=== PATIENT | male | born 1965 | race Caucasian/White ===

== ENCOUNTER 2016-07-12 04:54 | Emergency (ER) | payer MEDICARE, MEDICAID ==
[~2016-07-12] VITALS: Ht 180.3 cm; Wt 93.0 kg
[2016-07-12 04:54] VITALS: Ht 180.3 cm; Wt 93.0 kg
[~2016-07-12 04:54] MED LIST: CEPH-583 PO; PARO20TA43 PO
--- OUTSIDE RECORDS SUMMARY | 2016-07-12 05:05 | XMS REPORT | Continuity of Care Document ---
Author Author [facility] Organization [facility] Address Unknown Phone Unavailable Support Name Relationship Address Phone NAHUM CARDONA APRN Caregiver [address] [place] [address] Unavailable JAC ALLENK Sai BENITEZ Caregiver [address] [place] [place] [address] Unavailable ANDREAS GRAHAM Next Of Kin Unknown [phone] Insurance Providers Guarantor Renae Drummond [place] [address] Email DENIED 16 Payer [facility] State Plan Policy Number [id number] Subscriber's Name Renae Drummond Relationship 18 Self Effective Date 16 Expiration Date 16 Payer Medicare Policy Number [id number] Subscriber's Name Renae Drummond Relationship 18 Self Chief Complaint and Reason for Visit Chief Complaint Suicide Ideation/Attempt Reason for Visit [id number] Problems Active Problems Medical Problem Onset Date Status Sprain of right ankle Unknown Acute Past Problems Medical Problem Onset Date Suicidal thoughts Unknown UTI (urinary tract infection) Unknown Medications Current Home Medications Medication Dose Units Route Directions Days Qty Instructions Start Date Cephalexin (Keflex) 500 Mg Capsule 1 Cap Oral Three Times A Day 10 Days 30 Capsule 05/18/16 Paroxetine Hcl (Paxil) 20 Mg Tablet 20 Mg Oral Bedtime 06/02/15 Social History Social History Problem Response Recorded Date/Time Onset Date Status Chewing Tobacco Status No 05/18/2016 1:24pm Not Applicable Not Applicable Hx Substance Use No 05/18/2016 1:24pm Not Applicable Not Applicable Hx Alcohol Use Y RECENTLY DRINKING HEAVILY/LAST FEW DAYS 05/18/2016 1:24pm Not Applicable Not Applicable Query Response Start Date Stop Date Smoking Status Current every day smoker Hospital Discharge Instructions No hospital discharge instructions. Plan of Care Discharge Date 05/18/16 4:30pm Disposition 66 TO [facility] Condition at Discharge Improved Instructions/Education Provided Suicide Prevention for Adults (ED) Prescriptions See Medication Section Referrals NAHUM CARDONA APRN Address: [address] [place] [address] [phone] [email or web address] Order Date: 1 Day Care Plan and Goals Physician Care Plan Problem: Suicidal Thoughts, UTI Goal: Follow up with primary care provider Instructions: Take medications and follow care plan as discussed/written Functional Status No functional status results. Allergies, Adverse Reactions, Alerts Allergen Type Severity Reaction Status Last Updated adhesive tape Allergy Unknown RED RASH Active 05/18/16 Ketorolac Allergy Unknown Active 05/18/16 Quetiapine Allergy Unknown Active 05/18/16 Immunizations Query Response on File Recorded Date/Time Tdap Vaccine Hx UNKNOWN 06/02/15 3:24pm Vital Signs Acute Vital Signs Vital Response Date/Time Temperature (Fahrenheit) 97.0 deg F (96.8 - 99.1) 05/18/2016 4:30pm Temperature (Calculated Celsius) 36.76446 degrees C (36.0 - 37.3) 05/18/2016 4:30pm Pulse Rate (adult) 78 bpm (60 - 100) 05/18/2016 4:30pm Respiratory Rate 16 breaths/min (10 - 20) 05/18/2016 4:30pm O2 Sat by Pulse Oximetry 97 % (90 - 100) 05/18/2016 4:30pm Blood Pressure 142/90 mm Hg 05/18/2016 4:30pm Height (Feet) 5 feet 05/18/2016 12:40pm Height (Inches) 11.00 inches 05/18/2016 12:40pm Weight (Kilograms) 82.200 kg 05/18/2016 12:40pm Body Mass Index (BMI) 25.0 05/18/2016 12:40pm Results Laboratory Results Test Name Result Units Flags Reference Collection Date/Time Result Date/ Time Comments White Blood Count 6.9 T/MM3 4.5-11.0 05/18/2016 1:25pm 05/18/2016 1: 55pm Red Blood Count 4.10 M/MM3 L 4.50-5.90 05/18/2016 1:25pm 05/18/2016 1: 55pm Hemoglobin 12.4 GM/DL L 13.5-17.5 05/18/2016 1:25pm 05/18/2016 1:55pm Hematocrit 37.1 % L 41-53 05/18/2016 1:2505/18/2016 1:55pm Mean Corpuscular Volume 90.5 UM3 80-100 05/18/2016 1:05/18/2016 1: 55pm Mean Corpuscular Hemoglobin 30.2 UUG 26-34 05/18/2016 1:2016 1:55pm Mean Corpuscular Hemoglobin Concent 33.4 GM/DL 31-37 05/18/2016 1:05/18/2016 1:55pm RDW Standard Deviation 52.5 FL H 36.9-50.2 05/18/2016 1:05/18/2016 1:55pm Platelet Count 130 T/MM3 130-400 05/18/2016 1:05/18/2016 1:55pm Mean Platelet Volume 12.2 UM3 9.4-12.4 05/18/2016 1:05/18/2016 1: 55pm Neutrophils (%) (Auto) 65.2 % 33-66 05/18/2016 1:05/18/2016 1: 55pm Lymphocytes (%) (Auto) 23.7 % 23-45 05/18/2016 1:05/18/2016 1: 55pm Monocytes (%) (Auto) 9.1 % H 0-9.0 05/18/2016 1:05/18/2016 1:55pm Eosinophils (%) (Auto) 1.3 % 0-4 05/18/2016 1:05/18/2016 1:55pm Basophils (%) (Auto) 0.6 % 0-2 05/18/2016 1:05/18/2016 1:55pm Immature Granulocyte % (Auto) 0.1 % 0.0-0.5 05/18/2016 1:2016 1:55pm Absolute Neutrophils (auto) 4.5 T/MM3 1.8-7.7 05/18/2016 1:2016 1:55pm Absolute Lymphocytes (auto) 1.6 T/MM3 1-4.8 05/18/2016 1:2016 1:55pm Absolute Monocytes (auto) 0.6 T/MM3 0-0.8 05/18/2016 1:05/18/2016 1:55pm Absolute Eosinophils (auto) 0.1 T/MM3 0-0.5 05/18/2016 1:25pm 2016 1:55pm Absolute Basophils (auto) 0.0 T/MM3 0-0.2 05/18/2016 1:25pm 05/18/2016 1:55pm Absolute Immature Granulocyte (auto 0.01 T/MM3 0.00-0.03 05/18/2016 1: 25pm 05/18/2016 1:55pm Icterus Index < 2 0-7 05/18/2016 1:2505/18/2016 2:31pm Chemistry Specimen Hemolysis < 15 0-25 05/18/2016 1:2505/18/2016 2 :31pm 0-25: Specimen Exhibited No Hemolysis. Turbidity < 20 0-20 05/18/2016 1:05/18/2016 2:31pm Sodium Level 142 MEQ/L 134-144 05/18/2016 1:05/18/2016 2:31pm Potassium Level 4.1 MEQ/L 3.6-5 05/18/2016 1:05/18/2016 2:31pm Chloride Level 107 MEQ/L 98-107 05/18/2016 1:05/18/2016 2:31pm Carbon Dioxide Level 24 MEQ/L 22-30 05/18/2016 1:05/18/2016 2: 31pm Anion Gap 11 MEQ/L 5-15 05/18/2016 1:05/18/2016 2:31pm Blood Urea Nitrogen 11.0 MG/DL 9-20 05/18/2016 1:05/18/2016 2: 31pm Creatinine 0.6 MG/DL L 0.8-1.5 05/18/2016 1:05/18/2016 2:31pm BUN/Creatinine Ratio 18 RATIO 6-26 05/18/2016 1:05/18/2016 2:31pm Glomerular Filtration Rate Calc 143 05/18/2016 1:05/18/2016 2: 31pm Glucose Level 77 MG/DL 75-110 05/18/2016 1:05/18/2016 2:31pm Calculated Osmolality 271 MOSM/KG 261-280 05/18/2016 1:05/18/2016 2:31pm Calcium Level 8.8 MG/DL 8.4-10.2 05/18/2016 1:05/18/2016 2:31pm Total Bilirubin 1.40 MG/DL H 0.20-1.30 05/18/2016 1:05/18/2016 2: 31pm Alkaline Phosphatase 77 U/L 38-126 05/18/2016 1:05/18/2016 2:31pm Total Protein 7.0 G/DL 6.3-8.2 05/18/2016 1:05/18/2016 2:31pm Albumin 3.5 G/DL 3.5-5.0 05/18/2016 1:05/18/2016 2:31pm Globulin 3.5 G/DL 2.4-3.6 05/18/2016 1:05/18/2016 2:31pm Albumin/Globulin Ratio 1.0 RATIO L 1.1-2.2 05/18/2016 1:05/18/2016 2:31pm Aspartate Amino Transf (AST/SGOT) 157 U/L H 17-59 05/18/2016 1:10/2016 2:31pm Alanine Aminotransferase (ALT/SGPT) 81 U/L H 21-72 05/18/2016 1:10/2016 2:31pm Acetaminophen Level < 10 UG/ML L 10-30 05/18/2016 1:05/18/2016 2: 31pm TOXIC <4 HR POST INGESTION: >150 MG/L; TOXIC <12 HR POST INGESTION: >50 MG/L Salicylates Level < 1.0 MG/DL L 2-20 05/18/2016 1:05/18/2016 2: 31pm Alcohol, Quantitative 108 MG/DL <10 05/18/2016 1:05/18/2016 2: 31pm Thyroid Stimulating Hormone (TSH) 0.99 MIU/L 0.47-4.68 05/18/2016 1: 05/18/2016 3:39pm Urine Collection Type CLEANCATCH-MIDSTREAM 05/18/2016 1:30pm 2016 1:55pm Urine Color YELLOW YELLOW 05/18/2016 1:30pm 05/18/2016 1:55pm Urine Turbidity CLEAR CLEAR 05/18/2016 1:30pm 05/18/2016 1:55pm Urine Specific Bicknell >=1.030 H 1.015-1.025 05/18/2016 1:30pm 2016 1:55pm Urine pH 5.5 5.0-8.0 05/18/2016 1:30pm 05/18/2016 1:55pm Urine Leukocyte Esterase NEGATIVE NEGATIVE 05/18/2016 1:30pm 2016 1:55pm Urine Nitrite POSITIVE A NEGATIVE 05/18/2016 1:30pm 05/18/2016 1:55pm Urine Protein 1+ A NEGATIVE 05/18/2016 1:30pm 05/18/2016 1:55pm Urine Glucose (UA) NEGATIVE NEGATIVE 05/18/2016 1:30pm 05/18/2016 1: 55pm Urine Ketones TRACE A NEGATIVE 05/18/2016 1:30pm 05/18/2016 1:55pm Urine Urobilinogen 2.0 EU/DL NORMAL 05/18/2016 1:30pm 05/18/2016 1: 55pm Urine Bilirubin 2+ A NEGATIVE 05/18/2016 1:30pm 05/18/2016 1:55pm Urine Blood NEGATIVE NEGATIVE 05/18/2016 1:30pm 05/18/2016 1:55pm Urine WBC NONE SEEN /HPF 0-5 05/18/2016 1:30pm 05/18/2016 2:03pm Urine RBC NONE SEEN /HPF 0-3 05/18/2016 1:30pm 05/18/2016 2:03pm Urine Squamous Epithelial Cells 0-5 05/18/2016 1:30pm 05/18/2016 2: 03pm Urine Bacteria TRACE H NEGATIVE 05/18/2016 1:30pm 05/18/2016 2:03pm Urine Mucus PRESENT 05/18/2016 1:30pm 05/18/2016 2:03pm Urine Culture Indicated CULT REFLEXED &SETUP 05/18/2016 1:30pm 10/2016 2:03pm Microbiology Results Procedure Source Organism/Result Collection Date/Time Result Date/Time Result Status Urine Culture Urine, Clean Catch-Midstream CULTURE INITIATED - RESULTS PENDING 05/18/2016 2:03pm 05/18/2016 2:04pm Preliminary Name: RENAE DRUMMOND Unit #: [id number] : 1965 Sex: M Admit Date: Loc / Svc: ED Discharge Date: DIAGNOSTIC IMAGING REPORT Report #: [id number] [facility] JAMARI Deras Indication: ITS.REASON: Fall with right leg pain PROCEDURE: TIB-FIB RIGHT 2 VIEW: Encounter: Initial Comparison: None Findings: There is no acute fracture, dislocation or malalignment identified. Impression: No acute osseous abnormality. . Procedures No known history of procedures. Encounters Encounter Location Arrival/Admit Date Discharge/Depart Date Attending Provider Departed Emergency Room [facility] 05/18/16 12:36pm 05/18/16 4: 30pm MAURY ALLEN DO Recent Diagnosis
--- NOTE | 2016-07-12 05:14 | ERPDOC ---
Departure Disposition Decision Date: Jul 12, 2016 Disposition Decision Time: 08:49 (TAMMY EL DO) Disposition: 01 DISCHARGED HOME, SELF-CARE Impression Impression (BECK FERGUSON MD) Impression: Primary Impression: Back pain Back pain location: low back pain Chronicity: acute Back pain laterality: right Sciatica presence: with sciatica Sciatica laterality: sciatica of right side Qualified Codes: M54.41 - Lumbago with sciatica, right side Severity: Moderate (TAMMY EL DO) Condition: Improved Seen By: Physician only (TAMMY EL DO) Referrals: NAHUM CARDONA APRN (Family) 1 Day Patient Instructions: Acute Low Back Pain (ED), Low Back Strain (ED), Lower Back Exercises (ED), Sciatica (ED) Problems/Meds/Labs Reviewed?: Yes Medications reviewed and manag: Yes (TAMMY EL DO) Follow up care ordered?: Yes Mental Status: Alert, Oriented (TAMMY EL DO) Scripts Methylprednisolone (Medrol) 4 Mg Tab.ds.pk 4 MG PO DIRECTED for spasm, #15 0 Refills Prov: TAMMY EL DO 07/12/16 Cyclobenzaprine HCl (Cyclobenzaprine HCl) 10 Mg Tablet 1 TAB PO TID for SPASMS, #15 TAB 0 Refills Prov: TAMMY EL DO 07/12/16 Ibuprofen (Ibuprofen) 800 Mg Tablet 1 TAB PO Q8H Y for PAIN, #30 TAB 0 Refills Prov: TAMMY EL DO 07/12/16 HPI - Back Pain General Chief Complaint: Low Back Pain or Injury Stated Complaint: BACK,RIGHT LEG PAIN Time Seen by Provider: 05:04 Source: patient Exam Limitations: no limitations (BECK FERGUSON MD) Time Seen by Provider: 10:54 (TAMMY EL DO) HPI - Back Pain Initial Comments At 8:30 PM last night, the patient began having anterior right thigh pain with a severe cramping sensation to the right quadricep. Patient then began having severe right lumbar back pain, coming in waves and spasms. Patient states that the pain becomes so severe that he gets short of breath and is nauseated. Patient has never had pain this severe before, but does have chronic back pain. Patient is currently in [facility] for alcohol rehabilitation. 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 Patient was given 50 g of fentanyl and 10 mg ketamine in route for severe back pain. Occurred At: home Onset/Timing: Rapid Duration: 6-12 hrs Severity/Quality: severe Location: lumbar spine Associated Sypmtoms: muscle spasms, DENIES: fever, loss of bladder control, loss of bowel control, lower back pain, numbness in legs/feet, sensory/motor loss, tingling in legs/feet, weakness Hx of Similar Symptoms: Yes (BECK FERGUSON MD) Allergies: Coded Allergies: adhesive tape (Verified Allergy, Unknown, RED RASH, 07/12/16) ketorolac (Verified Allergy, Unknown, 07/12/16) quetiapine (Verified Allergy, Unknown, 07/12/16) Past History Past Medical History Musculoskeletal: back pain Psychological: alcohol abuse, drug abuse (BECK FERGUSON MD) Surgical History Denies Surgeries (BECK FERGUSON MD) Social History Smoking Status: Never smoker Does patient use chewing tobac: No Second Hand Exposure: No Substance Use Type: does not use Alcohol Intake: daily (BECK FERGUSON MD) Record Review Pertinent history updated: Yes (BECK FERGUSON MD) Review of Systems Constitutional Constitutional: DENIES: appetite decrease, appetite increase, chills, dizziness , fever, weakness (BECK FERGUSON MD) ENMT Ears: DENIES: pain Hearing: DENIES: hearing loss, tinnitus Balance: DENIES: vertigo Mouth/Throat: DENIES: change in swallowing, change in voice, hoarsness, painful swallowing, sore throat (BECK FERGUSON MD) Cardiovascular Cardiac: DENIES: chest pain, dyspnea on exertion Rhythm/Rate: DENIES: irregular beat, palpitations, tachycardia Vascular: DENIES: pedal edema (BECK FERGUSON MD) Pulmonary Respiratory: DENIES: cough, dyspnea, pleuritic chest pain (BECK FERGUSON MD) GI Upper Abdomen: DENIES: dysphagia, heartburn/indigestion, nausea, pain, vomiting Lower Abdomen: DENIES: blood in stool, constipation, diarrhea, pain (BECK FERGUSON MD) General: DENIES: burning, dysuria, frequency, pain, urgency (BECK FERGUSON MD) Musculoskeletal General: cramps, pain, spasm, tenderness, DENIES: atrophy of muscles, gout, joint pain, joint swelling, weakness (BECK FERGUSON MD) Integumentary Skin: DENIES: rash, sores (BECK FERGUSON MD) Neurological General: DENIES: headache, numbness, tingling, vertigo, weakness (BECK FERGUSON MD) Psychiatric Psychiatric: DENIES: anxiety, depression, nervousness (BECK FERGUSON MD) Physical Exam General General Nourishment: well nourished, well developed, appears stated age General Body Habitus: disheveled (BECK FERGUSON MD) Vitals and Pain First Documented Vital Signs Date Time Temp Pulse Resp B/P Pulse Ox O2 Delivery O2 Flow Rate FiO2 07/12/16 04:54 97.4 109 24 176/99 97 Room Air (TAMMY EL DO) Vitals and Pain Weight: Kilograms: Height (feet): 5 Height (inches): 11.00 Triage Pain Scale: (BECK FERGUSON MD) RN VS reviewed by Provider: Yes (BECK FERGUSON MD) Normal Exams: Head: Normocephalic w/o trauma Eyes: Pupils are PERRLA w/ EOMI, No scleral icterus, irritation, or foreign bodies noted ENMT: No facial trauma, nasal exudates, pharyngeal erythema, or exudates are noted Neck: Full range of motion, without adenopathy, JVD, bruits or thyromegaly Chest/Resp: Clear all caceres, with good airflow, and symmetry bilaterally CV: Regular rate and rhythm, without murmur or gallop, Pulses 2+ all extremities, capillary refill, <2 seconds all ext., no pedal edema noted Abdomen: Bowel sounds positive, soft, non-tender, non-distended, no hepatosplenomegaly, masses or bruits noted Lymphatic: No lymphadenopathy, or lymphedema noted Integumentary: No rashes, hives, or bruising noted, hair and nails, without abnormality Neurologic: Patient is alert, and oriented, cranial nerves, motor/sensory/ cerebellar, exams w/o gross deficits, to observation Psychiatric: Patient exhibits, appropriate attention, emotion and affect (BECK FERGUSON MD) Musculoskeletal (brief) Musculoskeletal Brief: FOUND: spasm, tenderness, NOT FOUND: deformity, loss of motion Comments She has significant right lumbar spasms with reproducible spasticity on palpation, patient also has significant tenderness and spasms to the right quadricep. (BECK FERGUSON MD) Progress Results/Orders Orders Procedure Category Date Status Time Iv Lock (Ed Only) EDM 07/12/16 Transmitted 05:04 Cbc W/Auto LAB 07/12/16 Complete Diff-Reflex Manual Cmp - Comprehensive LAB 07/12/16 Complete Metabolic Drug Screen LAB 07/12/16 Complete Urine-Test At [facility] 05:04 Ethanol LAB 07/12/16 Complete Ketorolac (Toradol) PHA 07/12/16 Complete 05:15 Metoclopramide PHA 07/12/16 Complete (Reglan Inj) 05:15 Orphenadrine (Norflex) PHA 07/12/16 Complete 05:15 Normal Saline (Normal PHA 07/12/16 Complete Saline Iv) 05:15 Fentanyl (Fentanyl) PHA 07/12/16 Complete 05:30 Ck - Cpk LAB 07/12/16 Complete Hydromorphone PHA 07/12/16 Complete (Dilaudid) 07:15 Ct Lumbar Spine W/O CT 07/12/16 Resulted Contrast (NIKKO,TAMMY DO) Lab Results Laboratory Tests Test 07/12/16 05:27 07/12/16 05:44 07/12/16 06:27 White Blood Count 9.3T/MM3 Red Blood Count 4.53M/MM3 Hemoglobin 13.9GM/DL Hematocrit 41.0% Mean Corpuscular Volume 90.5UM3 Mean Corpuscular Hemoglobin 30.7UUG Mean Corpuscular Hemoglobin Concent 33.9GM/DL RDW Standard Deviation 52.4FL Platelet Count 97T/MM3 Mean Platelet Volume 12.9UM3 Immature Granulocyte % (Auto) 0.2% Neutrophils (%) (Auto) 46.4% Lymphocytes (%) (Auto) 36.6% Monocytes (%) (Auto) 9.5% Eosinophils (%) (Auto) 6.4% Basophils (%) (Auto) 0.9% Absolute Immature Granulocyte (auto 0.02T/MM3 Absolute Neutrophils (auto) 4.3T/MM3 Absolute Lymphocytes (auto) 3.4T/MM3 Absolute Monocytes (auto) 0.9T/MM3 Absolute Eosinophils (auto) 0.6T/MM3 Absolute Basophils (auto) 0.1T/MM3 Turbidity < 20 Sodium Level 143MEQ/L Potassium Level 4.0MEQ/L Chloride Level 107MEQ/L Carbon Dioxide Level 22MEQ/L Anion Gap 14MEQ/L Blood Urea Nitrogen 15.0MG/DL Creatinine 0.8MG/DL Glomerular Filtration Rate Calc 103 BUN/Creatinine Ratio 19RATIO Glucose Level 99MG/DL Calculated Osmolality 276MOSM/KG Calcium Level 9.8MG/DL Total Bilirubin 1.30MG/DL Icterus Index < 2 Aspartate Amino Transf (AST/SGOT) 187U/L Alanine Aminotransferase (ALT/SGPT) 145U/L Alkaline Phosphatase 101U/L Total Creatine Kinase 120U/L Total Protein 8.1G/DL Albumin 3.9G/DL Globulin 4.2G/DL Albumin/Globulin Ratio 0.9RATIO Chemistry Specimen Hemolysis < 15 Alcohol, Quantitative <10MG/DL Urine Opiates Screen NegativeNG/ML Urine Oxycodone Screen NegativeNG/ML Urine Methadone Screen NegativeNG/ML Urine Propoxyphene Screen NegativeNG/ML Urine Barbiturates Screen NegativeNG/ML Urine Tricyclic Antidepressants NegativeNG/ML Urine Phencyclidine Screen NegativeNG/ML Urine Amphetamines Screen NegativeNG/ML Urine Methamphetamines Screen NegativeNG/ML Urine Benzodiazepines Screen NegativeNG/ML Urine Cocaine Screen NegativeNG/ML Urine Cannabinoids Screen NegativeNG/ML Lab Scanned Report REFERENCE [id number] (TAMMY EL DO) Medications Current ED Medications Ketorolac Tromethamine (Toradol) 30 mg O ONCE IV ; Start 07/12/16 at 05:15; Stop 07/12/16 at 05:16; Status DC Metoclopramide HCl (REGLAN Inj) 10 mg O ONCE IV Last administered on 07/12/16 05:45; Start 07/12/16 at 05:15; Stop 07/12/16 at 05:16; Status DC Orphenadrine Citrate 60 mg 60 mg O ONCE IV Last administered on 07/12/16 05:48 ; Start 07/12/16 at 05:15; Stop 07/12/16 at 05:16; Status DC Sodium Chloride (Normal Saline IV) 1,000 ml @ 0 mls/hr Q0M ONCE IV Last administered on 07/12/16 05:15; Start 07/12/16 at 05:15; Stop 07/12/16 at 05:16; Status DC Fentanyl (Fentanyl) 100 mcg O ONCE IV Last administered on 07/12/16 06:00; Start 07/12/16 at 05:30; Stop 07/12/16 at 05:31; Status DC Hydromorphone HCl (Dilaudid) 1 mg O ONCE IV Last administered on 07/12/16 07: 16; Start 07/12/16 at 07:15; Stop 07/12/16 at 07:16; Status DC (TAMMY EL DO) Progress Progress Pt goes in and out of severe spasms of pain and is near hysterical when the pains hit. Pt became very aggressive with nursing staff when examiner was not in the room. Pt warned sternly that we will attend to his needs as soon as possible and to remain as calm as he could without aggression toward nursing staff. Pt given Toradol, Norflex, Reglan, and 1LNS - cbc - cmp - uds - etoh - (BECK FERGUSON MD) Progress Patient is feeling better following medications, wanting to go home. Patient denies changes in Bladder or Bowel Movements. No Saddle anesthesia Patient is unsure if he is allergic to Ketorolac. States he can take Motrin without issue or allergy Patient ambulatory in the ER without difficulty (TAMMY EL DO) CT CT : Reason for Exam: Back Pain CT: Other (L-Spine, No COntrast) Interpretation: Abnormal, Reviewed Written Report (DDD and Facet Disease, greates R L4-L5) (TAMMY EL DO) BECK FERGUSON MD Jul 12, 2016 05:14 TAMMY EL DO Jul 12, 2016 08:51
[2016-07-12] MEDS ORDERED: METOCLOPRAMIDE 10mg/2ml INJECTION IV ONE (05:15)
[2016-07-12] MEDS ORDERED: KETOROLAC 30mg/ml INJECTION IV ONE (05:15)
[2016-07-12] MEDS ORDERED: ORPHENADRINE 60mg/2ml INJECTION IV ONE (05:15)
[2016-07-12] MEDS ORDERED: NORMAL SALINE 1,000 ML IV ONE (05:15)
--- NOTE | 2016-07-12 05:20 | NUR ---
PT BEHAVIOR PT CONTINUES TO WRITHE IN PAIN, IS RESTLESS, AND BECOMING INCREASINGLY AGITATED. PT DEMANDING SOMETHING TO DRINK AND PAIN MEDICATION - RN TOLD PT DR WOULD BE ASKED FOR ORDERS FOR BOTH. ASKED PT IF HE'D LIKE A WARM BLANKET FOR HIS CRAMPING LEG, HE AGRESSIVELY DEMANDED WATER AND PAIN MEDICATIONS. THIS RN STEPPED OUT OF ROOM, NOTIFIED DR OF PT REQUESTS, AND GOT WATER FOR PT. WHEN RETURNED TO PT ROOM WITH WATER, WATER GIVEN TO PT, AND HEAD OF BED SLIGHTLY RAISED TO PREVENT PT FROM CHOKING. WHEN HOB ELEVATED 'JUST A LITTLE BIT' PER PT REQUEST', PT YELLED OUT IN PAIN, AND BECAME VERBALLY AGGRESSIVE AND LUNGED TOWARDS THIS RN WITH UPPER BODY. DR NOTIFIED OF PT BEHAVIOR AND SITUATION. DR TO BEDSIDE.
[2016-07-12] MEDS ORDERED: FENTANYL 100mcg/2ml INJECTION IV ONE (05:30)
[2016-07-12 05:51] LABS: BASOPHILS # (AUTO) 0.1 T/MM3 (0-0.2); BASOPHILS % (AUTO) 0.9 % (0-2); EOSINOPHILS # (AUTO) 0.6 T/MM3 (0-0.5); EOSINOPHILS % (AUTO) 6.4 % (0-4); HGB - HEMOGLOBIN 13.9 GM/DL (13.5-17.5); IMMATURE GRANULOCYTE # (AUTO) 0.02 T/MM3 (0.00-0.03); IMMATURE GRANULOCYTE % (AUTO) 0.2 % (0.0-0.5); LYMPHOCYTES # (AUTO) 3.4 T/MM3 (1-4.8); LYMPHOCYTES % (AUTO) 36.6 % (23-45); MEAN CORPUSCULAR HGB 30.7 UUG (26-34); MEAN CORPUSCULAR HGB CONC(MCHC 33.9 GM/DL (31-37); MEAN CORPUSCULAR VOLUME 90.5 UM3 (80-100); MEAN PLATELET VOLUME 12.9 UM3 (9.4-12.4); MONOCYTES # (AUTO) 0.9 T/MM3 (0-0.8); MONOCYTES % (AUTO) 9.5 % (0-9.0); NEUTROPHILS #(AUTO)-ABSOLUTE 4.3 T/MM3 (1.8-7.7); NEUTROPHILS % (AUTO) 46.4 % (33-66); RED BLOOD COUNT 4.53 M/MM3 (4.50-5.90); WBC - WHITE BLOOD COUNT 9.3 T/MM3 (4.5-11.0)
[2016-07-12 06:01] LABS: ALBUMIN 3.9 G/DL (3.5-5.0); ALBUMIN/GLOBULIN RATIO 0.9 RATIO (1.1-2.2); ALKALINE PHOSPHATASE 101 U/L (38-126); ALT (SGPT) 145 U/L (21-72); ANION GAP 14 MEQ/L (5-15); AST (SGOT) 187 U/L (17-59); BUN/CREATININE RATIO 19 RATIO (6-26); CALCIUM 9.8 MG/DL (8.4-10.2); CHLORIDE 107 MEQ/L (98-107); CO2 - CARBON DIOXIDE 22 MEQ/L (22-30); CREATININE 0.8 MG/DL (0.8-1.5); ETHANOL <10 MG/DL (<10); GLOMERULAR FILTRATION RATE 103; GLUCOSE 99 MG/DL (75-110); SODIUM 143 MEQ/L (134-144); TOTAL PROTEIN 8.1 G/DL (6.3-8.2)
--- NOTE | 2016-07-12 06:08 | NUR ---
TORADOL PT IS ALLERGIC TO TORADOL, CAUSES HIVES. MED WASTED AND PROVIDER NOTIFIED.
[2016-07-12 06:16] LABS: AMPHETAMINE SCREEN,URINE NEGATIVE; BARBITURATE SCREEN,URINE NEGATIVE; BENZODIAZEPINES SCREEN,URINE NEGATIVE; CANNABINOID SCREEN,URINE NEGATIVE; COCAINE SCREEN,URINE NEGATIVE; METHADONE SCREEN, URINE NEGATIVE; METHAMPHETAMINE SCREEN, URINE NEGATIVE; OPIATE SCREEN,URINE NEGATIVE; PHENCYCLIDINE SCREEN,URINE NEGATIVE; TRICYCLIC ANTIDEPRESSANT,URINE NEGATIVE
[2016-07-12] MEDS ORDERED: LISI10TA7 PO (06:37)
[2016-07-12] MEDS ORDERED: HYDROMORPHONE 2mg/ml INJECTION IV ONE (07:15)
--- NOTE | 2016-07-12 07:54 | NUR ---
PROVIDER DR. EL IN ROOM WITH PT.
--- NOTE | 2016-07-12 08:41 | DI ---
Indication: ITS.REASON: Severe back pain, reports prior surgeries PROCEDURE: CT LUMBAR SPINE W/O CONTRAST: Encounter: Initial Comparison: None Technique: Axial noncontrast CT imaging of the lumbar spine was performed with coronal and sagittal two-dimensional reformats. Automated Exposure Control and Iterative Reconstruction dose reducing techniques were utilized. FINDINGS: The alignment of the lumbar spine is normal for the patient's age. No fractures or traumatic subluxation of the lumbar spine is evident. Moderate disk space narrowing at L5-S1 with mild bilateral bony foraminal stenosis. Right central and foraminal disk protrusion at L4-L5 causing at least mild central canal narrowing with effacement of the right lateral recess and moderate right neural foraminal stenosis. Mild left foraminal narrowing. Mild central disk bulge at L3-L4 with mild central canal narrowing. No significant neural foraminal stenosis. No significant disk herniation or central canal narrowing at L2-L3. No neural foraminal stenosis. The L1-L2 level appears normal. The paraspinal soft tissues and spinal canal are otherwise unremarkable in appearance. IMPRESSION: 1. No evidence for acute traumatic injury of the lumbar spine. 2. Degenerative disk and facet disease of the lower lumbar spine, greatest on the right at L4-L5. .
[2016-07-12] MEDS ORDERED: METH4TAB3 PO (08:54)
[2016-07-12] MEDS ORDERED: IBUP-1547 PO (08:54)
[2016-07-12] MEDS ORDERED: CYCL-375 PO (08:54)
[2016-07-12 09:05] VITALS: BP 148/66; PULSE 78; RESP 16; TEMP 98; O2SAT 100
== END 2016-07-12 09:05 | disposition home or self-care (01) ==
LOC: ED 04:54
DX: M54.41 Lumbago with sciatica, right side (principal); Z79.899 Other long term (current) drug therapy
CPT/HCPCS: 72131; 80053; 80306; 80307; 82550; 85025; 96361; 96374; 96375; 99284; J1170; J2360; J2765; J3010; J7030

== ENCOUNTER → 2016-07-19 | Outpatient (CLI) | payer MEDICARE, MEDICAID ==
[~2016-07-19] MED LIST changes: -CEPH-583 PO; +CYCL-375 PO; +IBUP-1547 PO; +LISI10TA7 PO; +METH4TAB3 PO
--- NOTE | 2016-07-19 13:50 | DI ---
Indication: ITS.REASON: M54.31 Sciatica, right side low-back and right leg pain PROCEDURE: MRI LUMBAR SPINE W/O CONTRAST: Encounter: Initial Comparison: CT lumbar spine dated July 12, 2016 Technique: Multiplanar multisequence MR imaging of the lumbar spine was performed without contrast. Findings: Alignment lumbar spine is stable from the recent comparison. No acute fracture or subluxation seen. Bone marrow signal intensity is normal. Conus medullaris terminates normally at L1. Possible hyperdense cyst in the lower pole left kidney. Segmental analysis: L1-L2: Normal L2-L3: Normal L3-L4: Central disk protrusion resulting in mild central canal narrowing and narrowing of the lateral recesses. No true neural foraminal stenosis however. Small high intensity zone present. L4-L5: Central disk bulge without significant central canal stenosis. Degenerative facet hypertrophy and a right lateral osteophyte contributing to severe right neural foraminal stenosis and impingement on the right L4 nerve root. Moderate left neural foraminal stenosis. L5-S1: Small central bulge without central canal stenosis. Mild degenerative facet disease contributing to mild bilateral neural foraminal narrowing. Impression: Right-sided nerve root impingement at L4-L5. .
== END ==
LOC: IMA 11:53
PROVIDERS: ATTEND Registered Nurse
DX: M54.31 Sciatica, right side (principal); G54.8 Other nerve root and plexus disorders

== ENCOUNTER 2017-02-12 08:09 | Inpatient (IN) ==
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
[2017-02-12] MEDS ORDERED: FentaNYL 100 MCG/2 ML INJECTION IVP ONE ×2 (08:29→11:07)
--- OUTSIDE RECORDS SUMMARY | 2017-02-12 09:46 | External Medical Summary | Continuity Of Care Document ---
:1965 Author Organization [facility] Address [address] [place] [address] Phone Care Team Providers Name Role Phone HUSSEIN PRICE MD Unavailable Unavailable RAEGAN BELL DO Consulting Provider Results Lab Results Visit/Account #[id number] (November 23, 2012 3:11am - November 23, 2012 7:14am) Test Result Reported Date/Time COMPLETE BLOOD COUNT WHITE BLOOD COUNT(4.0-11.0 10E3/UL) 12.6 10E3/UL November 23, 2012 3:31am RED BLOOD COUNT(4.40-5.90 10E6/UL) 4.51 10E6/UL November 23, 2012 3:31am HEMOGLOBIN(13.0-18.0 G/DL) 13.2 G/DL November 23, 2012 3:31am HEMATOCRIT(39.0-54.0 %) 40.5 % November 23, 2012 3:31am MEAN CORPUSCULAR VOLUME(80.0-100.0 FL) 89.8 FL November 23, 2012 3:31am MEAN CORPUSCULAR HEMOGLOBIN(27.0-34.0 PG) 29.3 PG November 23, 2012 3:31am MEAN CORPUSCULAR HGB CONC(33.0-37.0 G/DL) 32.6 G/DL November 23, 2012 3:31am RED CELL DISTRIBUTION WIDTH(11.0-15.0 %) 17.2 % November 23, 2012 3:31am 777-3: PLATELET COUNT(130-400 10E3/UL) 165 10E3/UL November 23, 2012 3:31am MEAN PLATELET VOLUME(7.4-11.0 FL) 11.6 FL November 23, 2012 3:31am NUCLEATED RBCS (AUTO)(0-0 %) 0 % November 23, 2012 3:31am COMPLETE METABOLIC PROFILE GLUCOSE(70-110 MG/DL) 114 MG/DL November 23, 2012 3:46am BLOOD UREA NITROGEN(6-20 MG/DL) 13 MG/DL November 23, 2012 3:46am CREATININE(0.50-1.20 MG/DL) 0.86 MG/DL November 23, 2012 3:46am EST GLOMERULAR FILTRATION RATE(Greater than or equal to 60) Greater than or equal to 60 November 23, 2012 3:46am Result Comments: If the patient is of -[place] descent/extraction multiply the eGFR value by 1.212 to obtain the actual eGFR. >=60 mg/dL Normal 30-59 mg/dL Moderate Kidney Disease 15-29 mg/dL Severe Kidney Disease <15 mg/dL Kidney Failure BUN CREATININE RATIO(10.0-20.0 RATIO) 15.1 RATIO November 23, 2012 3:46am SODIUM(135-145 MMOL/L) 136 MMOL/L November 23, 2012 3:46am POTASSIUM(3.6-5.0 MMOL/L) 4.0 MMOL/L November 23, 2012 3:46am CHLORIDE(101-111 MMOL/L) 112 MMOL/L November 23, 2012 3:46am CO2(21-31 MMOL/L) 18.0 MMOL/L November 23, 2012 3:46am ANION GAP(8-18) 10 November 23, 2012 3:46am OSMO CALCULATED(270.0-290.0) 272.9 November 23, 2012 3:46am CALCIUM(8.5-10.5 MG/DL) 8.4 MG/DL November 23, 2012 3:46am BILIRUBIN,TOTAL(0.1-1.2 MG/DL) 0.9 MG/DL November 23, 2012 3:46am ALKALINE PHOSPHATASE(42-121 U/L) 93 U/L November 23, 2012 3:46am ASPARTATE AMINO TRANSFERASE(10-42 U/L) 169 U/L November 23, 2012 3:46am ALANINE AMINOTRANSFERASE(10-60 U/L) 109 U/L November 23, 2012 3:46am TOTAL PROTEIN(6.4-8.2 G/DL) 8.5 G/DL November 23, 2012 3:46am ALBUMIN(3.5-5.5 G/DL) 4.1 G/DL November 23, 2012 3:46am GLOBULIN(2.4-3.6) 4.4 November 23, 2012 3:46am ALBUMIN/GLOBULIN RATIO(0.9-1.8 RATIO) 0.9 RATIO November 23, 2012 3:46am ALCOHOL ALCOHOL(0.0-5.0 MG/DL) 316.6 MG/DL November 23, 2012 3:46am 227.7 MG/DL November 23, 2012 6:52am DRUGS OF ABUSE, URINE OPIATE SCREEN,URINE(NEGATIVE) NEGATIVE November 23, 2012 3:41am BARBITURATES SCREEN, URINE(NEGATIVE) NEGATIVE November 23, 2012 3:41am AMPHETAMINE SCREEN,URINE(NEGATIVE) NEGATIVE November 23, 2012 3:41am BENZODIAZEPINES SCREEN,URINE(NEGATIVE) NEGATIVE November 23, 2012 3:41am COCAINE SCREEN, URINE(NEGATIVE) NEGATIVE November 23, 2012 3:41am CANNABINOID SCREEN,URINE(NEGATIVE) NEGATIVE November 23, 2012 3:41am Allergies and Adverse Reactions Allergies and Adverse Reactions Patient Unit Number: [id number] Agent Type Reaction Severity Status Date KETOROLAC TROMETHAMINE Drug Allergy itching/swelling/soreness Unknown Active October 07, 2010 QUETIAPINE FUMARATE Drug Allergy RASH Unknown Active October 07, 2010 ADHESIVE TAPE *RETIRED-02/24/12 Drug Adverse Reaction LEAVES TINA ON LOCATION Unknown Active October 07, 2010 Problem List Problem List Patient Unit Number: [id number] Chronic Problems: Code/Condition Comments Documented Start Date Documented Resolved Date Moderate recurrent major depression February 07, 2012 Alcohol dependence February 07, 2012 Vital Signs Vital Signs Visit/Account #[id number] (November 23, 2012 3:11am - November 23, 2012 7:14am) Label First Result Last Result 8310-5: Body Temperature 98.4 degF November 23, 2012 3:10am 8310-5: Fahrenheit Body Temperature 97.9 [degF] November 23, 2012 7:16am 8480-6: BP Systolic 137/ mmHg November 23, 2012 3:10am 86/ mm[Hg] November 23, 2012 7:16am 8867-4: Heart Rate 106 /min November 23, 2012 3:10am 88 /min November 23, 2012 7: 16am 9279-1: Respiratory Rate 22 /min November 23, 2012 3:10am 20 /min November 23, 2012 7:16am Unmapped Query Mnemonic (RESP.SAT) Saturation 98 % November 23, 2012 3:10am 98 % November 23, 2012 3:10am Ordered Medications Ordered Medications Visit/Account #[id number] (November 23, 2012 3:11am - November 23, 2012 7:14am) Medication Dose Route Sig/Schedule Precondition/Indication Comments/ Instructions NDC IV Medication 1000 ML IV: INTRAVEN .Q1H (Rate: 1000 MLS/HR Duration: 1 HR) Rx Order Comments: Carriers: Order placed as verified: Carriers: Dose Warnings differ from repair order clerk NORMAL SALINE ( SODIUM CHLORIDE): [id number] NORMAL SALINE(SODIUM CHLORIDE) 1000 ML INJECTION IV Medication 1000 ML IV: INTRAVEN .Q1H (Rate: 1000 MLS/HR Duration: 1 HR) Rx Order Comments: Carriers: Order placed as verified: Carriers: Dose Warnings differ from repair order clerk NORMAL SALINE ( SODIUM CHLORIDE): [id number] NORMAL SALINE(SODIUM CHLORIDE) 1000 ML INJECTION History Of Encounters Encounters Visit/Account #[id number] (November 23, 2012 3:11am - November 23, 2012 7:14am) No reports exist, or have been identified for inclusion with this encounter.
--- OUTSIDE RECORDS SUMMARY | 2017-02-12 09:48 | External Medical Summary ---
:1965 Author Organization [employer] Care Team Providers Name Role Phone Kelin Pinedo Provider Role Unavailable Allergies No Known Allergies Problems Problem Type Condition Code Onset Dates Condition Status Problem Generalized anxiety disorder 300.02 Active Problem Other anxiety states 300.09 Active Problem Dysthymic disorder 300.4 Active Problem Chronic viral hepatitis C B18.2 Active Problem Bereavement, uncomplicated V62.82 Active Problem Other and unspecified alcohol 303.90 Active dependence, unspecified drunkenness Medications No Known Medications Results No Known Results Summary Purpose [employer] Submission
--- OUTSIDE RECORDS SUMMARY | 2017-02-12 09:48 | External Medical Summary ---
:1965 Author Organization [employer] Care Team Providers Name Role Phone Kelin Pinedo Provider Role Unavailable Allergies No Known Allergies Problems Problem Type Condition Code Onset Dates Condition Status Problem Dysthymic disorder 300.4 Active Problem Generalized anxiety disorder 300.02 Active Problem Alcohol dependence, uncomplicated F10.20 Active Problem Other and unspecified alcohol 303.90 Active dependence, unspecified drunkenness Problem Chronic viral hepatitis C B18.2 Active Problem Other anxiety states 300.09 Active Problem Bereavement, uncomplicated V62.82 Active Medications No Known Medications Results No Known Results Summary Purpose [employer] Submission
--- OUTSIDE RECORDS SUMMARY | 2017-02-12 09:48 | External Medical Summary ---
:1965 Author Organization [employer] Care Team Providers Name Role Phone Shahida Kelin Provider Role Unavailable Allergies, Adverse Reactions, Alerts Substance Reaction Event Type Seroquel rash Drug Allergy Ketorolac Tromethamine swelling Drug Allergy adhesive tape rash Non Drug Allergy Problems Problem Type Condition Code Onset Dates Condition Status Assessment Alcohol dependence, uncomplicated F10.20 Active Problem Chronic viral hepatitis C B18.2 Active Assessment Generalized anxiety disorder F41.1 Active Assessment Chronic viral hepatitis C B18.2 Active Problem Alcohol dependence, uncomplicated F10.20 Active Problem Dysthymic disorder 300.4 Active Problem Generalized anxiety disorder F41.1 Active Problem Bereavement, uncomplicated V62.82 Active Problem Other and unspecified alcohol 303.90 Active dependence, unspecified drunkenness Problem Generalized anxiety disorder 300.02 Active Problem Other anxiety states 300.09 Active Medications Medication Code Code Instructions Start End Date Status Dosage System Date BusPIRone HCl NDC 85359-64 15 MG Orally 1 tablet 03-01 Twice a day Paxil NDC 38086-32 20 MG Orally 1 tablet at 11-13 Once a day bedtime HydrOXYzine HCl NDC 93196-49 25 MG Orally 1 tablet as 61-01 Three times a needed day Doxepin HCl NDC 21946-68 50 MG Orally 1 capsule 77-07 Once a day at bedtime Procedures Procedure Coding System Code Date OFFICE VISIT, EST-LOW COMPLEXITY (15 MIN.) CPT-4 44828 October 23, 2015 [facility] visit Established Patient CPT-4 G0467 October 23, 2015 Vital Signs Date/Time: October 23, 2015 Temperature 97.8 F Height 72 in Weight 184 lbs Blood Pressure Diastolic 78 mm Hg Blood Pressure Systolic 128 mm Hg Cardiac Monitoring Heart Rate 88 /min BMI 24.95 Index Respiratory Rate 18 /min Results No Known Results Summary Purpose [employer] Submission
--- OUTSIDE RECORDS SUMMARY | 2017-02-12 09:48 | External Medical Summary ---
:1965 Author Organization [employer] Care Team Providers Name Role Phone NeenaKaren Provider Role Unavailable Allergies No Known Allergies Problems Problem Type Condition ICD-9 Code Onset Dates Condition Status Problem Generalized anxiety disorder 300.02 Active Problem Other anxiety states 300.09 Active Problem Dysthymic disorder 300.4 Active Problem Bereavement, uncomplicated V62.82 Active Problem Other and unspecified alcohol 303.90 Active dependence, unspecified drunkenness Medications Medication Code System Code Instructions Start End Date Status Dosage Date BusPIRone HCl [facility] [address] 10 MG Orally 3 tablets 4-01 Twice a day Results No Known Results Summary Purpose [employer] Submission
--- OUTSIDE RECORDS SUMMARY | 2017-02-12 09:48 | External Medical Summary ---
:1965 Author Organization [employer] Care Team Providers Name Role Phone Kelin Pinedo Provider Role Unavailable Allergies No Known Allergies Problems Problem Type Condition Code Onset Dates Condition Status Problem Chronic viral hepatitis C B18.2 Active Problem Alcohol dependence, uncomplicated F10.20 Active Problem Dysthymic disorder 300.4 Active Problem Generalized anxiety disorder F41.1 Active Problem Bereavement, uncomplicated V62.82 Active Problem Other and unspecified alcohol 303.90 Active dependence, unspecified drunkenness Problem Generalized anxiety disorder 300.02 Active Problem Other anxiety states 300.09 Active Medications No Known Medications Results No Known Results Summary Purpose [email or web address] Submission
--- OUTSIDE RECORDS SUMMARY | 2017-02-12 09:48 | External Medical Summary ---
:1965 Author Organization [employer] Care Team Providers Name Role Phone Melissa Karen Provider Role Unavailable Allergies No Known Allergies Problems Problem Type Condition Code Onset Dates Condition Status Problem Generalized anxiety disorder 300.02 Active Problem Other anxiety states 300.09 Active Problem Dysthymic disorder 300.4 Active Problem Bereavement, uncomplicated V62.82 Active Problem Other and unspecified alcohol 303.90 Active dependence, unspecified drunkenness Medications Medication Code System Code Instructions Start End Date Status Dosage Date Doxepin HCl [facility] [address] 50 MG Orally 1 capsule 7-07 [place] [address] 40 MG Orally 1 tablet at 3-13 Once a day bedtime BusPIRone HCl [facility] [address] 10 MG Orally 3 tablets 4-01 Twice a day Results No Known Results Summary Purpose [employer] Submission
--- OUTSIDE RECORDS SUMMARY | 2017-02-12 09:48 | External Medical Summary ---
:1965 Author Organization [employer] Care Team Providers Name Role Phone Erinn Pinedofany Provider Role Unavailable Allergies, Adverse Reactions, Alerts Substance Reaction Event Type Seroquel rash Drug Allergy Ketorolac Tromethamine swelling Drug Allergy adhesive tape rash Non Drug Allergy Problems Problem Type Condition Code Onset Dates Condition Status Assessment Rash R21 Active Assessment Alcohol dependence, uncomplicated F10.20 Active Assessment Hepatitis C antibody test positive R76.8 Active Problem Dysthymic disorder 300.4 Active Problem Generalized anxiety disorder 300.02 Active Problem Alcohol dependence, uncomplicated F10.20 Active Problem Other and unspecified alcohol 303.90 Active dependence, unspecified drunkenness Problem Chronic viral hepatitis C B18.2 Active Problem Other anxiety states 300.09 Active Problem Bereavement, uncomplicated V62.82 Active Medications Medication Code Code Instructions Start End Date Status Dosage System Date HydrOXYzine HCl NDC 43701-35 25 MG Orally 2-4 1 tablet as 61-01 times every day needed prn BusPIRone HCl NDC 14398-82 10 MG Orally 3 tablets 54-01 Twice a day Paxil NDC 71304-51 20 MG Orally 1 tablet at 11-13 Once a day bedtime HydrOXYzine HCl NDC 93473-29 25 MG Orally October 06 1 tablet as 61-01 Three times a 2015 needed day Doxepin HCl NDC 41253-95 100 MG Orally 1 capsule 73-00 Once a day at bedtime Procedures Procedure Coding System Code Date OFFICE VISIT, EST-LOW COMPLEXITY (15 MIN.) CPT-4 98652 October 07, 2015 [facility] visit Established Patient CPT-4 G0467 October 07, 2015 Vital Signs Date/Time: October 07, 2015 Temperature 97.7 F Height 72 in Weight 180.8 lbs Blood Pressure Diastolic 94 mm Hg Blood Pressure Systolic 122 mm Hg Cardiac Monitoring Heart Rate 88 /min BMI 24.52 Index Respiratory Rate 18 /min Results No Known Results Summary Purpose [employer] Submission
[2017-02-12] MEDS ORDERED: THIAMINE 200mg/2ml INJECTION IVP ONE (09:53)
[2017-02-12] MEDS ORDERED: NS 1,000 ML IV ONE (09:54)
[2017-02-12] MEDS ORDERED: LIDOCAINE 1% (10mg/ml) 30ml SDV INJ INJ ONE (09:55)
[2017-02-12] MEDS ORDERED: INFLUENZA VAC. INJ. ADMIN CHARGE INJ ONE (11:48)
[2017-02-12] MEDS ORDERED: PNEUMOCOCCAL VAC ADMIN CHARGE INJ ONE (11:48)
[2017-02-12 11:59] VITALS: BMI 29.1
[2017-02-12] MEDS: HYDROCODONE/APAP 10 MG/325 MG TABLET PO PRN ×3 (12:27→20:33)
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
[2017-02-12] MEDS ORDERED: ONDANSETRON 4 MG/2 ML INJECTION IVP PRN ×2 (15:59→16:13)
[2017-02-12] MEDS ORDERED: MORPHINE SULFATE 2mg INJECTION IVP PRN (15:59)
[2017-02-12] MEDS ORDERED: INFLUENZA VAC QIV 2017-18 (Fluarix*)(>=3yo) 0.5ml IM ONE (16:00)
[2017-02-12] MEDS ORDERED: PNEUMOCOCCAL 13 VACCINE 0.5ml INJECTION IM ONE (16:00)
[2017-02-12] MEDS ORDERED: ALBUTEROL 2.5mg/3ml (0.083%) NEB AEROSOL PRN (16:06)
[2017-02-12] MEDS: FentaNYL 100 MCG/2 ML INJECTION IVP PRN ×2 (17:00→19:15)
[2017-02-12] MEDS: NICOTINE 14 MG PATCH TD SCH (17:10)
[2017-02-12] MEDS: GABAPENTIN 300 MG CAPSULE PO SCH (20:34)
[2017-02-12] MEDS: PAROXETINE 20 MG TABLET PO SCH (20:34)
[2017-02-12] MEDS: HYDROMORPHONE 2 MG/ML INJECTION IVP PRN (21:33)
[2017-02-12] MEDS ORDERED: HYDROMORPHONE 2 MG/ML INJECTION IVP ONE (22:30)
[2017-02-13] MEDS: HYDROMORPHONE 2 MG/ML INJECTION IVP PRN ×9 (01:48→22:07)
[2017-02-13] MEDS: HYDROCODONE/APAP 10 MG/325 MG TABLET PO PRN ×4 (03:32→20:02)
[2017-02-13] MEDS: MIRTAZAPINE 15 MG TABLET PO SCH ×2 (07:43→20:03)
[2017-02-13] MEDS: NICOTINE 14 MG PATCH TD SCH (08:06)
[2017-02-13] MEDS: NICOTINE PATCH REMOVAL TD SCH (08:06)
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
--- NOTE | 2017-02-13 09:29 | XRay Report ---
Indication: Post reduction PROCEDURE: XR ankle RT 2V: Encounter: Initial Comparison: Radiographs earlier on the same date Findings: Interval closed reduction of the ankle fracture dislocation with improved alignment of the fibular fracture. Talus has been reduced. No new findings. Impression: Improved appearance of the ankle fracture dislocation following closed reduction. .
--- NOTE | 2017-02-13 09:30 | XRay Report ---
Indication: post reduction PROCEDURE: XR ankle RT min 3V: Encounter: Initial Comparison: Radiographs earlier on the same date Findings: Minimal change in alignment of the ankle fracture dislocation following closed reduction and splinting. The talus remains posteriorly dislocated. Impression: Findings as above. .
--- NOTE | 2017-02-13 09:32 | XRay Report ---
Indication: Pain / Injury PROCEDURE: XR tib/fib RT 2V: Encounter: Initial Comparison: Ankle radiographs from the same date and tibia fibular radiographs from May 18, 2016 Findings: Spiral fracture of the proximal fibular diaphysis. The known distal fibular fracture is not included on this study. Impression: Spiral fracture of the proximal fibula confirming a syndesmotic disruption and Maisonneuve fracture pattern. .
--- NOTE | 2017-02-13 09:34 | XRay Report ---
Indication: Pain / Injury PROCEDURE: XR ankle RT min 3V: Encounter: Initial Comparison: Tibia-fibula radiographs Findings: There is an oblique mildly displaced and comminuted fracture of the distal fibula with posterior displacement of the distal fracture fragment and apex anterior angulation. Posterior dislocation of the talus relative to the tibia. Tiny avulsion fractures from the medial malleolus. Impression: Closed posttraumatic ankle fracture dislocation. Given the proximal fibular fracture present, this represents a Maisonneuve fracture pattern and confirms disruption of the tibiofibular syndesmosis. Orthopedic surgical consultation is recommended. .
[2017-02-13] MEDS ORDERED: HYDROMORPHONE 2 MG/ML INJECTION IVP ONE (09:42)
--- NOTE | 2017-02-13 09:54 | XRay Report ---
INDICATION: copd, wheezing PROCEDURE: CHEST 2-VIEWS UPRIGHT (PA & LAT) Encounter: Initial COMPARISON: None FINDINGS: No consolidative pneumonia. There is no pleural effusion or pneumothorax. The heart size, mediastinal contours and pulmonary vascularity are within normal limits. Prior repaired clavicular fracture. Old left rib fractures. Linear probable scarring in the right middle lobe. IMPRESSION: No acute cardiopulmonary disease. .
--- NOTE | 2017-02-13 10:01 | Orthopedic Progress Note ---
Date: Subjective/Severity of Illness: Mr. Dyson complains of right ankle pain only to me this morning. He says it feels like a burn. Orthopedic Objective Vital signs: Temperature 98.5 F 02/13/17 07:26 Pulse Rate 83 02/13/17 08:35 Respiratory Rate 18 02/13/17 09:47 Blood Pressure 129/95 H 02/13/17 07:26 Pulse Oximetry 92 02/13/17 07:26 Height and Weight: Height 6 ft Weight 99.2 kg Body Mass Index 29.1 - Constitutional General Appearance: Present: disheveled, moderate distress - Respiratory Exam Present: non-labored - Cardiovascular Exam Capillary Refill: < 2-3 Seconds - Extremities Exam Present: edema - Integumentary Exam Comments: With the splint removed he has multiple fracture blisters over the medial anterior and lateral ankle. There are no abrasions or lacerations. There is significant swelling about the ankle and the foot. Cap refill was toes is brisk and he has good active range of motion of his toes. - Neurological Exam Present: intact to light touch - Labs Result Diagrams: 02/13/17 04:03 02/13/17 04:03 Abnormal lab results 02/12/17 02/12/17 02/13/17 Range/Units 12:46 16:52 04:03 RBC 4.32 L (4.50-5.90) M/MM3 Hgb 12.1 L D (13.5-17.5) GM/DL Hct 37.2 L D (41-53) % Plt Count 119 L D (130-400) T/MM3 MPV 13.3 H (9.4-12.4) UM3 Lymph % (Auto) 20.1 L (23-45) % [place] % (Auto) 15.0 H (0-9.0) % [place] # (Auto) 1.6 H (0-0.8) T/MM3 INR 1.30 H (0.99-1.21) Creatinine (0.8-1.5) MG/DL Total Bilirubin (0.20-1.30) MG/DL AST (17-59) U/L Ammonia (9-33) UMOL/L Globulin (2.4-3.6) G/DL Albumin/Globulin Ratio (1.1-2.2) RATIO Ur Specific [place] <=1.005 L (1.015-1.025) 02/13/17 02/13/17 Range/Units 04:03 04:03 RBC (4.50-5.90) M/MM3 Hgb (13.5-17.5) GM/DL Hct (41-53) % Plt Count (130-400) T/MM3 MPV (9.4-12.4) UM3 Lymph % (Auto) (23-45) % [place] % (Auto) (0-9.0) % [place] # (Auto) (0-0.8) T/MM3 INR 1.37 H (0.99-1.21) Creatinine 0.7 L D (0.8-1.5) MG/DL Total Bilirubin 1.60 H (0.20-1.30) MG/DL AST 70 H (17-59) U/L Ammonia 45 H (9-33) UMOL/L Globulin 4.0 H (2.4-3.6) G/DL Albumin/Globulin Ratio 0.9 L (1.1-2.2) RATIO Ur Specific [place] (1.015-1.025) H & H 02/13/17 Range/Units 04:03 Hgb 12.1 L D (13.5-17.5) GM/DL Hct 37.2 L D (41-53) % Coagulation 02/12/17 02/13/17 Range/Units 16:52 04:03 INR 1.30 H 1.37 H (0.99-1.21) Orthopedic Assessment and Plan (1) Closed right ankle fracture Status: Acute Qualifiers: Encounter type: subsequent encounter Assessment and Plan: His swelling is too significant for surgical intervention at this time. Today I rewrapped his ankle using bulky Burgos cotton and a posterior and stirrup type splint. I recommended strict elevation and ice and nonweightbearing. His swelling will likely take up to a week before being able to proceed with surgical intervention. Hospital Course Summary Disclaimer: The visit summary below is not to be considered part of the above Progress Note. Hospital Course: 02/12/17 16:15 Impression: Right ankle fracture s/p reduction Chronic Liver disease with failure Possible hepatocellular carcinoma ETOH intoxication ETOH abuse. Depression/anxiety COPD with hx of bronchitis HTN Acute pain Plan: 02/12/[address] Garcia for ongoing orthopedic management. We need to get more information re: possible hepatic carcinoma before we proceed with OR. Will need to request records from DR. NICOLAS Alvarez with [facility] on Tuesday AM. Assess INR, Venous ammonia, ETOH level, UDS now. Monitor labs closely. Assess CXR, EKG given risk for tachycardia, need for pre-op assessment. Start tele. Rhonchi on clinical exam- neb tx, check CXR. Will resume home meds as appropriate. Order PRN low dose Serax for w/d sx. Will not schedule due to sedation- d/w RN. Orthopedic Procedures - Orthopedic Splinting/Casting Injury #1 Side: right Lower extremity injury location: ankle Lower extremity immobilizer: posterior splint, stirrup splint, Burgos dressing
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
--- NOTE | 2017-02-13 11:30 | XRay Report ---
Indication: R/O DISLOCATION PROCEDURE: XR ankle RT 2V: Encounter: Initial Comparison: February 12, 2017 Findings: Splinting material in place. There is lateral subluxation of the talus relative to the tibia with widening of the medial clear space. Medial and lateral malleolar fractures are again noted. There is now posterior subluxation and near dislocation of the talus relative to the tibia seen on the lateral view. Impression: Worsening severe subluxation of the talus. .
[2017-02-13] MEDS: PANTOPRAZOLE 40 MG TABLET PO SCH (17:06)
[2017-02-13] MEDS: PAROXETINE 20 MG TABLET PO SCH (20:02)
[2017-02-13] MEDS: GABAPENTIN 300 MG CAPSULE PO SCH (20:03)
[2017-02-13] MEDS: LACTULOSE 20 GM/30 ML ORAL LIQUID PO SCH ×2 (20:04→20:07)
[2017-02-13] MEDS: SALINE FLUSH 10ml SYRINGE IV PRN (22:05)
[2017-02-14] MEDS: HYDROCODONE/APAP 10 MG/325 MG TABLET PO PRN ×3 (00:13→21:49)
[2017-02-14] MEDS: HYDROMORPHONE 2 MG/ML INJECTION IVP PRN ×7 (00:14→23:07)
[2017-02-14] MEDS: SALINE FLUSH 10ml SYRINGE IV PRN ×4 (00:19→23:08)
[2017-02-14] MEDS: PANTOPRAZOLE 40 MG TABLET PO SCH ×2 (06:21→19:22)
--- NOTE | 2017-02-14 07:38 | XRay Report ---
EXAM: XR ankle RT 2V LOCATION OF DICTATION: [place] HISTORY: RELOCATION OF ANKLE COMPARISON: No prior studies available for comparison. TECHNIQUE: Two views of the right ankle. FINDINGS: Interval reduction of previously noted posterior lateral ankle dislocation. There is interval reduction of posterior ankle joint dislocation with continued mild lateral subluxation at the tibiotalar articulation though improved. There is moderate surrounding soft tissue swelling again noted. There are no significant change in appearance of bimalleolar fracture deformities. IMPRESSION: 1. Interval reduction of posterior ankle joint dislocation with continued mild lateral subluxation at the tibial talar articulation though improved. Stable medial and lateral malleolus fractures. Continued soft tissue swelling about the ankle joint. .
[2017-02-14] MEDS: DiphenhydrAMINE 25 MG CAPSULE PO PRN (08:20)
[2017-02-14] MEDS: NICOTINE 14 MG PATCH TD SCH (08:58)
[2017-02-14] MEDS: LACTULOSE 20 GM/30 ML ORAL LIQUID PO SCH ×2 (08:58→21:56)
--- NOTE | 2017-02-14 09:49 | XRay Report ---
EXAM: XR ankle RT min 3V LOCATION OF DICTATION: [place] HISTORY: POSSIBLE DISLOCATION COMPARISON: No prior studies available for comparison. FINDINGS: Slight interval increase in lateral subluxation/dislocation at the tibiotalar articulation measuring a distance of approximately 1.6 cm. There are stable fracture deformities involving the medial and lateral malleoli. Continued moderate soft swelling about the ankle joint. Casting material overlies the right lower extremity obscuring fine bony detail. Impression: 1. Slight interval increase in lateral subluxation/dislocation of the tibiotalar articulation. 2. Stable fracture deformities involving the medial and lateral malleoli. .
--- NOTE | 2017-02-14 10:44 | Orthopedic Progress Note ---
Date: Subjective/Severity of Illness: Mr Dyson is reporting increased pain in the ankle today. He is itching from the pain meds but refuses Benadryl at this time. No other reported complaints. Orthopedic Objective PO Vital signs: Temperature 99.1 F 02/14/17 08:00 Pulse Rate 79 02/14/17 08:00 Respiratory Rate 19 02/14/17 08:00 Blood Pressure 138/80 02/14/17 08:00 Pulse Oximetry 92 02/14/17 08:00 Height and Weight: Height 6 ft Weight 218 lb 11.177 oz Body Mass Index 29.1 - Constitutional General Appearance: Present: disheveled, moderate distress - Respiratory Exam Present: non-labored - Cardiovascular Exam Capillary Refill: < 2-3 Seconds - Integumentary Exam Present: pink, warm, other (Blisters noted on the dorsum of the foot. Other blisters not visualized at this time.) - Neurological Exam Present: intact to light touch - Psychiatric Exam Present: alert - Labs Result Diagrams: 02/14/17 04:04 02/14/17 04:04 Abnormal lab results 02/14/17 02/14/17 02/14/17 Range/Units 04:04 04:04 07:56 WBC 11.1 H (4.5-11.0) T/MM3 RBC 4.29 L (4.50-5.90) M/MM3 Hgb 12.0 L (13.5-17.5) GM/DL Hct 37.9 L (41-53) % RDW Std Deviation 51.0 H (36.9-50.2) FL Plt Count 123 L (130-400) T/MM3 MPV 14.0 H (9.4-12.4) UM3 Monocytes % (Manual) 13.0 H (0-9.0) % Monocytes # (Manual) 1.4 H (0-0.8) T/MM3 INR 1.50 H (0.99-1.21) Sodium 133 L D (134-144) MEQ/L Calculated Osmolality 256 L (261-280) MOSM/KG Total Bilirubin 2.30 H (0.20-1.30) MG/DL Unconjugated Bilirubin 1.50 H (0.00-1.1) MG/DL AST 72 H (17-59) U/L Ammonia 48 H (9-33) UMOL/L Globulin 4.1 H (2.4-3.6) G/DL Albumin/Globulin Ratio 1.0 L (1.1-2.2) RATIO H & H 02/13/17 02/14/17 Range/Units 04:03 04:04 Hgb 12.1 L D 12.0 L (13.5-17.5) GM/DL Hct 37.2 L D 37.9 L (41-53) % Coagulation 02/12/17 02/13/17 02/14/17 Range/Units 16:52 04:03 07:56 INR 1.30 H 1.37 H 1.50 H (0.99-1.21) Orthopedic Assessment and Plan (1) Closed right ankle fracture Status: Acute Qualifiers: Encounter type: subsequent encounter Assessment and Plan: Mr Dyson was having more discomfort in the ankle this AM. X-rays were taken to evaluate for ankle position. The ankle has shifted and is not in good position. There is risk for increased pressure on the skin if it is kept in this position. He ate breakfast so we will have to reduce this later this afternoon. Plan closed reduction and application of a splint. Continue Ice / Elevation. It may take up to a week or more for the swelling and blisters to improve enough for surgery. Hospital Course Summary Disclaimer: The visit summary below is not to be considered part of the above Progress Note. Hospital Course: 02/12/17 16:15 Impression: Right ankle fracture s/p reduction Chronic Liver disease with failure Possible hepatocellular carcinoma ETOH intoxication ETOH abuse. Depression/anxiety COPD with hx of bronchitis HTN Acute pain Plan: 02/12/[address] Garcia for ongoing orthopedic management. We need to get more information re: possible hepatic carcinoma before we proceed with OR. Will need to request records from DR. NICOLAS Alvarez with [facility] on Tuesday AM. Assess INR, Venous ammonia, ETOH level, UDS now. Monitor labs closely. Assess CXR, EKG given risk for tachycardia, need for pre-op assessment. Start tele. Rhonchi on clinical exam- neb tx, check CXR. Will resume home meds as appropriate. Order PRN low dose Serax for w/d sx. Will not schedule due to sedation- d/w RN.
[2017-02-14] MEDS: NICOTINE PATCH REMOVAL TD SCH (11:43)
--- NOTE | 2017-02-14 12:54 | Procedure Note ---
DATE OF PROCEDURE 02/12/2017 LOCATION Emergency Room SURGEON Cristofer Garcia MD BRIEF HISTORY Mr. Dyson is a 51-year-old gentleman who suffered a closed right ankle fracture-dislocation. The patient was unable to be sedated due to intoxication status. A reduction attempt was performed by the ER physician but was unsuccessful. DESCRIPTION OF PROCEDURE After obtaining oral consent from Mr. Dyson, I prepped the anterior ankle with alcohol. A 22-gauge needle was then used to inject 5 cc of 1% lidocaine into the ankle joint. The needle was removed and the site was cleaned with alcohol again. This was allowed to set for about 5 minutes. A reduction maneuver was then performed to the ankle by flexing the hip to 90 degrees as well as the knee to 90 degrees. The ER physician held the patient's pelvis stable while I performed a reduction maneuver to the right ankle, pulling, longitudinal traction, and then bringing the hindfoot back into an anterior location underneath the tibia. There was an obvious clunk and taoism of normal ankle alignment. The ankle was then held in place as a well-padded posterior slab and then stirrup-type splint were applied and well molded. He was able to move his toes and feel his toes with good pulses after the reduction. He tolerated this well and there were no complications. LUIS DANIEL
--- NOTE | 2017-02-14 13:25 | Progress Note ---
- Date 02/14/17 Subjective: The patient was seen earlier today in his room. He complains of pain in his right ankle area. He admits to occasional shortness of breath and cough. He has occasional chest pain, but only when he coughs. He does not take inhalers or use oxygen at home. He denies any recent nausea or vomiting. He denies any abdominal pain. He denies any pain elsewhere. He is urinating better today. He states he is worried because he has pets at home and does not trust anyone to be in his home to take care of them. He also states that he has a meeting scheduled with his chief digital officer later this week and does not think he will be able to make it. He does not have anyone who could care for him at home. 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 Objective Vital signs: Temperature 97.7 F 02/14/17 11:40 Pulse Rate 83 02/14/17 11:40 Respiratory Rate 16 02/14/17 11:40 Blood Pressure 126/84 02/14/17 11:40 Pulse Oximetry 91 02/14/17 11:40 - Constitutional Comments: GEN-alert, mild distress from pain, mild anxiety. Oriented to [facility], February HEENT-sclera anicteric, oropharynx is moist NECK-supple CV-regular rate and rhythm CHEST-mild wheezes bilaterally ABD-soft, nontender with positive bowel sounds. Mild distention -no Hendrix catheter EXT-right leg is in a splint, left leg is without edema NEURO-no focal deficits, no tremulousness of the outstretched arms SKIN-warm and dry and without rashes Results - Labs CBC & Chem 7: 02/14/17 04:04 02/14/17 04:04 Labs: Bilirubin is 2.3 up from 1.6 and 0.7. AST is 72. Ammonia is 48 up from 20 and 45 respectively. INR today is 1.5 up from 1.37. Assessment and Plan (1) Closed right ankle fracture Current visit: Yes Status: Acute (2) Cirrhosis Current visit: Yes Status: Acute (3) Alcoholism Current visit: Yes Status: Acute Assessment and Plan: 01/14/2017 Impression: 1. Right ankle fracture s/p reduction -Fibula fx proximal and distal -Dr. Garcia consulted, distal fracture is not in good position. He will be taken to the OR later today for closed reduction and application of the splint. -The patient may require placement in long-term, swing bed or IRU for help prior to undergoing surgery 2. Cirrohsis with liver mass -Follows with Dr. NICOLAS Barton in [place] -Ammonia elevated, lactulose ordered -Bilirubin up to 2.3 from 1.6 and 0.7. AST is 72 -Patient reportedly with enlarged spleen, portal hypertension and esophageal varices 3. ETOHism -Continue withdrawal protocol -Monitor for DTs 4. COPD -Persistent smoker -Nicotine patch provided -Resp therapy-DuoNeb -CXR okay 5. Acute pain -Still Requiring IV Dilaudid for relief. 6. DVT/GI prophylaxis SCDs and PPI Discussed with Dr. Garcia. The patient will likely need placement prior to surgery in 1 week's time. He is concerned that the patient's fracture will not stay in alignment if he is discharged. Hospital Course Summary Disclaimer: The visit summary below is not to be considered part of the above Progress Note. Hospital Course: 02/12/17 16:15 Impression: Right ankle fracture s/p reduction Chronic Liver disease with failure Possible hepatocellular carcinoma ETOH intoxication ETOH abuse. Depression/anxiety COPD with hx of bronchitis HTN Acute pain Plan: 02/12/[address] Garcia for ongoing orthopedic management. We need to get more information re: possible hepatic carcinoma before we proceed with OR. Will need to request records from DR. NICOLAS Alvarez with [facility] on Tuesday AM. Assess INR, Venous ammonia, ETOH level, UDS now. Monitor labs closely. Assess CXR, EKG given risk for tachycardia, need for pre-op assessment. Start tele. Rhonchi on clinical exam- neb tx, check CXR. Will resume home meds as appropriate. Order PRN low dose Serax for w/d sx. Will not schedule due to sedation- d/w RN. 02/13/2017 Impression: 1. Right ankle fracture s/p reduction -Fibula fx proximal and distal -Dr. Garcia consulted, does not think it will be ready for surgical repair for a week. 2. Cirrohsis with liver mass -Follows with Dr. NICOLAS Barton in [place] -Ammonia elevated at 45 today, will order lactulose (pt will likely refuse) 3. ETOHism -Initiate withdrawal protocol 4. COPD -Persistent smoker -Nicotine patch provided -Resp therapy -CXR okay 5. Acute pain -Requiring IV meds for relief. 6. DVT/GI prophylaxis SCDs and PPI He could probably go home once his pain is managed by po meds.
[2017-02-14] MEDS: ALBUTEROL/IPRATROPIUM 2.5mg-0.5mg/3ml NEB AEROSOL SCH ×2 (15:31→20:10)
[2017-02-14] MEDS: NS 1,000 ML IV SCH ×2 (16:31→19:11)
[2017-02-14] MEDS ORDERED: HYDROMORPHONE 2 MG/ML INJECTION IVP ONE (17:29)
[2017-02-14] MEDS ORDERED: FentaNYL 100 MCG/2 ML INJECTION ONE (18:06)
--- NOTE | 2017-02-14 18:36 | Anesthesia Postoperative Note ---
- Date and Time Date: 02/14/17 Time: 18:36 - Status Patient Participated in Evaluation: Patient Participated in Person Vital Signs: Temperature 98.5 F 02/14/17 18:23 Pulse Rate 84 02/14/17 18:23 Respiratory Rate 14 02/14/17 18:23 Blood Pressure 104/58 02/14/17 18:23 Pulse Oximetry 96 02/14/17 18:23 Respiratory Function: Airway Patent Cardiovascular Function: Regular Pulse EKG: Sinus Rhythm Mental Status: Alert and Oriented Pain Intensity: 2 Hydration: IV Infusing Complications During Recover: None Apparent - Follow-Up Instructions Instructions: Per Surgeon
[2017-02-14] MEDS: PAROXETINE 20 MG TABLET PO SCH (21:55)
[2017-02-14] MEDS: GABAPENTIN 300 MG CAPSULE PO SCH (21:56)
[2017-02-14] MEDS: MIRTAZAPINE 15 MG TABLET PO SCH (22:26)
[2017-02-15] MEDS: HYDROMORPHONE 2 MG/ML INJECTION IVP PRN ×4 (01:50→22:13)
[2017-02-15] MEDS: HYDROCODONE/APAP 10 MG/325 MG TABLET PO PRN ×3 (02:02→10:22)
[2017-02-15] MEDS: PANTOPRAZOLE 40 MG TABLET PO SCH (06:23)
[2017-02-15] MEDS: ALBUTEROL/IPRATROPIUM 2.5mg-0.5mg/3ml NEB AEROSOL SCH ×3 (06:40→15:19)
--- NOTE | 2017-02-15 07:50 | Orthopedic Progress Note ---
Date: Subjective/Severity of Illness: Mr. Dyson has been noncompliant according to nursing staff with weight restrictions and has been getting out of bed on his own. Just as I was about to enter his room, his bed alarm went off. Nursing promptly responded. When we walked in he was up on his own, weight bearing through the right ankle. It was explained he should not get up on his own and keep weight off the ankle. Nursing also reports he took his splint off last night and that his blisters have unroofed. Visual inspection of his splint shows that it was most likely removed. He is complaining of pain, but denies numbness. Orthopedic Objective PO Vital signs: Temperature 99.1 F 02/15/17 04:00 Pulse Rate 78 02/15/17 04:00 Respiratory Rate 16 02/15/17 06:40 Blood Pressure 111/74 02/15/17 04:00 Pulse Oximetry 94 02/15/17 06:40 - Constitutional General Appearance: Present: disheveled, moderate distress - Respiratory Exam Present: non-labored - Cardiovascular Exam Capillary Refill: < 2-3 Seconds - Extremities Exam Comments: right ankle examined with his splint on. Splint appears to have been tampered with as MIKI wrap is poorly applied. No overt drainage through the dressings. While in the room patient is noncompliant with weight restrictions. He is able to wiggle the toes. - Integumentary Exam Present: pink, warm, other (Blisters noted on the dorsum of the foot. Other blisters not visualized at this time.) - Neurological Exam Present: intact to light touch - Psychiatric Exam Present: alert - Labs Result Diagrams: 02/14/17 04:04 02/14/17 04:04 Orthopedic Assessment and Plan (1) Closed right ankle fracture Status: Acute Qualifiers: Encounter type: subsequent encounter Assessment and Plan: New X-rays will be ordered to evaluate position. I'll make him NPO until films are available for review. Hospital Course Summary Disclaimer: The visit summary below is not to be considered part of the above Progress Note. Hospital Course: 02/12/17 16:15 Impression: Right ankle fracture s/p reduction Chronic Liver disease with failure Possible hepatocellular carcinoma ETOH intoxication ETOH abuse. Depression/anxiety COPD with hx of bronchitis HTN Acute pain Plan: 02/12/[address] Garcia for ongoing orthopedic management. We need to get more information re: possible hepatic carcinoma before we proceed with OR. Will need to request records from DR. NICOLAS Alvarez with [facility] on Tuesday AM. Assess INR, Venous ammonia, ETOH level, UDS now. Monitor labs closely. Assess CXR, EKG given risk for tachycardia, need for pre-op assessment. Start tele. Rhonchi on clinical exam- neb tx, check CXR. Will resume home meds as appropriate. Order PRN low dose Serax for w/d sx. Will not schedule due to sedation- d/w RN. 02/13/2017 Impression: 1. Right ankle fracture s/p reduction -Fibula fx proximal and distal -Dr. Garcia consulted, does not think it will be ready for surgical repair for a week. 2. Cirrohsis with liver mass -Follows with Dr. NICOLAS Barton in [place] -Ammonia elevated at 45 today, will order lactulose (pt will likely refuse) 3. ETOHism -Initiate withdrawal protocol 4. COPD -Persistent smoker -Nicotine patch provided -Resp therapy -CXR okay 5. Acute pain -Requiring IV meds for relief. 6. DVT/GI prophylaxis SCDs and PPI He could probably go home once his pain is managed by po meds.
--- NOTE | 2017-02-15 08:10 | XRay Report ---
Indication: patient took off splint PROCEDURE: XR ankle RT min 3V: Encounter: Initial Comparison: February 14, 2017 Findings: Stable alignment with lateral subluxation of the talus relative to the tibia and slight external rotation. The fibular fracture alignment is grossly unchanged. No new findings. Impression: Stable alignment. .
--- NOTE | 2017-02-15 08:51 | Operative Note ---
DATE OF PROCEDURE 02/14/2017 PREOPERATIVE DIAGNOSIS Right ankle bimalleolar fracture. POSTOPERATIVE DIAGNOSIS Right ankle bimalleolar fracture. PROCEDURE Manipulation of right ankle under anesthesia with application of splint. SURGEON Cristofer Garcia MD GENERAL DENTIST/OWNER Milan Sánchez PA-C COMPLICATIONS None ANESTHESIA TIVA DESCRIPTION OF PROCEDURE Mr. Dyson and his right ankle were identified and marked in the preoperative holding area. He was brought back to the operating suite and placed supine on the operating table. He was placed under general anesthesia. Time-out was performed. His previous splint was removed. He had multiple fracture blisters along both the medial, lateral and anterior ankle as well as onto the dorsum of the lateral side of the foot. Compartments were soft and compressible in the calf. I was able to hold the ankle while reduced without too much difficulty. Fluoroscopic images were taken to ensure good alignment of the ankle joint which was significantly improved from the x-rays taken this morning. I then placed him in a well-padded, well-molded posterior slab and stirrup type splint. It was held at reduced as the splint dried. Multiple fluoroscopic images again were taken to ensure we had not lost reduction which we had not. He was then allowed to awaken from general anesthesia and taken to the recovery room under the care of Anesthesia. He tolerated the procedure well. There were no complications. LUIS DANIEL
--- NOTE | 2017-02-15 09:58 | Remote Fluorsocopy Report ---
Indication: CLOSED REDUCTION PROCEDURE: RF ankle RT 2 view: Encounter: Initial Comparison: Tibia and fibula and ankle radiographs dated February 12, 2017 Findings: Three fluoroscopic spot images from closed reduction and splinting are provided showing improved alignment of the ankle joint. Impression: Fluoroscopy as above. Fluoroscopy time is 45.8 seconds. Fluoroscopy dose is 260.9 mRad. .
[2017-02-15] MEDS: LACTULOSE 20 GM/30 ML ORAL LIQUID PO SCH ×2 (10:23→22:29)
[2017-02-15] MEDS: NICOTINE 14 MG PATCH TD SCH (10:24)
[2017-02-15] MEDS: NICOTINE PATCH REMOVAL TD SCH (10:24)
[2017-02-15] MEDS: SALINE FLUSH 10ml SYRINGE IV PRN (15:14)
--- NOTE | 2017-02-15 15:29 | Progress Note ---
- Date 02/15/17 Subjective: I did talk with Dr. Garcia this morning, and he stated that after the closed reduction last evening, the patient got up AGAINST MEDICAL ADVICE and put weight on his foot causing dislocation of the fracture again. The patient also had taken off his splint and the blisters did unroof. The patient was seen this afternoon. He complains of pain in his ankle. He states the IV pain medication works better but he thinks it causes burning pain in his foot. He is willing to try a different oral narcotic. He denies pain elsewhere. He denies any chest pain or abdominal pain. He states he is breathing well. He states he's eating well. He states he's sleeping during the day because he doesn't have anything else to do. He states he was sober for several months and then started drinking again a couple of days prior to admission. He states his abdomen has been distended for about 5 months but he thinks it's a little better now than it had been recently. The patient is on [facility] for history of alcoholism. He has only received 1 dose of IV Ativan 1 mg yesterday. He has not required any other Ativan and has not required any oral Serax. The patient is taking lactulose for his elevated ammonia. Objective Vital signs: Temperature 97.5 F 02/15/17 13:24 Pulse Rate 69 02/15/17 13:24 Respiratory Rate 16 02/15/17 13:24 Blood Pressure 116/78 02/15/17 13:24 Pulse Oximetry 94 02/15/17 13:24 Height/Weight/BMI: Weight 100.8 kg Comments: I&O is fairly equal at 5.2 L in and 5.7 out during this hospital course GEN-alert, oriented, no acute distress. The patient does not appear confused. He does seem upset with the situation of his ankle fracture and not being able to return home. HEENT-sclera anicteric, oropharynx is moist NECK-supple CV-regular rate and rhythm CHEST-clear to auscultation bilaterally ABD-soft, nontender, he does appear to have an umbilical hernia, moderate distention, normal bowel sounds -no Hendrix EXT-right foot is in a splint, left leg reveals no edema NEURO-no tremulousness, no confusion SKIN-warm and dry Results - Labs CBC & Chem 7: 02/15/17 09:08 02/15/17 09:09 Labs: White count is 7.2 down from 15.5 on admission Hemoglobin has trended down over the hospital course and is now 10.8. It was 14.5 on admission Platelets are trending down and her 94 today. They were 191 on admission Liver panel today is improved with normal bilirubin of 1.2, AST down to 62. Assessment and Plan (1) Closed right ankle fracture Current visit: Yes Status: Acute (2) Cirrhosis Current visit: Yes Status: Acute (3) Alcoholism Current visit: Yes Status: Acute Assessment and Plan: 01/15/2017 Impression: 1. Right ankle fracture s/p reduction -Fibula fx proximal and distal - The patient had closed reduction yesterday but then was noncompliant and put weight on his foot. He has edema in his foot and blisters associated with the fracture. Per Dr. Garcia, it will take 1-2 weeks for the swelling and blisters to improve and make it safe for surgery. Dr. Garcia does recommend bed rest until the time of surgery is that the patient's noncompliance. Discussed at length with case management and they are working on plans to take care of the patient until he can undergo surgery. 2. Cirrohsis with liver mass -Follows with Dr. NICOLAS Barton in [place] -Ammonia elevated, lactulose ordered and the patient is compliant now taking this -Bilirubin has normalized -Patient reportedly with enlarged spleen, portal hypertension and esophageal varices -Metoprolol 25 mg by mouth twice a day started this hospitalization 3. ETOHism -Continue withdrawal protocol-so far, patient is doing well. He has only required 1 dose of Ativan yesterday and has not required any Serax -Monitor for DTs 4. COPD -Persistent smoker -Nicotine patch provided -Resp therapy-DuoNeb -CXR okay 5. Acute pain -We'll try oral oxycodone and discontinue [place]. Use Dilaudid only for breakthrough pain 6. DVT/GI prophylaxis SCDs and PPI 7. Anemia - recheck hemoglobin. Monitor stools for signs of bleeding. Check Hemoccults Discussed with Dr. Garcia and case management. The patient will likely need placement prior to surgery in 1-2 week's time. He is concerned that the patient' s fracture will not stay in alignment if he is discharged. Hospital Course Summary Disclaimer: The visit summary below is not to be considered part of the above Progress Note. Hospital Course: 02/12/17 16:15 Impression: Right ankle fracture s/p reduction Chronic Liver disease with failure Possible hepatocellular carcinoma ETOH intoxication ETOH abuse. Depression/anxiety COPD with hx of bronchitis HTN Acute pain Plan: 02/12/[address] Garcia for ongoing orthopedic management. We need to get more information re: possible hepatic carcinoma before we proceed with OR. Will need to request records from DR. NICOLAS Alvarez with [facility] on Tuesday AM. Assess INR, Venous ammonia, ETOH level, UDS now. Monitor labs closely. Assess CXR, EKG given risk for tachycardia, need for pre-op assessment. Start tele. Rhonchi on clinical exam- neb tx, check CXR. Will resume home meds as appropriate. Order PRN low dose Serax for w/d sx. Will not schedule due to sedation- d/w RN. 02/13/2017 Impression: 1. Right ankle fracture s/p reduction -Fibula fx proximal and distal -Dr. Garcia consulted, does not think it will be ready for surgical repair for a week. 2. Cirrohsis with liver mass -Follows with Dr. NICOLAS Barton in [place] -Ammonia elevated at 45 today, will order lactulose (pt will likely refuse) 3. ETOHism -Initiate withdrawal protocol 4. COPD -Persistent smoker -Nicotine patch provided -Resp therapy -CXR okay 5. Acute pain -Requiring IV meds for relief. 6. DVT/GI prophylaxis SCDs and PPI He could probably go home once his pain is managed by po meds. 01/14/2017 Impression: 1. Right ankle fracture s/p reduction -Fibula fx proximal and distal -Dr. Garcia consulted, distal fracture is not in good position. He will be taken to the OR later today for closed reduction and application of the splint. -The patient may require placement in senior care, swing bed or IRU for help prior to undergoing surgery 2. Cirrohsis with liver mass -Follows with Dr. NICOLAS Barton in [place] -Ammonia elevated, lactulose ordered -Bilirubin up to 2.3 from 1.6 and 0.7. AST is 72 -Patient reportedly with enlarged spleen, portal hypertension and esophageal varices 3. ETOHism -Continue withdrawal protocol -Monitor for DTs 4. COPD -Persistent smoker -Nicotine patch provided -Resp therapy-DuoNeb -CXR okay 5. Acute pain -Still Requiring IV Dilaudid for relief. 6. DVT/GI prophylaxis SCDs and PPI Discussed with Dr. Garcia. The patient will likely need placement prior to surgery in 1 week's time. He is concerned that the patient's fracture will not stay in alignment if he is discharged.
[2017-02-15] MEDS: Oxycodone *IR* 5 MG TABLET PO PRN ×3 (15:41→23:46)
--- NOTE | 2017-02-15 16:43 | Orthopedic Progress Note ---
Date: Subjective/Severity of Illness: I woke up Mr. Dyson this morning around 10:30 AM. Per reports of nursing and my surgical supply assistant he had been standing in his room bearing weight on the right ankle. Also per report he was loosening and/or removing his splint. He denies putting weight on his right ankle and states he was standing but was putting the weight on his left leg. He also denies me that he had removed the splint and said that the Edu wrap loosened on their own. When I entered the room he was asleep on his side with his right leg down off of the pillows that were placed there to elevate the ankle. Orthopedic Objective Vital signs: Temperature 97.5 F 02/15/17 13:24 Pulse Rate 69 02/15/17 13:24 Respiratory Rate 16 02/15/17 13:24 Blood Pressure 116/78 02/15/17 13:24 Pulse Oximetry 94 02/15/17 13:24 Height and Weight: Weight 100.8 kg - Constitutional General Appearance: Present: disheveled, no acute distress - Respiratory Exam Present: non-labored - Cardiovascular Exam Capillary Refill: < 2-3 Seconds - Extremities Exam Present: edema - Integumentary Exam Present: pink, warm, other (Blisters noted on the dorsum of the foot. Other blisters not visualized at this time.) Comments: His splint does appear to have been loosened or possibly rewrapped. The exposed foot shows he had fracture blisters that are been unroofed. Overall I do believe the swelling in his foot has improved since yesterday and by looking through some of the anterior splinting material I do not see any obvious deformity to the ankle or signs of pressure against the skin. His calf is swollen but compressible. - Neurological Exam Present: intact to light touch - Labs Result Diagrams: 02/15/17 09:08 02/15/17 09:09 Abnormal lab results 02/15/17 02/15/17 Range/Units 09:08 09:09 RBC 3.78 L (4.50-5.90) M/MM3 Hgb 10.8 L (13.5-17.5) GM/DL Hct 33.4 L D (41-53) % Plt Count 94 L (130-400) T/MM3 MPV 12.5 H (9.4-12.4) UM3 Lymph % (Auto) 20.5 L (23-45) % [place] % (Auto) 16.2 H (0-9.0) % [place]man # (Auto) 1.2 H (0-0.8) T/MM3 AST 62 H (17-59) U/L Albumin 3.4 L (3.5-5.0) G/DL Globulin 3.9 H (2.4-3.6) G/DL Albumin/Globulin Ratio 0.9 L (1.1-2.2) RATIO H & H 02/15/17 Range/Units 09:08 Hgb 10.8 L (13.5-17.5) GM/DL Hct 33.4 L D (41-53) % - Diagnostic results Ankle/Foot x-ray: image reviewed Orthopedic Assessment and Plan (1) Closed right ankle fracture Status: Acute Qualifiers: Encounter type: subsequent encounter Assessment and Plan: I had a long discussion with Mr. Dyson. I do not believe he understands completely the situation involving his ankle and the risk he is in for a bad outcome although I have explained it to him several times. I again discussed the reason why elevation and nonweight bearing are very important and that if he does not have surgery he will not have a good functioning ankle and that we can not safely proceed with surgery until the swelling has resolved. I asked him to please comply with strict elevation, ice, and non-weight bearing. I also strongly recommended that he stay in the hospital. I think he is at too high at risk for noncompliance if he is not here in the hospital or in a well supervised assisted setting. Hospital Course Summary Disclaimer: The visit summary below is not to be considered part of the above Progress Note. Hospital Course: 02/12/17 16:15 Impression: Right ankle fracture s/p reduction Chronic Liver disease with failure Possible hepatocellular carcinoma ETOH intoxication ETOH abuse. Depression/anxiety COPD with hx of bronchitis HTN Acute pain Plan: 02/12/[address] Garcia for ongoing orthopedic management. We need to get more information re: possible hepatic carcinoma before we proceed with OR. Will need to request records from DR. NICOLAS Alvarez with [facility] on Tuesday AM. Assess INR, Venous ammonia, ETOH level, UDS now. Monitor labs closely. Assess CXR, EKG given risk for tachycardia, need for pre-op assessment. Start tele. Rhonchi on clinical exam- neb tx, check CXR. Will resume home meds as appropriate. Order PRN low dose Serax for w/d sx. Will not schedule due to sedation- d/w RN. 02/13/2017 Impression: 1. Right ankle fracture s/p reduction -Fibula fx proximal and distal -Dr. Garcia consulted, does not think it will be ready for surgical repair for a week. 2. Cirrohsis with liver mass -Follows with Dr. NICOLAS Barton in [place] -Ammonia elevated at 45 today, will order lactulose (pt will likely refuse) 3. ETOHism -Initiate withdrawal protocol 4. COPD -Persistent smoker -Nicotine patch provided -Resp therapy -CXR okay 5. Acute pain -Requiring IV meds for relief. 6. DVT/GI prophylaxis SCDs and PPI He could probably go home once his pain is managed by po meds. 01/14/2017 Impression: 1. Right ankle fracture s/p reduction -Fibula fx proximal and distal -Dr. Garcia consulted, distal fracture is not in good position. He will be taken to the OR later today for closed reduction and application of the splint. -The patient may require placement in snf, swing bed or IRU for help prior to undergoing surgery 2. Cirrohsis with liver mass -Follows with Dr. NICOLAS Barton in [place] -Ammonia elevated, lactulose ordered -Bilirubin up to 2.3 from 1.6 and 0.7. AST is 72 -Patient reportedly with enlarged spleen, portal hypertension and esophageal varices 3. ETOHism -Continue withdrawal protocol -Monitor for DTs 4. COPD -Persistent smoker -Nicotine patch provided -Resp therapy-DuoNeb -CXR okay 5. Acute pain -Still Requiring IV Dilaudid for relief. 6. DVT/GI prophylaxis SCDs and PPI Discussed with Dr. Garcia. The patient will likely need placement prior to surgery in 1 week's time. He is concerned that the patient's fracture will not stay in alignment if he is discharged.
[2017-02-15] MEDS ORDERED: DiphenhydrAMINE 50 MG/ML INJECTION IVP PRN (22:07)
[2017-02-15] MEDS: MIRTAZAPINE 15 MG TABLET PO SCH (22:29)
[2017-02-15] MEDS: PAROXETINE 20 MG TABLET PO SCH (22:29)
[2017-02-15] MEDS: GABAPENTIN 300 MG CAPSULE PO SCH (22:30)
[2017-02-16] MEDS: HYDROMORPHONE 2 MG/ML INJECTION IVP PRN ×3 (01:58→06:29)
[2017-02-16] MEDS: Oxycodone *IR* 5 MG TABLET PO PRN ×3 (04:23→12:41)
[2017-02-16] MEDS: ALBUTEROL/IPRATROPIUM 2.5mg-0.5mg/3ml NEB AEROSOL SCH ×5 (04:55→20:59)
[2017-02-16] MEDS: PANTOPRAZOLE 40 MG TABLET PO SCH (06:30)
[2017-02-16] MEDS: LACTULOSE 20 GM/30 ML ORAL LIQUID PO SCH ×2 (08:26→21:25)
[2017-02-16] MEDS: NICOTINE 14 MG PATCH TD SCH (08:26)
[2017-02-16] MEDS: NICOTINE PATCH REMOVAL TD SCH (08:27)
[2017-02-16] MEDS: OXAZEPAM 15 MG CAPSULE PO PRN ×2 (08:27→17:17)
--- NOTE | 2017-02-16 10:36 | XRay Report ---
Indication: fracture PROCEDURE: XR ankle RT 2V: Encounter: Initial Comparison: February 15, 2017 Findings: Stable alignment of the right ankle with lateral subluxation of the talus relative to the tibia. Distal fibular and medial malleolar fractures are unchanged in appearance. Overlying splinting material obscuring fine bony detail. Impression: Stable alignment of the right ankle. .
--- NOTE | 2017-02-16 16:46 | Progress Note ---
- Date 02/16/17 Subjective: The patient was seen this afternoon in his room. He complains of burning pain on the skin on his foot, likely secondary to fracture blisters. He also complains of ankle pain. His IV just came out. His nurse states that they've replaced did already a couple of times today. The patient is willing to try oral pain medication in place of the IV medication. His last IV Dilaudid was around 6:30 this morning. He denies any tremulousness or hallucinations. Vital signs and stable. He is now over 96 hours out from his last drink. He should not develop DTs at this time. He received 1 dose of Serax this morning and 1 mg of IV Ativan 2 days ago. Otherwise he has not received any benzodiazepines. He states he is breathing well. He denies any pain other than in his right foot and leg. He is eating and drinking well. He denies any abdominal pain. He is urinating without difficulties. Objective Vital signs: Temperature 97.6 F 02/16/17 15:12 Pulse Rate 81 02/16/17 15:12 Respiratory Rate 16 02/16/17 15:12 Blood Pressure 116/67 02/16/17 15:12 Pulse Oximetry 95 02/16/17 15:12 Height/Weight/BMI: Weight 100.5 kg Comments: Afebrile, pulse 81, blood pressure 116/67, O2 sat 95% on room air GEN-alert, oriented to [facility], February,, states he is here because of a foot injury HEENT-sclera anicteric, oropharynx is moist NECK-supple CV-regular rate and rhythm CHEST-clear to auscultation bilaterally ABD-soft, distended, nontender, positive bowel sounds -no Hendrix EXT-no edema in the left leg, right leg is in a splint, he does have some erythema in the right inner thigh, possibly extension of his bruising NEURO-he is oriented 3. No tremulousness. SKIN-warm and dry, he does have erythema of the right leg medially, just above his splint, this could be an extension of his bruising Results - Labs CBC & Chem 7: 02/16/17 04:26 02/16/17 04:26 Assessment and Plan (1) Closed right ankle fracture Current visit: Yes Status: Acute (2) Cirrhosis Current visit: Yes Status: Acute (3) Alcoholism Current visit: Yes Status: Acute Assessment and Plan: 01/16/2017 Impression/plan 1. Right ankle fracture s/p reduction -Fibula fx proximal and distal - The patient had closed reduction 02/14/2017 but then was noncompliant afterwards and put weight on his foot and took off his splint. He has edema in his foot and blisters associated with the fracture. Per Dr. Garcia, it will take 1 -2 weeks for the swelling and blisters to improve and make it safe for surgery. Dr. Garcia does recommend bed rest until the time of surgery. Discussed at length with case management and they are working on plans to take care of the patient until he can undergo surgery. -Fracture blisters of the right ankle-treatment per Dr. Garcia 2. Cirrohsis with liver mass -Follows with Dr. NICOLAS Barton in [place] -Ammonia elevated, lactulose ordered and the patient is intermittently compliant taking this -Bilirubin has normalized -Patient reportedly with enlarged spleen, portal hypertension and esophageal varices -Metoprolol 25 mg by mouth twice a day started this hospitalization 3. ETOHism -Continue withdrawal protocol-so far, patient is doing well. As of 02/16/2017, he is 96 hours past the time of his last drink. Likelihood of developing DTs at this time is very minimal. He had one dose of IV Ativan 2 days ago and one tablet of Serax this morning. Otherwise he has not required any benzodiazepines -Continue Monitor for DTs-can likely discontinue monitoring 02/17/2017 4. COPD -Persistent smoker -Nicotine patch provided -Resp therapy-DuoNeb -CXR okay 5. Acute pain -We'll try increase oxycodone. Try to avoid IVF narcotics. Patient currently does not have an IV as they keep falling out. 6. DVT/GI prophylaxis SCDs and PPI-no anticoagulation because of his coagulopathy with liver disease and esophageal varices 7. Anemia - Hemoglobin is stable. Hemoccult negative. He has had a brown stool. Doubt GI blood loss. Continue to monitor. During my visit with the patient this morning, he stated he wanted to look at his wound on his foot. I told him that was up to Dr. Garcia and did relay the patient's concerns to Dr. Garcia's physician assistants. Regarding the erythema of the right leg medially just above the splint, I did discuss this with Dr. Garcia's physician assistants and I have asked the nurse to outline it with skin marker. Hospital Course Summary Disclaimer: The visit summary below is not to be considered part of the above Progress Note. Hospital Course: 02/12/17 16:15 Impression: Right ankle fracture s/p reduction Chronic Liver disease with failure Possible hepatocellular carcinoma ETOH intoxication ETOH abuse. Depression/anxiety COPD with hx of bronchitis HTN Acute pain Plan: 02/12/[address] Garcia for ongoing orthopedic management. We need to get more information re: possible hepatic carcinoma before we proceed with OR. Will need to request records from DR. NICOLAS Alvarez with [facility] on Tuesday AM. Assess INR, Venous ammonia, ETOH level, UDS now. Monitor labs closely. Assess CXR, EKG given risk for tachycardia, need for pre-op assessment. Start tele. Rhonchi on clinical exam- neb tx, check CXR. Will resume home meds as appropriate. Order PRN low dose Serax for w/d sx. Will not schedule due to sedation- d/w RN. 02/13/2017 Impression: 1. Right ankle fracture s/p reduction -Fibula fx proximal and distal -Dr. Garcia consulted, does not think it will be ready for surgical repair for a week. 2. Cirrohsis with liver mass -Follows with Dr. NICOLAS Barton in [place] -Ammonia elevated at 45 today, will order lactulose (pt will likely refuse) 3. ETOHism -Initiate withdrawal protocol 4. COPD -Persistent smoker -Nicotine patch provided -Resp therapy -CXR okay 5. Acute pain -Requiring IV meds for relief. 6. DVT/GI prophylaxis SCDs and PPI He could probably go home once his pain is managed by po meds. 01/14/2017 Impression: 1. Right ankle fracture s/p reduction -Fibula fx proximal and distal -Dr. Garcia consulted, distal fracture is not in good position. He will be taken to the OR later today for closed reduction and application of the splint. -The patient may require placement in halfway, swing bed or IRU for help prior to undergoing surgery 2. Cirrohsis with liver mass -Follows with Dr. NICOLAS Barton in [place] -Ammonia elevated, lactulose ordered -Bilirubin up to 2.3 from 1.6 and 0.7. AST is 72 -Patient reportedly with enlarged spleen, portal hypertension and esophageal varices 3. ETOHism -Continue withdrawal protocol -Monitor for DTs 4. COPD -Persistent smoker -Nicotine patch provided -Resp therapy-DuoNeb -CXR okay 5. Acute pain -Still Requiring IV Dilaudid for relief. 6. DVT/GI prophylaxis SCDs and PPI Discussed with Dr. Garcia. The patient will likely need placement prior to surgery in 1 week's time. He is concerned that the patient's fracture will not stay in alignment if he is discharged. 01/15/2017 Impression: 1. Right ankle fracture s/p reduction -Fibula fx proximal and distal - The patient had closed reduction yesterday but then was noncompliant and put weight on his foot. He has edema in his foot and blisters associated with the fracture. Per Dr. Garcia, it will take 1-2 weeks for the swelling and blisters to improve and make it safe for surgery. Dr. Garcia does recommend bed rest until the time of surgery is that the patient's noncompliance. Discussed at length with case management and they are working on plans to take care of the patient until he can undergo surgery. 2. Cirrohsis with liver mass -Follows with Dr. NICOLAS Barton in [place] -Ammonia elevated, lactulose ordered and the patient is compliant now taking this -Bilirubin has normalized -Patient reportedly with enlarged spleen, portal hypertension and esophageal varices -Metoprolol 25 mg by mouth twice a day started this hospitalization 3. ETOHism -Continue withdrawal protocol-so far, patient is doing well. He has only required 1 dose of Ativan yesterday and has not required any Serax -Monitor for DTs 4. COPD -Persistent smoker -Nicotine patch provided -Resp therapy-DuoNeb -CXR okay 5. Acute pain -We'll try oral oxycodone and discontinue [place]. Use Dilaudid only for breakthrough pain 6. DVT/GI prophylaxis SCDs and PPI 7. Anemia - recheck hemoglobin. Monitor stools for signs of bleeding. Check Hemoccults Discussed with Dr. Garcia and case management. The patient will likely need placement prior to surgery in 1-2 week's time. He is concerned that the patient' s fracture will not stay in alignment if he is discharged.
[2017-02-16] MEDS: Oxycodone *IR* 15 MG TABLET PO PRN ×2 (17:17→21:25)
[2017-02-16] MEDS: GABAPENTIN 300 MG CAPSULE PO SCH (21:25)
[2017-02-16] MEDS: MIRTAZAPINE 15 MG TABLET PO SCH (21:25)
[2017-02-16] MEDS: PAROXETINE 20 MG TABLET PO SCH (21:26)
[2017-02-16] MEDS ORDERED: FALL RISK - PHARMACY CONSULT XX ONE (23:07)
[2017-02-17] MEDS: Oxycodone *IR* 15 MG TABLET PO PRN ×4 (04:22→22:36)
[2017-02-17] MEDS: OXAZEPAM 15 MG CAPSULE PO PRN (05:57)
[2017-02-17] MEDS: PANTOPRAZOLE 40 MG TABLET PO SCH (05:57)
[2017-02-17] MEDS: ALBUTEROL/IPRATROPIUM 2.5mg-0.5mg/3ml NEB AEROSOL SCH ×4 (06:48→22:03)
--- NOTE | 2017-02-17 08:02 | Orthopedic Progress Note ---
Date: Subjective/Severity of Illness: Mr. Lombardo states he has some burning type pain in the generalized ankle area today. He denies taking the splint off. No interval reports of him weight bearing on the right ankle or removing the splint. Orthopedic Objective PO Vital signs: Temperature 99 F 02/17/17 07:31 Pulse Rate 81 02/17/17 07:31 Respiratory Rate 18 02/17/17 07:31 Blood Pressure 112/76 02/17/17 07:31 Pulse Oximetry 94 02/17/17 07:31 Height and Weight: Weight 221 lb 9.033 oz - Constitutional General Appearance: Present: disheveled, no acute distress - Respiratory Exam Present: non-labored - Cardiovascular Exam Capillary Refill: < 2-3 Seconds - Extremities Exam Comments: exaimned in his splint. There is drainage through his MIKI wrap over the dorsal surface of his foot. Splint appears in good condition. I did lift the MIKI over the dorsal surface of the foot and visualized fracture blisters. - Integumentary Exam Present: pink, warm, other (Blisters noted on the dorsum of the foot. Other blisters not visualized at this time.) - Neurological Exam Present: intact to light touch - Psychiatric Exam Present: alert - Labs Result Diagrams: 02/17/17 04:19 02/17/17 04:19 Abnormal lab results 02/17/17 02/17/17 Range/Units 04:19 04:19 RBC 3.83 L (4.50-5.90) M/MM3 Hgb 11.1 L (13.5-17.5) GM/DL Hct 34.3 L (41-53) % RDW Std Deviation 52.4 H (36.9-50.2) FL Plt Count 105 L (130-400) T/MM3 MPV 12.9 H (9.4-12.4) UM3 [place]oard % (Auto) 15.8 H (0-9.0) % [place]oard # (Auto) 1.1 H (0-0.8) T/MM3 AST 63 H (17-59) U/L Ammonia 65 H (9-33) UMOL/L Albumin 3.3 L (3.5-5.0) G/DL Globulin 3.8 H (2.4-3.6) G/DL Albumin/Globulin Ratio 0.9 L (1.1-2.2) RATIO H & H 02/15/17 02/16/17 02/17/17 Range/Units 09:08 04:26 04:19 Hgb 10.8 L 11.0 L 11.1 L (13.5-17.5) GM/DL Hct 33.4 L D 34.6 L 34.3 L (41-53) % Coagulation 02/16/17 Range/Units 04:26 INR 1.46 H (0.99-1.21) Orthopedic Assessment and Plan (1) Closed right ankle fracture Status: Acute Qualifiers: Encounter type: subsequent encounter Assessment and Plan: Continue with present plan of waiting for swelling to decrease before addressing the ankle surgically. Hospital Course Summary Disclaimer: The visit summary below is not to be considered part of the above Progress Note. Hospital Course: 02/12/17 16:15 Impression: Right ankle fracture s/p reduction Chronic Liver disease with failure Possible hepatocellular carcinoma ETOH intoxication ETOH abuse. Depression/anxiety COPD with hx of bronchitis HTN Acute pain Plan: 02/12/[address] Garcia for ongoing orthopedic management. We need to get more information re: possible hepatic carcinoma before we proceed with OR. Will need to request records from DR. NICOLAS Alvarez with [facility] on Tuesday AM. Assess INR, Venous ammonia, ETOH level, UDS now. Monitor labs closely. Assess CXR, EKG given risk for tachycardia, need for pre-op assessment. Start tele. Rhonchi on clinical exam- neb tx, check CXR. Will resume home meds as appropriate. Order PRN low dose Serax for w/d sx. Will not schedule due to sedation- d/w RN. 02/13/2017 Impression: 1. Right ankle fracture s/p reduction -Fibula fx proximal and distal -Dr. Garcia consulted, does not think it will be ready for surgical repair for a week. 2. Cirrohsis with liver mass -Follows with Dr. NICOLAS Barton in [place] -Ammonia elevated at 45 today, will order lactulose (pt will likely refuse) 3. ETOHism -Initiate withdrawal protocol 4. COPD -Persistent smoker -Nicotine patch provided -Resp therapy -CXR okay 5. Acute pain -Requiring IV meds for relief. 6. DVT/GI prophylaxis SCDs and PPI He could probably go home once his pain is managed by po meds. 01/14/2017 Impression: 1. Right ankle fracture s/p reduction -Fibula fx proximal and distal -Dr. Garcia consulted, distal fracture is not in good position. He will be taken to the OR later today for closed reduction and application of the splint. -The patient may require placement in nursing home, swing bed or IRU for help prior to undergoing surgery 2. Cirrohsis with liver mass -Follows with Dr. NICOLAS Barton in [place] -Ammonia elevated, lactulose ordered -Bilirubin up to 2.3 from 1.6 and 0.7. AST is 72 -Patient reportedly with enlarged spleen, portal hypertension and esophageal varices 3. ETOHism -Continue withdrawal protocol -Monitor for DTs 4. COPD -Persistent smoker -Nicotine patch provided -Resp therapy-DuoNeb -CXR okay 5. Acute pain -Still Requiring IV Dilaudid for relief. 6. DVT/GI prophylaxis SCDs and PPI Discussed with Dr. Garcia. The patient will likely need placement prior to surgery in 1 week's time. He is concerned that the patient's fracture will not stay in alignment if he is discharged. 01/15/2017 Impression: 1. Right ankle fracture s/p reduction -Fibula fx proximal and distal - The patient had closed reduction yesterday but then was noncompliant and put weight on his foot. He has edema in his foot and blisters associated with the fracture. Per Dr. Garcia, it will take 1-2 weeks for the swelling and blisters to improve and make it safe for surgery. Dr. Garcia does recommend bed rest until the time of surgery is that the patient's noncompliance. Discussed at length with case management and they are working on plans to take care of the patient until he can undergo surgery. 2. Cirrohsis with liver mass -Follows with Dr. NICOLAS Barton in [place] -Ammonia elevated, lactulose ordered and the patient is compliant now taking this -Bilirubin has normalized -Patient reportedly with enlarged spleen, portal hypertension and esophageal varices -Metoprolol 25 mg by mouth twice a day started this hospitalization 3. ETOHism -Continue withdrawal protocol-so far, patient is doing well. He has only required 1 dose of Ativan yesterday and has not required any Serax -Monitor for DTs 4. COPD -Persistent smoker -Nicotine patch provided -Resp therapy-DuoNeb -CXR okay 5. Acute pain -We'll try oral oxycodone and discontinue [place]. Use Dilaudid only for breakthrough pain 6. DVT/GI prophylaxis SCDs and PPI 7. Anemia - recheck hemoglobin. Monitor stools for signs of bleeding. Check Hemoccults Discussed with Dr. Garcia and case management. The patient will likely need placement prior to surgery in 1-2 week's time. He is concerned that the patient' s fracture will not stay in alignment if he is discharged.
[2017-02-17] MEDS: LACTULOSE 20 GM/30 ML ORAL LIQUID PO SCH ×4 (10:08→20:17)
[2017-02-17] MEDS: NICOTINE 14 MG PATCH TD SCH (10:09)
[2017-02-17] MEDS: NICOTINE PATCH REMOVAL TD SCH (10:09)
--- NOTE | 2017-02-17 14:11 | Progress Note ---
- Date 02/17/17 Subjective: The patient was seen in his room this afternoon. He was sleeping when I arrived but awakened fairly easily. He did appear to drowse off during my visit. He complains of pain in his right foot and leg. He denies any pain elsewhere. He denies any shortness of breath or abdominal discomfort. He states he's eating and drinking well. He has not had any bowel movements today. No bowel movements were recorded yesterday. He did receive Serax twice yesterday and once today. He states he is not having any visual hallucination but his may be hearing things. When asked to elaborate, he stated that when he is sleeping and the TV is on he thinks he is hearing things on the TV that aren't really there, but once he wakes up he is not hearing anything that seems unusual. Per nurse's notes, the patient did get up and put weight on his right foot yesterday despite multiple times being told he is nonweightbearing on his right foot and not to get out of bed.. Objective Vital signs: Temperature 99 F 02/17/17 07:31 Pulse Rate 81 02/17/17 07:31 Respiratory Rate 12 02/17/17 11:09 Blood Pressure 112/76 02/17/17 07:31 Pulse Oximetry 94 02/17/17 07:31 Height/Weight/BMI: Weight 100.6 kg Comments: GEN-drowsy, oriented, no acute distress HEENT-were anicteric poor dentition NECK-supple CV-regular rate and rhythm CHEST-clear to auscultation bilaterally ABD-soft, nontender, mild to moderate distention, normal bowel sounds -no Hendrix EXT-no edema, right leg is wrapped and in a splint NEURO-no tremulousness, no focal deficits SKIN-warm and dry Results - Labs CBC & Chem 7: 02/17/17 04:19 02/17/17 04:19 Labs: Liver enzymes are normal other than AST of 63 and ammonia level of 65. Assessment and Plan (1) Closed right ankle fracture Current visit: Yes Status: Acute (2) Cirrhosis Current visit: Yes Status: Acute (3) Alcoholism Current visit: Yes Status: Acute Assessment and Plan: 01/17/2017 Impression 1. Right ankle fracture s/p reduction -Fibula fx proximal and distal - The patient had closed reduction 02/14/2017 but then was noncompliant afterwards and put weight on his foot and took off his splint. -Fracture blisters and edema of the right ankle-treatment per Dr. Garcia 2. Cirrohsis with liver mass -Follows with Dr. NICOLAS Barton in [place] -Ammonia elevated-increase lactulose to 4 times a day -Bilirubin has normalized -Splenomegaly, portal hypertension and esophageal varices -Metoprolol 25 mg by mouth twice a day started this hospitalization 3. ETOHism -The patient's last drink was 5 days ago. We will discontinue monitoring for alcohol withdrawal. The patient did get a couple of doses of Serax yesterday and this morning. I'm not seeing any signs of withdrawal. Vital signs stable. No tremulousness. I think his intermittent confusion is due to his hepatic encephalopathy and pain medication. 4. COPD -Persistent smoker -Nicotine patch provided -Resp therapy-DuoNeb -CXR okay 5. Acute pain -Continue oxycodone 6. DVT/GI prophylaxis SCDs and PPI-no anticoagulation because of his coagulopathy with liver disease and esophageal varices 7. Anemia - Hemoglobin is stable. Hemoccult negative. He has had a brown stool. Doubt GI blood loss. Continue to monitor. 8. Hepatic encephalopathy -Increase lactulose Plan Continue to educate the patient on the importance of nonweightbearing on the right foot. Continue oxycodone for pain control. Discontinue monitoring for alcohol withdrawal since he is 5 days from his last drink. Increase lactulose for hepatic encephalopathy. Goal is 2-3 loose stools a day. The patient has been accepted to [facility]. Possible transfer tomorrow if confusion is improved. Discussed with the patient's nurse and case management. Hospital Course Summary Disclaimer: The visit summary below is not to be considered part of the above Progress Note. Hospital Course: 02/12/17 16:15 Impression: Right ankle fracture s/p reduction Chronic Liver disease with failure Possible hepatocellular carcinoma ETOH intoxication ETOH abuse. Depression/anxiety COPD with hx of bronchitis HTN Acute pain Plan: 02/12/[address] Garcia for ongoing orthopedic management. We need to get more information re: possible hepatic carcinoma before we proceed with OR. Will need to request records from DR. NICOLAS Alvarez with [facility] on Tuesday AM. Assess INR, Venous ammonia, ETOH level, UDS now. Monitor labs closely. Assess CXR, EKG given risk for tachycardia, need for pre-op assessment. Start tele. Rhonchi on clinical exam- neb tx, check CXR. Will resume home meds as appropriate. Order PRN low dose Serax for w/d sx. Will not schedule due to sedation- d/w RN. 02/13/2017 Impression: 1. Right ankle fracture s/p reduction -Fibula fx proximal and distal -Dr. Garcia consulted, does not think it will be ready for surgical repair for a week. 2. Cirrohsis with liver mass -Follows with Dr. NICOLAS Barton in [place] -Ammonia elevated at 45 today, will order lactulose (pt will likely refuse) 3. ETOHism -Initiate withdrawal protocol 4. COPD -Persistent smoker -Nicotine patch provided -Resp therapy -CXR okay 5. Acute pain -Requiring IV meds for relief. 6. DVT/GI prophylaxis SCDs and PPI He could probably go home once his pain is managed by po meds. 01/14/2017 Impression: 1. Right ankle fracture s/p reduction -Fibula fx proximal and distal -Dr. Garcia consulted, distal fracture is not in good position. He will be taken to the OR later today for closed reduction and application of the splint. -The patient may require placement in fpc, swing bed or IRU for help prior to undergoing surgery 2. Cirrohsis with liver mass -Follows with Dr. NICOLAS Barton in [place] -Ammonia elevated, lactulose ordered -Bilirubin up to 2.3 from 1.6 and 0.7. AST is 72 -Patient reportedly with enlarged spleen, portal hypertension and esophageal varices 3. ETOHism -Continue withdrawal protocol -Monitor for DTs 4. COPD -Persistent smoker -Nicotine patch provided -Resp therapy-DuoNeb -CXR okay 5. Acute pain -Still Requiring IV Dilaudid for relief. 6. DVT/GI prophylaxis SCDs and PPI Discussed with Dr. Garcia. The patient will likely need placement prior to surgery in 1 week's time. He is concerned that the patient's fracture will not stay in alignment if he is discharged. 01/15/2017 Impression: 1. Right ankle fracture s/p reduction -Fibula fx proximal and distal - The patient had closed reduction yesterday but then was noncompliant and put weight on his foot. He has edema in his foot and blisters associated with the fracture. Per Dr. Garcia, it will take 1-2 weeks for the swelling and blisters to improve and make it safe for surgery. Dr. Garcia does recommend bed rest until the time of surgery is that the patient's noncompliance. Discussed at length with case management and they are working on plans to take care of the patient until he can undergo surgery. 2. Cirrohsis with liver mass -Follows with Dr. NICOLAS Barton in [place] -Ammonia elevated, lactulose ordered and the patient is compliant now taking this -Bilirubin has normalized -Patient reportedly with enlarged spleen, portal hypertension and esophageal varices -Metoprolol 25 mg by mouth twice a day started this hospitalization 3. ETOHism -Continue withdrawal protocol-so far, patient is doing well. He has only required 1 dose of Ativan yesterday and has not required any Serax -Monitor for DTs 4. COPD -Persistent smoker -Nicotine patch provided -Resp therapy-DuoNeb -CXR okay 5. Acute pain -We'll try oral oxycodone and discontinue [place]. Use Dilaudid only for breakthrough pain 6. DVT/GI prophylaxis SCDs and PPI 7. Anemia - recheck hemoglobin. Monitor stools for signs of bleeding. Check Hemoccults Discussed with Dr. Garcia and case management. The patient will likely need placement prior to surgery in 1-2 week's time. He is concerned that the patient' s fracture will not stay in alignment if he is discharged. 01/16/2017 Impression/plan 1. Right ankle fracture s/p reduction -Fibula fx proximal and distal - The patient had closed reduction 02/14/2017 but then was noncompliant afterwards and put weight on his foot and took off his splint. He has edema in his foot and blisters associated with the fracture. Per Dr. Garcia, it will take 1 -2 weeks for the swelling and blisters to improve and make it safe for surgery. Dr. Garcia does recommend bed rest until the time of surgery. Discussed at length with case management and they are working on plans to take care of the patient until he can undergo surgery. -Fracture blisters of the right ankle-treatment per Dr. Garcia 2. Cirrohsis with liver mass -Follows with Dr. NICOLAS Barton in [place] -Ammonia elevated, lactulose ordered and the patient is intermittently compliant taking this -Bilirubin has normalized -Patient reportedly with enlarged spleen, portal hypertension and esophageal varices -Metoprolol 25 mg by mouth twice a day started this hospitalization 3. ETOHism -Continue withdrawal protocol-so far, patient is doing well. As of 02/16/2017, he is 96 hours past the time of his last drink. Likelihood of developing DTs at this time is very minimal. He had one dose of IV Ativan 2 days ago and one tablet of Serax this morning. Otherwise he has not required any benzodiazepines -Continue Monitor for DTs-can likely discontinue monitoring 02/17/2017 4. COPD -Persistent smoker -Nicotine patch provided -Resp therapy-DuoNeb -CXR okay 5. Acute pain -We'll try increase oxycodone. Try to avoid IVF narcotics. Patient currently does not have an IV as they keep falling out. 6. DVT/GI prophylaxis SCDs and PPI-no anticoagulation because of his coagulopathy with liver disease and esophageal varices 7. Anemia - Hemoglobin is stable. Hemoccult negative. He has had a brown stool. Doubt GI blood loss. Continue to monitor. During my visit with the patient this morning, he stated he wanted to look at his wound on his foot. I told him that was up to Dr. Garcia and did relay the patient's concerns to Dr. Garcia's physician assistants. Regarding the erythema of the right leg medially just above the splint, I did discuss this with Dr. Garcia's physician assistants and I have asked the nurse to outline it with skin marker.
[2017-02-17] MEDS: MIRTAZAPINE 15 MG TABLET PO SCH (20:16)
[2017-02-17] MEDS: PAROXETINE 20 MG TABLET PO SCH (20:16)
[2017-02-17] MEDS: DiphenhydrAMINE 25 MG CAPSULE PO PRN (20:17)
[2017-02-17] MEDS: GABAPENTIN 300 MG CAPSULE PO SCH (20:17)
[2017-02-18] MEDS: Oxycodone *IR* 15 MG TABLET PO PRN ×5 (02:32→21:37)
[2017-02-18] MEDS: PANTOPRAZOLE 40 MG TABLET PO SCH (06:43)
--- NOTE | 2017-02-18 08:46 | XRay Report ---
Indication: CHECK BONE PLACEMENT PROCEDURE: XR ankle RT min 3V: Encounter: Initial Comparison: February 16, 2017 Findings: Alignment of the ankle is unchanged. Continued widening of the medial clear space. Fibular fracture is stable in appearance. Overlying splinting material. Impression: Unchanged alignment of the ankle. .
[2017-02-18] MEDS: NICOTINE 14 MG PATCH TD SCH (09:30)
[2017-02-18] MEDS: LACTULOSE 20 GM/30 ML ORAL LIQUID PO SCH ×4 (09:31→20:03)
[2017-02-18] MEDS: NICOTINE PATCH REMOVAL TD SCH (09:31)
[2017-02-18] MEDS: ALBUTEROL/IPRATROPIUM 2.5mg-0.5mg/3ml NEB AEROSOL SCH ×5 (10:34→20:55)
[2017-02-18] MEDS: LR 1,000 ML IV SCH (13:01)
[2017-02-18] MEDS ORDERED: HYDROMORPHONE 2 MG/ML INJECTION ONE (13:46)
[2017-02-18] MEDS ORDERED: MIDAZOLAM 2mg/2ml INJECTION ONE (13:46)
[2017-02-18] MEDS ORDERED: PROPOFOL 500 MG/50 ML VIAL IV ONE (13:47)
--- NOTE | 2017-02-18 14:38 | Progress Note ---
<Massiel Pleitez D - Last Filed: 02/18/17 14:34> - Date 02/18/17 Subjective: Young was sleeping but easily awakened. He commented "Let's rock and roll", and asked if he can eat. He complains of ankle pain, but denies any other pain. He doesn't like the lactulose and states that it caused him to have heartburn twice last night (which has resolved) and is making him have "a lot of gas". He denied any abdominal pain. No SOA or cough. Objective Vital signs: Temperature 98.7 F 02/18/17 12:38 Pulse Rate 72 02/18/17 12:38 Respiratory Rate 16 02/18/17 12:38 Blood Pressure 109/56 02/18/17 12:38 Pulse Oximetry 94 02/18/17 12:38 Height/Weight/BMI: Weight 100.6 kg - Constitutional Present: no acute distress, thin - Routine HEENT Exam ENT: Present: mucous membranes dry. Absent: dentition normal (decay) - Routine Respiratory Exam Present: diminished air movement. Absent: CTA bilaterally - Routine Cardiovascular Exam Present: RRR, S1, S2 - Routine Abdominal Exam Present: normoactive bowel sounds, non tender, distended - Routine Extremities Exam Present: no edema - Routine Musculoskeletal Exam Musculoskeletal: Present: limited range of motion (splint to RLE; dried drainage noted on MIKI, but MIKI was loose so the location of the drainage was uncertain) - Routine Skin Exam Present: dry, warm - Routine Neurological Exam Present: alert, oriented X3, CN II-XII intact, normal speech. Absent: tremors - Routine Psychiatric Exam Present: normal affect, cooperative Results - Labs CBC & Chem 7: 02/17/17 04:19 02/17/17 04:19 Assessment and Plan (1) Closed right ankle fracture Current visit: Yes Status: Acute (2) Cirrhosis Current visit: Yes Status: Acute (3) Alcoholism Current visit: Yes Status: Acute Assessment and Plan: 01/17/2017 Impression 1. Right ankle fracture s/p reduction -Fibula fx proximal and distal - The patient had closed reduction 02/14/2017 but then was noncompliant afterwards and put weight on his foot and took off his splint. -Fracture blisters and edema of the right ankle-treatment per Dr. Garcia -Oxycodone for pain 2. Cirrohsis with liver mass and hepatic encephalopathy -Follows with Dr. NICOLAS Barton in [place] -Ammonia elevated-increase lactulose to 4 times a day -Bilirubin has normalized -Splenomegaly, portal hypertension and esophageal varices -Metoprolol 25 mg by mouth twice a day started this hospitalization 3. ETOHism -Monitoring for alcohol withdrawal discontinued after 5 days. The patient did get a couple of doses of Serax, but no signs of withdrawal. Intermittent confusion most likely due to his hepatic encephalopathy and pain medication. 4. COPD -Persistent smoker -Nicotine patch provided -Resp therapy-DuoNeb -CXR okay 5. DVT/GI prophylaxis SCD (left leg) and PPI - no anticoagulation because of his coagulopathy with liver disease and esophageal varices 6. Anemia - Hemoglobin is stable. Hemoccult negative. Plan Ammonia level decreased to 36 - continue Lactulose. Pt educated on purpose of lactulose. Sx today per Dr. Garcia. Reported heartburn last night x2 - check EKG and trop (since we are nearly 16 hours out, 1 trop should be sufficient to r/o) Possible dc to [facility] for bedrest tomorrow if medically stable. Repeat CBC, BMP, ammonia level in am. Discussed with Dr. Esparza and RN. GI Prophylaxis: Protonix Resuscitation Status: Full Code Hospital Course Summary Disclaimer: The visit summary below is not to be considered part of the above Progress Note. Hospital Course: 02/12/17 16:15 Impression: Right ankle fracture s/p reduction Chronic Liver disease with failure Possible hepatocellular carcinoma ETOH intoxication ETOH abuse. Depression/anxiety COPD with hx of bronchitis HTN Acute pain Plan: 02/12/[address] Garcia for ongoing orthopedic management. We need to get more information re: possible hepatic carcinoma before we proceed with OR. Will need to request records from DR. NICOLAS Alvarez with [facility] on Tuesday AM. Assess INR, Venous ammonia, ETOH level, UDS now. Monitor labs closely. Assess CXR, EKG given risk for tachycardia, need for pre-op assessment. Start tele. Rhonchi on clinical exam- neb tx, check CXR. Will resume home meds as appropriate. Order PRN low dose Serax for w/d sx. Will not schedule due to sedation- d/w RN. 02/13/2017 Impression: 1. Right ankle fracture s/p reduction -Fibula fx proximal and distal -Dr. Garcia consulted, does not think it will be ready for surgical repair for a week. 2. Cirrohsis with liver mass -Follows with Dr. NICOLAS Barton in [place] -Ammonia elevated at 45 today, will order lactulose (pt will likely refuse) 3. ETOHism -Initiate withdrawal protocol 4. COPD -Persistent smoker -Nicotine patch provided -Resp therapy -CXR okay 5. Acute pain -Requiring IV meds for relief. 6. DVT/GI prophylaxis SCDs and PPI He could probably go home once his pain is managed by po meds. 01/14/2017 Impression: 1. Right ankle fracture s/p reduction -Fibula fx proximal and distal -Dr. Garcia consulted, distal fracture is not in good position. He will be taken to the OR later today for closed reduction and application of the splint. -The patient may require placement in chcf, swing bed or IRU for help prior to undergoing surgery 2. Cirrohsis with liver mass -Follows with Dr. NICOLAS Barton in [place] -Ammonia elevated, lactulose ordered -Bilirubin up to 2.3 from 1.6 and 0.7. AST is 72 -Patient reportedly with enlarged spleen, portal hypertension and esophageal varices 3. ETOHism -Continue withdrawal protocol -Monitor for DTs 4. COPD -Persistent smoker -Nicotine patch provided -Resp therapy-DuoNeb -CXR okay 5. Acute pain -Still Requiring IV Dilaudid for relief. 6. DVT/GI prophylaxis SCDs and PPI Discussed with Dr. Garcia. The patient will likely need placement prior to surgery in 1 week's time. He is concerned that the patient's fracture will not stay in alignment if he is discharged. 01/15/2017 Impression: 1. Right ankle fracture s/p reduction -Fibula fx proximal and distal - The patient had closed reduction yesterday but then was noncompliant and put weight on his foot. He has edema in his foot and blisters associated with the fracture. Per Dr. Garcia, it will take 1-2 weeks for the swelling and blisters to improve and make it safe for surgery. Dr. Garcia does recommend bed rest until the time of surgery is that the patient's noncompliance. Discussed at length with case management and they are working on plans to take care of the patient until he can undergo surgery. 2. Cirrohsis with liver mass -Follows with Dr. NICOLAS Barton in [place] -Ammonia elevated, lactulose ordered and the patient is compliant now taking this -Bilirubin has normalized -Patient reportedly with enlarged spleen, portal hypertension and esophageal varices -Metoprolol 25 mg by mouth twice a day started this hospitalization 3. ETOHism -Continue withdrawal protocol-so far, patient is doing well. He has only required 1 dose of Ativan yesterday and has not required any Serax -Monitor for DTs 4. COPD -Persistent smoker -Nicotine patch provided -Resp therapy-DuoNeb -CXR okay 5. Acute pain -We'll try oral oxycodone and discontinue [place]. Use Dilaudid only for breakthrough pain 6. DVT/GI prophylaxis SCDs and PPI 7. Anemia - recheck hemoglobin. Monitor stools for signs of bleeding. Check Hemoccults Discussed with Dr. Garcia and case management. The patient will likely need placement prior to surgery in 1-2 week's time. He is concerned that the patient' s fracture will not stay in alignment if he is discharged. 01/16/2017 Impression/plan 1. Right ankle fracture s/p reduction -Fibula fx proximal and distal - The patient had closed reduction 02/14/2017 but then was noncompliant afterwards and put weight on his foot and took off his splint. He has edema in his foot and blisters associated with the fracture. Per Dr. Garcia, it will take 1 -2 weeks for the swelling and blisters to improve and make it safe for surgery. Dr. Garcia does recommend bed rest until the time of surgery. Discussed at length with case management and they are working on plans to take care of the patient until he can undergo surgery. -Fracture blisters of the right ankle-treatment per Dr. Garcia 2. Cirrohsis with liver mass -Follows with Dr. NICOLAS Barton in [place] -Ammonia elevated, lactulose ordered and the patient is intermittently compliant taking this -Bilirubin has normalized -Patient reportedly with enlarged spleen, portal hypertension and esophageal varices -Metoprolol 25 mg by mouth twice a day started this hospitalization 3. ETOHism -Continue withdrawal protocol-so far, patient is doing well. As of 02/16/2017, he is 96 hours past the time of his last drink. Likelihood of developing DTs at this time is very minimal. He had one dose of IV Ativan 2 days ago and one tablet of Serax this morning. Otherwise he has not required any benzodiazepines -Continue Monitor for DTs-can likely discontinue monitoring 02/17/2017 4. COPD -Persistent smoker -Nicotine patch provided -Resp therapy-DuoNeb -CXR okay 5. Acute pain -We'll try increase oxycodone. Try to avoid IVF narcotics. Patient currently does not have an IV as they keep falling out. 6. DVT/GI prophylaxis SCDs and PPI-no anticoagulation because of his coagulopathy with liver disease and esophageal varices 7. Anemia - Hemoglobin is stable. Hemoccult negative. He has had a brown stool. Doubt GI blood loss. Continue to monitor. During my visit with the patient this morning, he stated he wanted to look at his wound on his foot. I told him that was up to Dr. Garcia and did relay the patient's concerns to Dr. Garcia's physician assistants. Regarding the erythema of the right leg medially just above the splint, I did discuss this with Dr. Garcia's physician assistants and I have asked the nurse to outline it with skin marker. 02/18/17 Ammonia level decreased to 36 - continue Lactulose. Pt educated on purpose of lactulose. Sx today per Dr. Garcia. Reported heartburn last night x2 - check EKG and trop (since we are nearly 16 hours out, 1 trop should be sufficient to r/o) Possible dc to [facility] [place] for bedrest tomorrow if medically stable. <Thelma Esparza L - Last Filed: 02/18/17 16:33> - Date 02/18/17 Objective Vital signs: Temperature 97.5 F 02/18/17 15:24 Pulse Rate 78 02/18/17 16:06 Respiratory Rate 14 02/18/17 16:06 Blood Pressure 116/76 02/18/17 16:06 Pulse Oximetry 92 02/18/17 16:06 Height/Weight/BMI: Weight 100.6 kg Results - Labs CBC & Chem 7: 02/17/17 04:19 02/17/17 04:19 Assessment and Plan (1) Closed right ankle fracture Current visit: Yes Status: Acute (2) Cirrhosis Current visit: Yes Status: Acute (3) Alcoholism Current visit: Yes Status: Acute Assessment and Plan: 01/18/2017-I reviewed this chart, the patient history, and the [employer]IST's/PA's documented findings as above. We discussed and formulated the assessment and plan as above with the additions below.-Dr. Esparza The patient was seen this afternoon in his room after closed reduction of his ankle fracture in the OR. He has a sitter present. He has some pain in his foot and leg. He had reported earlier some abdominal pain going up into the chest and symptoms are very vague. He denies any pain in his chest or abdomen now. He denies shortness of breath. He is hungry after being nothing by mouth all day for surgery. He had 3 bowel movements yesterday and none today. He still seems confused and is somewhat restless. He is oriented to place, time , self, situation and knows who the president is. Lab is reviewed as above. Ammonia has improved to 36. Impression and plan Regarding ankle fracture, the patient went to the OR today for closed reduction and wound care. He now has on a split cast to protect his foot and leg since he was taking off his previous splint and dressing despite numerous reminders to leave his dressing and splint alone. I'm concerned that with his hepatic encephalopathy, he will not remember to follow instructions and will try to get up and put weight on his foot if he does not have a sitter present. Psychiatric consultation is pending. Continue lactulose for hepatic encephalopathy. No DVT prophylaxis other than SCD to the left leg because of his coagulopathy, liver disease and esophageal varices. Regarding vague chest discomfort, EKG was obtained and shows sinus rhythm. Troponin is normal this afternoon. He is asymptomatic at this time. Will start telemetry. COPD is stable. Continue breathing treatments and incentive spirometry. Discussed this afternoon with Dr. Garcia. He stated he looked at the patient's wound and placed a split cast. He recommends strict bed rest other than up to bedside commode with assist. He cannot put weight on his foot. He is very concerned that the patient will not do well if he is dismissed to the skilled nursing. I concur that with the patient's erratic behavior, he needs a sitter to help protect his foot. Plan is to return to the OR on Tuesday and remove his cast and dressing and see if swelling and blisters have improved enough to proceed with surgery. Hospital Course Summary Disclaimer: The visit summary below is not to be considered part of the above Progress Note.
--- NOTE | 2017-02-18 15:34 | Remote Fluorsocopy Report ---
Indication: CLOSED REDUCTION RT ANKLE PROCEDURE: RF ankle RT 2 view: Encounter: Initial Comparison: Ankle radiographs from yesterday Findings: Six fluoroscopic spot images are submitted for interpretation. Images show closed reduction of the ankle with improved alignment following by splinting. Impression: Fluoroscopy as above. Fluoroscopy time is 18 seconds. Fluoroscopy dose is 109.3 mRad. .
[2017-02-18] MEDS: MIRTAZAPINE 15 MG TABLET PO SCH (20:01)
[2017-02-18] MEDS: GABAPENTIN 300 MG CAPSULE PO SCH (20:01)
[2017-02-18] MEDS: PAROXETINE 20 MG TABLET PO SCH (20:03)
[2017-02-19] MEDS: Oxycodone *IR* 15 MG TABLET PO PRN ×6 (01:40→21:56)
[2017-02-19] MEDS: PANTOPRAZOLE 40 MG TABLET PO SCH (05:52)
[2017-02-19] MEDS: NICOTINE 14 MG PATCH TD SCH ×2 (07:17→08:47)
[2017-02-19] MEDS: NICOTINE PATCH REMOVAL TD SCH ×2 (07:17→08:47)
[2017-02-19] MEDS: LACTULOSE 20 GM/30 ML ORAL LIQUID PO SCH ×5 (07:17→21:57)
[2017-02-19] MEDS: ALBUTEROL/IPRATROPIUM 2.5mg-0.5mg/3ml NEB AEROSOL SCH ×4 (09:38→20:38)
--- NOTE | 2017-02-19 09:54 | Progress Note ---
<Massiel Pleitez - Last Filed: 02/19/17 11:27> - Date 02/19/17 Subjective: Young was sleeping and startled awake. He began using profanities and told me never to wake him up out of sleep like that again. He quickly apologized for his choice of words. He was audibly wheezing but did not report feeling SOA and states that occasionally occurs - it spontaneously resolved before I left. Ankle pain is severe at times - up to . Nursing staff (providing 1:1 care ) report that he needs frequent reminders to elevate his leg. Denies abdominal pain or nausea and his appetite has been very good. He doesn't care for the Lactulose but agrees to take it when staff explains the purpose. He had 3-4 BM on 02/17/17; 1 known BM on 02/18/17. Objective Vital signs: Temperature 97.3 F 02/19/17 07:01 Pulse Rate 82 02/19/17 07:34 Respiratory Rate 20 02/19/17 09:30 Blood Pressure 121/71 02/19/17 07:01 Pulse Oximetry 97 02/19/17 09:30 Height/Weight/BMI: Weight 103.4 kg - Constitutional Present: no acute distress - Routine HEENT Exam Eye: Present: PERRL. Absent: scleral injection ENT: Present: oropharynx clear. Absent: dentition normal (widespread decay) - Routine Respiratory Exam Present: wheezes (upper airway - resolved quickly) - Routine Cardiovascular Exam Present: RRR, S1, S2 - Routine Abdominal Exam Present: normoactive bowel sounds, non tender, distended - Routine Extremities Exam Present: edema (seen to right toes) - Routine Musculoskeletal Exam Musculoskeletal: Present: other (cast to RLE) - Routine Skin Exam Present: intact, dry, warm, ecchymosis (several areas of ecchymosis to right thigh and to exposed portion of toes) - Routine Neurological Exam Present: alert, oriented X3 - Routine Psychiatric Exam Present: cooperative Results - Labs CBC & Chem 7: 02/19/17 05:16 02/19/17 05:16 Assessment and Plan (1) Closed right ankle fracture Current visit: Yes Status: Acute (2) Cirrhosis Current visit: Yes Status: Acute (3) Alcoholism Current visit: Yes Status: Acute Assessment and Plan: IMPRESSION 1. Right ankle fracture s/p reduction -Fibula fx proximal and distal -closed reduction 02/14/2017 but then was noncompliant afterwards and put weight on his foot and took off his splint. -Fracture blisters and edema of the right ankle-treatment per Dr. Garcia -Oxycodone for pain 2. Cirrohsis with liver mass and hepatic encephalopathy -Follows with Dr. NICOLAS Barton in [place] -Ammonia elevated-increase lactulose to 4 times a day -Bilirubin has normalized -Splenomegaly, portal hypertension and esophageal varices -Metoprolol 25 mg by mouth twice a day started this hospitalization -Thrombocytopenia, suspect chronic 3. ETOHism -Monitoring for alcohol withdrawal discontinued after 5 days. The patient did get a couple of doses of Serax, but no signs of withdrawal. Intermittent confusion most likely due to his hepatic encephalopathy and pain medication. 4. COPD -Persistent smoker -Nicotine patch provided -Resp therapy-DuoNeb + Pulmicort -CXR okay 5. DVT/GI prophylaxis -SCD (left leg) and PPI - no anticoagulation because of his coagulopathy with liver disease and esophageal varices 6. Anemia - Hemoglobin is stable. Hemoccult negative. PLAN Continue 1:1 care to protect right ankle after repeated reduction. Dr. Garcia recommends strict bed rest other than up to bedside commode with assist. NWB right LE. Plans to return to OR on 02/22, proceed with sx if swelling/blisters improved. Ammonia increased to 48 and he did not have a BM yesterday. Goal is to have 2-3 loose stools/day. Increase lactulose to 30 gm QID. Mild normocytic anemia - stable. Thrombocytopenia (plt 111), ranges 90s-120s. Repeat CMP, ammonia level in am. COPD - continue DuoNebs; add Pulmicort d/t intermittent wheezing. D/W RN and Dr. Chu. Hospital Course Summary Disclaimer: The visit summary below is not to be considered part of the above Progress Note. Hospital Course: 02/12/17 16:15 Impression: Right ankle fracture s/p reduction Chronic Liver disease with failure Possible hepatocellular carcinoma ETOH intoxication ETOH abuse. Depression/anxiety COPD with hx of bronchitis HTN Acute pain Plan: 02/12/[address] Garcia for ongoing orthopedic management. We need to get more information re: possible hepatic carcinoma before we proceed with OR. Will need to request records from DR. NICOLAS Alvarez with [facility] on Tuesday AM. Assess INR, Venous ammonia, ETOH level, UDS now. Monitor labs closely. Assess CXR, EKG given risk for tachycardia, need for pre-op assessment. Start tele. Rhonchi on clinical exam- neb tx, check CXR. Will resume home meds as appropriate. Order PRN low dose Serax for w/d sx. Will not schedule due to sedation- d/w RN. 02/13/2017 Impression: 1. Right ankle fracture s/p reduction -Fibula fx proximal and distal -Dr. Garcia consulted, does not think it will be ready for surgical repair for a week. 2. Cirrohsis with liver mass -Follows with Dr. NICOLAS Barton in [place] -Ammonia elevated at 45 today, will order lactulose (pt will likely refuse) 3. ETOHism -Initiate withdrawal protocol 4. COPD -Persistent smoker -Nicotine patch provided -Resp therapy -CXR okay 5. Acute pain -Requiring IV meds for relief. 6. DVT/GI prophylaxis SCDs and PPI He could probably go home once his pain is managed by po meds. 01/14/2017 Impression: 1. Right ankle fracture s/p reduction -Fibula fx proximal and distal -Dr. Garcia consulted, distal fracture is not in good position. He will be taken to the OR later today for closed reduction and application of the splint. -The patient may require placement in usp, swing bed or IRU for help prior to undergoing surgery 2. Cirrohsis with liver mass -Follows with Dr. NICOLAS Barton in [place] -Ammonia elevated, lactulose ordered -Bilirubin up to 2.3 from 1.6 and 0.7. AST is 72 -Patient reportedly with enlarged spleen, portal hypertension and esophageal varices 3. ETOHism -Continue withdrawal protocol -Monitor for DTs 4. COPD -Persistent smoker -Nicotine patch provided -Resp therapy-DuoNeb -CXR okay 5. Acute pain -Still Requiring IV Dilaudid for relief. 6. DVT/GI prophylaxis SCDs and PPI Discussed with Dr. Garcia. The patient will likely need placement prior to surgery in 1 week's time. He is concerned that the patient's fracture will not stay in alignment if he is discharged. 01/15/2017 Impression: 1. Right ankle fracture s/p reduction -Fibula fx proximal and distal - The patient had closed reduction yesterday but then was noncompliant and put weight on his foot. He has edema in his foot and blisters associated with the fracture. Per Dr. Garcia, it will take 1-2 weeks for the swelling and blisters to improve and make it safe for surgery. Dr. Garcia does recommend bed rest until the time of surgery is that the patient's noncompliance. Discussed at length with case management and they are working on plans to take care of the patient until he can undergo surgery. 2. Cirrohsis with liver mass -Follows with Dr. NICOLAS Barton in [place] -Ammonia elevated, lactulose ordered and the patient is compliant now taking this -Bilirubin has normalized -Patient reportedly with enlarged spleen, portal hypertension and esophageal varices -Metoprolol 25 mg by mouth twice a day started this hospitalization 3. ETOHism -Continue withdrawal protocol-so far, patient is doing well. He has only required 1 dose of Ativan yesterday and has not required any Serax -Monitor for DTs 4. COPD -Persistent smoker -Nicotine patch provided -Resp therapy-DuoNeb -CXR okay 5. Acute pain -We'll try oral oxycodone and discontinue [place]. Use Dilaudid only for breakthrough pain 6. DVT/GI prophylaxis SCDs and PPI 7. Anemia - recheck hemoglobin. Monitor stools for signs of bleeding. Check Hemoccults Discussed with Dr. Garcia and case management. The patient will likely need placement prior to surgery in 1-2 week's time. He is concerned that the patient' s fracture will not stay in alignment if he is discharged. 01/16/2017 Impression/plan 1. Right ankle fracture s/p reduction -Fibula fx proximal and distal - The patient had closed reduction 02/14/2017 but then was noncompliant afterwards and put weight on his foot and took off his splint. He has edema in his foot and blisters associated with the fracture. Per Dr. Garcia, it will take 1 -2 weeks for the swelling and blisters to improve and make it safe for surgery. Dr. Garcia does recommend bed rest until the time of surgery. Discussed at length with case management and they are working on plans to take care of the patient until he can undergo surgery. -Fracture blisters of the right ankle-treatment per Dr. Garcia 2. Cirrohsis with liver mass -Follows with Dr. NICOLAS Barton in [place] -Ammonia elevated, lactulose ordered and the patient is intermittently compliant taking this -Bilirubin has normalized -Patient reportedly with enlarged spleen, portal hypertension and esophageal varices -Metoprolol 25 mg by mouth twice a day started this hospitalization 3. ETOHism -Continue withdrawal protocol-so far, patient is doing well. As of 02/16/2017, he is 96 hours past the time of his last drink. Likelihood of developing DTs at this time is very minimal. He had one dose of IV Ativan 2 days ago and one tablet of Serax this morning. Otherwise he has not required any benzodiazepines -Continue Monitor for DTs-can likely discontinue monitoring 02/17/2017 4. COPD -Persistent smoker -Nicotine patch provided -Resp therapy-DuoNeb -CXR okay 5. Acute pain -We'll try increase oxycodone. Try to avoid IVF narcotics. Patient currently does not have an IV as they keep falling out. 6. DVT/GI prophylaxis SCDs and PPI-no anticoagulation because of his coagulopathy with liver disease and esophageal varices 7. Anemia - Hemoglobin is stable. Hemoccult negative. He has had a brown stool. Doubt GI blood loss. Continue to monitor. During my visit with the patient this morning, he stated he wanted to look at his wound on his foot. I told him that was up to Dr. Garcia and did relay the patient's concerns to Dr. Garcia's physician assistants. Regarding the erythema of the right leg medially just above the splint, I did discuss this with Dr. Garcia's physician assistants and I have asked the nurse to outline it with skin marker. 02/18/17 Ammonia level decreased to 36 - continue Lactulose. Pt educated on purpose of lactulose. Ankle reduced per Dr. Garcia. Reported heartburn last night x2 - check EKG and trop (since we are nearly 16 hours out, 1 trop should be sufficient to r/o) Unsafe to dc. 02/19/17 Continue 1:1 care to protect right ankle after repeated reduction. Dr. Garcia recommends strict bed rest other than up to bedside commode with assist. NWB right LE. Plans to return to OR on 02/22, proceed with sx if swelling/blisters improved. Ammonia increased to 48 and he did not have a BM yesterday. Goal is to have 2-3 loose stools/day. Increase lactulose to 30 gm QID. Mild normocytic anemia - stable. Thrombocytopenia (plt 111), ranges 90s-120s. COPD - continue DuoNebs; add Pulmicort d/t intermittent wheezing. <Dannie Chu D - Last Filed: 02/19/17 17:43> - Date 02/19/17 Objective Vital signs: Temperature 98.5 F 02/19/17 15:09 Pulse Rate 85 02/19/17 16:00 Respiratory Rate 16 02/19/17 15:20 Blood Pressure 115/67 02/19/17 15:09 Pulse Oximetry 95 02/19/17 15:20 Height/Weight/BMI: Weight 103.4 kg Results - Labs CBC & Chem 7: 02/19/17 05:16 02/19/17 05:16 Assessment and Plan (1) Closed right ankle fracture Current visit: Yes Status: Acute (2) Cirrhosis Current visit: Yes Status: Acute (3) Alcoholism Current visit: Yes Status: Acute Assessment and Plan: IMPRESSION 1. Right ankle fracture s/p reduction -Fibula fx proximal and distal -closed reduction 02/14/2017 but then was noncompliant afterwards and put weight on his foot and took off his splint. -Fracture blisters and edema of the right ankle-treatment per Dr. Garcia -Oxycodone for pain 2. Cirrohsis with liver mass and hepatic encephalopathy -Follows with Dr. NICOLAS Barton in [place] -Ammonia elevated-increase lactulose to 4 times a day -Bilirubin has normalized -Splenomegaly, portal hypertension and esophageal varices -Metoprolol 25 mg by mouth twice a day started this hospitalization -Thrombocytopenia, suspect chronic 3. ETOHism -Monitoring for alcohol withdrawal discontinued after 5 days. The patient did get a couple of doses of Serax, but no signs of withdrawal. Intermittent confusion most likely due to his hepatic encephalopathy and pain medication. 4. COPD -Persistent smoker -Nicotine patch provided -Resp therapy-DuoNeb + Pulmicort -CXR okay 5. DVT/GI prophylaxis -SCD (left leg) and PPI - no anticoagulation because of his coagulopathy with liver disease and esophageal varices 6. Anemia - Hemoglobin is stable. Hemoccult negative. Have independently interviewed and examined pt. Chart reviewed. Case discuss with my [employer]. Care plan developed with my supervision; agree with above. Doing about the same-continues to have severe pain from leg and ankle. Pain meds help some. Tries not to think of his pain. Denies nausea or pain pain. Feels appetite okay. Stools slow despite lactulose. Breathing well. Lungs: decreased, no distress CV: regular AB: soft, NT BS decreased MSE: awake alert. Plan: Lactulose increased to 30g QID to help lower ammonia (not having much stool with prior dose). Suspect pain medications playing a role in his constipation. Continue nonweightbearing on Right leg. Continue supportive care. Hope for surgical intervention in near future if leg swelling permits. DVT Prophylaxis: SCD's Resuscitation Status: Full Code Hospital Course Summary Disclaimer: The visit summary below is not to be considered part of the above Progress Note.
--- NOTE | 2017-02-19 12:10 | Orthopedic Progress Note ---
Date: Subjective/Severity of Illness: Mr Dyson reports the splint feels very secure and solid. Denies pressure areas. Pain is 8-9 but manageable. Orthopedic Objective PO Vital signs: Temperature 99.1 F 02/19/17 10:53 Pulse Rate 88 02/19/17 10:53 Respiratory Rate 16 02/19/17 10:53 Blood Pressure 125/71 02/19/17 10:53 Pulse Oximetry 90 02/19/17 10:53 Height and Weight: Weight 227 lb 15.327 oz - Constitutional General Appearance: Present: disheveled, no acute distress - Respiratory Exam Present: non-labored - Integumentary Exam Present: pink, warm - Neurological Exam Present: intact to light touch - Psychiatric Exam Present: alert - Additional findings Additional findings: Splint in good condition. Appears comfortable for him. - Labs Result Diagrams: 02/19/17 05:16 02/19/17 05:16 Abnormal lab results 02/19/17 02/19/17 Range/Units 05:16 05:16 RBC 3.76 L (4.50-5.90) M/MM3 Hgb 10.8 L (13.5-17.5) GM/DL Hct 33.7 L (41-53) % RDW Std Deviation 51.8 H (36.9-50.2) FL Plt Count 111 L (130-400) T/MM3 Monocytes % (Manual) 10.0 H (0-9.0) % Ammonia 48 H (9-33) UMOL/L H & H 02/15/17 02/16/17 02/17/17 Range/Units 09:08 04:26 04:19 Hgb 10.8 L 11.0 L 11.1 L (13.5-17.5) GM/DL Hct 33.4 L D 34.6 L 34.3 L (41-53) % 02/19/17 Range/Units 05:16 Hgb 10.8 L (13.5-17.5) GM/DL Hct 33.7 L (41-53) % Coagulation 02/16/17 Range/Units 04:26 INR 1.46 H (0.99-1.21) Orthopedic Assessment and Plan (1) Closed right ankle fracture Status: Acute Qualifiers: Encounter type: subsequent encounter Assessment and Plan: Continue with present plan of waiting for swelling to decrease before addressing the ankle surgically. Plan to keep him in the hospital thru the weekend and re-evaluate Tuesday. Hospital Course Summary Disclaimer: The visit summary below is not to be considered part of the above Progress Note. Hospital Course: 02/12/17 16:15 Impression: Right ankle fracture s/p reduction Chronic Liver disease with failure Possible hepatocellular carcinoma ETOH intoxication ETOH abuse. Depression/anxiety COPD with hx of bronchitis HTN Acute pain Plan: 02/12/[address] Garcia for ongoing orthopedic management. We need to get more information re: possible hepatic carcinoma before we proceed with OR. Will need to request records from DR. NICOLAS Alvarez with [facility] on Tuesday AM. Assess INR, Venous ammonia, ETOH level, UDS now. Monitor labs closely. Assess CXR, EKG given risk for tachycardia, need for pre-op assessment. Start tele. Rhonchi on clinical exam- neb tx, check CXR. Will resume home meds as appropriate. Order PRN low dose Serax for w/d sx. Will not schedule due to sedation- d/w RN. 02/13/2017 Impression: 1. Right ankle fracture s/p reduction -Fibula fx proximal and distal -Dr. Garcia consulted, does not think it will be ready for surgical repair for a week. 2. Cirrohsis with liver mass -Follows with Dr. NICOLAS Barton in [place] -Ammonia elevated at 45 today, will order lactulose (pt will likely refuse) 3. ETOHism -Initiate withdrawal protocol 4. COPD -Persistent smoker -Nicotine patch provided -Resp therapy -CXR okay 5. Acute pain -Requiring IV meds for relief. 6. DVT/GI prophylaxis SCDs and PPI He could probably go home once his pain is managed by po meds. 01/14/2017 Impression: 1. Right ankle fracture s/p reduction -Fibula fx proximal and distal -Dr. Garcia consulted, distal fracture is not in good position. He will be taken to the OR later today for closed reduction and application of the splint. -The patient may require placement in retirement, swing bed or IRU for help prior to undergoing surgery 2. Cirrohsis with liver mass -Follows with Dr. NICOLAS Barton in [place] -Ammonia elevated, lactulose ordered -Bilirubin up to 2.3 from 1.6 and 0.7. AST is 72 -Patient reportedly with enlarged spleen, portal hypertension and esophageal varices 3. ETOHism -Continue withdrawal protocol -Monitor for DTs 4. COPD -Persistent smoker -Nicotine patch provided -Resp therapy-DuoNeb -CXR okay 5. Acute pain -Still Requiring IV Dilaudid for relief. 6. DVT/GI prophylaxis SCDs and PPI Discussed with Dr. Garcia. The patient will likely need placement prior to surgery in 1 week's time. He is concerned that the patient's fracture will not stay in alignment if he is discharged. 01/15/2017 Impression: 1. Right ankle fracture s/p reduction -Fibula fx proximal and distal - The patient had closed reduction yesterday but then was noncompliant and put weight on his foot. He has edema in his foot and blisters associated with the fracture. Per Dr. Garcia, it will take 1-2 weeks for the swelling and blisters to improve and make it safe for surgery. Dr. Garcia does recommend bed rest until the time of surgery is that the patient's noncompliance. Discussed at length with case management and they are working on plans to take care of the patient until he can undergo surgery. 2. Cirrohsis with liver mass -Follows with Dr. NICOLAS Barton in [place] -Ammonia elevated, lactulose ordered and the patient is compliant now taking this -Bilirubin has normalized -Patient reportedly with enlarged spleen, portal hypertension and esophageal varices -Metoprolol 25 mg by mouth twice a day started this hospitalization 3. ETOHism -Continue withdrawal protocol-so far, patient is doing well. He has only required 1 dose of Ativan yesterday and has not required any Serax -Monitor for DTs 4. COPD -Persistent smoker -Nicotine patch provided -Resp therapy-DuoNeb -CXR okay 5. Acute pain -We'll try oral oxycodone and discontinue [place]. Use Dilaudid only for breakthrough pain 6. DVT/GI prophylaxis SCDs and PPI 7. Anemia - recheck hemoglobin. Monitor stools for signs of bleeding. Check Hemoccults Discussed with Dr. Garcia and case management. The patient will likely need placement prior to surgery in 1-2 week's time. He is concerned that the patient' s fracture will not stay in alignment if he is discharged. 01/16/2017 Impression/plan 1. Right ankle fracture s/p reduction -Fibula fx proximal and distal - The patient had closed reduction 02/14/2017 but then was noncompliant afterwards and put weight on his foot and took off his splint. He has edema in his foot and blisters associated with the fracture. Per Dr. Garcia, it will take 1 -2 weeks for the swelling and blisters to improve and make it safe for surgery. Dr. Garcia does recommend bed rest until the time of surgery. Discussed at length with case management and they are working on plans to take care of the patient until he can undergo surgery. -Fracture blisters of the right ankle-treatment per Dr. Garcia 2. Cirrohsis with liver mass -Follows with Dr. NICOLAS Barton in [place] -Ammonia elevated, lactulose ordered and the patient is intermittently compliant taking this -Bilirubin has normalized -Patient reportedly with enlarged spleen, portal hypertension and esophageal varices -Metoprolol 25 mg by mouth twice a day started this hospitalization 3. ETOHism -Continue withdrawal protocol-so far, patient is doing well. As of 02/16/2017, he is 96 hours past the time of his last drink. Likelihood of developing DTs at this time is very minimal. He had one dose of IV Ativan 2 days ago and one tablet of Serax this morning. Otherwise he has not required any benzodiazepines -Continue Monitor for DTs-can likely discontinue monitoring 02/17/2017 4. COPD -Persistent smoker -Nicotine patch provided -Resp therapy-DuoNeb -CXR okay 5. Acute pain -We'll try increase oxycodone. Try to avoid IVF narcotics. Patient currently does not have an IV as they keep falling out. 6. DVT/GI prophylaxis SCDs and PPI-no anticoagulation because of his coagulopathy with liver disease and esophageal varices 7. Anemia - Hemoglobin is stable. Hemoccult negative. He has had a brown stool. Doubt GI blood loss. Continue to monitor. During my visit with the patient this morning, he stated he wanted to look at his wound on his foot. I told him that was up to Dr. Garcia and did relay the patient's concerns to Dr. Garcia's physician assistants. Regarding the erythema of the right leg medially just above the splint, I did discuss this with Dr. Garcia's physician assistants and I have asked the nurse to outline it with skin marker. 02/18/17 Ammonia level decreased to 36 - continue Lactulose. Pt educated on purpose of lactulose. Ankle reduced per Dr. Garcia. Reported heartburn last night x2 - check EKG and trop (since we are nearly 16 hours out, 1 trop should be sufficient to r/o) Unsafe to dc. 02/19/17 Continue 1:1 care to protect right ankle after repeated reduction. Dr. Garcia recommends strict bed rest other than up to bedside commode with assist. NWB right LE. Plans to return to OR on 02/22, proceed with sx if swelling/blisters improved. Ammonia increased to 48 and he did not have a BM yesterday. Goal is to have 2-3 loose stools/day. Increase lactulose to 30 gm QID. Mild normocytic anemia - stable. Thrombocytopenia (plt 111), ranges 90s-120s. COPD - continue DuoNebs; add Pulmicort d/t intermittent wheezing.
--- NOTE | 2017-02-19 12:41 | Operative Note ---
DATE OF SURGERY 02/18/2017 PREOPERATIVE DIAGNOSIS Right ankle fracture/dislocation. POSTOPERATIVE DIAGNOSIS Right ankle fracture/dislocation. PROCEDURE Exam under anesthesia of right ankle with dressing changes and closed reduction and splinting of right ankle fracture. SURGEON Ann-Marie Garcia MD MANAGER PAYROLL Milan Sánchez PA-C COMPLICATIONS None. ANESTHESIA TIVA BRIEF HISTORY Mr. Dyson is a 51-year-old male who suffered a right ankle fracture/ dislocation last Tuesday. Unfortunately, he has been noncompliant with elevation and weightbearing status and thus continues to have subluxation of his ankle. He also has multiple fracture blisters. Due to his noncompliance I did recommend exam under anesthesia as well as dressing changes and re-splinting of the right ankle fracture in the operating room under anesthesia. He agreed with this plan. DESCRIPTION OF PROCEDURE Mr. Dyson and his right foot were identified and marked in his hospital room bed. He was brought back to the operating suite and placed supine on the operating table. He was placed under general anesthesia. Time-out was performed. His previous splint was removed. He had multiple fracture blisters. Approximately half of them had been de-roofed. His swelling has improved since my last exam under anesthesia. His compartments are soft and compressible. He did have diffuse ecchymosis throughout the distal leg and foot. I thoroughly washed his skin using the soft side of a scrub brush with chlorhexidine. I then placed Xeroform over all of the fracture blisters. Fluoroscopic imaging was brought in to ensure that we could get a closed reduction to reduce the mortise which was easily done with gentle manipulation. We then wrapped the ankle in bulky cotton dressing followed by a posterior slab and stirrup type splint. The ankle was held reduced while the splint cured. It was then overwrapped with Edu wraps. Again, we ensured we held good reduction with fluoroscopic imaging. I then overwrapped this with two layers of fiberglass. Once the fiberglass had dried I split it down the middle anteriorly and then wrapped the splint with an Edu wrap. Final fluoroscopic images ensured that we still had maintained good reduction. He was then allowed to awaken from general anesthesia and taken to the recovery room under the care of Anesthesia. He tolerated the procedure well. There were no complications. LUIS DANIEL
--- NOTE | 2017-02-19 13:39 | Neuropsychiatric Consult ---
[facility] HPI Date: 02/19/17 Start Time: 12:00 Stop Time: 12:30 History of Present Illness: HPI: 51 Y/O CM admitted after fall and leg fracture which intoxicated. Staff reports pt has been dealing with some WD symptoms and needing Serax at times. On face to face the pt is pleasant and cooperative. He reports some mild depression and anxiety but denies S/I. Denies WD at this time. STRESSORS: Pt is on probation PSYCH ROS: Pt reports feeling depressed with low energy, decreased interest and motivation. He denies S/I and is forward thinking and hopeful for the future. He reports dealing with anxiety but states it is chronic. Denies liliana or psychosis. PAST PSYCH: Pt states he is seen at and takes Buspar, Remeron and Paxil. He denies ever being in a psych hospital. SUBSTANCE ABUSE: Pt reports a long hx of alcohol dependence and states he has been clean for two years although later admitted he has been drinking recently. [facility] Patient Stated Medical History Sleep Apnea No Clinic Medical History Ankle fracture (Acute Medical) Closed right ankle fracture (Acute Medical) Cirrhosis (Acute Medical) Alcoholism (Acute Medical) Surgical History: Orthopedic surgery. Shoulder. Back. Jaw. Liver. Kidney - Social History Smoking status: Current every day smoker Mental Status Exam Vitals: Last Vital Signs Temp 99.1 F 02/19/17 10:53 Pulse 88 02/19/17 10:53 Resp 16 02/19/17 10:53 BP 125/71 02/19/17 10:53 Pulse Ox 90 02/19/17 10:53 Height: 1.83 m Weight: 103.4 kg - Mental Status Exam Muscle Strength/Tone: Normal Dressing: Casual Grooming: Good Attitude: Cooperative Motor Activity: Normal Eye Contact: Good Speech: Normal Volume: Normal Rhythm: Appropriate Rhythm Orientation: Oriented X4 Mood: Depressed Affect: Relaxed Rate of Thoughts: Appropriate Rate Thought Organization: Organized Associations: Intact Abstract Reasoning: Intact, able to abstract Computation: Intact Thought Content: Normal Perception/Psychotic: Perception Normal Language: Naming Intact Fund of Knowledge: Appropriate Memory: Grossly Intact Suicidal Ideation: None Homicidal Ideation: None Insight: Limited Judgement: Limited Impulse Control: Fair - Laboratory Result Diagrams: 02/19/17 05:16 02/19/17 05:16 Laboratory Results - last 24 hr 02/18/17 02/19/17 02/19/17 15:48 05:16 05:16 WBC 6.6 RBC 3.76 L Hgb 10.8 L Hct 33.7 L MCV 89.6 MCH 28.7 MCHC 32.0 RDW Std Deviation 51.8 H Plt Count 111 L MPV 12.2 Immature Gran % (Auto) Not performed Neut % (Auto) Not performed Lymph % (Auto) Not performed [place] % (Auto) Not performed Eos % (Auto) Not performed Baso % (Auto) Not performed Neut # (Auto) Not performed Lymph # (Auto) Not performed [place] # (Auto) Not performed Eos # (Auto) Not performed Baso # (Auto) Not performed Abs Immat Gran (auto) Not performed Neutrophils % (Manual) 63.0 Band Neutrophils % 1.0 Lymphocytes % (Manual) 25.0 Monocytes % (Manual) 10.0 H Eosinophils % (Manual) 1.0 Neutrophils # (Manual) 4.2 Band Neutrophils # 0.1 Lymphocytes # (Manual) 1.7 Monocytes # (Manual) 0.7 Eosinophils # (Manual) 0.1 Poikilocytosis 1+ Anisocytosis 1+ Ovalocytes 1+ RBC Morph Comment Abnormal Turbidity < 20 Sodium 137 Potassium 4.2 Chloride 101 Carbon Dioxide 26 Anion Gap 10 BUN 10.0 Creatinine 0.9 GFR Calculation 89 BUN/Creatinine Ratio 11 Glucose 102 Calculated Osmolality 263 Calcium 8.6 Icterus Index < 2 Ammonia 48 H Troponin I < 0.012 Specimen Hemolysis < 15 23 Assessment and Plan (1) Major depressive disorder with current active episode Qualifiers: Major depression recurrence: recurrent Major depression episode severity: moderate Qualified Code(s): F33.1 - Major depressive disorder, recurrent, moderate Current visit: Yes Status: Acute Continue current psych meds. Recommend follow up with OP provider at at [facility] (2) Alcohol use disorder Current visit: Yes Status: Acute Pt currently appears motivated to stop and is aware of OP resources
[2017-02-19] MEDS: LR 1,000 ML IV SCH (14:22)
[2017-02-19] MEDS: BUDESONIDE INH.SOLN 0.5mg/2ml NEB AEROSOL SCH ×2 (15:27→20:38)
[2017-02-19] MEDS: GABAPENTIN 300 MG CAPSULE PO SCH (21:56)
[2017-02-19] MEDS: PAROXETINE 20 MG TABLET PO SCH (21:57)
[2017-02-19] MEDS: MIRTAZAPINE 15 MG TABLET PO SCH (22:15)
[2017-02-20] MEDS: Oxycodone *IR* 15 MG TABLET PO PRN ×5 (03:52→22:15)
[2017-02-20] MEDS: PANTOPRAZOLE 40 MG TABLET PO SCH (07:16)
[2017-02-20] MEDS: ALBUTEROL/IPRATROPIUM 2.5mg-0.5mg/3ml NEB AEROSOL SCH ×3 (07:36→21:00)
[2017-02-20] MEDS: BUDESONIDE INH.SOLN 0.5mg/2ml NEB AEROSOL SCH ×2 (07:36→21:00)
[2017-02-20] MEDS: LACTULOSE 20 GM/30 ML ORAL LIQUID PO SCH ×4 (08:17→21:52)
[2017-02-20] MEDS: NICOTINE 14 MG PATCH TD SCH (08:18)
[2017-02-20] MEDS: NICOTINE PATCH REMOVAL TD SCH (08:22)
--- NOTE | 2017-02-20 11:54 | Progress Note ---
<Lima Schaefer D - Last Filed: 02/20/17 11:50> - Date 02/20/17 Subjective: Tim is seen today in follow up. He is awake, alert, restless. Smells ketotic on exam. Reports that his main c/o is pain. He has been utilizing frequent doses of IV Dilaudid and PRN oxycodone IR. He was taken to the OR two days ago due to complications from poor adherence to treatment plan. Patient is a fairly poor historian. Reports eating well. Wants to be sure he is woken up for exam. Chart is reviewed for collateral information. Nursing notes reflect intermittent confusion, frequent threats to leave AMA. Pt. does not like the lactulose. Neuropsych notes reviewed as well. Objective Vital signs: Temperature 99.0 F 02/20/17 07:00 Pulse Rate 82 02/20/17 07:00 Respiratory Rate 14 02/20/17 07:20 Blood Pressure 148/71 H 02/20/17 07:00 Pulse Oximetry 94 02/20/17 07:20 Height/Weight/BMI: Weight 103.4 kg Comments: Tele DC's at pt request. - Constitutional Present: no acute distress, obese, disheveled, agitated (Poorly cooperative. Skin is sallow. Pt. smells ketotic. ) - Routine HEENT Exam Eye: Present: EOMI ENT: Present: mucous membranes dry. Absent: dentition normal - Routine Respiratory Exam Present: decreased breath sounds, CTA bilaterally. Absent: rhonchi, wheezes, crackles - Routine Cardiovascular Exam Present: RRR, S1, S2 - Routine Abdominal Exam Present: soft, non tender, distended. Absent: guarding, firm - Routine Extremities Exam Present: edema, normal capillary refill. Absent: non tender - Routine Musculoskeletal Exam Musculoskeletal: Present: limited range of motion, other (Right LE cast in place. Toes swollen, warm, bruised. Good cap refill. Left leg is WNL. ). Absent : no tenderness - Routine Skin Exam Present: intact, dry, warm - Routine Neurological Exam Present: alert, moving all extremities - Routine Psychiatric Exam Present: anxious. Absent: normal affect, good insight, good judgment Comments: Restless Results - Labs CBC & Chem 7: 02/19/17 05:16 02/20/17 04:17 Assessment and Plan (1) Closed right ankle fracture Current visit: Yes Status: Acute (2) Cirrhosis Current visit: Yes Status: Acute (3) Alcoholism Current visit: Yes Status: Acute Assessment and Plan: IMPRESSION 1. Right ankle fracture s/p reduction -Fibula fx proximal and distal -closed reduction 02/14/2017 but then was noncompliant afterwards and put weight on his foot and took off his splint. -Fracture blisters and edema of the right ankle-treatment per Dr. Garcia. To OR for reduction and exam 02/18/17 -Oxycodone for pain. Start weaning Dilaudid. Will increase Gabapentin to TID for pain control. Try to start weaning narcotics - high risk of overuse. 2. Cirrohsis with liver mass and hepatic encephalopathy/ + Hep C. -Follows with Dr. NICOLAS Barton in [place] -Ammonia elevated-increase lactulose to 4 times a day -Bilirubin has normalized -Splenomegaly, portal hypertension and esophageal varices -Metoprolol 25 mg by mouth twice a day started this hospitalization -Thrombocytopenia, suspect chronic -Will start Lasix and Aldactone as weight is up significantly. Repeat labs in AM. 3. ETOHism -Monitoring for alcohol withdrawal discontinued after 5 days. The patient did get a couple of doses of Serax, but no signs of withdrawal. Intermittent confusion most likely due to his hepatic encephalopathy and pain medication. 4. COPD -Persistent smoker -Nicotine patch provided -Resp therapy-DuoNeb + Pulmicort -Repeat CXR due to fever. 5. DVT/GI prophylaxis -SCD (left leg) and PPI - no anticoagulation because of his coagulopathy with liver disease and esophageal varices 6. Anemia - Hemoglobin is stable. Hemoccult negative. 7. Fever Will assess UA and CXR today. Add Ceftriaxone empirically as he is higher risk for complications. May need to add Clinda if fever persists given skin/soft tissue concerns of fracture site. Remains ill. Very high risk for complications post DC given poor compliance. Continue to monitor. DVT Prophylaxis: SCD's GI Prophylaxis: Protonix Resuscitation Status: Full Code Hospital Course Summary Disclaimer: The visit summary below is not to be considered part of the above Progress Note. Hospital Course: 02/12/17 16:15 Impression: Right ankle fracture s/p reduction Chronic Liver disease with failure Possible hepatocellular carcinoma ETOH intoxication ETOH abuse. Depression/anxiety COPD with hx of bronchitis HTN Acute pain Plan: 02/12/[address] Garcia for ongoing orthopedic management. We need to get more information re: possible hepatic carcinoma before we proceed with OR. Will need to request records from DR. NICOLAS Alvarez with [facility] on Tuesday AM. Assess INR, Venous ammonia, ETOH level, UDS now. Monitor labs closely. Assess CXR, EKG given risk for tachycardia, need for pre-op assessment. Start tele. Rhonchi on clinical exam- neb tx, check CXR. Will resume home meds as appropriate. Order PRN low dose Serax for w/d sx. Will not schedule due to sedation- d/w RN. 02/13/2017 Impression: 1. Right ankle fracture s/p reduction -Fibula fx proximal and distal -Dr. Garcia consulted, does not think it will be ready for surgical repair for a week. 2. Cirrohsis with liver mass -Follows with Dr. NICOLAS Barton in [place] -Ammonia elevated at 45 today, will order lactulose (pt will likely refuse) 3. ETOHism -Initiate withdrawal protocol 4. COPD -Persistent smoker -Nicotine patch provided -Resp therapy -CXR okay 5. Acute pain -Requiring IV meds for relief. 6. DVT/GI prophylaxis SCDs and PPI He could probably go home once his pain is managed by po meds. 02/14/2017 Impression: 1. Right ankle fracture s/p reduction -Fibula fx proximal and distal -Dr. Garcia consulted, distal fracture is not in good position. He will be taken to the OR later today for closed reduction and application of the splint. -The patient may require placement in assisted, swing bed or IRU for help prior to undergoing surgery 2. Cirrohsis with liver mass -Follows with Dr. NICOLAS Barton in [place] -Ammonia elevated, lactulose ordered -Bilirubin up to 2.3 from 1.6 and 0.7. AST is 72 -Patient reportedly with enlarged spleen, portal hypertension and esophageal varices 3. ETOHism -Continue withdrawal protocol -Monitor for DTs 4. COPD -Persistent smoker -Nicotine patch provided -Resp therapy-DuoNeb -CXR okay 5. Acute pain -Still Requiring IV Dilaudid for relief. 6. DVT/GI prophylaxis SCDs and PPI Discussed with Dr. Garcia. The patient will likely need placement prior to surgery in 1 week's time. He is concerned that the patient's fracture will not stay in alignment if he is discharged. 02/15/2017 Impression: 1. Right ankle fracture s/p reduction -Fibula fx proximal and distal - The patient had closed reduction yesterday but then was noncompliant and put weight on his foot. He has edema in his foot and blisters associated with the fracture. Per Dr. Garcia, it will take 1-2 weeks for the swelling and blisters to improve and make it safe for surgery. Dr. Garcia does recommend bed rest until the time of surgery is that the patient's noncompliance. Discussed at length with case management and they are working on plans to take care of the patient until he can undergo surgery. 2. Cirrohsis with liver mass -Follows with Dr. NICOLAS Barton in [place] -Ammonia elevated, lactulose ordered and the patient is compliant now taking this -Bilirubin has normalized -Patient reportedly with enlarged spleen, portal hypertension and esophageal varices -Metoprolol 25 mg by mouth twice a day started this hospitalization 3. ETOHism -Continue withdrawal protocol-so far, patient is doing well. He has only required 1 dose of Ativan yesterday and has not required any Serax -Monitor for DTs 4. COPD -Persistent smoker -Nicotine patch provided -Resp therapy-DuoNeb -CXR okay 5. Acute pain -We'll try oral oxycodone and discontinue [place]. Use Dilaudid only for breakthrough pain 6. DVT/GI prophylaxis SCDs and PPI 7. Anemia - recheck hemoglobin. Monitor stools for signs of bleeding. Check Hemoccults Discussed with Dr. Garcia and case management. The patient will likely need placement prior to surgery in 1-2 week's time. He is concerned that the patient' s fracture will not stay in alignment if he is discharged. 02/16/2017 Impression/plan 1. Right ankle fracture s/p reduction -Fibula fx proximal and distal - The patient had closed reduction 02/14/2017 but then was noncompliant afterwards and put weight on his foot and took off his splint. He has edema in his foot and blisters associated with the fracture. Per Dr. Garcia, it will take 1 -2 weeks for the swelling and blisters to improve and make it safe for surgery. Dr. Garcia does recommend bed rest until the time of surgery. Discussed at length with case management and they are working on plans to take care of the patient until he can undergo surgery. -Fracture blisters of the right ankle-treatment per Dr. aGrcia 2. Cirrohsis with liver mass -Follows with Dr. NICOLAS Barton in [place] -Ammonia elevated, lactulose ordered and the patient is intermittently compliant taking this -Bilirubin has normalized -Patient reportedly with enlarged spleen, portal hypertension and esophageal varices -Metoprolol 25 mg by mouth twice a day started this hospitalization 3. ETOHism -Continue withdrawal protocol-so far, patient is doing well. As of 02/16/2017, he is 96 hours past the time of his last drink. Likelihood of developing DTs at this time is very minimal. He had one dose of IV Ativan 2 days ago and one tablet of Serax this morning. Otherwise he has not required any benzodiazepines -Continue Monitor for DTs-can likely discontinue monitoring 02/17/2017 4. COPD -Persistent smoker -Nicotine patch provided -Resp therapy-DuoNeb -CXR okay 5. Acute pain -We'll try increase oxycodone. Try to avoid IVF narcotics. Patient currently does not have an IV as they keep falling out. 6. DVT/GI prophylaxis SCDs and PPI-no anticoagulation because of his coagulopathy with liver disease and esophageal varices 7. Anemia - Hemoglobin is stable. Hemoccult negative. He has had a brown stool. Doubt GI blood loss. Continue to monitor. During my visit with the patient this morning, he stated he wanted to look at his wound on his foot. I told him that was up to Dr. Garcia and did relay the patient's concerns to Dr. Garcia's physician assistants. Regarding the erythema of the right leg medially just above the splint, I did discuss this with Dr. Garcia's physician assistants and I have asked the nurse to outline it with skin marker. 02/18/17 Ammonia level decreased to 36 - continue Lactulose. Pt educated on purpose of lactulose. Ankle reduced per Dr. Garcia. Reported heartburn last night x2 - check EKG and trop (since we are nearly 16 hours out, 1 trop should be sufficient to r/o) Unsafe to dc. 02/19/17 Continue 1:1 care to protect right ankle after repeated reduction. Dr. Garcia recommends strict bed rest other than up to bedside commode with assist. NWB right LE. Plans to return to OR on 02/22, proceed with sx if swelling/blisters improved. Ammonia increased to 48 and he did not have a BM yesterday. Goal is to have 2-3 loose stools/day. Increase lactulose to 30 gm QID. Mild normocytic anemia - stable. Thrombocytopenia (plt 111), ranges 90s-120s. COPD - continue DuoNebs; add Pulmicort d/t intermittent wheezing. 02/20/17 12:03 Decrease Dilaudid frequency. Increase Gabapentin to TID. Fever- high risk for complications. Add Ceftriaxone. Check CXR/UA today. Add Lasix, Aldactone as weight is trending up significantly. Continue to monitor closely. Repeat Ammonia level in AM. Tele DC'd as pt. did not want to wear. Recurrently threatens to leave AMA. Continue supportive care in monitored environment as long as we can. High readmission risk. <Dannie Chu D - Last Filed: 02/20/17 19:34> - Date 02/20/17 Objective Vital signs: Temperature 100.5 F H 02/20/17 15:00 Pulse Rate 90 02/20/17 15:00 Respiratory Rate 18 02/20/17 15:00 Blood Pressure 132/81 02/20/17 15:00 Pulse Oximetry 93 02/20/17 15:00 Height/Weight/BMI: Weight 102.7 kg Results - Labs CBC & Chem 7: 02/19/17 05:16 02/20/17 04:17 Assessment and Plan (1) Closed right ankle fracture Current visit: Yes Status: Acute (2) Cirrhosis Current visit: Yes Status: Acute (3) Alcoholism Current visit: Yes Status: Acute Assessment and Plan: IMPRESSION 1. Right ankle fracture s/p reduction -Fibula fx proximal and distal -Closed reduction 02/14/2017 but then was noncompliant afterwards and put weight on his foot and took off his splint. -Fracture blisters and edema of the right ankle-treatment per Dr. Garcia. To OR for reduction and exam 02/18/17 -Oxycodone for pain. Start weaning Dilaudid. -Will increase Gabapentin to TID for pain control. Try to start weaning narcotics- high risk of overuse. 2. Cirrohsis with liver mass and hepatic encephalopathy/ + Hep C. -Follows with Dr. NICOLAS Barton in [place] -Ammonia elevated-increase lactulose to 4 times a day -Bilirubin has normalized -Splenomegaly, portal hypertension and esophageal varices -Metoprolol 25 mg by mouth twice a day started this hospitalization -Thrombocytopenia, suspect chronic -Will start Lasix and Aldactone as weight is up significantly. Repeat labs in AM. 3. ETOHism -Monitoring for alcohol withdrawal discontinued after 5 days. The patient did get a couple of doses of Serax, but no signs of withdrawal. Intermittent confusion most likely due to his hepatic encephalopathy and pain medication. 4. COPD -Persistent smoker -Nicotine patch provided -Resp therapy-DuoNeb + Pulmicort -Repeat CXR due to fever. 5. DVT/GI prophylaxis -SCD (left leg) and PPI - no anticoagulation because of his coagulopathy with liver disease and esophageal varices 6. Anemia - Hemoglobin is stable. Hemoccult negative. 7. Fever -Will assess UA and CXR today. -Add Ceftriaxone empirically as he is higher risk for complications. -May need to add Clinda if fever persists given skin/soft tissue concerns of fracture site. Have independently interviewed and examined pt. Chart reviewed. Case discussed with my [facility]. Care plan developed with my supervision; agree with above. Ready to go home, wanting to go home. Wanting to get back to his animals at home. Stools moving with Lactulose. No ab pain or nausea. Breathing stable. Lungs: decreased no distress. CV: regular AB: soft nt/nd ascites Ext: decreasing edema to right leg - cast looser. Plan: Lasix and spironolactone to help decrease overall volume. Neurontin increased to help pain. Continue close supervision. Hope for orthopedic intervention in near future if leg swelling decreases. - Time spent with patient Time with patient PN: 25 minutes Hospital Course Summary Disclaimer: The visit summary below is not to be considered part of the above Progress Note.
[2017-02-20] MEDS ORDERED: CEFTRIAXONE 1 G in NS 100 ML IV SCH (12:00)
[2017-02-20] MEDS ORDERED: HYDROMORPHONE 2 MG/ML INJECTION IVP PRN (12:06)
[2017-02-20] MEDS: CEFPODOXIME 200mg TABLET PO SCH ×2 (12:36→17:04)
[2017-02-20] MEDS: FUROSEMIDE 40 MG TABLET PO SCH ×2 (12:37→17:05)
[2017-02-20] MEDS: SPIRONOLACTONE 25 MG TABLET PO SCH (12:37)
[2017-02-20] MEDS: GABAPENTIN 300 MG CAPSULE PO SCH ×2 (14:11→21:52)
[2017-02-20] MEDS ORDERED: ALBUTEROL 2.5mg/3ml (0.083%) NEB AEROSOL PRN (14:53)
[2017-02-20] MEDS: PAROXETINE 20 MG TABLET PO SCH (21:53)
[2017-02-20] MEDS: MIRTAZAPINE 15 MG TABLET PO SCH (21:53)
[2017-02-21] MEDS: Oxycodone *IR* 15 MG TABLET PO PRN ×5 (02:36→20:12)
[2017-02-21] MEDS: PANTOPRAZOLE 40 MG TABLET PO SCH (06:36)
--- NOTE | 2017-02-21 07:39 | XRay Report ---
Indication: Fever PROCEDURE: XR chest 1V: Encounter: Initial Comparison: February 13, 2017 Findings: The lungs are stable in appearance without new focal airspace consolidation. There is no pleural effusion or pneumothorax. The heart size, pulmonary vascularity and mediastinal contours are unchanged. IMPRESSION: Stable appearance of the chest without acute cardiopulmonary disease. .
[2017-02-21] MEDS: GABAPENTIN 300 MG CAPSULE PO SCH ×3 (09:02→21:45)
[2017-02-21] MEDS: CEFPODOXIME 200mg TABLET PO SCH ×2 (09:02→17:32)
[2017-02-21] MEDS: FUROSEMIDE 40 MG TABLET PO SCH ×2 (09:02→17:32)
[2017-02-21] MEDS: LACTULOSE 20 GM/30 ML ORAL LIQUID PO SCH ×5 (09:02→21:46)
[2017-02-21] MEDS: SPIRONOLACTONE 25 MG TABLET PO SCH (09:04)
[2017-02-21] MEDS: NICOTINE 14 MG PATCH TD SCH (09:04)
[2017-02-21] MEDS: NICOTINE PATCH REMOVAL TD SCH (09:07)
[2017-02-21] MEDS: BUDESONIDE INH.SOLN 0.5mg/2ml NEB AEROSOL SCH ×2 (09:15→21:01)
[2017-02-21] MEDS: ALBUTEROL/IPRATROPIUM 2.5mg-0.5mg/3ml NEB AEROSOL SCH ×2 (09:15→21:00)
--- NOTE | 2017-02-21 11:17 | Progress Note ---
<Edelmira Manning - Last Filed: 02/21/17 11:13> - Date 02/21/17 Subjective: Young is seen today in follow up for his pancytopenia and recent right ankle fracture with repair. He is seen while sleeping in bed. He arouses briefly but immediately falls back to sleep. Nursing notes were review and case was discussed with nursing, othro and case management. Young continues to express a strong desire for discharge, repeatedly threatening to leave AMA. His appetite is stable and his bowels are moving. Fever has resolved. Labs reveal new leukopenia at 3.4, persistent stable anemia at 10.7 and thrombocytopenia at 83. Ammonia trending down and improved to 26, within normal limits. Objective Vital signs: Temperature 97.3 F 02/21/17 07:00 Pulse Rate 81 02/21/17 07:00 Respiratory Rate 18 02/21/17 09:16 Blood Pressure 137/83 02/21/17 07:00 Pulse Oximetry 98 02/21/17 09:16 Height/Weight/BMI: Weight 226 lb 6.636 oz Comments: patient sleeping on exam and arouses briefly but quickly falls back to sleep. - Constitutional Present: no acute distress, cooperative - Routine HEENT Exam Head: Present: normocephalic, atraumatic ENT: Present: mucous membranes dry Comments: unable to assess due to patient sleeping. - Routine Respiratory Exam Present: rhonchi. Absent: wheezes Comments: no respiratory distress; snoring on exam. - Routine Cardiovascular Exam Present: RRR, S1, S2 - Routine Abdominal Exam Present: soft, normoactive bowel sounds - Routine Extremities Exam Present: full ROM, pulses intact Comments: actively moves all extremities on exam; large cast noted to right lower extremity, intact. - Routine Back/Spine/Pelvis Exam Back/Spine: Present: full ROM - Routine Skin Exam Present: intact, dry, warm Comments: afebrile - Routine Neurological Exam sleeping on exam - limited assessment. - Routine Psychiatric Exam Present: cooperative Results - Labs CBC & Chem 7: 02/21/17 04:17 02/21/17 04:17 Assessment and Plan (1) Closed right ankle fracture Current visit: Yes Status: Acute (2) Cirrhosis Current visit: Yes Status: Acute (3) Alcoholism Current visit: Yes Status: Acute Assessment and Plan: IMPRESSION 1. Right ankle fracture s/p reduction -Fibula fx proximal and distal -Closed reduction 02/14/2017 but then was noncompliant afterwards and put weight on his foot and took off his splint. -Fracture blisters and edema of the right ankle-treatment per Dr. Garcia. To OR for reduction and exam 02/18/17 -Oxycodone for pain. Start weaning Dilaudid. -Will increase Gabapentin to TID for pain control. Try to start weaning narcotics- high risk of overuse. 2. Cirrohsis with liver mass and hepatic encephalopathy/ + Hep C. -Follows with Dr. NICOLAS Barton in [place] -Ammonia elevated-increase lactulose to 4 times a day -Bilirubin has normalized -Splenomegaly, portal hypertension and esophageal varices -Metoprolol 25 mg by mouth twice a day started this hospitalization -Thrombocytopenia, suspect chronic -Will start Lasix and Aldactone as weight is up significantly. Repeat labs in AM. 3. ETOHism -Monitoring for alcohol withdrawal discontinued after 5 days. The patient did get a couple of doses of Serax, but no signs of withdrawal. Intermittent confusion most likely due to his hepatic encephalopathy and pain medication. 4. COPD -Persistent smoker -Nicotine patch provided -Resp therapy-DuoNeb + Pulmicort -Repeat CXR due to fever. 5. DVT/GI prophylaxis -SCD (left leg) and PPI - no anticoagulation because of his coagulopathy with liver disease and esophageal varices 6. Anemia - Hemoglobin is stable. Hemoccult negative. 7. Fever -Will assess UA and CXR today. -Add Ceftriaxone empirically as he is higher risk for complications. -May need to add Clinda if fever persists given skin/soft tissue concerns of fracture site. Plan - 02/21/17 (Mirakian). Patient continues to express a strong desire for discharge. Continue to provide safe and supportive environment. Continue to monitor and supervise closely for patient safety. Continue to wean IV medication (Dilaudid) and narcotics. He is at high risk for opioid over use. Continue Gabapentin TID. Ammonia level trending down - 26 today (WNL). Continue to monitor closely. Will recheck in AM. Continue Lasix and spironolactone for fluid volume. Recommend follow up with Dr. Barton following discharge. Monitor daily weight closely. Blood pressure well controlled. Continue metoprolol BID and monitor closely. Repeat CXR today (02/21/17) revealed stable chest without cardiopulmonary changes. Continue to monitor pulmonary function and continue breathing treatments. Fever resolved. Continue to encourage incentive spirometry. DVT Prophylaxis: SCD's GI Prophylaxis: Protonix Resuscitation Status: Full Code - Time spent with patient Time with patient PN: 25 minutes Hospital Course Summary Disclaimer: The visit summary below is not to be considered part of the above Progress Note. Hospital Course: 02/12/17 16:15 Impression: Right ankle fracture s/p reduction Chronic Liver disease with failure Possible hepatocellular carcinoma ETOH intoxication ETOH abuse. Depression/anxiety COPD with hx of bronchitis HTN Acute pain Plan: 02/12/[address] Garcia for ongoing orthopedic management. We need to get more information re: possible hepatic carcinoma before we proceed with OR. Will need to request records from DR. NICOLAS Alvarez with [facility] on Tuesday AM. Assess INR, Venous ammonia, ETOH level, UDS now. Monitor labs closely. Assess CXR, EKG given risk for tachycardia, need for pre-op assessment. Start tele. Rhonchi on clinical exam- neb tx, check CXR. Will resume home meds as appropriate. Order PRN low dose Serax for w/d sx. Will not schedule due to sedation- d/w RN. 02/13/2017 Impression: 1. Right ankle fracture s/p reduction -Fibula fx proximal and distal -Dr. Garcia consulted, does not think it will be ready for surgical repair for a week. 2. Cirrohsis with liver mass -Follows with Dr. NICOLAS Barton in [place] -Ammonia elevated at 45 today, will order lactulose (pt will likely refuse) 3. ETOHism -Initiate withdrawal protocol 4. COPD -Persistent smoker -Nicotine patch provided -Resp therapy -CXR okay 5. Acute pain -Requiring IV meds for relief. 6. DVT/GI prophylaxis SCDs and PPI He could probably go home once his pain is managed by po meds. 02/14/2017 Impression: 1. Right ankle fracture s/p reduction -Fibula fx proximal and distal -Dr. Garcia consulted, distal fracture is not in good position. He will be taken to the OR later today for closed reduction and application of the splint. -The patient may require placement in penitentiary, swing bed or IRU for help prior to undergoing surgery 2. Cirrohsis with liver mass -Follows with Dr. NICOLAS Barton in [place] -Ammonia elevated, lactulose ordered -Bilirubin up to 2.3 from 1.6 and 0.7. AST is 72 -Patient reportedly with enlarged spleen, portal hypertension and esophageal varices 3. ETOHism -Continue withdrawal protocol -Monitor for DTs 4. COPD -Persistent smoker -Nicotine patch provided -Resp therapy-DuoNeb -CXR okay 5. Acute pain -Still Requiring IV Dilaudid for relief. 6. DVT/GI prophylaxis SCDs and PPI Discussed with Dr. Garcia. The patient will likely need placement prior to surgery in 1 week's time. He is concerned that the patient's fracture will not stay in alignment if he is discharged. 02/15/2017 Impression: 1. Right ankle fracture s/p reduction -Fibula fx proximal and distal - The patient had closed reduction yesterday but then was noncompliant and put weight on his foot. He has edema in his foot and blisters associated with the fracture. Per Dr. Garcia, it will take 1-2 weeks for the swelling and blisters to improve and make it safe for surgery. Dr. Garcia does recommend bed rest until the time of surgery is that the patient's noncompliance. Discussed at length with case management and they are working on plans to take care of the patient until he can undergo surgery. 2. Cirrohsis with liver mass -Follows with Dr. NICOLAS Barton in [place] -Ammonia elevated, lactulose ordered and the patient is compliant now taking this -Bilirubin has normalized -Patient reportedly with enlarged spleen, portal hypertension and esophageal varices -Metoprolol 25 mg by mouth twice a day started this hospitalization 3. ETOHism -Continue withdrawal protocol-so far, patient is doing well. He has only required 1 dose of Ativan yesterday and has not required any Serax -Monitor for DTs 4. COPD -Persistent smoker -Nicotine patch provided -Resp therapy-DuoNeb -CXR okay 5. Acute pain -We'll try oral oxycodone and discontinue Sigel. Use Dilaudid only for breakthrough pain 6. DVT/GI prophylaxis SCDs and PPI 7. Anemia - recheck hemoglobin. Monitor stools for signs of bleeding. Check Hemoccults Discussed with Dr. Garcia and case management. The patient will likely need placement prior to surgery in 1-2 week's time. He is concerned that the patient' s fracture will not stay in alignment if he is discharged. 02/16/2017 Impression/plan 1. Right ankle fracture s/p reduction -Fibula fx proximal and distal - The patient had closed reduction 02/14/2017 but then was noncompliant afterwards and put weight on his foot and took off his splint. He has edema in his foot and blisters associated with the fracture. Per Dr. Garcia, it will take 1 -2 weeks for the swelling and blisters to improve and make it safe for surgery. Dr. Garcia does recommend bed rest until the time of surgery. Discussed at length with case management and they are working on plans to take care of the patient until he can undergo surgery. -Fracture blisters of the right ankle-treatment per Dr. Garcia 2. Cirrohsis with liver mass -Follows with Dr. NICOLAS Barton in [place] -Ammonia elevated, lactulose ordered and the patient is intermittently compliant taking this -Bilirubin has normalized -Patient reportedly with enlarged spleen, portal hypertension and esophageal varices -Metoprolol 25 mg by mouth twice a day started this hospitalization 3. ETOHism -Continue withdrawal protocol-so far, patient is doing well. As of 02/16/2017, he is 96 hours past the time of his last drink. Likelihood of developing DTs at this time is very minimal. He had one dose of IV Ativan 2 days ago and one tablet of Serax this morning. Otherwise he has not required any benzodiazepines -Continue Monitor for DTs-can likely discontinue monitoring 02/17/2017 4. COPD -Persistent smoker -Nicotine patch provided -Resp therapy-DuoNeb -CXR okay 5. Acute pain -We'll try increase oxycodone. Try to avoid IVF narcotics. Patient currently does not have an IV as they keep falling out. 6. DVT/GI prophylaxis SCDs and PPI-no anticoagulation because of his coagulopathy with liver disease and esophageal varices 7. Anemia - Hemoglobin is stable. Hemoccult negative. He has had a brown stool. Doubt GI blood loss. Continue to monitor. During my visit with the patient this morning, he stated he wanted to look at his wound on his foot. I told him that was up to Dr. Garcia and did relay the patient's concerns to Dr. Garcia's physician assistants. Regarding the erythema of the right leg medially just above the splint, I did discuss this with Dr. Garcia's physician assistants and I have asked the nurse to outline it with skin marker. 02/18/17 Ammonia level decreased to 36 - continue Lactulose. Pt educated on purpose of lactulose. Ankle reduced per Dr. Garcia. Reported heartburn last night x2 - check EKG and trop (since we are nearly 16 hours out, 1 trop should be sufficient to r/o) Unsafe to dc. 02/19/17 Continue 1:1 care to protect right ankle after repeated reduction. Dr. Garcia recommends strict bed rest other than up to bedside commode with assist. NWB right LE. Plans to return to OR on 02/22, proceed with sx if swelling/blisters improved. Ammonia increased to 48 and he did not have a BM yesterday. Goal is to have 2-3 loose stools/day. Increase lactulose to 30 gm QID. Mild normocytic anemia - stable. Thrombocytopenia (plt 111), ranges 90s-120s. COPD - continue DuoNebs; add Pulmicort d/t intermittent wheezing. 02/20/17 12:03 Decrease Dilaudid frequency. Increase Gabapentin to TID. Fever- high risk for complications. Add Ceftriaxone. Check CXR/UA today. Add Lasix, Aldactone as weight is trending up significantly. Continue to monitor closely. Repeat Ammonia level in AM. Tele DC'd as pt. did not want to wear. Recurrently threatens to leave AMA. Continue supportive care in monitored environment as long as we can. High readmission risk. Plan - 02/21/17 (Mirakian). Patient continues to express a strong desire for discharge. Continue to provide safe and supportive environment. Continue to monitor and supervise closely for patient safety. Continue to wean IV medication (Dilaudid) and narcotics. He is at high risk for opioid over use. Continue Gabapentin TID. Ammonia level trending down - 26 today (WNL). Continue to monitor closely. Will recheck in AM. Continue Lasix and spironolactone for fluid volume. Recommend follow up with Dr. Barton following discharge. Monitor daily weight closely. Blood pressure well controlled. Continue metoprolol BID and monitor closely. Repeat CXR today (02/21/17) revealed stable chest without cardiopulmonary changes. Continue to monitor pulmonary function and continue breathing treatments. Fever resolved. Continue to encourage incentive spirometry. <Dannie Chu D - Last Filed: 02/21/17 20:31> - Date 02/21/17 Objective Vital signs: Temperature 96.6 F L 02/21/17 16:21 Pulse Rate 75 02/21/17 16:21 Respiratory Rate 16 02/21/17 16:21 Blood Pressure 132/68 02/21/17 16:21 Pulse Oximetry 95 02/21/17 16:21 Height/Weight/BMI: Weight 99.4 kg Results - Labs CBC & Chem 7: 02/21/17 04:17 02/21/17 04:17 Assessment and Plan (1) Closed right ankle fracture Current visit: Yes Status: Acute (2) Cirrhosis Current visit: Yes Status: Acute (3) Alcoholism Current visit: Yes Status: Acute Assessment and Plan: IMPRESSION 1. Right ankle fracture s/p reduction -Fibula fx proximal and distal -Closed reduction 02/14/2017 but then was noncompliant afterwards and put weight on his foot and took off his splint. -Fracture blisters and edema of the right ankle-treatment per Dr. Garcia. To OR for reduction and exam 02/18/17 -Oxycodone for pain. Start weaning Dilaudid. -Will increase Gabapentin to TID for pain control. Try to start weaning narcotics- high risk of overuse. 2. Cirrohsis with liver mass and hepatic encephalopathy/ + Hep C. -Follows with Dr. NICOLAS Barton in [place] -Ammonia elevated-increase lactulose to 4 times a day -Bilirubin has normalized -Splenomegaly, portal hypertension and esophageal varices -Metoprolol 25 mg by mouth twice a day started this hospitalization -Thrombocytopenia, suspect chronic -Will start Lasix and Aldactone as weight is up significantly. Repeat labs in AM. 3. ETOHism -Monitoring for alcohol withdrawal discontinued after 5 days. The patient did get a couple of doses of Serax, but no signs of withdrawal. Intermittent confusion most likely due to his hepatic encephalopathy and pain medication. 4. COPD -Persistent smoker -Nicotine patch provided -Resp therapy-DuoNeb + Pulmicort -Repeat CXR due to fever. 5. DVT/GI prophylaxis -SCD (left leg) and PPI - no anticoagulation because of his coagulopathy with liver disease and esophageal varices 6. Anemia - Hemoglobin is stable. Hemoccult negative. 7. Fever -Will assess UA and CXR today. -Add Ceftriaxone empirically as he is higher risk for complications. -May need to add Clinda if fever persists given skin/soft tissue concerns of fracture site. Have independently interviewed & examined pt. Chart reviewed. Case discussed with [facility] & my PA. Care plan developed with my supervision; agree with above. Wanting to go home. Not able to be redirected. Not understanding why he needs to keep weight off his leg. Nursing notes that he in putting weight on leg with transfers. Not interesting in going to a 'facility' - thinks he will loose all his benefits and everything he has worked for. Lungs: decreased CV: regular AB: soft nt/nd MSE: very irritable Plan: Ortho not able to take to surgery tomorrow due to increased swelling. Possible surgery on (02/24) at the earliest. Encourage patient not to bear weight on his leg. Discussed that continued weight bearing will increase swelling and slow healing process - emphasized the possibility of his loosing his leg if appropriate medical/surgical care not given. While I know he want to be at home, out concern in loss of limb if activity restrictions not followed. [facility] has made arrangement for skilled care - patient not understanding that insurance would cover (he feels it would be like 'prison' where he would have to sign away all his benefit and never ever be able to return home). Patient does not appear to be comprehending the fact that he would not lose his benefit. Very insistent that he be allow to return home. At this point in time, I do not feel home would be in his best interests. Did discussed this at length with [facility] this evening after my visit. Time spent with patient care and with discussion with CM 25 minutes. Hospital Course Summary Disclaimer: The visit summary below is not to be considered part of the above Progress Note.
[2017-02-21] MEDS: LORazepam 0.5 MG TABLET PO PRN ×2 (11:52→20:40)
--- NOTE | 2017-02-21 19:20 | Orthopedic Progress Note ---
Date: Subjective/Severity of Illness: Mr Dyson was seen late this afternoon. We took the cast/splint part way down and looked at his skin. He is not ready for surgery but we will recheck him Tuesday and hopefully do this . Nursing reports that pt has been putting weight on the leg every time he gets up. Orthopedic Objective PO Vital signs: Temperature 96.6 F L 02/21/17 16:21 Pulse Rate 75 02/21/17 16:21 Respiratory Rate 16 02/21/17 16:21 Blood Pressure 132/68 02/21/17 16:21 Pulse Oximetry 95 02/21/17 16:21 Height and Weight: Weight 219 lb 2.232 oz - Constitutional General Appearance: Present: disheveled, no acute distress - Respiratory Exam Present: non-labored - Integumentary Exam Present: pink, warm, other (Still has too much swelling for surgery.) - Neurological Exam Present: intact to light touch - Psychiatric Exam Present: alert - Labs Result Diagrams: 02/21/17 04:17 02/21/17 04:17 Abnormal lab results 02/21/17 02/21/17 Range/Units 04:17 04:17 WBC 3.4 L D (4.5-11.0) T/MM3 RBC 3.82 L (4.50-5.90) M/MM3 Hgb 10.7 L (13.5-17.5) GM/DL Hct 33.7 L (41-53) % RDW Std Deviation 50.3 H (36.9-50.2) FL Plt Count 83 L (130-400) T/MM3 [place] % (Auto) 24.4 H (0-9.0) % Neut # (Auto) 1.4 L (1.8-7.7) T/MM3 Chloride 96 L (98-107) MEQ/L BUN 8.0 L (9-20) MG/DL Glucose 111 H (75-110) MG/DL Calculated Osmolality 259 L (261-280) MOSM/KG AST 81 H (17-59) U/L Albumin 3.4 L (3.5-5.0) G/DL Globulin 4.4 H (2.4-3.6) G/DL Albumin/Globulin Ratio 0.8 L (1.1-2.2) RATIO H & H 11/07/17 11/08/17 11/09/17 Range/Units 09:08 04:26 04:19 Hgb 10.8 L 11.0 L 11.1 L (13.5-17.5) GM/DL Hct 33.4 L D 34.6 L 34.3 L (41-53) % 02/19/17 02/21/17 Range/Units 05:16 04:17 Hgb 10.8 L 10.7 L (13.5-17.5) GM/DL Hct 33.7 L 33.7 L (41-53) % Coagulation 02/16/17 Range/Units 04:26 INR 1.46 H (0.99-1.21) Orthopedic Assessment and Plan (1) Closed right ankle fracture Status: Acute Qualifiers: Encounter type: subsequent encounter Assessment and Plan: Continue with present plan of waiting for swelling to decrease before addressing the ankle surgically. He still has too much swelling to fix this. Plan to keep him in the hospital and re-evaluate Tuesday. He has been walking on the cast despite multiple attempts to keep him protected. Repeat xrays this evening. Will reevaluate for surgery on . Hospital Course Summary Disclaimer: The visit summary below is not to be considered part of the above Progress Note. Hospital Course: 02/12/17 16:15 Impression: Right ankle fracture s/p reduction Chronic Liver disease with failure Possible hepatocellular carcinoma ETOH intoxication ETOH abuse. Depression/anxiety COPD with hx of bronchitis HTN Acute pain Plan: 02/12/[address] Garcia for ongoing orthopedic management. We need to get more information re: possible hepatic carcinoma before we proceed with OR. Will need to request records from DR. NICOLAS Alvarez with [facility] on Tuesday AM. Assess INR, Venous ammonia, ETOH level, UDS now. Monitor labs closely. Assess CXR, EKG given risk for tachycardia, need for pre-op assessment. Start tele. Rhonchi on clinical exam- neb tx, check CXR. Will resume home meds as appropriate. Order PRN low dose Serax for w/d sx. Will not schedule due to sedation- d/w RN. 02/13/2017 Impression: 1. Right ankle fracture s/p reduction -Fibula fx proximal and distal -Dr. Garcia consulted, does not think it will be ready for surgical repair for a week. 2. Cirrohsis with liver mass -Follows with Dr. NICOLAS Barton in [place] -Ammonia elevated at 45 today, will order lactulose (pt will likely refuse) 3. ETOHism -Initiate withdrawal protocol 4. COPD -Persistent smoker -Nicotine patch provided -Resp therapy -CXR okay 5. Acute pain -Requiring IV meds for relief. 6. DVT/GI prophylaxis SCDs and PPI He could probably go home once his pain is managed by po meds. 02/14/2017 Impression: 1. Right ankle fracture s/p reduction -Fibula fx proximal and distal -Dr. Garcia consulted, distal fracture is not in good position. He will be taken to the OR later today for closed reduction and application of the splint. -The patient may require placement in fci, swing bed or IRU for help prior to undergoing surgery 2. Cirrohsis with liver mass -Follows with Dr. NICOLAS Barton in [place] -Ammonia elevated, lactulose ordered -Bilirubin up to 2.3 from 1.6 and 0.7. AST is 72 -Patient reportedly with enlarged spleen, portal hypertension and esophageal varices 3. ETOHism -Continue withdrawal protocol -Monitor for DTs 4. COPD -Persistent smoker -Nicotine patch provided -Resp therapy-DuoNeb -CXR okay 5. Acute pain -Still Requiring IV Dilaudid for relief. 6. DVT/GI prophylaxis SCDs and PPI Discussed with Dr. Garcia. The patient will likely need placement prior to surgery in 1 week's time. He is concerned that the patient's fracture will not stay in alignment if he is discharged. 02/15/2017 Impression: 1. Right ankle fracture s/p reduction -Fibula fx proximal and distal - The patient had closed reduction yesterday but then was noncompliant and put weight on his foot. He has edema in his foot and blisters associated with the fracture. Per Dr. Garcia, it will take 1-2 weeks for the swelling and blisters to improve and make it safe for surgery. Dr. Garcia does recommend bed rest until the time of surgery is that the patient's noncompliance. Discussed at length with case management and they are working on plans to take care of the patient until he can undergo surgery. 2. Cirrohsis with liver mass -Follows with Dr. NICOLAS Barton in [place] -Ammonia elevated, lactulose ordered and the patient is compliant now taking this -Bilirubin has normalized -Patient reportedly with enlarged spleen, portal hypertension and esophageal varices -Metoprolol 25 mg by mouth twice a day started this hospitalization 3. ETOHism -Continue withdrawal protocol-so far, patient is doing well. He has only required 1 dose of Ativan yesterday and has not required any Serax -Monitor for DTs 4. COPD -Persistent smoker -Nicotine patch provided -Resp therapy-DuoNeb -CXR okay 5. Acute pain -We'll try oral oxycodone and discontinue [place]. Use Dilaudid only for breakthrough pain 6. DVT/GI prophylaxis SCDs and PPI 7. Anemia - recheck hemoglobin. Monitor stools for signs of bleeding. Check Hemoccults Discussed with Dr. Garcia and case management. The patient will likely need placement prior to surgery in 1-2 week's time. He is concerned that the patient' s fracture will not stay in alignment if he is discharged. 02/16/2017 Impression/plan 1. Right ankle fracture s/p reduction -Fibula fx proximal and distal - The patient had closed reduction 02/14/2017 but then was noncompliant afterwards and put weight on his foot and took off his splint. He has edema in his foot and blisters associated with the fracture. Per Dr. Garcia, it will take 1 -2 weeks for the swelling and blisters to improve and make it safe for surgery. Dr. Garcia does recommend bed rest until the time of surgery. Discussed at length with case management and they are working on plans to take care of the patient until he can undergo surgery. -Fracture blisters of the right ankle-treatment per Dr. Garcia 2. Cirrohsis with liver mass -Follows with Dr. NICOLAS Barton in [place] -Ammonia elevated, lactulose ordered and the patient is intermittently compliant taking this -Bilirubin has normalized -Patient reportedly with enlarged spleen, portal hypertension and esophageal varices -Metoprolol 25 mg by mouth twice a day started this hospitalization 3. ETOHism -Continue withdrawal protocol-so far, patient is doing well. As of 02/16/2017, he is 96 hours past the time of his last drink. Likelihood of developing DTs at this time is very minimal. He had one dose of IV Ativan 2 days ago and one tablet of Serax this morning. Otherwise he has not required any benzodiazepines -Continue Monitor for DTs-can likely discontinue monitoring 02/17/2017 4. COPD -Persistent smoker -Nicotine patch provided -Resp therapy-DuoNeb -CXR okay 5. Acute pain -We'll try increase oxycodone. Try to avoid IVF narcotics. Patient currently does not have an IV as they keep falling out. 6. DVT/GI prophylaxis SCDs and PPI-no anticoagulation because of his coagulopathy with liver disease and esophageal varices 7. Anemia - Hemoglobin is stable. Hemoccult negative. He has had a brown stool. Doubt GI blood loss. Continue to monitor. During my visit with the patient this morning, he stated he wanted to look at his wound on his foot. I told him that was up to Dr. Garcia and did relay the patient's concerns to Dr. Garcia's physician assistants. Regarding the erythema of the right leg medially just above the splint, I did discuss this with Dr. Garcia's physician assistants and I have asked the nurse to outline it with skin marker. 02/18/17 Ammonia level decreased to 36 - continue Lactulose. Pt educated on purpose of lactulose. Ankle reduced per Dr. Garcia. Reported heartburn last night x2 - check EKG and trop (since we are nearly 16 hours out, 1 trop should be sufficient to r/o) Unsafe to dc. 02/19/17 Continue 1:1 care to protect right ankle after repeated reduction. Dr. Garcia recommends strict bed rest other than up to bedside commode with assist. NWB right LE. Plans to return to OR on 02/22, proceed with sx if swelling/blisters improved. Ammonia increased to 48 and he did not have a BM yesterday. Goal is to have 2-3 loose stools/day. Increase lactulose to 30 gm QID. Mild normocytic anemia - stable. Thrombocytopenia (plt 111), ranges 90s-120s. COPD - continue DuoNebs; add Pulmicort d/t intermittent wheezing. 02/20/17 12:03 Decrease Dilaudid frequency. Increase Gabapentin to TID. Fever- high risk for complications. Add Ceftriaxone. Check CXR/UA today. Add Lasix, Aldactone as weight is trending up significantly. Continue to monitor closely. Repeat Ammonia level in AM. Tele DC'd as pt. did not want to wear. Recurrently threatens to leave AMA. Continue supportive care in monitored environment as long as we can. High readmission risk. Plan - 02/21/17 (Nigel). Patient continues to express a strong desire for discharge. Continue to provide safe and supportive environment. Continue to monitor and supervise closely for patient safety. Continue to wean IV medication (Dilaudid) and narcotics. He is at high risk for opioid over use. Continue Gabapentin TID. Ammonia level trending down - 26 today (WNL). Continue to monitor closely. Will recheck in AM. Continue Lasix and spironolactone for fluid volume. Recommend follow up with Dr. Barton following discharge. Monitor daily weight closely. Blood pressure well controlled. Continue metoprolol BID and monitor closely. Repeat CXR today (02/21/17) revealed stable chest without cardiopulmonary changes. Continue to monitor pulmonary function and continue breathing treatments. Fever resolved. Continue to encourage incentive spirometry.
[2017-02-21] MEDS: PAROXETINE 20 MG TABLET PO SCH (21:45)
[2017-02-21] MEDS: MIRTAZAPINE 15 MG TABLET PO SCH (21:46)
[2017-02-22] MEDS: Oxycodone *IR* 15 MG TABLET PO PRN ×4 (00:40→21:05)
[2017-02-22] MEDS: LORazepam 0.5 MG TABLET PO PRN (01:30)
[2017-02-22] MEDS: HALOPERIDOL 1 MG TABLET PO PRN (02:59)
[2017-02-22] MEDS: PANTOPRAZOLE 40 MG TABLET PO SCH (06:02)
[2017-02-22] MEDS: CEFPODOXIME 200mg TABLET PO SCH ×2 (09:04→19:19)
[2017-02-22] MEDS: LACTULOSE 20 GM/30 ML ORAL LIQUID PO SCH ×4 (09:05→21:10)
[2017-02-22] MEDS: NICOTINE 14 MG PATCH TD SCH (09:06)
[2017-02-22] MEDS: FUROSEMIDE 40 MG TABLET PO SCH ×2 (09:06→18:17)
[2017-02-22] MEDS: GABAPENTIN 300 MG CAPSULE PO SCH ×3 (09:06→21:05)
[2017-02-22] MEDS: SPIRONOLACTONE 25 MG TABLET PO SCH (09:06)
--- NOTE | 2017-02-22 09:06 | XRay Report ---
Indication: FOLLOW-UP PROCEDURE: XR ankle RT min 3V: Encounter: Initial Comparison: February 17, 2013 Findings: Alignment of the ankle is stable with mild lateral subluxation of the talus relative to tibia. Splinting material obscures fine bony detail. Distal fibular fracture alignment is unchanged. Impression: Unchanged appearance of the ankle. .
[2017-02-22] MEDS: NICOTINE PATCH REMOVAL TD SCH (09:07)
--- NOTE | 2017-02-22 10:12 | Progress Note ---
<NigelEdelmira Linda - Last Filed: 02/22/17 10:06> - Date 02/22/17 Subjective: Young is seen today in follow up for his recent ankle fracture and multiple closed reductions. Nursing reports that he continues to weight bear on his foot/ ankle despite numerous discussions and reminders not to. He is seen immediately following his breakfast this morning and is alert and orientated x 3. He states that his appetite is good and admits to a small bowel movement last night. He was seen and evaluated by Dr. Garcia yesterday and the cast was removed for a full assessment of the skin and ankle. Unfortunately his swelling remains to great to do surgery today. Hopefully his swelling will improve over the new few days opening the possibility for surgery on . The importance of maintaining nonweight bearing was reiterated numerous times on exam and her verbalized understanding. Nursing reports that Kingsley has appeared more confused and agitated since last night with possible visual hallucinations as he is seen talking to the computer and picking at things on the sheets. Review of the labs today revealed persistent pancytopenia with WBC 4.1, hemoglobin stable at 11.1 and platelets 89. BMP was unremarkable. LFT and ammonia level pending at time of exam. Objective Vital signs: Temperature 96.7 F L 02/22/17 07:58 Pulse Rate 80 02/22/17 07:58 Respiratory Rate 16 02/22/17 07:58 Blood Pressure 112/78 02/22/17 07:58 Pulse Oximetry 92 02/22/17 07:58 Height/Weight/BMI: Weight 220 lb 0.341 oz Comments: Patient appears restless in bed and is noted to actively try and scratch at skin under cast; he falls asleep on exam when not speaking but is easily arouses ; speech is garbled at times. - Constitutional Present: no acute distress, well nourished, well developed Comments: restless. - Routine HEENT Exam Head: Present: normocephalic, atraumatic Eye: Present: PERRL. Absent: conjunctival icterus ENT: Present: mucous membranes moist - Routine Respiratory Exam Present: CTA bilaterally. Absent: rhonchi, stridor, wheezes, crackles - Routine Cardiovascular Exam Present: RRR, S1, S2 - Routine Abdominal Exam Present: soft, normoactive bowel sounds, non tender, distended - Routine Extremities Exam Present: no edema, normal capillary refill. Absent: cyanosis Comments: cast noted to right lower extremity which has been cut for skin evaluation on and abraham bandage placed to hold in place; abraham bandage appears to be disrupted along foot and ankle, concerning for patient's attempt at removal. - Routine Back/Spine/Pelvis Exam Back/Spine: Present: full ROM. Absent: vertebral tenderness - Routine Musculoskeletal Exam Musculoskeletal: Present: normal strength, moving extremities well - Routine Skin Exam Present: dry, warm. Absent: jaundice Comments: afebrile; ecchymosis noted to right leg is healing; right ankle not visualized on exam. - Routine Neurological Exam Present: alert, oriented X3, moving all extremities, hearing grossly intact. Absent: facial asymmetry speech jumbled at times. - Routine Lymphatic Exam Lymphatic: Absent: lymphedema - Routine Psychiatric Exam Present: visual hallucinations, tactile hallucinations. Absent: good insight, good judgment Comments: restless, easily agitated. Results - Labs CBC & Chem 7: 02/22/17 03:57 02/22/17 03:57 Assessment and Plan (1) Closed right ankle fracture Current visit: Yes Status: Acute (2) Cirrhosis Current visit: Yes Status: Acute (3) Alcoholism Current visit: Yes Status: Acute Assessment and Plan: IMPRESSION 1. Right ankle fracture s/p reduction -Fibula fx proximal and distal -Closed reduction 02/14/2017 but then was noncompliant afterwards and put weight on his foot and took off his splint. -Fracture blisters and edema of the right ankle-treatment per Dr. Garcia. To OR for reduction and exam 02/18/17 -Oxycodone for pain. 2. Cirrohsis with liver mass and hepatic encephalopathy/ + Hep C. -Follows with Dr. NICOLAS Barton in [place] -Bilirubin has normalized -Splenomegaly, portal hypertension and esophageal varices -Metoprolol 25 mg by mouth twice a day started this hospitalization -Thrombocytopenia, suspect chronic 3. ETOHism -Monitoring for alcohol withdrawal discontinued after 5 days. The patient did get a couple of doses of Serax, but no signs of withdrawal. -Intermittent confusion most likely due to his hepatic encephalopathy and pain medication. 4. COPD -Persistent smoker; Nicotine patch provided. -Resp therapy-DuoNeb + Pulmicort 5. DVT/GI prophylaxis -SCD (left leg) and PPI - no anticoagulation because of his coagulopathy with liver disease and esophageal varices 6. Anemia - Hemoglobin is stable. Hemoccult negative. Plan - 02/22/17: Patient continues to be noncompliant with treatment recommendations including maintaining non-weight bearing status. Nursing expressed concern for visual and tactile hallucinations including picking at the bed and sheets as well as talking to the computer and often unable to be redirected. Increased restless and agitation. LFT and ammonia levels pending. BMP unremarkable. Pancytopenia stable. Will continue to monitor. Haldol as needed for behaviors. Ortho not able to take to surgery today due to increased swelling. Possible surgery on (02/24) at the earliest. Continue to encourage the patient not to bear weight on his leg. Discussed extensively with the patient that continued weight bearing will increase swelling and slow healing process, thus delaying his discharge and again, emphasized the possibility of his loosing his leg if appropriate medical/surgical care not given. Continue to encourage elevation of the leg. Continue Vantin for antimicrobial coverage given blisters to ankle. Did discussed this at length with CM after my visit. Time spent with patient care and with discussion with CM 35 minutes. DVT Prophylaxis: SCD's Resuscitation Status: Full Code - Time spent with patient Time with patient PN: 35 minutes Hospital Course Summary Disclaimer: The visit summary below is not to be considered part of the above Progress Note. Hospital Course: 02/12/17 16:15 Impression: Right ankle fracture s/p reduction Chronic Liver disease with failure Possible hepatocellular carcinoma ETOH intoxication ETOH abuse. Depression/anxiety COPD with hx of bronchitis HTN Acute pain Plan: 02/12/[address] Garcia for ongoing orthopedic management. We need to get more information re: possible hepatic carcinoma before we proceed with OR. Will need to request records from DR. NICOLAS Alvarez with [facility] on Tuesday AM. Assess INR, Venous ammonia, ETOH level, UDS now. Monitor labs closely. Assess CXR, EKG given risk for tachycardia, need for pre-op assessment. Start tele. Rhonchi on clinical exam- neb tx, check CXR. Will resume home meds as appropriate. Order PRN low dose Serax for w/d sx. Will not schedule due to sedation- d/w RN. 02/13/2017 Impression: 1. Right ankle fracture s/p reduction -Fibula fx proximal and distal -Dr. Garcia consulted, does not think it will be ready for surgical repair for a week. 2. Cirrohsis with liver mass -Follows with Dr. NICOLAS Barton in [place] -Ammonia elevated at 45 today, will order lactulose (pt will likely refuse) 3. ETOHism -Initiate withdrawal protocol 4. COPD -Persistent smoker -Nicotine patch provided -Resp therapy -CXR okay 5. Acute pain -Requiring IV meds for relief. 6. DVT/GI prophylaxis SCDs and PPI He could probably go home once his pain is managed by po meds. 02/14/2017 Impression: 1. Right ankle fracture s/p reduction -Fibula fx proximal and distal -Dr. Garcia consulted, distal fracture is not in good position. He will be taken to the OR later today for closed reduction and application of the splint. -The patient may require placement in care home, swing bed or IRU for help prior to undergoing surgery 2. Cirrohsis with liver mass -Follows with Dr. NICOLAS Barton in [place] -Ammonia elevated, lactulose ordered -Bilirubin up to 2.3 from 1.6 and 0.7. AST is 72 -Patient reportedly with enlarged spleen, portal hypertension and esophageal varices 3. ETOHism -Continue withdrawal protocol -Monitor for DTs 4. COPD -Persistent smoker -Nicotine patch provided -Resp therapy-DuoNeb -CXR okay 5. Acute pain -Still Requiring IV Dilaudid for relief. 6. DVT/GI prophylaxis SCDs and PPI Discussed with Dr. Garcia. The patient will likely need placement prior to surgery in 1 week's time. He is concerned that the patient's fracture will not stay in alignment if he is discharged. 02/15/2017 Impression: 1. Right ankle fracture s/p reduction -Fibula fx proximal and distal - The patient had closed reduction yesterday but then was noncompliant and put weight on his foot. He has edema in his foot and blisters associated with the fracture. Per Dr. Garcia, it will take 1-2 weeks for the swelling and blisters to improve and make it safe for surgery. Dr. Garcia does recommend bed rest until the time of surgery is that the patient's noncompliance. Discussed at length with case management and they are working on plans to take care of the patient until he can undergo surgery. 2. Cirrohsis with liver mass -Follows with Dr. NICOLAS Barton in [place] -Ammonia elevated, lactulose ordered and the patient is compliant now taking this -Bilirubin has normalized -Patient reportedly with enlarged spleen, portal hypertension and esophageal varices -Metoprolol 25 mg by mouth twice a day started this hospitalization 3. ETOHism -Continue withdrawal protocol-so far, patient is doing well. He has only required 1 dose of Ativan yesterday and has not required any Serax -Monitor for DTs 4. COPD -Persistent smoker -Nicotine patch provided -Resp therapy-DuoNeb -CXR okay 5. Acute pain -We'll try oral oxycodone and discontinue [place]. Use Dilaudid only for breakthrough pain 6. DVT/GI prophylaxis SCDs and PPI 7. Anemia - recheck hemoglobin. Monitor stools for signs of bleeding. Check Hemoccults Discussed with Dr. Garcia and case management. The patient will likely need placement prior to surgery in 1-2 week's time. He is concerned that the patient' s fracture will not stay in alignment if he is discharged. 02/16/2017 Impression/plan 1. Right ankle fracture s/p reduction -Fibula fx proximal and distal - The patient had closed reduction 02/14/2017 but then was noncompliant afterwards and put weight on his foot and took off his splint. He has edema in his foot and blisters associated with the fracture. Per Dr. Garcia, it will take 1 -2 weeks for the swelling and blisters to improve and make it safe for surgery. Dr. Garcia does recommend bed rest until the time of surgery. Discussed at length with case management and they are working on plans to take care of the patient until he can undergo surgery. -Fracture blisters of the right ankle-treatment per Dr. Garcia 2. Cirrohsis with liver mass -Follows with Dr. NICOLAS Barton in [place] -Ammonia elevated, lactulose ordered and the patient is intermittently compliant taking this -Bilirubin has normalized -Patient reportedly with enlarged spleen, portal hypertension and esophageal varices -Metoprolol 25 mg by mouth twice a day started this hospitalization 3. ETOHism -Continue withdrawal protocol-so far, patient is doing well. As of 02/16/2017, he is 96 hours past the time of his last drink. Likelihood of developing DTs at this time is very minimal. He had one dose of IV Ativan 2 days ago and one tablet of Serax this morning. Otherwise he has not required any benzodiazepines -Continue Monitor for DTs-can likely discontinue monitoring 02/17/2017 4. COPD -Persistent smoker -Nicotine patch provided -Resp therapy-DuoNeb -CXR okay 5. Acute pain -We'll try increase oxycodone. Try to avoid IVF narcotics. Patient currently does not have an IV as they keep falling out. 6. DVT/GI prophylaxis SCDs and PPI-no anticoagulation because of his coagulopathy with liver disease and esophageal varices 7. Anemia - Hemoglobin is stable. Hemoccult negative. He has had a brown stool. Doubt GI blood loss. Continue to monitor. During my visit with the patient this morning, he stated he wanted to look at his wound on his foot. I told him that was up to Dr. Garcia and did relay the patient's concerns to Dr. Garcia's physician assistants. Regarding the erythema of the right leg medially just above the splint, I did discuss this with Dr. Garcia's physician assistants and I have asked the nurse to outline it with skin marker. 02/18/17 Ammonia level decreased to 36 - continue Lactulose. Pt educated on purpose of lactulose. Ankle reduced per Dr. Garcia. Reported heartburn last night x2 - check EKG and trop (since we are nearly 16 hours out, 1 trop should be sufficient to r/o) Unsafe to dc. 02/19/17 Continue 1:1 care to protect right ankle after repeated reduction. Dr. Garcia recommends strict bed rest other than up to bedside commode with assist. NWB right LE. Plans to return to OR on 02/22, proceed with sx if swelling/blisters improved. Ammonia increased to 48 and he did not have a BM yesterday. Goal is to have 2-3 loose stools/day. Increase lactulose to 30 gm QID. Mild normocytic anemia - stable. Thrombocytopenia (plt 111), ranges 90s-120s. COPD - continue DuoNebs; add Pulmicort d/t intermittent wheezing. 02/20/17 12:03 Decrease Dilaudid frequency. Increase Gabapentin to TID. Fever- high risk for complications. Add Ceftriaxone. Check CXR/UA today. Add Lasix, Aldactone as weight is trending up significantly. Continue to monitor closely. Repeat Ammonia level in AM. Tele DC'd as pt. did not want to wear. Recurrently threatens to leave AMA. Continue supportive care in monitored environment as long as we can. High readmission risk. Plan - 02/21/17 (Nigel). Patient continues to express a strong desire for discharge. Continue to provide safe and supportive environment. Continue to monitor and supervise closely for patient safety. Continue to wean IV medication (Dilaudid) and narcotics. He is at high risk for opioid over use. Continue Gabapentin TID. Ammonia level trending down - 26 today (WNL). Continue to monitor closely. Will recheck in AM. Continue Lasix and spironolactone for fluid volume. Recommend follow up with Dr. Barton following discharge. Monitor daily weight closely. Blood pressure well controlled. Continue metoprolol BID and monitor closely. Repeat CXR today (02/21/17) revealed stable chest without cardiopulmonary changes. Continue to monitor pulmonary function and continue breathing treatments. Fever resolved. Continue to encourage incentive spirometry. Plan - 02/22/17: Patient continues to be noncompliant with treatment recommendations including maintaining non-weight bearing status. Nursing expressed concern for visual and tactile hallucinations including picking at the bed and sheets as well as talking to the computer and often unable to be redirected. Increased restless and agitation. LFT and ammonia levels pending. BMP unremarkable. Pancytopenia stable. Will continue to monitor. Haldol as needed for behaviors. Ortho not able to take to surgery today due to increased swelling. Possible surgery on (02/24) at the earliest. Continue to encourage the patient not to bear weight on his leg. Discussed extensively with the patient that continued weight bearing will increase swelling and slow healing process, thus delaying his discharge and again, emphasized the possibility of his loosing his leg if appropriate medical/surgical care not given. Continue to encourage elevation of the leg. Continue Vantin for antimicrobial coverage given blisters to ankle. Did discussed this at length with CM after my visit. Time spent with patient care and with discussion with CM 35 minutes. 02/22/17 10:27 <Dannie Chu D - Last Filed: 02/22/17 19:45> - Date 02/22/17 Objective Vital signs: Temperature 97.2 F 02/22/17 16:00 Pulse Rate 74 02/22/17 16:00 Respiratory Rate 14 02/22/17 19:35 Blood Pressure 131/77 02/22/17 16:00 Pulse Oximetry 96 02/22/17 19:35 Height/Weight/BMI: Weight 99.8 kg Results - Labs CBC & Chem 7: 02/22/17 03:57 02/22/17 03:57 Assessment and Plan (1) Closed right ankle fracture Current visit: Yes Status: Acute (2) Cirrhosis Current visit: Yes Status: Acute (3) Alcoholism Current visit: Yes Status: Acute Assessment and Plan: IMPRESSION 1. Right ankle fracture s/p reduction -Fibula fx proximal and distal -Closed reduction 02/14/2017 but then was noncompliant afterwards and put weight on his foot and took off his splint. -Fracture blisters and edema of the right ankle-treatment per Dr. Garcia. To OR for reduction and exam 02/18/17 -Oxycodone for pain. 2. Cirrohsis with liver mass and hepatic encephalopathy/ + Hep C. -Follows with Dr. NICOLAS Barton in [place] -Bilirubin has normalized -Splenomegaly, portal hypertension and esophageal varices -Metoprolol 25 mg by mouth twice a day started this hospitalization -Thrombocytopenia, suspect chronic 3. ETOHism -Monitoring for alcohol withdrawal discontinued after 5 days. The patient did get a couple of doses of Serax, but no signs of withdrawal. -Intermittent confusion most likely due to his hepatic encephalopathy and pain medication. 4. COPD -Persistent smoker; Nicotine patch provided. -Resp therapy-DuoNeb + Pulmicort 5. DVT/GI prophylaxis -SCD (left leg) and PPI - no anticoagulation because of his coagulopathy with liver disease and esophageal varices 6. Anemia - Hemoglobin is stable. Hemoccult negative. Have independently examined pt. Chart reviewed. Case discussed with nursing, CM , and my [employer]. Care plan developed with my supervision; agree with above. Sleeping this evening. Very restless day. Agitated and belligerent. Not adherent with non weight bearing. Lungs: decreased CV: regular Plan: Haldol and ativan as needed for severe agitation. Nursing and staff have been working to redirect patient and help him understand the importance of treatment plan outlined. Very difficult to get through to patient. Hospital Course Summary Disclaimer: The visit summary below is not to be considered part of the above Progress Note. Addendum entered and electronically signed by DAVID Chatman 02/22/17 13: 01: 1230: Nursing called to report the patient had increased agitation and restlessness and was demanding to see a provider now. He was seen in his room with nursing present and was very agitated and demanding to see the head of "pediatrics" and the "bone doctor". He expressed belief that if he could be allowed to go home, he could "heal at a slow enough rate but quick enough to be progressive" and would be able to manage his "vices". When asked what his vices were, he commented on not being able to smoke while in the hospital. A nicotine patch was offered and he refused, stating they don't help. A higher dose nicotine patch was offered and he refused stating he has tried them for over 35 years and they don't help. His behaviors progressed and he displayed some paranoia and delusional thinking. He repeated commented that "I know what they are saying". When asked for clarification, he refused to comment. Dr. Garcia was contacted and came to see the patient with DAVID Yates. They re-evaluated the leg, removing the cast, and identified continued swelling. It was strongly emphasized that the patient needed to keep his leg elevated and maintain strict non-weight bearing status. He verbalized understanding and consented to remaining in the hospital. Dr. Garcia will reevaluate his leg tomorrow and determine is surgical correction can proceed on 02/24. Due to his history of alcohol abuse, folate and thiamine were initated daily. He was given Haldol PRN for agitation and restlessness.
[2017-02-22] MEDS: BUDESONIDE INH.SOLN 0.5mg/2ml NEB AEROSOL SCH ×2 (10:36→19:35)
[2017-02-22] MEDS: ALBUTEROL/IPRATROPIUM 2.5mg-0.5mg/3ml NEB AEROSOL SCH ×2 (10:37→19:34)
[2017-02-22] MEDS: HALOPERIDOL 5 MG/ML INJECTION IM PRN (12:59)
[2017-02-22] MEDS: FOLIC ACID 1 MG TABLET PO SCH (14:48)
[2017-02-22] MEDS: MIRTAZAPINE 15 MG TABLET PO SCH (21:05)
[2017-02-22] MEDS: PAROXETINE 20 MG TABLET PO SCH (21:07)
[2017-02-23] MEDS: Oxycodone *IR* 15 MG TABLET PO PRN ×5 (03:57→21:47)
[2017-02-23] MEDS: PANTOPRAZOLE 40 MG TABLET PO SCH (05:39)
[2017-02-23] MEDS: SPIRONOLACTONE 25 MG TABLET PO SCH (08:18)
[2017-02-23] MEDS: CEFPODOXIME 200mg TABLET PO SCH (08:19)
[2017-02-23] MEDS: GABAPENTIN 300 MG CAPSULE PO SCH ×3 (08:19→20:04)
[2017-02-23] MEDS: FOLIC ACID 1 MG TABLET PO SCH (08:19)
[2017-02-23] MEDS: FUROSEMIDE 40 MG TABLET PO SCH ×2 (08:19→20:04)
[2017-02-23] MEDS: LACTULOSE 20 GM/30 ML ORAL LIQUID PO SCH ×4 (08:20→20:04)
[2017-02-23] MEDS: NICOTINE 14 MG PATCH TD SCH (08:21)
[2017-02-23] MEDS: NICOTINE PATCH REMOVAL TD SCH (08:21)
[2017-02-23] MEDS: ALBUTEROL/IPRATROPIUM 2.5mg-0.5mg/3ml NEB AEROSOL SCH ×2 (08:43→19:36)
[2017-02-23] MEDS: BUDESONIDE INH.SOLN 0.5mg/2ml NEB AEROSOL SCH ×2 (08:44→19:36)
--- NOTE | 2017-02-23 11:39 | Progress Note ---
<Rosa M Casiano V - Last Filed: 02/23/17 11:23> - Date 02/23/17 Subjective: Young is seen this morning in follow up while resting in bed. He is irritable and short with his answers during examination. He denies having shortness of breath or GI complaints. Appetite is good and bowels last moved yesterday. Nursing staff reports that he frequently asks for pain medications prior to scheduled time however that he falls asleep during interactions. Objective Vital signs: Temperature 97.6 F 02/23/17 07:56 Pulse Rate 71 02/23/17 07:56 Respiratory Rate 20 02/23/17 08:35 Blood Pressure 119/80 02/23/17 07:56 Pulse Oximetry 97 02/23/17 08:35 Height/Weight/BMI: Weight 98.6 kg - Constitutional Present: no acute distress, well nourished, well developed - Routine HEENT Exam Eye: Present: EOMI ENT: Present: mucous membranes moist, dentition normal - Routine Respiratory Exam Present: CTA bilaterally. Absent: wheezes - Routine Cardiovascular Exam Present: RRR, S1, S2. Absent: murmur - Routine Abdominal Exam Present: soft, normoactive bowel sounds, non distended. Absent: tenderness - Routine Extremities Exam Present: full ROM - Routine Skin Exam Present: intact, dry, warm - Routine Neurological Exam Present: alert, oriented X3, CN II-XII intact - Routine Lymphatic Exam Lymphatic: Absent: adenopathy - Routine Psychiatric Exam Present: agitated Results - Labs CBC & Chem 7: 02/23/17 04:12 02/23/17 04:12 Assessment and Plan (1) Closed right ankle fracture Current visit: Yes Status: Acute (2) Cirrhosis Current visit: Yes Status: Acute (3) Alcoholism Current visit: Yes Status: Acute Assessment and Plan: IMPRESSION 1. Right ankle fracture s/p reduction -Fibula fx proximal and distal -Closed reduction 02/14/2017 but then was noncompliant afterwards and put weight on his foot and took off his splint. -Fracture blisters and edema of the right ankle-treatment per Dr. Garcia. To OR for reduction and exam 02/18/17 -Oxycodone for pain. 2. Cirrohsis with liver mass and hepatic encephalopathy/ + Hep C. -Follows with Dr. NICOLAS Barton in [place] -Bilirubin has normalized -Splenomegaly, portal hypertension and esophageal varices -Metoprolol 25 mg by mouth twice a day started this hospitalization -Thrombocytopenia, suspect chronic 3. ETOHism -Monitoring for alcohol withdrawal discontinued after 5 days. The patient did get a couple of doses of Serax, but no signs of withdrawal. -Intermittent confusion most likely due to his hepatic encephalopathy and pain medication. 4. COPD -Persistent smoker; Nicotine patch provided. -Resp therapy-DuoNeb + Pulmicort 5. DVT/GI prophylaxis -SCD (left leg) and PPI - no anticoagulation because of his coagulopathy with liver disease and esophageal varices 6. Anemia - Hemoglobin is stable. Hemoccult negative. Plan Continue with orthopedic care as per Dr Garcia, Planning for possible surgery tomorrow. Continue to encourage elevation and Non weight bearing Overall labs remain stable. Ammonia has been intermittently mildly elevated. Hgb stable. INR remains elevated at 1.4 likely from chronic ETOH use. Will discontinue Vantin antibiotics as he has had no further fevers or Leukocytosis Monitor BP- Continues on Lopressor Haldol and Ativan as needed for severe agitation. Hospital Course Summary Disclaimer: The visit summary below is not to be considered part of the above Progress Note. Hospital Course: 02/12/17 16:15 Impression: Right ankle fracture s/p reduction Chronic Liver disease with failure Possible hepatocellular carcinoma ETOH intoxication ETOH abuse. Depression/anxiety COPD with hx of bronchitis HTN Acute pain Plan: 02/12/[address] Garcia for ongoing orthopedic management. We need to get more information re: possible hepatic carcinoma before we proceed with OR. Will need to request records from DR. NICOLAS Alvarez with [facility] on Tuesday AM. Assess INR, Venous ammonia, ETOH level, UDS now. Monitor labs closely. Assess CXR, EKG given risk for tachycardia, need for pre-op assessment. Start tele. Rhonchi on clinical exam- neb tx, check CXR. Will resume home meds as appropriate. Order PRN low dose Serax for w/d sx. Will not schedule due to sedation- d/w RN. 02/13/2017 Impression: 1. Right ankle fracture s/p reduction -Fibula fx proximal and distal -Dr. Garcia consulted, does not think it will be ready for surgical repair for a week. 2. Cirrohsis with liver mass -Follows with Dr. NICOLAS Barton in [place] -Ammonia elevated at 45 today, will order lactulose (pt will likely refuse) 3. ETOHism -Initiate withdrawal protocol 4. COPD -Persistent smoker -Nicotine patch provided -Resp therapy -CXR okay 5. Acute pain -Requiring IV meds for relief. 6. DVT/GI prophylaxis SCDs and PPI He could probably go home once his pain is managed by po meds. 02/14/2017 Impression: 1. Right ankle fracture s/p reduction -Fibula fx proximal and distal -Dr. Garcia consulted, distal fracture is not in good position. He will be taken to the OR later today for closed reduction and application of the splint. -The patient may require placement in half-way, swing bed or IRU for help prior to undergoing surgery 2. Cirrohsis with liver mass -Follows with Dr. NICOLAS Barton in [place] -Ammonia elevated, lactulose ordered -Bilirubin up to 2.3 from 1.6 and 0.7. AST is 72 -Patient reportedly with enlarged spleen, portal hypertension and esophageal varices 3. ETOHism -Continue withdrawal protocol -Monitor for DTs 4. COPD -Persistent smoker -Nicotine patch provided -Resp therapy-DuoNeb -CXR okay 5. Acute pain -Still Requiring IV Dilaudid for relief. 6. DVT/GI prophylaxis SCDs and PPI Discussed with Dr. Garcia. The patient will likely need placement prior to surgery in 1 week's time. He is concerned that the patient's fracture will not stay in alignment if he is discharged. 02/15/2017 Impression: 1. Right ankle fracture s/p reduction -Fibula fx proximal and distal - The patient had closed reduction yesterday but then was noncompliant and put weight on his foot. He has edema in his foot and blisters associated with the fracture. Per Dr. Garcia, it will take 1-2 weeks for the swelling and blisters to improve and make it safe for surgery. Dr. Garcia does recommend bed rest until the time of surgery is that the patient's noncompliance. Discussed at length with case management and they are working on plans to take care of the patient until he can undergo surgery. 2. Cirrohsis with liver mass -Follows with Dr. NICOLAS Barton in [place] -Ammonia elevated, lactulose ordered and the patient is compliant now taking this -Bilirubin has normalized -Patient reportedly with enlarged spleen, portal hypertension and esophageal varices -Metoprolol 25 mg by mouth twice a day started this hospitalization 3. ETOHism -Continue withdrawal protocol-so far, patient is doing well. He has only required 1 dose of Ativan yesterday and has not required any Serax -Monitor for DTs 4. COPD -Persistent smoker -Nicotine patch provided -Resp therapy-DuoNeb -CXR okay 5. Acute pain -We'll try oral oxycodone and discontinue [place]. Use Dilaudid only for breakthrough pain 6. DVT/GI prophylaxis SCDs and PPI 7. Anemia - recheck hemoglobin. Monitor stools for signs of bleeding. Check Hemoccults Discussed with Dr. Garcia and case management. The patient will likely need placement prior to surgery in 1-2 week's time. He is concerned that the patient' s fracture will not stay in alignment if he is discharged. 02/16/2017 Impression/plan 1. Right ankle fracture s/p reduction -Fibula fx proximal and distal - The patient had closed reduction 02/14/2017 but then was noncompliant afterwards and put weight on his foot and took off his splint. He has edema in his foot and blisters associated with the fracture. Per Dr. Garcia, it will take 1 -2 weeks for the swelling and blisters to improve and make it safe for surgery. Dr. Garcia does recommend bed rest until the time of surgery. Discussed at length with case management and they are working on plans to take care of the patient until he can undergo surgery. -Fracture blisters of the right ankle-treatment per Dr. Garcia 2. Cirrohsis with liver mass -Follows with Dr. NICOLAS Barton in [place] -Ammonia elevated, lactulose ordered and the patient is intermittently compliant taking this -Bilirubin has normalized -Patient reportedly with enlarged spleen, portal hypertension and esophageal varices -Metoprolol 25 mg by mouth twice a day started this hospitalization 3. ETOHism -Continue withdrawal protocol-so far, patient is doing well. As of 02/16/2017, he is 96 hours past the time of his last drink. Likelihood of developing DTs at this time is very minimal. He had one dose of IV Ativan 2 days ago and one tablet of Serax this morning. Otherwise he has not required any benzodiazepines -Continue Monitor for DTs-can likely discontinue monitoring 02/17/2017 4. COPD -Persistent smoker -Nicotine patch provided -Resp therapy-DuoNeb -CXR okay 5. Acute pain -We'll try increase oxycodone. Try to avoid IVF narcotics. Patient currently does not have an IV as they keep falling out. 6. DVT/GI prophylaxis SCDs and PPI-no anticoagulation because of his coagulopathy with liver disease and esophageal varices 7. Anemia - Hemoglobin is stable. Hemoccult negative. He has had a brown stool. Doubt GI blood loss. Continue to monitor. During my visit with the patient this morning, he stated he wanted to look at his wound on his foot. I told him that was up to Dr. Garcia and did relay the patient's concerns to Dr. Garcia's physician assistants. Regarding the erythema of the right leg medially just above the splint, I did discuss this with Dr. Garcia's physician assistants and I have asked the nurse to outline it with skin marker. 02/18/17 Ammonia level decreased to 36 - continue Lactulose. Pt educated on purpose of lactulose. Ankle reduced per Dr. Garcia. Reported heartburn last night x2 - check EKG and trop (since we are nearly 16 hours out, 1 trop should be sufficient to r/o) Unsafe to dc. 02/19/17 Continue 1:1 care to protect right ankle after repeated reduction. Dr. Garcia recommends strict bed rest other than up to bedside commode with assist. NWB right LE. Plans to return to OR on 02/22, proceed with sx if swelling/blisters improved. Ammonia increased to 48 and he did not have a BM yesterday. Goal is to have 2-3 loose stools/day. Increase lactulose to 30 gm QID. Mild normocytic anemia - stable. Thrombocytopenia (plt 111), ranges 90s-120s. COPD - continue DuoNebs; add Pulmicort d/t intermittent wheezing. 02/20/17 12:03 Decrease Dilaudid frequency. Increase Gabapentin to TID. Fever- high risk for complications. Add Ceftriaxone. Check CXR/UA today. Add Lasix, Aldactone as weight is trending up significantly. Continue to monitor closely. Repeat Ammonia level in AM. Tele DC'd as pt. did not want to wear. Recurrently threatens to leave AMA. Continue supportive care in monitored environment as long as we can. High readmission risk. Plan - 02/21/17 ([place]). Patient continues to express a strong desire for discharge. Continue to provide safe and supportive environment. Continue to monitor and supervise closely for patient safety. Continue to wean IV medication (Dilaudid) and narcotics. He is at high risk for opioid over use. Continue Gabapentin TID. Ammonia level trending down - 26 today (WNL). Continue to monitor closely. Will recheck in AM. Continue Lasix and spironolactone for fluid volume. Recommend follow up with Dr. Barton following discharge. Monitor daily weight closely. Blood pressure well controlled. Continue metoprolol BID and monitor closely. Repeat CXR today (02/21/17) revealed stable chest without cardiopulmonary changes. Continue to monitor pulmonary function and continue breathing treatments. Fever resolved. Continue to encourage incentive spirometry. Plan - 02/22/17: Patient continues to be noncompliant with treatment recommendations including maintaining non-weight bearing status. Nursing expressed concern for visual and tactile hallucinations including picking at the bed and sheets as well as talking to the computer and often unable to be redirected. Increased restless and agitation. LFT and ammonia levels pending. BMP unremarkable. Pancytopenia stable. Will continue to monitor. Haldol as needed for behaviors. Ortho not able to take to surgery today due to increased swelling. Possible surgery on (02/24) at the earliest. Continue to encourage the patient not to bear weight on his leg. Discussed extensively with the patient that continued weight bearing will increase swelling and slow healing process, thus delaying his discharge and again, emphasized the possibility of his loosing his leg if appropriate medical/surgical care not given. Continue to encourage elevation of the leg. Continue Vantin for antimicrobial coverage given blisters to ankle. Did discussed this at length with CM after my visit. Time spent with patient care and with discussion with CM 35 minutes. 02/23/17- Discontinue Vantin antibiotic as he has had no further fever or leukocytosis. Hopeful for surgery tomorrow 02/[address] Garcia. Continues to be agitated and confused intermittently. <Mechelle Ramirez - Last Filed: 02/23/17 15:06> - Date 02/23/17 Objective Vital signs: Height/Weight/BMI: Results - Labs CBC & Chem 7: 02/23/17 04:12 02/23/17 04:12 Assessment and Plan (1) Closed right ankle fracture Current visit: Yes Status: Acute (2) Cirrhosis Current visit: Yes Status: Acute (3) Alcoholism Current visit: Yes Status: Acute Assessment and Plan: I have independently evaluated and examined this patient. I reviewed the chart, the patient's history, and the [employer]/PA's documented findings as above. We discussed and formulated the assessment and plan as above with additions as below: Mr. Dyson reports he is having 3-4 stools daily; nursing reports he only took 2 sips of lactulose this morning and then threw it in the trash. Patient denies diarrhea and indicates his appetite is good. He complained of ankle pain but was falling asleep between my questions. Patient is drowsy and breath sounds are diminished, sclera slightly icteric; abdomen is distended consistent with ascites. Left ankle is without edema; right foot is splinted/Edu wrapped although toes are exposed and have retained sensation and he is able to wiggle them. Use of lactulose reinforced with patient. Daily testing of ammonia not needed. Labs otherwise stable. Potentially to the OR tomorrow. GI Prophylaxis: Protonix Resuscitation Status: Full Code Hospital Course Summary Disclaimer: The visit summary below is not to be considered part of the above Progress Note.
[2017-02-23] MEDS: MIRTAZAPINE 15 MG TABLET PO SCH (20:04)
[2017-02-23] MEDS: PAROXETINE 20 MG TABLET PO SCH (20:04)
[2017-02-24] MEDS: HALOPERIDOL 1 MG TABLET PO PRN (00:06)
[2017-02-24] MEDS: Oxycodone *IR* 15 MG TABLET PO PRN ×4 (01:41→21:07)
[2017-02-24] MEDS: LORazepam 0.5 MG TABLET PO PRN ×2 (03:07→21:07)
[2017-02-24] MEDS: PANTOPRAZOLE 40 MG TABLET PO SCH (05:36)
[2017-02-24] MEDS: HALOPERIDOL 5 MG/ML INJECTION IM PRN (05:36)
[2017-02-24] MEDS: NICOTINE PATCH REMOVAL TD SCH (08:00)
[2017-02-24] MEDS: NICOTINE 14 MG PATCH TD SCH (08:00)
[2017-02-24] MEDS: SPIRONOLACTONE 25 MG TABLET PO SCH (08:26)
[2017-02-24] MEDS: FOLIC ACID 1 MG TABLET PO SCH (08:26)
[2017-02-24] MEDS: LACTULOSE 20 GM/30 ML ORAL LIQUID PO SCH ×4 (08:26→22:22)
[2017-02-24] MEDS: FUROSEMIDE 40 MG TABLET PO SCH ×3 (08:27→16:18)
[2017-02-24] MEDS: GABAPENTIN 300 MG CAPSULE PO SCH ×3 (08:27→21:07)
[2017-02-24] MEDS ORDERED: NOZIN NASAL SWAB NAS ONE (11:23)
[2017-02-24] MEDS ORDERED: LR 1,000 ML IV SCH (11:30)
--- NOTE | 2017-02-24 11:48 | Progress Note ---
- Date 02/24/17 Subjective: Mr. Dyson was resting quietly when seen. He was confused and nursing reported that he's been "in and out" this morning. The patient denied dyspnea or nausea but really did not respond to other questions. He complained of being cold and indicated that he was "looking for the fire". Patient did not take a full dose of lactulose yesterday but took partial doses 3; full dose taken this morning. Nursing report patient was ambulating in his room overnight and looking for his cat. Objective Vital signs: Temperature 98.3 F 02/24/17 11:29 Pulse Rate 62 02/24/17 11:33 Respiratory Rate 18 02/24/17 11:29 Blood Pressure 125/73 02/24/17 11:29 Pulse Oximetry 95 02/24/17 11:29 EXAM General-drowsy, confused-oriented to [place] HEENT-conjugate gaze, muddy sclera but not icteric Lungs-respirations nonlabored, good airflow, breath sounds clear Cardiac-regular rhythm, S1-S2 Abd-abdomen soft, moderately distended with characteristics of ascites, bowel sounds present Ext-right lower extremity in splint/Edu wrap; no left lower extremity edema Neuro-flap present, MAEW Psych-confused as described above - Height/Weight/BMI: Weight 98 kg Results - Labs CBC & Chem 7: 02/23/17 04:12 02/24/17 03:51 Assessment and Plan (1) Closed right ankle fracture Current visit: Yes Status: Acute (2) Cirrhosis Problem details: With hepatic encephalopathy Current visit: Yes Status: Chronic (3) Alcoholism Current visit: Yes Status: Chronic Assessment and Plan: IMPRESSION 1. Right ankle fracture s/p reduction -Fibula fx proximal and distal -Closed reduction 02/14/2017 but then was noncompliant afterwards and put weight on his foot and took off his splint. -Fracture blisters and edema of the right ankle-treatment per Dr. Garcia. To OR for reduction and exam 02/18/17 -OxyIR for pain. 2. Cirrohsis with liver mass and hepatic encephalopathy/ + Hep C. -Follows with Dr. NICOLAS Barton in [place] -Bilirubin has normalized -Splenomegaly, portal hypertension and esophageal varices -Metoprolol 25 mg by mouth twice a day started this hospitalization -Thrombocytopenia, suspect chronic 3. ETOHism -Monitoring for alcohol withdrawal discontinued after 5 days. The patient did get a couple of doses of Serax, but no signs of withdrawal. -Intermittent confusion most likely due to his hepatic encephalopathy and pain medication. 4. COPD -Persistent smoker; Nicotine patch provided. -Resp therapy-DuoNeb + Pulmicort 5. DVT/GI prophylaxis -SCD (left leg) and PPI - no anticoagulation because of his coagulopathy with liver disease and esophageal varices 6. Pancytopenia/Anemia-normocytic - Hemoglobin is stable. Hemoccult negative. 7. Mild protein calorie malnutrition PLAN Scheduled to go to the operating room later today for reevaluation of right ankle fracture/possible surgical stabilization. Variable confusion due to underlying hepatic encephalopathy and pain medication use. Inconsistent use of lactulose yesterday likely contributed to worsening overnight and this morning. Respiratory status stable, hemoglobin stable. Blood pressure/heart rate tolerating addition of metoprolol. Continue vitamin supplements, dietary consult. DVT Prophylaxis: SCD's Resuscitation Status: Full Code Hospital Course Summary Disclaimer: The visit summary below is not to be considered part of the above Progress Note. Hospital Course: 02/12/17 16:15 Impression: Right ankle fracture s/p reduction Chronic Liver disease with failure Possible hepatocellular carcinoma ETOH intoxication ETOH abuse. Depression/anxiety COPD with hx of bronchitis HTN Acute pain Plan: 02/12/[address] Garcia for ongoing orthopedic management. We need to get more information re: possible hepatic carcinoma before we proceed with OR. Will need to request records from DR. NICOLAS Alvarez with [facility] on Tuesday AM. Assess INR, Venous ammonia, ETOH level, UDS now. Monitor labs closely. Assess CXR, EKG given risk for tachycardia, need for pre-op assessment. Start tele. Rhonchi on clinical exam- neb tx, check CXR. Will resume home meds as appropriate. Order PRN low dose Serax for w/d sx. Will not schedule due to sedation- d/w RN. 02/13/2017 Impression: 1. Right ankle fracture s/p reduction -Fibula fx proximal and distal -Dr. Garcia consulted, does not think it will be ready for surgical repair for a week. 2. Cirrohsis with liver mass -Follows with Dr. NICOLAS Barton in [place] -Ammonia elevated at 45 today, will order lactulose (pt will likely refuse) 3. ETOHism -Initiate withdrawal protocol 4. COPD -Persistent smoker -Nicotine patch provided -Resp therapy -CXR okay 5. Acute pain -Requiring IV meds for relief. 6. DVT/GI prophylaxis SCDs and PPI He could probably go home once his pain is managed by po meds. 02/14/2017 Impression: 1. Right ankle fracture s/p reduction -Fibula fx proximal and distal -Dr. Garcia consulted, distal fracture is not in good position. He will be taken to the OR later today for closed reduction and application of the splint. -The patient may require placement in penitentiary, swing bed or IRU for help prior to undergoing surgery 2. Cirrohsis with liver mass -Follows with Dr. NICOLAS Barton in [place] -Ammonia elevated, lactulose ordered -Bilirubin up to 2.3 from 1.6 and 0.7. AST is 72 -Patient reportedly with enlarged spleen, portal hypertension and esophageal varices 3. ETOHism -Continue withdrawal protocol -Monitor for DTs 4. COPD -Persistent smoker -Nicotine patch provided -Resp therapy-DuoNeb -CXR okay 5. Acute pain -Still Requiring IV Dilaudid for relief. 6. DVT/GI prophylaxis SCDs and PPI Discussed with Dr. Garcia. The patient will likely need placement prior to surgery in 1 week's time. He is concerned that the patient's fracture will not stay in alignment if he is discharged. 02/15/2017 Impression: 1. Right ankle fracture s/p reduction -Fibula fx proximal and distal - The patient had closed reduction yesterday but then was noncompliant and put weight on his foot. He has edema in his foot and blisters associated with the fracture. Per Dr. Garcia, it will take 1-2 weeks for the swelling and blisters to improve and make it safe for surgery. Dr. Garcia does recommend bed rest until the time of surgery is that the patient's noncompliance. Discussed at length with case management and they are working on plans to take care of the patient until he can undergo surgery. 2. Cirrohsis with liver mass -Follows with Dr. NICOLAS Barton in [place] -Ammonia elevated, lactulose ordered and the patient is compliant now taking this -Bilirubin has normalized -Patient reportedly with enlarged spleen, portal hypertension and esophageal varices -Metoprolol 25 mg by mouth twice a day started this hospitalization 3. ETOHism -Continue withdrawal protocol-so far, patient is doing well. He has only required 1 dose of Ativan yesterday and has not required any Serax -Monitor for DTs 4. COPD -Persistent smoker -Nicotine patch provided -Resp therapy-DuoNeb -CXR okay 5. Acute pain -We'll try oral oxycodone and discontinue Porter. Use Dilaudid only for breakthrough pain 6. DVT/GI prophylaxis SCDs and PPI 7. Anemia - recheck hemoglobin. Monitor stools for signs of bleeding. Check Hemoccults Discussed with Dr. Garcia and case management. The patient will likely need placement prior to surgery in 1-2 week's time. He is concerned that the patient' s fracture will not stay in alignment if he is discharged. 02/16/2017 Impression/plan 1. Right ankle fracture s/p reduction -Fibula fx proximal and distal - The patient had closed reduction 02/14/2017 but then was noncompliant afterwards and put weight on his foot and took off his splint. He has edema in his foot and blisters associated with the fracture. Per Dr. Garcia, it will take 1 -2 weeks for the swelling and blisters to improve and make it safe for surgery. Dr. Garcia does recommend bed rest until the time of surgery. Discussed at length with case management and they are working on plans to take care of the patient until he can undergo surgery. -Fracture blisters of the right ankle-treatment per Dr. Garcia 2. Cirrohsis with liver mass -Follows with Dr. NICOLAS Barton in [place] -Ammonia elevated, lactulose ordered and the patient is intermittently compliant taking this -Bilirubin has normalized -Patient reportedly with enlarged spleen, portal hypertension and esophageal varices -Metoprolol 25 mg by mouth twice a day started this hospitalization 3. ETOHism -Continue withdrawal protocol-so far, patient is doing well. As of 02/16/2017, he is 96 hours past the time of his last drink. Likelihood of developing DTs at this time is very minimal. He had one dose of IV Ativan 2 days ago and one tablet of Serax this morning. Otherwise he has not required any benzodiazepines -Continue Monitor for DTs-can likely discontinue monitoring 02/17/2017 4. COPD -Persistent smoker -Nicotine patch provided -Resp therapy-DuoNeb -CXR okay 5. Acute pain -We'll try increase oxycodone. Try to avoid IVF narcotics. Patient currently does not have an IV as they keep falling out. 6. DVT/GI prophylaxis SCDs and PPI-no anticoagulation because of his coagulopathy with liver disease and esophageal varices 7. Anemia - Hemoglobin is stable. Hemoccult negative. He has had a brown stool. Doubt GI blood loss. Continue to monitor. During my visit with the patient this morning, he stated he wanted to look at his wound on his foot. I told him that was up to Dr. Garcia and did relay the patient's concerns to Dr. Garcia's physician assistants. Regarding the erythema of the right leg medially just above the splint, I did discuss this with Dr. Garcia's physician assistants and I have asked the nurse to outline it with skin marker. 02/18/17 Ammonia level decreased to 36 - continue Lactulose. Pt educated on purpose of lactulose. Ankle reduced per Dr. Garcia. Reported heartburn last night x2 - check EKG and trop (since we are nearly 16 hours out, 1 trop should be sufficient to r/o) Unsafe to dc. 02/19/17 Continue 1:1 care to protect right ankle after repeated reduction. Dr. Garcia recommends strict bed rest other than up to bedside commode with assist. NWB right LE. Plans to return to OR on 02/22, proceed with sx if swelling/blisters improved. Ammonia increased to 48 and he did not have a BM yesterday. Goal is to have 2-3 loose stools/day. Increase lactulose to 30 gm QID. Mild normocytic anemia - stable. Thrombocytopenia (plt 111), ranges 90s-120s. COPD - continue DuoNebs; add Pulmicort d/t intermittent wheezing. 02/20/17 12:03 Decrease Dilaudid frequency. Increase Gabapentin to TID. Fever- high risk for complications. Add Ceftriaxone. Check CXR/UA today. Add Lasix, Aldactone as weight is trending up significantly. Continue to monitor closely. Repeat Ammonia level in AM. Tele DC'd as pt. did not want to wear. Recurrently threatens to leave AMA. Continue supportive care in monitored environment as long as we can. High readmission risk. Plan - 02/21/17 ([place]). Patient continues to express a strong desire for discharge. Continue to provide safe and supportive environment. Continue to monitor and supervise closely for patient safety. Continue to wean IV medication (Dilaudid) and narcotics. He is at high risk for opioid over use. Continue Gabapentin TID. Ammonia level trending down - 26 today (WNL). Continue to monitor closely. Will recheck in AM. Continue Lasix and spironolactone for fluid volume. Recommend follow up with Dr. Barton following discharge. Monitor daily weight closely. Blood pressure well controlled. Continue metoprolol BID and monitor closely. Repeat CXR today (02/21/17) revealed stable chest without cardiopulmonary changes. Continue to monitor pulmonary function and continue breathing treatments. Fever resolved. Continue to encourage incentive spirometry. Plan - 02/22/17: Patient continues to be noncompliant with treatment recommendations including maintaining non-weight bearing status. Nursing expressed concern for visual and tactile hallucinations including picking at the bed and sheets as well as talking to the computer and often unable to be redirected. Increased restless and agitation. LFT and ammonia levels pending. BMP unremarkable. Pancytopenia stable. Will continue to monitor. Haldol as needed for behaviors. Ortho not able to take to surgery today due to increased swelling. Possible surgery on (02/24) at the earliest. Continue to encourage the patient not to bear weight on his leg. Discussed extensively with the patient that continued weight bearing will increase swelling and slow healing process, thus delaying his discharge and again, emphasized the possibility of his loosing his leg if appropriate medical/surgical care not given. Continue to encourage elevation of the leg. Continue Vantin for antimicrobial coverage given blisters to ankle. Did discussed this at length with CM after my visit. Time spent with patient care and with discussion with CM 35 minutes. 02/23/17- Discontinue Vantin antibiotic as he has had no further fever or leukocytosis. Hopeful for surgery tomorrow 02/[address] Garcia. Continues to be agitated and confused intermittently. 02/24/17 12:04 Scheduled to go to the operating room later today for reevaluation of right ankle fracture/possible surgical stabilization. Variable confusion due to underlying hepatic encephalopathy and pain medication use. Inconsistent use of lactulose yesterday likely contributed to worsening overnight and this morning. Respiratory status stable, hemoglobin stable. Blood pressure/heart rate tolerating addition of metoprolol. Continue vitamin supplements, dietary consult.
--- NOTE | 2017-02-24 12:04 | Anesthesia Preoperative Report ---
Anesthesia Preoperative Record - Date and Time Date: 02/24/17 Preoperative Diagnosis: fx dislocation r ankle Proposed Procedure: ORIF right Ankle NPO Since Date: 02/24/17 NPO Since Time: 00:00 Allergies/Adverse Reactions: Allergies Allergy/AdvReac Type Severity Reaction Status Date / Time adhesive tape Allergy Unknown RED RASH Verified 02/12/17 09:19 ketorolac Allergy Unknown Verified 02/12/17 09:19 quetiapine Allergy Unknown Verified 02/12/17 09:19 - Vital Signs Vital Signs: Temperature 98.3 F 02/24/17 11:29 Pulse Rate 62 02/24/17 11:33 Respiratory Rate 18 02/24/17 11:29 Blood Pressure 125/73 02/24/17 11:29 Pulse Oximetry 95 02/24/17 11:29 Height and Weight: Weight 98 kg - Medications Inpatient Medications: Current Medications Albuterol Sulfate (Proventil Neb (0.083%)) 2.5 mg AEROSOL PRN PRN Albuterol/Ipratropium (Duoneb) 3 ml AEROSOL RTBID [facility] Last Admin: 02/23/17 19:36 Dose: 3 ml Budesonide (Pulmicort Inhalation) 0.5 mg AEROSOL RTBID [place] Last Admin: 02/23/17 19:36 Dose: 0.5 mg Cefazolin Sodium (Kefzol) 2 g IVP PREOP ONE Stop: 02/24/17 11:28 Diphenhydramine HCl (Benadryl) 25 mg PO Q6H PRN PRN Reason: Itching Last Admin: 02/17/17 20:17 Dose: 25 mg Folic Acid (Folate) 1 mg PO DAILY [facility] Last Admin: 02/24/17 08:26 Dose: 1 mg Furosemide (Lasix) 40 mg PO BID [facility] Last Admin: 02/24/17 08:27 Dose: 40 mg Gabapentin (Neurontin) 300 mg PO TID [facility] Last Admin: 02/24/17 08:27 Dose: 300 mg Haloperidol (Haldol) 1 mg PO Q6H PRN PRN Reason: Agitation Last Admin: 02/24/17 00:06 Dose: 1 mg Haloperidol Lactate (Haldol) 5 mg IM Q6H PRN PRN Reason: Severe agitation Last Admin: 02/24/17 05:36 Dose: 5 mg Lactated Ringer's (Lactated Ringers) 1,000 mls @ 75 mls/hr IV .[id number] [facility] Last Admin: 02/24/17 11:34 Dose: 75 mls/hr Isopropyl Alcohol (Nozin Nasal Swab) 1 each FERMIN PREOP ONE Stop: 02/24/17 11:24 Last Admin: 02/24/17 11:25 Dose: 3 each Lactulose (Lactulose) 30 gm PO QID [facility] Last Admin: 02/24/17 12:00 Dose: Not Given Lorazepam (Ativan) 0.5 mg PO Q4H PRN PRN Reason: Anxiety Last Admin: 02/24/17 03:07 Dose: 0.5 mg Magnesium Hydroxide (Mom) 30 ml PO DAILY PRN PRN Reason: Constipation Last Admin: 02/22/17 10:00 Dose: 30 ml Metoprolol Tartrate (Lopressor) 25 mg PO BIDWM [facility] Last Admin: 02/24/17 08:25 Dose: 25 mg Mirtazapine (Remeron) 7.5 mg PO HS [facility] Last Admin: 02/23/17 20:04 Dose: 7.5 mg Nicotine (Nicoderm) 14 mg TD DAILY [facility] Last Admin: 02/24/17 08:00 Dose: Not Given Nicotine (Nicotine Patch Removal) 1 removal TD DAILY [facility] Last Admin: 02/24/17 08:00 Dose: Not Given Ondansetron HCl (Zofran) 4 mg IVP Q6H PRN PRN Reason: Nausea &/or vomiting Oxycodone HCl (Roxicodone *Ir*) 15 mg PO Q4H PRN PRN Reason: Pain Last Admin: 02/24/17 05:53 Dose: 15 mg Pantoprazole Sodium (Protonix Tab) 40 mg PO ACB [facility] Last Admin: 02/24/17 05:36 Dose: 40 mg Paroxetine HCl (Paxil) 30 mg PO HS [facility] Last Admin: 02/23/17 20:04 Dose: 30 mg Sodium Chloride (Iv Flush) 10 - 60 ml IV PRN PRN PRN Reason: Flushing Last Admin: 02/15/17 15:14 Dose: 10 ml Spironolactone (Aldactone) 25 mg PO DAILY [facility] Last Admin: 02/24/17 08:26 Dose: 25 mg Thiamine HCl (Vitamin B-1) 100 mg PO DAILY [facility] Last Admin: 02/24/17 08:25 Dose: 100 mg Home Medications: Home Medications Medication Instructions Recorded Confirmed Type PARoxetine HCl [Paxil] 30 mg PO HS #0 06/02/15 02/12/17 History Buspirone [Buspar] 15 mg PO TID 02/12/17 02/12/17 History Gabapentin [Gabapentin] 300 mg PO HS 02/12/17 02/12/17 History Mirtazapine [Mirtazapine] 7.5 mg PO HS 02/12/17 02/12/17 History Is Patient on Beta Rolf?: No - Medical History Respiratory: Reports: Bronchitis, Chronic Obstructive Pulmonary Disease (COPD) DENIES: Sleep Apnea Cardiovascular: Reports: Hypertension Gastrointestional: Reports: Hepatitis (HEP C), Cirrhosis DENIES: Nausea or Vomiting Present Neuro/Musculoskeletal: Reports: Back Problems, Depression, Headaches, Other ( BACK SURGERY 1993) - Surgical History HEENT Surgeries: Reports: Other (JAW SURGERY) Musculoskeletal Surgery/Tx: Reports: Other (CLAVICLE, JAW, BACK SURGERY) Anesthesia Reactions: None Hx Family Anesthesia Reaction: No History of Motion Sickness: No - Social History Smoking Status: Current every day smoker Packs per day: 1 Hx Chewing Tobacco Use: No Second Hand Exposure: No Substance Use Type: does not use Alcohol Intake: current Alcohol Intake Frequency: a few times a week 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 Patient consents. Nursing pain assessment noted. Attestation Statement: Prior to the delivery of any anesthetic medication, I examined the patient, developed the plan, obtained the patient's consent and discussed the risk and benefits of the procedure with the patient/guardian. - Additional Information Comments: Patient continues to fall asleep during interview. Seen by Anesthesia: Yes
[2017-02-24] MEDS: CEFAZOLIN 1 G INJECTION IVP ONE ×3 (12:23→14:42)
[2017-02-24] MEDS ORDERED: BUPIVACAINE 0.25% (2.5mg/ml) PF 30ml INJECTION ONE (12:25)
[2017-02-24] MEDS ORDERED: LIDOCAINE 1% (10mg/ml) 30ml SDV INJ ONE (12:25)
[2017-02-24] MEDS ORDERED: MIDAZOLAM 2mg/2ml INJECTION ONE (12:27)
[2017-02-24] MEDS ORDERED: BUPIV 0.25% 30ml/LIDO 1% 30ml MIXTURE ID ONE (13:24)
[2017-02-24] MEDS: BUDESONIDE INH.SOLN 0.5mg/2ml NEB AEROSOL SCH ×2 (13:54→19:53)
[2017-02-24] MEDS: ALBUTEROL/IPRATROPIUM 2.5mg-0.5mg/3ml NEB AEROSOL SCH ×2 (13:54→19:53)
[2017-02-24] MEDS ORDERED: CEFAZOLIN 1 G INJECTION ONE (14:28)
--- NOTE | 2017-02-24 15:17 | Remote Fluorsocopy Report ---
Indication: FX PROCEDURE: RF ankle RT 3 view: Encounter: Initial Comparison: Ankle radiographs dated February 21, 2017 Findings: Three fluoroscopic spot images are submitted for interpretation. Images show open reduction and internal fixation of the distal tibial and fibular fractures with placement of a short threaded screw across the medial malleolus, lateral side plate and multiple screws across the fibula and two syndesmotic screws. Improved alignment of the fracture fragments. Impression: Fluoroscopy as above. Fluoroscopy time is 96.2 seconds. Fluoroscopy dose is 466 mRad. .
--- NOTE | 2017-02-24 15:24 | Anesthesia Postoperative Note ---
- Date and Time Date: 02/24/17 Time: 15:23 - Status Patient Participated in Evaluation: Patient Participated in Person Vital Signs: Temperature 97.1 F 02/24/17 15:00 Pulse Rate 102 H 02/24/17 15:00 Respiratory Rate 18 02/24/17 15:00 Blood Pressure 131/66 02/24/17 15:00 Pulse Oximetry 93 02/24/17 15:00 Respiratory Function: Airway Patent Cardiovascular Function: Regular Pulse EKG: Sinus Rhythm Mental Status: Alert and Oriented (back to baseline, slightly confused) Pain Intensity: 3 Hydration: IV Infusing Complications During Recover: None Apparent - Follow-Up Instructions Instructions: Per Surgeon
[2017-02-24] MEDS: MIRTAZAPINE 15 MG TABLET PO SCH (21:06)
[2017-02-24] MEDS: PAROXETINE 20 MG TABLET PO SCH (21:07)
--- NOTE | 2017-02-24 21:17 | Operative Note ---
DATE OF SURGERY 02/24/2017 PREOPERATIVE DIAGNOSIS Right trimalleolar equivalent ankle fracture/dislocation. POSTOPERATIVE DIAGNOSIS Right trimalleolar equivalent ankle fracture/dislocation. PROCEDURE Open reduction internal fixation of right trimalleolar equivalent ankle fracture /dislocation with repair of deltoid rupture. SURGEON Ann-Marie Garcia MD FLY WINDER Milan Sánchez PA-C COMPLICATIONS None. ANESTHESIA General. DESCRIPTION OF PROCEDURE Mr. Dyson and his right ankle were identified and marked in the preoperative holding area. He was brought back to the operating suite and placed supine on the operating table. A bump was placed under his right hip. He was placed under general anesthesia. The right lower extremity was prepped and draped in my normal sterile fashion. He had multiple fracture blisters which had all healed. No signs of infection and his swelling was resolved. Fluoroscopic images showed he remained subluxed laterally but there was no dislocation currently. The leg was exsanguinated and the tourniquet inflated to 250 mmHg. A lateral approach to the fibula was performed. He had quite a bit of thickened tissue laterally from edema. The fracture site was easily identified. It was a long oblique fracture. The distal fragment was rather short and it was rather difficult to get back out to length. I had to do some releases of the soft tissue around the distal fragment. Of course, the fracture site itself was thoroughly debrided. I was concerned that there was an entrapped deltoid medially so I did make a 3-cm incision over the medial malleolus. There was complete rupture of the deltoid ligament with a small fragment of bone attached. This was interposed within the joint and I brought it out. With this it did help regain our length and reduction of the lateral side. It was held well reduced with a [id number] reduction clamp and a lag screw was placed from anterior to posterior which achieved a good bite and held it in reduction nicely. I selected a locking distal fibula plate. The first screw was placed proximal to the fracture site and was nonlocking. I then placed four screws distally - these were locking and I placed two more proximal screws locking followed by one more proximal locking screw. With this he still opened up medially with external rotation stress so I placed two syndesmotic screws through the plate. The first one was placed approximately 1 cm proximal to the joint line. The second was placed in the next most distal hole. Both achieved a good bite and they did significantly help the medial opening although he still had some play medially with ankle eversion. I then moved back to the medial joint. I placed a 5.0 anchor in the medial malleolus. I used FiberWire to repair the deltoid ligament x 2 sutures. These were 5.0 sutures. After these were tied the ankle was checked for stability with eversion as well as external rotation and it was very stable throughout range of motion. It was elected not to fix the posterior piece which was not felt to be significant and his ankle was stable at this time. All wounds were thoroughly irrigated before being closed in layers with 2-0 Vicryl in the subcutaneous tissue and nylon in the skin. Sterile dressings were placed followed by a bulky [place] splint including posterior slab and stirrup type splint. Because the patient has a history of removing his splint and walking on it I then placed a thin layer of fiberglass over the splint and split it anteriorly followed by an Edu wrap. He was then allowed to awaken from general anesthesia. Drapes were removed, the tourniquet was let down and he was taken to the recovery room under the care of Anesthesia. He tolerated the procedure well. There were no complications. LUIS DANIEL
[2017-02-24] MEDS ORDERED: CEFAZOLIN 2 G in NS 100 ML IV SCH (23:00)
[2017-02-25] MEDS: Oxycodone *IR* 15 MG TABLET PO PRN ×3 (01:40→20:51)
[2017-02-25] MEDS: HALOPERIDOL 1 MG TABLET PO PRN ×2 (04:39→20:51)
[2017-02-25] MEDS: PANTOPRAZOLE 40 MG TABLET PO SCH (05:44)
[2017-02-25] MEDS: LORazepam 0.5 MG TABLET PO PRN ×2 (07:54→20:52)
[2017-02-25] MEDS: GABAPENTIN 300 MG CAPSULE PO SCH ×3 (08:04→20:51)
[2017-02-25] MEDS: FOLIC ACID 1 MG TABLET PO SCH (08:04)
[2017-02-25] MEDS: SPIRONOLACTONE 25 MG TABLET PO SCH (08:04)
[2017-02-25] MEDS: FUROSEMIDE 40 MG TABLET PO SCH ×2 (08:05→14:17)
[2017-02-25] MEDS: LACTULOSE 20 GM/30 ML ORAL LIQUID PO SCH ×3 (08:23→16:37)
[2017-02-25] MEDS: NICOTINE PATCH REMOVAL TD SCH (08:23)
[2017-02-25] MEDS: NICOTINE 14 MG PATCH TD SCH (08:23)
[2017-02-25] MEDS: BUDESONIDE INH.SOLN 0.5mg/2ml NEB AEROSOL SCH ×2 (08:50→21:50)
[2017-02-25] MEDS: ALBUTEROL/IPRATROPIUM 2.5mg-0.5mg/3ml NEB AEROSOL SCH ×2 (08:50→21:50)
--- NOTE | 2017-02-25 09:42 | Progress Note ---
<Massiel Pleitez D - Last Filed: 02/25/17 10:41> - Date 02/25/17 Subjective: Young was completing a nebulized breathing treatment, but needed frequent reminders to breathe deep. His responses were delayed, and initially he was very quiet. However, with more time he began to speak more. He stated that he's frustrated and sick of being here. When I asked him where he was, he replied he was in a denominational in the [place], [place]. For the year, he said it was the ""; he also reported that the next holiday coming up is Ruthie. He needs frequent reminders to keep his leg up - when I came in it was dangling off the side of the bed. His RN reported that he thinks he's in skilled nursing; he's also been refusing meds. Objective Vital signs: Temperature 98.8 F 02/25/17 07:50 Pulse Rate 91 02/25/17 08:00 Respiratory Rate 15 02/25/17 08:48 Blood Pressure 147/73 H 02/25/17 07:50 Pulse Oximetry 95 02/25/17 08:48 Height/Weight/BMI: Weight 98 kg - Constitutional Present: well nourished, well developed - Routine HEENT Exam Eye: Present: conjunctival icterus (mild) ENT: Present: mucous membranes moist. Absent: dentition normal - Routine Respiratory Exam Present: CTA bilaterally - Routine Cardiovascular Exam Present: RRR, S1, S2 - Routine Abdominal Exam Present: normoactive bowel sounds, non tender, distended - Routine Extremities Exam Present: no edema (left leg) - Routine Musculoskeletal Exam Musculoskeletal: Present: other (cast RLE) - Routine Skin Exam Present: dry, warm, ecchymosis (right leg/thigh) - Routine Neurological Exam Present: alert. Absent: oriented X3 (x1 only), normal speech (delayed ) - Routine Psychiatric Exam Absent: normal affect, normal thought process Results - Labs CBC & Chem 7: 02/25/17 05:29 02/25/17 05:29 Assessment and Plan (1) Closed right ankle fracture Current visit: Yes Status: Acute (2) Cirrhosis Problem details: With hepatic encephalopathy Current visit: Yes Status: Chronic (3) Alcoholism Current visit: Yes Status: Chronic Assessment and Plan: IMPRESSION 1. Right ankle fracture s/p reduction -Fibula fx proximal and distal -Closed reduction 02/14/2017 but then was noncompliant afterwards and put weight on his foot and took off his splint. -Fracture blisters and edema of the right ankle-treatment per Dr. Garcia. To OR for reduction and exam 02/18/17 -ORIF right trimalleolar equivalent ankle fracture/dislocation with repair of deltoid rupture 02/24/17 -OxyIR for pain. 2. Cirrhosis with liver mass and hepatic encephalopathy/ + Hep C. -Follows with Dr. NICOLAS Barton in [place] -Bilirubin has normalized -Splenomegaly, portal hypertension and esophageal varices -Metoprolol 25 mg by mouth twice a day started this hospitalization -Thrombocytopenia, suspect chronic 3. ETOHism -Monitoring for alcohol withdrawal discontinued after 5 days. The patient did get a couple of doses of Serax, but no signs of withdrawal. -Intermittent confusion most likely due to his hepatic encephalopathy and pain medication. 4. COPD -Persistent smoker; Nicotine patch provided. -Resp therapy-DuoNeb + Pulmicort 5. DVT/GI prophylaxis -SCD (left leg) and PPI - no anticoagulation because of his coagulopathy with liver disease and esophageal varices 6. Pancytopenia/Anemia-normocytic - Hemoglobin is stable. Hemoccult negative. 7. Mild protein calorie malnutrition PLAN POD #1, ORIF rt ankle and repair of deltoid ligament rupture. NWB. Confusion again today; continues to refuse meds - ammonia rechecked, normal at 33. Haldol PRN (last oral tab was this am; last IM was last night). Labs stable postop. Vit B12 and folate pending. IRU screen today - awaiting to hear if he was accepted. Hospital Course Summary Disclaimer: The visit summary below is not to be considered part of the above Progress Note. Hospital Course: 02/12/17 16:15 Impression: Right ankle fracture s/p reduction Chronic Liver disease with failure Possible hepatocellular carcinoma ETOH intoxication ETOH abuse. Depression/anxiety COPD with hx of bronchitis HTN Acute pain Plan: 02/12/[address] Garcia for ongoing orthopedic management. We need to get more information re: possible hepatic carcinoma before we proceed with OR. Will need to request records from DR. NICOLAS Alvarez with [facility] on Tuesday AM. Assess INR, Venous ammonia, ETOH level, UDS now. Monitor labs closely. Assess CXR, EKG given risk for tachycardia, need for pre-op assessment. Start tele. Rhonchi on clinical exam- neb tx, check CXR. Will resume home meds as appropriate. Order PRN low dose Serax for w/d sx. Will not schedule due to sedation- d/w RN. 02/13/2017 Impression: 1. Right ankle fracture s/p reduction -Fibula fx proximal and distal -Dr. Garcia consulted, does not think it will be ready for surgical repair for a week. 2. Cirrohsis with liver mass -Follows with Dr. NICOLAS Barton in [place] -Ammonia elevated at 45 today, will order lactulose (pt will likely refuse) 3. ETOHism -Initiate withdrawal protocol 4. COPD -Persistent smoker -Nicotine patch provided -Resp therapy -CXR okay 5. Acute pain -Requiring IV meds for relief. 6. DVT/GI prophylaxis SCDs and PPI He could probably go home once his pain is managed by po meds. 02/14/2017 Impression: 1. Right ankle fracture s/p reduction -Fibula fx proximal and distal -Dr. Garcia consulted, distal fracture is not in good position. He will be taken to the OR later today for closed reduction and application of the splint. -The patient may require placement in fci, swing bed or IRU for help prior to undergoing surgery 2. Cirrohsis with liver mass -Follows with Dr. NICOLAS Barton in [place] -Ammonia elevated, lactulose ordered -Bilirubin up to 2.3 from 1.6 and 0.7. AST is 72 -Patient reportedly with enlarged spleen, portal hypertension and esophageal varices 3. ETOHism -Continue withdrawal protocol -Monitor for DTs 4. COPD -Persistent smoker -Nicotine patch provided -Resp therapy-DuoNeb -CXR okay 5. Acute pain -Still Requiring IV Dilaudid for relief. 6. DVT/GI prophylaxis SCDs and PPI Discussed with Dr. Garcia. The patient will likely need placement prior to surgery in 1 week's time. He is concerned that the patient's fracture will not stay in alignment if he is discharged. 02/15/2017 Impression: 1. Right ankle fracture s/p reduction -Fibula fx proximal and distal - The patient had closed reduction yesterday but then was noncompliant and put weight on his foot. He has edema in his foot and blisters associated with the fracture. Per Dr. Garcia, it will take 1-2 weeks for the swelling and blisters to improve and make it safe for surgery. Dr. Garcia does recommend bed rest until the time of surgery is that the patient's noncompliance. Discussed at length with case management and they are working on plans to take care of the patient until he can undergo surgery. 2. Cirrohsis with liver mass -Follows with Dr. NICOLAS Barton in [place] -Ammonia elevated, lactulose ordered and the patient is compliant now taking this -Bilirubin has normalized -Patient reportedly with enlarged spleen, portal hypertension and esophageal varices -Metoprolol 25 mg by mouth twice a day started this hospitalization 3. ETOHism -Continue withdrawal protocol-so far, patient is doing well. He has only required 1 dose of Ativan yesterday and has not required any Serax -Monitor for DTs 4. COPD -Persistent smoker -Nicotine patch provided -Resp therapy-DuoNeb -CXR okay 5. Acute pain -We'll try oral oxycodone and discontinue [place]. Use Dilaudid only for breakthrough pain 6. DVT/GI prophylaxis SCDs and PPI 7. Anemia - recheck hemoglobin. Monitor stools for signs of bleeding. Check Hemoccults Discussed with Dr. Garcia and case management. The patient will likely need placement prior to surgery in 1-2 week's time. He is concerned that the patient' s fracture will not stay in alignment if he is discharged. 02/16/2017 Impression/plan 1. Right ankle fracture s/p reduction -Fibula fx proximal and distal - The patient had closed reduction 02/14/2017 but then was noncompliant afterwards and put weight on his foot and took off his splint. He has edema in his foot and blisters associated with the fracture. Per Dr. Garcia, it will take 1 -2 weeks for the swelling and blisters to improve and make it safe for surgery. Dr. Garcia does recommend bed rest until the time of surgery. Discussed at length with case management and they are working on plans to take care of the patient until he can undergo surgery. -Fracture blisters of the right ankle-treatment per Dr. Garcia 2. Cirrohsis with liver mass -Follows with Dr. NICOLAS Barton in [place] -Ammonia elevated, lactulose ordered and the patient is intermittently compliant taking this -Bilirubin has normalized -Patient reportedly with enlarged spleen, portal hypertension and esophageal varices -Metoprolol 25 mg by mouth twice a day started this hospitalization 3. ETOHism -Continue withdrawal protocol-so far, patient is doing well. As of 02/16/2017, he is 96 hours past the time of his last drink. Likelihood of developing DTs at this time is very minimal. He had one dose of IV Ativan 2 days ago and one tablet of Serax this morning. Otherwise he has not required any benzodiazepines -Continue Monitor for DTs-can likely discontinue monitoring 02/17/2017 4. COPD -Persistent smoker -Nicotine patch provided -Resp therapy-DuoNeb -CXR okay 5. Acute pain -We'll try increase oxycodone. Try to avoid IVF narcotics. Patient currently does not have an IV as they keep falling out. 6. DVT/GI prophylaxis SCDs and PPI-no anticoagulation because of his coagulopathy with liver disease and esophageal varices 7. Anemia - Hemoglobin is stable. Hemoccult negative. He has had a brown stool. Doubt GI blood loss. Continue to monitor. During my visit with the patient this morning, he stated he wanted to look at his wound on his foot. I told him that was up to Dr. Garcia and did relay the patient's concerns to Dr. Garcia's physician assistants. Regarding the erythema of the right leg medially just above the splint, I did discuss this with Dr. Garcia's physician assistants and I have asked the nurse to outline it with skin marker. 02/18/17 Ammonia level decreased to 36 - continue Lactulose. Pt educated on purpose of lactulose. Ankle reduced per Dr. Garcia. Reported heartburn last night x2 - check EKG and trop (since we are nearly 16 hours out, 1 trop should be sufficient to r/o) Unsafe to dc. 02/19/17 Continue 1:1 care to protect right ankle after repeated reduction. Dr. Garcia recommends strict bed rest other than up to bedside commode with assist. NWB right LE. Plans to return to OR on 02/22, proceed with sx if swelling/blisters improved. Ammonia increased to 48 and he did not have a BM yesterday. Goal is to have 2-3 loose stools/day. Increase lactulose to 30 gm QID. Mild normocytic anemia - stable. Thrombocytopenia (plt 111), ranges 90s-120s. COPD - continue DuoNebs; add Pulmicort d/t intermittent wheezing. 02/20/17 12:03 Decrease Dilaudid frequency. Increase Gabapentin to TID. Fever- high risk for complications. Add Ceftriaxone. Check CXR/UA today. Add Lasix, Aldactone as weight is trending up significantly. Continue to monitor closely. Repeat Ammonia level in AM. Tele DC'd as pt. did not want to wear. Recurrently threatens to leave AMA. Continue supportive care in monitored environment as long as we can. High readmission risk. Plan - 02/21/17 ([place]). Patient continues to express a strong desire for discharge. Continue to provide safe and supportive environment. Continue to monitor and supervise closely for patient safety. Continue to wean IV medication (Dilaudid) and narcotics. He is at high risk for opioid over use. Continue Gabapentin TID. Ammonia level trending down - 26 today (WNL). Continue to monitor closely. Will recheck in AM. Continue Lasix and spironolactone for fluid volume. Recommend follow up with Dr. Barton following discharge. Monitor daily weight closely. Blood pressure well controlled. Continue metoprolol BID and monitor closely. Repeat CXR today (02/21/17) revealed stable chest without cardiopulmonary changes. Continue to monitor pulmonary function and continue breathing treatments. Fever resolved. Continue to encourage incentive spirometry. Plan - 02/22/17: Patient continues to be noncompliant with treatment recommendations including maintaining non-weight bearing status. Nursing expressed concern for visual and tactile hallucinations including picking at the bed and sheets as well as talking to the computer and often unable to be redirected. Increased restless and agitation. LFT and ammonia levels pending. BMP unremarkable. Pancytopenia stable. Will continue to monitor. Haldol as needed for behaviors. Ortho not able to take to surgery today due to increased swelling. Possible surgery on (02/24) at the earliest. Continue to encourage the patient not to bear weight on his leg. Discussed extensively with the patient that continued weight bearing will increase swelling and slow healing process, thus delaying his discharge and again, emphasized the possibility of his loosing his leg if appropriate medical/surgical care not given. Continue to encourage elevation of the leg. Continue Vantin for antimicrobial coverage given blisters to ankle. Did discussed this at length with CM after my visit. Time spent with patient care and with discussion with CM 35 minutes. 02/23/17- Discontinue Vantin antibiotic as he has had no further fever or leukocytosis. Hopeful for surgery tomorrow 02/[address] Garcia. Continues to be agitated and confused intermittently. 02/24/17 Scheduled to go to the operating room later today for reevaluation of right ankle fracture/possible surgical stabilization. Variable confusion due to underlying hepatic encephalopathy and pain medication use. Inconsistent use of lactulose yesterday likely contributed to worsening overnight and this morning. Respiratory status stable, hemoglobin stable. Blood pressure/heart rate tolerating addition of metoprolol. Continue vitamin supplements, dietary consult. 02/25/17 POD #1, ORIF rt ankle and repair of deltoid ligament rupture. NWB. Confusion again today; continues to refuse meds - ammonia rechecked, normal at 33. Labs stable postop. Vit B12 and folate pending. IRU screen today - awaiting to hear if he was accepted. <Mechelle Ramirez - Last Filed: 02/25/17 16:28> - Date 02/25/17 Objective Vital signs: Results - Labs CBC & Chem 7: 02/25/17 05:29 02/25/17 05:29 Assessment and Plan (1) Closed right ankle fracture Current visit: Yes Status: Acute (2) Cirrhosis Problem details: With hepatic encephalopathy Current visit: Yes Status: Chronic (3) Alcoholism Current visit: Yes Status: Chronic Assessment and Plan: I have independently evaluated and examined this patient. I reviewed the chart, the patient's history, and the WALL WORKER/PA's documented findings as above. We discussed and formulated the assessment and plan as above with additions as below: Ongoing confusion. Patient reports that his foot hurts but denies nausea. Patient reports he's ready to go home and that no one is teaching him to walk on his broken ankle-seen by PT this morning, nonweightbearing RLE. Nursing reports that he is consistently refusing lactulose today. Drowsy, irritable Abdomen soft, distended; unable to assess for flap today as patient resists wrist extension Multiple abrasions on the left day and extensive bruising right proximal day/ calf and right thigh. Patient has refused the last 3 doses of lactulose; moderate encephalopathy present. Requiring Haldol intermittently. Will resume scheduled Serax at 15 mg every 8 hours, May require NG placement for lactulose administration when encephalopathy worsens. Laboratory data stable. DVT Prophylaxis: SCD's (when tolerated LLE) Resuscitation Status: Full Code Hospital Course Summary Disclaimer: The visit summary below is not to be considered part of the above Progress Note.
--- NOTE | 2017-02-25 13:23 | Orthopedic Progress Note ---
Date: Subjective/Severity of Illness: Mr. Rivera he continues to be very confused. He also remains noncompliant with elevation was right ankle. It is also reported to me today that he continues to put weight on the right ankle when ambulating to the bathroom although perhaps he is doing a better job than previous. He is status post ORIF of the right ankle with repair of his deltoid ligament as well. Surgery did require syndesmotic fixation. He remains confused and thinks he's still at a anabaptism. He also does not remember that he had surgery yesterday. Orthopedic Objective Vital signs: Temperature 98.2 F 02/25/17 13:15 Pulse Rate 70 02/25/17 13:15 Respiratory Rate 16 02/25/17 13:15 Blood Pressure 125/71 02/25/17 13:15 Pulse Oximetry 93 02/25/17 13:15 Height and Weight: Weight 98 kg - Constitutional General Appearance: Present: disheveled, no acute distress - Respiratory Exam Present: non-labored - Cardiovascular Exam Capillary Refill: < 2-3 Seconds - Integumentary Exam Present: pink, warm, other (Still has too much swelling for surgery.) - Lymphatic Lymphatic: Absent: adenopathy - Neurological Exam Present: intact to light touch - Wound Management Right Lower Leg Comments: Bulky Burgos splint to right ankle overwrapped with fiberglass. It does appear that the Edu wrap is been removed partially. His exposed toes are warm with good cap refill. - Labs Result Diagrams: 02/25/17 05:29 02/25/17 05:29 Abnormal lab results 02/25/17 02/25/17 Range/Units 05:29 05:29 RBC 3.99 L (4.50-5.90) M/MM3 Hgb 11.1 L (13.5-17.5) GM/DL Hct 34.9 L (41-53) % RDW Std Deviation 50.8 H (36.9-50.2) FL Plt Count 124 L D (130-400) T/MM3 Lymph % (Auto) 20.3 L (23-45) % Greer % (Auto) 16.8 H (0-9.0) % Greer # (Auto) 1.2 H (0-0.8) T/MM3 INR 1.62 H (0.99-1.21) H & H 02/15/17 02/16/17 02/17/17 Range/Units 09:08 04:26 04:19 Hgb 10.8 L 11.0 L 11.1 L (13.5-17.5) GM/DL Hct 33.4 L D 34.6 L 34.3 L (41-53) % 02/19/17 02/21/17 02/22/17 Range/Units 05:16 04:17 03:57 Hgb 10.8 L 10.7 L 11.1 L (13.5-17.5) GM/DL Hct 33.7 L 33.7 L 34.5 L (41-53) % 02/23/17 02/25/17 Range/Units 04:12 05:29 Hgb 11.1 L 11.1 L (13.5-17.5) GM/DL Hct 34.8 L 34.9 L (41-53) % Coagulation 02/16/17 02/25/17 Range/Units 04:26 05:29 INR 1.46 H 1.62 H (0.99-1.21) Orthopedic Assessment and Plan (1) Closed right ankle fracture Status: Acute Qualifiers: Encounter type: subsequent encounter Assessment and Plan: I attempted to discuss with Mr. Dyson the severity of his ankle fracture especially since he had syndesmotic disruption as well as a completely torn deltoid ligament which needed repair. I stressed to him that weightbearing too early could disrupt the fixation. He did have disruption of his fixation or opening of his incisions he would be at risk of amputation. It is difficult to ascertain how much of this he comprehended due to his confusion. With his current confusion I do not feel he is safe to be on his own as he does not yet comply with weightbearing restrictions or elevation. Hospital Course Summary Disclaimer: The visit summary below is not to be considered part of the above Progress Note. Hospital Course: 02/12/17 16:15 Impression: Right ankle fracture s/p reduction Chronic Liver disease with failure Possible hepatocellular carcinoma ETOH intoxication ETOH abuse. Depression/anxiety COPD with hx of bronchitis HTN Acute pain Plan: 02/12/[address] Garcia for ongoing orthopedic management. We need to get more information re: possible hepatic carcinoma before we proceed with OR. Will need to request records from DR. NICOLAS Alvarez with [facility] on Tuesday AM. Assess INR, Venous ammonia, ETOH level, UDS now. Monitor labs closely. Assess CXR, EKG given risk for tachycardia, need for pre-op assessment. Start tele. Rhonchi on clinical exam- neb tx, check CXR. Will resume home meds as appropriate. Order PRN low dose Serax for w/d sx. Will not schedule due to sedation- d/w RN. 02/13/2017 Impression: 1. Right ankle fracture s/p reduction -Fibula fx proximal and distal -Dr. Garcia consulted, does not think it will be ready for surgical repair for a week. 2. Cirrohsis with liver mass -Follows with Dr. NICOLAS Barton in [place] -Ammonia elevated at 45 today, will order lactulose (pt will likely refuse) 3. ETOHism -Initiate withdrawal protocol 4. COPD -Persistent smoker -Nicotine patch provided -Resp therapy -CXR okay 5. Acute pain -Requiring IV meds for relief. 6. DVT/GI prophylaxis SCDs and PPI He could probably go home once his pain is managed by po meds. 02/14/2017 Impression: 1. Right ankle fracture s/p reduction -Fibula fx proximal and distal -Dr. Garcia consulted, distal fracture is not in good position. He will be taken to the OR later today for closed reduction and application of the splint. -The patient may require placement in half-way, swing bed or IRU for help prior to undergoing surgery 2. Cirrohsis with liver mass -Follows with Dr. NICOLAS Barton in [place] -Ammonia elevated, lactulose ordered -Bilirubin up to 2.3 from 1.6 and 0.7. AST is 72 -Patient reportedly with enlarged spleen, portal hypertension and esophageal varices 3. ETOHism -Continue withdrawal protocol -Monitor for DTs 4. COPD -Persistent smoker -Nicotine patch provided -Resp therapy-DuoNeb -CXR okay 5. Acute pain -Still Requiring IV Dilaudid for relief. 6. DVT/GI prophylaxis SCDs and PPI Discussed with Dr. Garcia. The patient will likely need placement prior to surgery in 1 week's time. He is concerned that the patient's fracture will not stay in alignment if he is discharged. 02/15/2017 Impression: 1. Right ankle fracture s/p reduction -Fibula fx proximal and distal - The patient had closed reduction yesterday but then was noncompliant and put weight on his foot. He has edema in his foot and blisters associated with the fracture. Per Dr. Garcia, it will take 1-2 weeks for the swelling and blisters to improve and make it safe for surgery. Dr. Garcia does recommend bed rest until the time of surgery is that the patient's noncompliance. Discussed at length with case management and they are working on plans to take care of the patient until he can undergo surgery. 2. Cirrohsis with liver mass -Follows with Dr. NICOLAS Barton in [place] -Ammonia elevated, lactulose ordered and the patient is compliant now taking this -Bilirubin has normalized -Patient reportedly with enlarged spleen, portal hypertension and esophageal varices -Metoprolol 25 mg by mouth twice a day started this hospitalization 3. ETOHism -Continue withdrawal protocol-so far, patient is doing well. He has only required 1 dose of Ativan yesterday and has not required any Serax -Monitor for DTs 4. COPD -Persistent smoker -Nicotine patch provided -Resp therapy-DuoNeb -CXR okay 5. Acute pain -We'll try oral oxycodone and discontinue [place]. Use Dilaudid only for breakthrough pain 6. DVT/GI prophylaxis SCDs and PPI 7. Anemia - recheck hemoglobin. Monitor stools for signs of bleeding. Check Hemoccults Discussed with Dr. Garcia and case management. The patient will likely need placement prior to surgery in 1-2 week's time. He is concerned that the patient' s fracture will not stay in alignment if he is discharged. 02/16/2017 Impression/plan 1. Right ankle fracture s/p reduction -Fibula fx proximal and distal - The patient had closed reduction 02/14/2017 but then was noncompliant afterwards and put weight on his foot and took off his splint. He has edema in his foot and blisters associated with the fracture. Per Dr. Garcia, it will take 1 -2 weeks for the swelling and blisters to improve and make it safe for surgery. Dr. Garcia does recommend bed rest until the time of surgery. Discussed at length with case management and they are working on plans to take care of the patient until he can undergo surgery. -Fracture blisters of the right ankle-treatment per Dr. Garcia 2. Cirrohsis with liver mass -Follows with Dr. NICOLAS Barton in [place] -Ammonia elevated, lactulose ordered and the patient is intermittently compliant taking this -Bilirubin has normalized -Patient reportedly with enlarged spleen, portal hypertension and esophageal varices -Metoprolol 25 mg by mouth twice a day started this hospitalization 3. ETOHism -Continue withdrawal protocol-so far, patient is doing well. As of 02/16/2017, he is 96 hours past the time of his last drink. Likelihood of developing DTs at this time is very minimal. He had one dose of IV Ativan 2 days ago and one tablet of Serax this morning. Otherwise he has not required any benzodiazepines -Continue Monitor for DTs-can likely discontinue monitoring 02/17/2017 4. COPD -Persistent smoker -Nicotine patch provided -Resp therapy-DuoNeb -CXR okay 5. Acute pain -We'll try increase oxycodone. Try to avoid IVF narcotics. Patient currently does not have an IV as they keep falling out. 6. DVT/GI prophylaxis SCDs and PPI-no anticoagulation because of his coagulopathy with liver disease and esophageal varices 7. Anemia - Hemoglobin is stable. Hemoccult negative. He has had a brown stool. Doubt GI blood loss. Continue to monitor. During my visit with the patient this morning, he stated he wanted to look at his wound on his foot. I told him that was up to Dr. Garcia and did relay the patient's concerns to Dr. Garcia's physician assistants. Regarding the erythema of the right leg medially just above the splint, I did discuss this with Dr. Garcia's physician assistants and I have asked the nurse to outline it with skin marker. 02/18/17 Ammonia level decreased to 36 - continue Lactulose. Pt educated on purpose of lactulose. Ankle reduced per Dr. Garcia. Reported heartburn last night x2 - check EKG and trop (since we are nearly 16 hours out, 1 trop should be sufficient to r/o) Unsafe to dc. 02/19/17 Continue 1:1 care to protect right ankle after repeated reduction. Dr. Garcia recommends strict bed rest other than up to bedside commode with assist. NWB right LE. Plans to return to OR on 02/22, proceed with sx if swelling/blisters improved. Ammonia increased to 48 and he did not have a BM yesterday. Goal is to have 2-3 loose stools/day. Increase lactulose to 30 gm QID. Mild normocytic anemia - stable. Thrombocytopenia (plt 111), ranges 90s-120s. COPD - continue DuoNebs; add Pulmicort d/t intermittent wheezing. 02/20/17 12:03 Decrease Dilaudid frequency. Increase Gabapentin to TID. Fever- high risk for complications. Add Ceftriaxone. Check CXR/UA today. Add Lasix, Aldactone as weight is trending up significantly. Continue to monitor closely. Repeat Ammonia level in AM. Tele DC'd as pt. did not want to wear. Recurrently threatens to leave AMA. Continue supportive care in monitored environment as long as we can. High readmission risk. Plan - 02/21/17 (Nigel). Patient continues to express a strong desire for discharge. Continue to provide safe and supportive environment. Continue to monitor and supervise closely for patient safety. Continue to wean IV medication (Dilaudid) and narcotics. He is at high risk for opioid over use. Continue Gabapentin TID. Ammonia level trending down - 26 today (WNL). Continue to monitor closely. Will recheck in AM. Continue Lasix and spironolactone for fluid volume. Recommend follow up with Dr. Barton following discharge. Monitor daily weight closely. Blood pressure well controlled. Continue metoprolol BID and monitor closely. Repeat CXR today (02/21/17) revealed stable chest without cardiopulmonary changes. Continue to monitor pulmonary function and continue breathing treatments. Fever resolved. Continue to encourage incentive spirometry. Plan - 02/22/17: Patient continues to be noncompliant with treatment recommendations including maintaining non-weight bearing status. Nursing expressed concern for visual and tactile hallucinations including picking at the bed and sheets as well as talking to the computer and often unable to be redirected. Increased restless and agitation. LFT and ammonia levels pending. BMP unremarkable. Pancytopenia stable. Will continue to monitor. Haldol as needed for behaviors. Ortho not able to take to surgery today due to increased swelling. Possible surgery on (02/24) at the earliest. Continue to encourage the patient not to bear weight on his leg. Discussed extensively with the patient that continued weight bearing will increase swelling and slow healing process, thus delaying his discharge and again, emphasized the possibility of his loosing his leg if appropriate medical/surgical care not given. Continue to encourage elevation of the leg. Continue Vantin for antimicrobial coverage given blisters to ankle. Did discussed this at length with CM after my visit. Time spent with patient care and with discussion with CM 35 minutes. 02/23/17- Discontinue Vantin antibiotic as he has had no further fever or leukocytosis. Hopeful for surgery tomorrow 02/[address] Garcia. Continues to be agitated and confused intermittently. 02/24/17 Scheduled to go to the operating room later today for reevaluation of right ankle fracture/possible surgical stabilization. Variable confusion due to underlying hepatic encephalopathy and pain medication use. Inconsistent use of lactulose yesterday likely contributed to worsening overnight and this morning. Respiratory status stable, hemoglobin stable. Blood pressure/heart rate tolerating addition of metoprolol. Continue vitamin supplements, dietary consult. 02/25/17 POD #1, ORIF rt ankle and repair of deltoid ligament rupture. NWB. Confusion again today; continues to refuse meds - ammonia rechecked, normal at 33. Labs stable postop. Vit B12 and folate pending. IRU screen today - awaiting to hear if he was accepted.
[2017-02-25] MEDS: OXAZEPAM 15 MG CAPSULE PO PRN (17:11)
[2017-02-25] MEDS: MIRTAZAPINE 15 MG TABLET PO SCH (20:52)
[2017-02-25] MEDS: PAROXETINE 20 MG TABLET PO SCH (20:52)
[2017-02-25] MEDS ORDERED: HALOPERIDOL 1 MG TABLET PO ONE (21:30)
[2017-02-26] MEDS: LACTULOSE 20 GM/30 ML ORAL LIQUID PO SCH ×5 (04:38→21:14)
[2017-02-26] MEDS: LORazepam 0.5 MG TABLET PO PRN (05:11)
[2017-02-26] MEDS: Oxycodone *IR* 15 MG TABLET PO PRN ×3 (05:12→18:46)
[2017-02-26] MEDS: PANTOPRAZOLE 40 MG TABLET PO SCH (06:46)
[2017-02-26] MEDS: ALBUTEROL/IPRATROPIUM 2.5mg-0.5mg/3ml NEB AEROSOL SCH ×2 (09:46→20:27)
[2017-02-26] MEDS: BUDESONIDE INH.SOLN 0.5mg/2ml NEB AEROSOL SCH ×2 (09:46→20:27)
[2017-02-26] MEDS: SPIRONOLACTONE 25 MG TABLET PO SCH ×2 (10:25→12:02)
[2017-02-26] MEDS: FUROSEMIDE 40 MG TABLET PO SCH ×3 (10:25→16:48)
[2017-02-26] MEDS: GABAPENTIN 300 MG CAPSULE PO SCH ×4 (10:25→21:15)
[2017-02-26] MEDS: FOLIC ACID 1 MG TABLET PO SCH (10:25)
[2017-02-26] MEDS: NICOTINE 14 MG PATCH TD SCH (12:02)
[2017-02-26] MEDS: NICOTINE PATCH REMOVAL TD SCH (12:02)
[2017-02-26] MEDS: OXAZEPAM 15 MG CAPSULE PO PRN (13:03)
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
[2017-02-26] MEDS: OXAZEPAM 15 MG CAPSULE PO SCH (17:17)
[2017-02-26] MEDS ORDERED: LORazepam 0.5 MG TABLET PO SCH (21:00)
[2017-02-26] MEDS: MIRTAZAPINE 15 MG TABLET PO SCH (21:15)
[2017-02-26] MEDS: PAROXETINE 20 MG TABLET PO SCH (21:15)
[2017-02-27] MEDS: Oxycodone *IR* 15 MG TABLET PO PRN ×3 (00:58→09:38)
[2017-02-27] MEDS: OXAZEPAM 15 MG CAPSULE PO SCH ×2 (00:58→08:53)
[2017-02-27] MEDS: LORazepam 0.5 MG TABLET PO PRN (02:57)
[2017-02-27] MEDS: HALOPERIDOL 1 MG TABLET PO PRN (02:57)
[2017-02-27] MEDS: PANTOPRAZOLE 40 MG TABLET PO SCH (05:58)
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
[2017-02-27] MEDS: LACTULOSE 20 GM/30 ML ORAL LIQUID PO SCH (08:48)
[2017-02-27] MEDS: NICOTINE 14 MG PATCH TD SCH (08:50)
[2017-02-27] MEDS: GABAPENTIN 300 MG CAPSULE PO SCH (08:51)
[2017-02-27] MEDS: FUROSEMIDE 40 MG TABLET PO SCH (08:52)
[2017-02-27] MEDS: SPIRONOLACTONE 25 MG TABLET PO SCH (08:52)
[2017-02-27] MEDS: FOLIC ACID 1 MG TABLET PO SCH (08:52)
[2017-02-27] MEDS: ALBUTEROL/IPRATROPIUM 2.5mg-0.5mg/3ml NEB AEROSOL SCH (09:17)
[2017-02-27] MEDS: BUDESONIDE INH.SOLN 0.5mg/2ml NEB AEROSOL SCH (09:17)
[2017-02-27 09:19] VITALS: RESP 18
[2017-02-27] MEDS: NICOTINE PATCH REMOVAL TD SCH (09:34)
[2017-02-27 11:21] VITALS: BP 154/87; PULSE 87; TEMP 96; O2SAT 94
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
== END 2017-02-27 12:54 | disposition left against medical advice (07) | DRG 493 ==
LOC: ED 08:09 → SRG 08:09 → SUATTDRO 11:47 → SRG 11:48 → SUATTDRO 02-14 11:32 → SRG 02-15 18:04
PROVIDERS: ADMIT Internal Medicine Cardiovascular Disease; ATTEND Internal Medicine

== ENCOUNTER 2017-03-07 12:29 | Inpatient (IN) ==
--- OUTSIDE RECORDS SUMMARY | 2017-03-07 12:44 | External Medical Summary ---
[...] Status Dosage System Date HydrOXYzine HCl NDC 83468-90 25 MG Orally 2-4 1 tablet as 61-01 times every day needed prn BusPIRone HCl NDC 28116-07 10 MG Orally 3 tablets 54-01 Twice a day Paxil NDC 77082-86 20 MG Orally 1 tablet at 11-13 Once a day bedtime HydrOXYzine HCl NDC 88531-91 25 MG Orally October 06 1 tablet as 61-01 Three times a 2015 needed day Doxepin HCl NDC 36433-27 100 MG Orally 1 capsule 73-00 Once a day at bedtime Procedures Procedure Coding System Code Date OFFICE VISIT, EST-LOW COMPLEXITY (15 MIN.) CPT-4 74010 October 07, 2015 [facility] visit Established Patient CPT-4 G0467 October 07, 2015 Vital Signs Date/Time: October 07, 2015 Temperature 97.7 F Height 72 in Weight 180.8 lbs Blood Pressure Diastolic 94 mm Hg Blood Pressure Systolic 122 mm Hg Cardiac Monitoring Heart Rate 88 /min BMI 24.52 Index Respiratory Rate 18 /min Results No Known Results Summary Purpose [employer] Submission
--- OUTSIDE RECORDS SUMMARY | 2017-03-07 12:44 | External Medical Summary ---
[...] Medications Results No Known Results Summary Purpose [employer] Submission
--- OUTSIDE RECORDS SUMMARY | 2017-03-07 12:44 | External Medical Summary ---
[...] End Date Status Dosage Date Doxepin HCl [facility] 48252-487 50 MG Orally 1 capsule 7-07 [place] [address] 40 MG Orally 1 tablet at 3-13 Once a day bedtime BusPIRone HCl [facility] 47452-376 10 MG Orally 3 tablets 4-01 Twice a day Results No Known Results Summary Purpose [employer]Works Submission
--- OUTSIDE RECORDS SUMMARY | 2017-03-07 12:44 | External Medical Summary ---
[...] Status Dosage System Date BusPIRone HCl NDC 11286-11 15 MG Orally 1 tablet 03-01 Twice a day Paxil NDC 56372-06 20 MG Orally 1 tablet at 11-13 Once a day bedtime HydrOXYzine HCl NDC 37111-79 25 MG Orally 1 tablet as 61-01 Three times a needed day Doxepin HCl NDC 33630-48 50 MG Orally 1 capsule 77-07 Once a day at bedtime Procedures Procedure Coding System Code Date OFFICE VISIT, EST-LOW COMPLEXITY (15 MIN.) CPT-4 84821 October 23, 2015 [facility] visit Established Patient CPT-4 G0467 October [...]
--- OUTSIDE RECORDS SUMMARY | 2017-03-07 12:44 | External Medical Summary | Continuity Of Care Document ---
:1965 Author Organization [facility] Address [address] [place] [address] Phone Care Team Providers Name Role Phone HUSSEIN PRICE MD Unavailable Unavailable RAEGAN BELL DO Consulting Provider Results Lab Results Visit/Account #[id number] (November 23, 2012 3:11am - November 23, [...] Result Comments: If the patient is of -Serbian descent/extraction multiply the eGFR value by 1.212 [...] Allergies and Adverse Reactions Patient Unit Number: [id number] Agent Type Reaction Severity Status Date KETOROLAC TROMETHAMINE Drug Allergy itching/swelling/soreness Unknown Active October 07, 2010 QUETIAPINE FUMARATE Drug Allergy RASH Unknown Active October 07, 2010 ADHESIVE TAPE *RETIRED-02/24/12 Drug Adverse Reaction LEAVES TINA ON LOCATION Unknown Active October 07, 2010 Problem List Problem List Patient Unit Number: [id number] Chronic Problems: Code/Condition Comments Documented Start Date Documented Resolved Date Moderate recurrent major depression February 07, 2012 Alcohol dependence February 07, 2012 Vital Signs Vital Signs Visit/Account #[id number] (November 23, 2012 3:11am - November 23, [...] 2012 3:10am Ordered Medications Ordered Medications Visit/Account #[id number] (November 23, 2012 3:11am - November 23, 2012 7:14am) Medication Dose Route Sig/Schedule Precondition/Indication Comments/ Instructions NDC IV Medication 1000 ML IV: INTRAVEN .Q1H (Rate: 1000 MLS/HR Duration: 1 HR) Rx Order Comments: Carriers: Order placed as verified: Carriers: Dose Warnings differ from order picker/assembler NORMAL SALINE ( SODIUM CHLORIDE): [id number] NORMAL SALINE(SODIUM CHLORIDE) 1000 ML INJECTION IV Medication 1000 ML IV: INTRAVEN .Q1H (Rate: 1000 MLS/HR Duration: 1 HR) Rx Order Comments: Carriers: Order placed as verified: Carriers: Dose Warnings differ from order picker/assembler NORMAL SALINE ( SODIUM CHLORIDE): [id number] NORMAL SALINE(SODIUM CHLORIDE) 1000 ML INJECTION History Of Encounters Encounters Visit/Account #[id number] (November 23, 2012 3:11am - November 23, 2012 7:14am) No reports exist, or have been identified for inclusion with this encounter.
--- OUTSIDE RECORDS SUMMARY | 2017-03-07 12:44 | External Medical Summary ---
[...] End Date Status Dosage Date BusPIRone HCl [facility] 80405-765 10 MG Orally 3 tablets 4-01 Twice a day Results No Known Results Summary Purpose [employer] Submission
[2017-03-07] MEDS ORDERED: VANCOMYCIN - PHARMACY CONSULT MC ONE (12:45)
[2017-03-07 12:46] VITALS: BMI 28.6
[2017-03-07] MEDS: NS 1,000 ML IV SCH (12:58)
[2017-03-07] MEDS: Oxycodone *IR* 5 MG TABLET PO PRN ×4 (13:01→23:39)
--- NOTE | 2017-03-07 13:39 | Consult Note ---
<aMssiel Pleitez Nicole - Last Filed: 03/07/17 14:25> Consult Information - Data of Consult Consult date: 03/07/17 Requesting Physician: Cristofer Garcia MD Family Provider: [facility] - Consult Narrative Reason for consult: Alcoholism, cirrhosis, HTN History of present illness: Mr. Dyson (goes by "Tisha") is a 51 y/o male with a recent hx of right ankle fx/dislocation. He was hospitalized from 02/12/17 - 02/27/17 and during that time he was noncompliant with weight bearing instructions, though he also had periods of intermittent confusion r/t narcotic side effects and/or hepatic encephalopathy. He required 1:1 observation while hospitalized d/t not following postop instructions. He left AMA on 02/27/17 and went home, and had been bearing weight on his right ankle. He was seen in the ED on 03/02/17 for increased pain, and presented to Dr. Garcia's clinic on 03/07/17 ambulatory on his right leg, splint in place. Dr. Garcia discovered that he had a superficial surgical wound infection. He apparently also was sticking a ruler down his splint at home. Dr. Garcia extensively reviewed the risks of this infection, including the chance that he would require an amputation. Hospitalization was recommended and the patient reluctantly agreed. The hospitalist service was consulted for medical management. Tisha was seen in his room, sleeping with the lights off. He did not participate much in conversation and answered most questions in 1-2 word responses. ROS was negative except for right ankle pain and occasionally feeling weak and dizzy. He stated that his last alcoholic drink was last Tuesday (03/01/17) at which time he had 1 mixed drink. We discussed the course of his infection, including the possibility of amputation, and he shook his head and said "No". Dr. Garcia ordered antibiotics and labs upon admission. [facility] Right ankle fracture s/p reduction & ORIF Chronic Liver disease (cirrhosis, Hep C) with failure, history of hepatic encephalopathy Possible hepatocellular carcinoma COPD with hx of bronchitis HTN Alcoholism Depression/anxiety Surgical History: 02/14/17: Manipulation of right ankle under anesthesia with application of splint. 02/18/17: Exam under anesthesia of right ankle with dressing changes and closed reduction and splinting of right ankle fracture. : Open reduction internal fixation of right trimalleolar equivalent ankle fracture/dislocation with repair of deltoid rupture. Orthopedic surgeries: Clavicle, Back (1993), Jaw. Liver biopsy? Family History: Both parents are . Cancer and diabetes are common in his family. - Social History Smoking status: Current every day smoker Packs per day: 1 Substance use type: does not use Alcohol intake: current Alcohol intake frequency: other (03/01/17 had 1 mixed drink) Review of Systems All systems PM: 10-point ROS was reviewed, no additional remarkable complaints except - Constitutional Constitutional: Present: other (occ weakness; tired). Absent: chills, fever(s) , headache(s), weight loss - EENMT Eyes: Absent: blurry vision, change in vision Nose: Absent: obstruction Mouth/Throat: Absent: sore throat - Cardiovascular Cardiovascular: Absent: chest pain, syncope - Respiratory Respiratory: Absent: cough, dyspnea - Gastrointestinal Gastrointestinal: Absent: abdominal pain, change in bowel habits, constipation, diarrhea, nausea, vomiting - Genitourinary Genitourinary: Absent: dysuria - Musculoskeletal Musculoskeletal: Present: as per HPI - Integumentary/Breasts Integumentary: Present: wounds (surgical wound to right ankle with reported superficial infection) - Neurological Neurological: Present: confusion (hx hepatic encephalopathy), dizziness (occ), weakness. Absent: focal weakness, headache(s) - Psychiatric Psychiatric: Present: anxiety, depression - Endocrine Endocrine: Absent: palpitations - Hematologic/Lymphatic Hematologic/Lymphatic: Absent: easy bruising - Allergic/Immunologic Allergic/Immunologic: Absent: seasonal rhinorrhea Medications Home Medications Medication Instructions Recorded Confirmed Type PARoxetine HCl [Paxil] 30 mg PO HS #0 06/02/15 03/02/17 History Buspirone [Buspar] 15 mg PO TID 02/12/17 03/02/17 History Gabapentin 300 mg PO HS 02/12/17 03/02/17 History Mirtazapine 7.5 mg PO HS 02/12/17 03/02/17 History Allergies Allergy/AdvReac Type Severity Reaction Status Date / Time adhesive tape Allergy Unknown RED RASH Verified 03/02/17 20:47 ketorolac Allergy Unknown Verified 03/02/17 20:47 quetiapine Allergy Unknown Verified 03/02/17 20:47 Exam Vital Signs: Temperature 97.4 F 03/07/17 12:31 Pulse Rate 91 03/07/17 12:31 Respiratory Rate 18 03/07/17 12:31 Blood Pressure 135/82 03/07/17 12:31 Pulse Oximetry 95 03/07/17 12:31 Height/Weight/BMI: Height 1.8 m Weight 93.2 kg Body Mass Index 28.6 - Constitutional Present: no acute distress, well nourished, well developed - Routine HEENT Exam Head: Present: normocephalic Eye: Present: PERRL. Absent: scleral injection ENT: Present: mucous membranes moist. Absent: dentition normal (poor dentition) - Routine Neck Exam Present: supple - Routine Respiratory Exam Present: CTA bilaterally - Routine Cardiovascular Exam Present: RRR, S1, S2 - Routine Abdominal Exam Present: soft, normoactive bowel sounds, non tender, distended - Routine Extremities Exam Absent: full ROM (cast to RLE; unable to assess surgical incision) - Routine Back/Spine/Pelvis Exam Back/Spine: Present: full ROM - Routine Skin Exam Present: intact, dry, warm - Routine Neurological Exam Present: alert (tired), oriented X3, CN II-XII intact (grossly), normal speech - Routine Psychiatric Exam Present: cooperative. Absent: normal affect (upset) Results - Labs CBC & Chem 7: 03/07/17 12:58 03/07/17 12:58 Assessment and Plan (1) Closed right ankle fracture Current visit: No Status: Acute Assessment and Plan: IMPRESSION Superficial surgical wound infection to right ankle Right ankle fracture/dislocation s/p reduction & ORIF - last procedure on Chronic Liver disease (cirrhosis, Hep C) with failure, history of hepatic encephalopathy Possible hepatocellular carcinoma COPD with hx of bronchitis HTN Alcoholism Anemia & thrombocytopenia Depression/anxiety PLAN 1. Superficial wound infection: Right ankle fracture s/p reduction & ORIF; last procedure on 02/24/17 -Vancomycin per attending -WBC normal; CRP elevated at 24.6; ESR pending; check procalcitonin, lactate, and blood cultures -No SIRS criteria; no evidence of sepsis on admission -Splint removed by ortho and a cast was applied on 03/07/17 -plan to take it off on Tuesday to re-eval the wound; if worse at that time will expand antibiotics and consider consulting ID -NWB. 2. Cirrhosis with liver mass; hx hepatic encephalopathy -Follows with Dr. NICOLAS Barton in [place] -Check INR and ammonia level -Didn't care for lactulose during previous hospitalization -Patient reportedly with enlarged spleen, portal hypertension and esophageal varices -Metoprolol 25 mg PO BID started during last hospitalization - pt never received Rx b/c he left AMA 3. Alcoholism -check EtOH level -Reportedly last drink was on 03/01/17, CIWA ordered. -start daily multivitamins, folic acid and thiamine. -Will have Ativan available PRN. 4. COPD -Nicotine patch provided -Resp therapy-DuoNeb PRN 5. DVT/GI prophylaxis -No anticoagulation because of his coagulopathy with liver disease and esophageal varices -PPI: Protonix daily 6. Anemia & thrombocytopenia -Both are stable. Hemoccult negative during previous hospitalization GI Prophylaxis: Protonix Resuscitation Status: Full Code Hospital Course Summary Disclaimer: The visit summary below is not to be considered part of the above Progress Note. Hospital Course: 03/07/17 IMPRESSION Superficial surgical wound infection to right ankle Right ankle fracture/dislocation s/p reduction & ORIF - last procedure on Chronic Liver disease (cirrhosis, Hep C) with failure, history of hepatic encephalopathy Possible hepatocellular carcinoma COPD with hx of bronchitis HTN Alcoholism Anemia & thrombocytopenia Depression/anxiety PLAN 1. Superficial wound infection: Right ankle fracture s/p reduction & ORIF; last procedure on 02/24/17 -Vancomycin per attending -WBC normal; CRP elevated at 24.6; ESR pending; check procalcitonin, lactate, and blood cultures -No SIRS criteria; no evidence of sepsis on admission -Splint removed by ortho and a cast was applied on 03/07/17 -plan to take it off on Tuesday to re-eval the wound; if worse at that time will expand antibiotics and consider consulting ID -NWB. 2. Cirrhosis with liver mass; hx hepatic encephalopathy -Follows with Dr. NICOLAS Barton in [place] -Check INR and ammonia level -Didn't care for lactulose during previous hospitalization -Patient reportedly with enlarged spleen, portal hypertension and esophageal varices -Metoprolol 25 mg PO BID started during last hospitalization - pt never received Rx b/c he left AMA 3. Alcoholism -check EtOH level -Reportedly last drink was on 03/01/17, CIWA ordered. -start daily multivitamins, folic acid and thiamine. -Will have Ativan available PRN. 4. COPD -Nicotine patch provided -Resp therapy-DuoNeb PRN 5. DVT/GI prophylaxis -No anticoagulation because of his coagulopathy with liver disease and esophageal varices -PPI: Protonix daily 6. Anemia & thrombocytopenia -Both are stable. Hemoccult negative during previous hospitalization <[email or web address] ac - Last Filed: 03/07/17 15:36> Consult Information - Data of Consult Requesting Physician: Cristofer Garcia MD [facility] Patient Stated Medical History Hypertension Yes Bronchitis Yes Chronic Obstructive Pulmonary Yes Disease (COPD) Sleep Apnea No Cirrhosis Yes Hepatitis Yes: HEP C Other Musculoskeletal Yes: BACK SURGERY 1993 MRSA Yes Depression Yes Clinic Medical History Closed right ankle fracture (Acute Medical) Cirrhosis (Chronic Medical) With hepatic encephalopathy Alcoholism (Chronic Medical) Major depressive disorder with current active episode (Acute Medical) Alcohol use disorder (Acute Medical) Ankle fracture (Inactive Medical) Status post ORIF of fracture of ankle (Inactive Medical) Exam Vital Signs: Temperature 97.4 F 03/07/17 12:31 Pulse Rate 91 03/07/17 12:31 Respiratory Rate 18 03/07/17 12:31 Blood Pressure 135/82 03/07/17 12:31 Pulse Oximetry 95 03/07/17 12:31 Height/Weight/BMI: Height 1.8 m Weight 93.2 kg Body Mass Index 28.6 Results - Labs CBC & Chem 7: 03/07/17 12:58 03/07/17 12:58 Microbiology Results: Microbiology 03/07/17 14:44 Peripheral/Iv Start Blood Culture - Preliminary Culture Initiated - Results Pending 03/07/17 14:37 Peripheral/Iv Start Blood Culture - Preliminary Culture Initiated - Results Pending Assessment and Plan (1) Closed right ankle fracture Current visit: No Status: Acute Assessment and Plan: 03/07/2017-I I have seen and examined the patient, and have reviewed this chart , the patient history, and the WIRELESS CONSTRUCTION MANAGER's/PA's documented findings as above. We discussed and formulated the assessment and plan as above with the additions below.-Dr. Esparza The patient was seen this afternoon in his room. He was sleeping but awakened easily. He is a good historian and does not appear to be confused or agitated at this time. He denies having any confusion at home. He stated that he was taking his Paxil, gabapentin and Remeron at home. He states that 3 or 4 days ago he started on oxycodone for pain prescribed in the emergency room. He states he was supposed to take 10 mg every 6 hours as needed but it was not helping so he was taking 20 mg every 6 hours and stated that even that dose was not helping very much. He denied any fevers or chills. He states he has some occasional sweats. He states he's eating and drinking well. He denies any shortness of breath. He denies any nausea or vomiting. He denies any black stools. He denies any abdominal pain. He has not seen his siebel architect but states his office has called him to make an appointment. He told my nurse practitioner that he drank one mixed drink a week ago, but to me he denied drinking any alcohol at home. He denied any seizures. He denied any hallucinations. On exam he is alert and oriented and in no acute distress. Chest is clear to auscultation. Cardiovascular reveals a regular rate and rhythm. Abdomen is soft , mildly distended, nontender with positive bowel sounds. Right leg below the knee has a cast. Left leg is without edema. Skin is warm and dry and without rashes. Lab is reviewed as above. In addition ammonia is 34 which is borderline elevated. Plasma lactate is normal at 0.9. Pro-calcitonin is still pending. INR is pending. Alcohol level is less than 10. Orthopedics is managing antibiotics. Planning for vancomycin IV then rechecking wound later this week. Await sedimentation rate and pro-calcitonin. Monitor closely for alcohol withdrawal. Resume the patient's home medications. Monitor closely for confusion. Monitor vitals closely. Consider restarting metoprolol for portal hypertension, esophageal varices. Hospital Course Summary Disclaimer: The visit summary below is not to be considered part of the above Progress Note.
[2017-03-07] MEDS ORDERED: NICOTINE 21 MG PATCH TD PRN (14:12)
[2017-03-07] MEDS ORDERED: ALBUTEROL/IPRATROPIUM 2.5mg-0.5mg/3ml NEB IPPB PRN (14:12)
[2017-03-07] MEDS ORDERED: OXAZEPAM 15 MG CAPSULE PO PRN (14:16)
[2017-03-07] MEDS ORDERED: NICOTINE PATCH REMOVAL TD PRN (14:28)
[2017-03-07] MEDS ORDERED: THIAMINE 200mg/2ml INJECTION IVP SCH (15:15)
--- NOTE | 2017-03-07 17:41 | Orthopedic History & Physical ---
Orthopedic HPI - HPI Comments Mr. Dyson is a 51 y/o male who suffered a right ankle fx/dislocation that required surgical fixation on 02/24/17. His surgery was delayed over a week due to multiple fracture blisters around the ankle. He was hospitalized from - 02/27/17 before leaving [place] on the . He had periods of intermittent confusion due to narcotic side effects and/or hepatic encephalopathy. He required 1:1 observation while hospitalized and was not compliant in following postop instructions. He was seen in the ED on 03/02/17 for increased pain but xrays appeared stable. He presented to Dr. Garcia's clinic today and was bearing full weight on his right leg. Xrays show a slight shift in position of his fracture from the ones taken in ER over the weekend. One of the syndesmotic screws is backing out slightly. His splint was removed and it was found that he has a superficial surgical wound infection laterally. The splint was broken down on the bottom as well as dirty from walking on it. Mr Dyson reported that he was also sticking a ruler down his splint at home to scratch. Dr. Garcia again reviewed the risk of complications with Mr Dyson, including the risk of an amputation. Hospitalization was recommended to resolve the infection and hopefully prevent further surgery or amputation. We will consult PT for ambulation education and keep him strict non-wt bearing. The hospitalist service is also consulted for management of his many medical problems. [facility] Patient Stated Medical History Hypertension Yes Bronchitis Yes Chronic Obstructive Pulmonary Yes Disease (COPD) Sleep Apnea No Cirrhosis Yes Hepatitis Yes: HEP C Other Musculoskeletal Yes: BACK SURGERY 1993 MRSA Yes Depression Yes Clinic Medical History Closed right ankle fracture (Acute Medical) Cirrhosis (Chronic Medical) With hepatic encephalopathy Alcoholism (Chronic Medical) Major depressive disorder with current active episode (Acute Medical) Alcohol use disorder (Acute Medical) Ankle fracture (Inactive Medical) Status post ORIF of fracture of ankle (Inactive Medical) Surgical History: 02/14/17: Manipulation of right ankle under anesthesia with application of splint. 02/18/17: Exam under anesthesia of right ankle with dressing changes and closed reduction and splinting of right ankle fracture. : Open reduction internal fixation of right trimalleolar equivalent ankle fracture/dislocation with repair of deltoid rupture. Orthopedic surgeries: Clavicle, Back (1993), Jaw. Liver biopsy? - Social History Smoking status: Current every day smoker Review of Systems - Constitutional Constitutional: Absent: chills, fever(s), night sweats - Cardiovascular Cardiovascular: Absent: chest pain, palpitations - Respiratory Respiratory: Absent: cough, dyspnea - Gastrointestinal Gastrointestinal: Absent: abdominal pain, change in bowel habits - Genitourinary Genitourinary General: Absent: chills, fever(s) - Musculoskeletal Musculoskeletal: Present: as per HPI - Integumentary/Breasts Integumentary: Present: as per HPI - Neurological Neurological: Absent: tingling, paralysis/paresis - Psychiatric Psychiatric: Present: as per HPI Medications Home Medications Medication Instructions Recorded Confirmed Type PARoxetine HCl [Paxil] 30 mg PO HS #0 06/02/15 03/07/17 History Buspirone [Buspar] 15 mg PO TID 02/12/17 03/07/17 History Gabapentin 300 mg PO HS 02/12/17 03/07/17 History Mirtazapine 7.5 mg PO HS 02/12/17 03/07/17 History Allergies Allergy/AdvReac Type Severity Reaction Status Date / Time adhesive tape Allergy Unknown RED RASH Verified 03/02/17 20:47 ketorolac Allergy Unknown Verified 03/02/17 20:47 quetiapine Allergy Unknown Verified 03/02/17 20:47 Orthopedic Exam Vital signs: Temperature 97.5 F 03/07/17 16:10 Pulse Rate 96 03/07/17 16:10 Respiratory Rate 16 03/07/17 16:10 Blood Pressure 109/65 03/07/17 16:10 Pulse Oximetry 92 03/07/17 16:10 - Constitutional General Appearance: Present: alert, disheveled, no acute distress - Respiratory Exam Present: non-labored - Extremities Exam Present: pulses intact, normal capillary refill, tenderness (around the ankle.) - Integumentary Exam Present: erythema (Laterally involving the surgical incision.), other (Surgical incision intact with sutures in place. ) - Neurological Exam Present: intact to light touch - Psychiatric Exam Present: alert - Labs Result Diagrams: 03/07/17 12:58 03/07/17 12:58 Abnormal lab results 03/07/17 03/07/17 03/07/17 Range/Units 12:58 12:58 14:37 RBC 4.23 L (4.50-5.90) M/MM3 Hgb 12.0 L (13.5-17.5) GM/DL Hct 36.5 L (41-53) % RDW Std Deviation 51.4 H (36.9-50.2) FL Neut % (Auto) 71.5 H (33-66) % Lymph % (Auto) 17.0 L (23-45) % [place] % (Auto) 9.1 H (0-9.0) % INR (0.99-1.21) Chloride 108 H (98-107) MEQ/L Creatinine 0.6 L (0.8-1.5) MG/DL AST 75 H (17-59) U/L Alkaline Phosphatase 160 H (38-126) U/L Ammonia 34 H (9-33) UMOL/L C-Reactive Protein 24.6 H (0-9) MG/L Total Protein 8.3 H (6.3-8.2) G/DL Globulin 4.6 H (2.4-3.6) G/DL Albumin/Globulin Ratio 0.8 L (1.1-2.2) RATIO 03/07/17 Range/Units 14:37 RBC (4.50-5.90) M/MM3 Hgb (13.5-17.5) GM/DL Hct (41-53) % RDW Std Deviation (36.9-50.2) FL Neut % (Auto) (33-66) % Lymph % (Auto) (23-45) % [place] % (Auto) (0-9.0) % INR 1.54 H (0.99-1.21) Chloride (98-107) MEQ/L Creatinine (0.8-1.5) MG/DL AST (17-59) U/L Alkaline Phosphatase (38-126) U/L Ammonia (9-33) UMOL/L C-Reactive Protein (0-9) MG/L Total Protein (6.3-8.2) G/DL Globulin (2.4-3.6) G/DL Albumin/Globulin Ratio (1.1-2.2) RATIO H & H 03/07/17 Range/Units 12:58 Hgb 12.0 L (13.5-17.5) GM/DL Hct 36.5 L (41-53) % Coagulation 03/07/17 Range/Units 14:37 INR 1.54 H (0.99-1.21) Orthopedic Assessment and Plan (1) Closed right ankle fracture Status: Acute Qualifiers: Encounter type: subsequent encounter Assessment and Plan: S/P ORIF ankle 02/24/17 with development of superficial surgical site infection. Begin Vancomycin IV per pharmacy. ASA for DVT coverage. Consult hospitalist of medical mgmt. PT consult to work with mobility issues. Must keep him non-wt bearing. - Anticoagulation Therapy Anticoagulation: ASA 81 mg PO BID x6 weeks Hospital Course Summary Disclaimer: The visit summary below is not to be considered part of the above Progress Note. Hospital Course: 03/07/17 IMPRESSION Superficial surgical wound infection to right ankle Right ankle fracture/dislocation s/p reduction & ORIF - last procedure on Chronic Liver disease (cirrhosis, Hep C) with failure, history of hepatic encephalopathy Possible hepatocellular carcinoma COPD with hx of bronchitis HTN Alcoholism Anemia & thrombocytopenia Depression/anxiety PLAN 1. Superficial wound infection: Right ankle fracture s/p reduction & ORIF; last procedure on 02/24/17 -Vancomycin per attending -WBC normal; CRP elevated at 24.6; ESR pending; check procalcitonin, lactate, and blood cultures -No SIRS criteria; no evidence of sepsis on admission -Splint removed by ortho and a cast was applied on 03/07/17 -plan to take it off on Tuesday to re-eval the wound; if worse at that time will expand antibiotics and consider consulting ID -NWB. 2. Cirrhosis with liver mass; hx hepatic encephalopathy -Follows with Dr. NICOLAS Barton in [place] -Check INR and ammonia level -Didn't care for lactulose during previous hospitalization -Patient reportedly with enlarged spleen, portal hypertension and esophageal varices -Metoprolol 25 mg PO BID started during last hospitalization - pt never received Rx b/c he left AMA 3. Alcoholism -check EtOH level -Reportedly last drink was on 03/01/17, CIWA ordered. -start daily multivitamins, folic acid and thiamine. -Will have Ativan available PRN. 4. COPD -Nicotine patch provided -Resp therapy-DuoNeb PRN 5. DVT/GI prophylaxis -No anticoagulation because of his coagulopathy with liver disease and esophageal varices -PPI: Protonix daily 6. Anemia & thrombocytopenia -Both are stable. Hemoccult negative during previous hospitalization
--- NOTE | 2017-03-07 19:08 | Pharmacy Consult-Antibiotics ---
Pharmacy Consult-Vancomycin - Laboratory Information WBC 6.5 T/MM3 (4.5-11.0) 03/07/17 12:58 BUN 10.0 MG/DL (9-20) 03/07/17 12:58 Creatinine 0.6 MG/DL (0.8-1.5) L 03/07/17 12:58 Procalcitonin < 0.05 NG/ML 03/07/17 14:37 - Consult Information 51 y.o. Male started on Vancomycin per pharmacy protocol for R ankle infection. goal trough range = 15 to 20 mcg/ml Vancomycin 2 gram IV Q8 hours. Pharmacy will monitor and adjust as needed. Thank you for the protocol, Norma Bryant RPh
[2017-03-07] MEDS: ASPIRIN 81 MG CHEWABLE TABLET PO SCH (22:08)
[2017-03-07] MEDS: PAROXETINE 20 MG TABLET PO SCH (22:08)
[2017-03-07] MEDS: MIRTAZAPINE 15 MG TABLET PO SCH (22:09)
[2017-03-07] MEDS: GABAPENTIN 300 MG CAPSULE PO SCH (22:11)
[2017-03-07] MEDS: BUSPIRONE 15 MG TABLET PO SCH (22:11)
[2017-03-08] MEDS ORDERED: FALL RISK - PHARMACY CONSULT XX ONE (02:24)
[2017-03-08] MEDS: Oxycodone *IR* 5 MG TABLET PO PRN ×7 (02:41→22:23)
[2017-03-08] MEDS: NS 1,000 ML IV SCH (05:33)
[2017-03-08] MEDS: PANTOPRAZOLE 20 MG TABLET PO SCH (06:21)
--- NOTE | 2017-03-08 07:57 | Orthopedic Progress Note ---
Date: Subjective/Severity of Illness: Young has no complaints. He states he has pain, but appears comfortable. Orthopedic Objective PO Vital signs: Temperature 96.9 F 03/08/17 07:27 Pulse Rate 81 03/08/17 07:27 Respiratory Rate 16 03/08/17 07:27 Blood Pressure 120/78 03/08/17 07:27 Pulse Oximetry 94 03/08/17 07:27 Height and Weight: Height 5 ft 11 in Weight 223 lb 12.307 oz Body Mass Index 28.6 - Constitutional General Appearance: Present: alert, disheveled, no acute distress - Respiratory Exam Present: non-labored - Integumentary Exam Comments: cast is in place. The exposed toes and foot are non erythemic. - Lymphatic Lymphatic: Absent: lymphedema - Neurological Exam Present: intact to light touch - Psychiatric Exam Present: alert - Labs Result Diagrams: 03/07/17 12:58 03/07/17 12:58 Abnormal lab results 03/07/17 03/07/17 03/07/17 Range/Units 12:58 12:58 12:58 RBC 4.23 L (4.50-5.90) M/MM3 Hgb 12.0 L (13.5-17.5) GM/DL Hct 36.5 L (41-53) % RDW Std Deviation 51.4 H (36.9-50.2) FL Neut % (Auto) 71.5 H (33-66) % Lymph % (Auto) 17.0 L (23-45) % [place] % (Auto) 9.1 H (0-9.0) % ESR 37 H (0-15) mm/h INR (0.99-1.21) Chloride 108 H (98-107) MEQ/L Creatinine 0.6 L (0.8-1.5) MG/DL AST 75 H (17-59) U/L Alkaline Phosphatase 160 H (38-126) U/L Ammonia (9-33) UMOL/L C-Reactive Protein 24.6 H (0-9) MG/L Total Protein 8.3 H (6.3-8.2) G/DL Globulin 4.6 H (2.4-3.6) G/DL Albumin/Globulin Ratio 0.8 L (1.1-2.2) RATIO 03/07/17 03/07/17 Range/Units 14:37 14:37 RBC (4.50-5.90) M/MM3 Hgb (13.5-17.5) GM/DL Hct (41-53) % RDW Std Deviation (36.9-50.2) FL Neut % (Auto) (33-66) % Lymph % (Auto) (23-45) % [place] % (Auto) (0-9.0) % ESR (0-15) mm/h INR 1.54 H (0.99-1.21) Chloride (98-107) MEQ/L Creatinine (0.8-1.5) MG/DL AST (17-59) U/L Alkaline Phosphatase (38-126) U/L Ammonia 34 H (9-33) UMOL/L C-Reactive Protein (0-9) MG/L Total Protein (6.3-8.2) G/DL Globulin (2.4-3.6) G/DL Albumin/Globulin Ratio (1.1-2.2) RATIO H & H 03/07/17 Range/Units 12:58 Hgb 12.0 L (13.5-17.5) GM/DL Hct 36.5 L (41-53) % Coagulation 03/07/17 Range/Units 14:37 INR 1.54 H (0.99-1.21) Orthopedic Assessment and Plan (1) Closed right ankle fracture Status: Acute Qualifiers: Encounter type: subsequent encounter Assessment and Plan: S/P ORIF ankle 02/24/17 with development of superficial surgical site infection. Begin Vancomycin IV per pharmacy. ASA for DVT coverage. Consult hospitalist of medical mgmt. PT consult to work with mobility issues. Must keep him non-wt bearing. Dr. Garcia is planning to remove the cast tomorrow and reassess. Hospital Course Summary Disclaimer: The visit summary below is not to be considered part of the above Progress Note. Hospital Course: 03/07/17 IMPRESSION Superficial surgical wound infection to right ankle Right ankle fracture/dislocation s/p reduction & ORIF - last procedure on Chronic Liver disease (cirrhosis, Hep C) with failure, history of hepatic encephalopathy Possible hepatocellular carcinoma COPD with hx of bronchitis HTN Alcoholism Anemia & thrombocytopenia Depression/anxiety PLAN 1. Superficial wound infection: Right ankle fracture s/p reduction & ORIF; last procedure on 02/24/17 -Vancomycin per attending -WBC normal; CRP elevated at 24.6; ESR pending; check procalcitonin, lactate, and blood cultures -No SIRS criteria; no evidence of sepsis on admission -Splint removed by ortho and a cast was applied on 03/07/17 -plan to take it off on Tuesday to re-eval the wound; if worse at that time will expand antibiotics and consider consulting ID -NWB. 2. Cirrhosis with liver mass; hx hepatic encephalopathy -Follows with Dr. NICOLAS Barton in [place] -Check INR and ammonia level -Didn't care for lactulose during previous hospitalization -Patient reportedly with enlarged spleen, portal hypertension and esophageal varices -Metoprolol 25 mg PO BID started during last hospitalization - pt never received Rx b/c he left AMA 3. Alcoholism -check EtOH level -Reportedly last drink was on 03/01/17, CIWA ordered. -start daily multivitamins, folic acid and thiamine. -Will have Ativan available PRN. 4. COPD -Nicotine patch provided -Resp therapy-DuoNeb PRN 5. DVT/GI prophylaxis -No anticoagulation because of his coagulopathy with liver disease and esophageal varices -PPI: Protonix daily 6. Anemia & thrombocytopenia -Both are stable. Hemoccult negative during previous hospitalization
[2017-03-08] MEDS: MULTI-VITAMIN + MINERAL TABLET PO SCH (08:03)
[2017-03-08] MEDS: ASPIRIN 81 MG CHEWABLE TABLET PO SCH ×2 (08:03→21:44)
[2017-03-08] MEDS: BUSPIRONE 15 MG TABLET PO SCH ×3 (08:03→22:23)
[2017-03-08] MEDS ORDERED: ALBUTEROL/IPRATROPIUM 2.5mg-0.5mg/3ml NEB AEROSOL PRN (08:48)
[2017-03-08] MEDS ORDERED: FOLIC ACID 1 MG TABLET PO SCH (09:00)
--- NOTE | 2017-03-08 11:07 | Progress Note ---
- Date 03/08/17 Subjective: The patient complains of pain in his ankle. He denies pain elsewhere. He specifically denies headache, chest pain, abdominal pain. He denies any shortness of breath. He states he remembers feeling very confused the last time he was in the hospital, but does not feel confused now. He denies any visual or auditory hallucinations. He is eating and drinking well. He denies any tremulousness. Objective Vital signs: Temperature 96.9 F 03/08/17 07:27 Pulse Rate 81 03/08/17 07:27 Respiratory Rate 16 03/08/17 07:27 Blood Pressure 120/78 03/08/17 07:27 Pulse Oximetry 94 03/08/17 07:27 Height/Weight/BMI: Height 1.8 m Weight 101.5 kg Body Mass Index 28.6 Comments: GEN-alert, oriented, no acute distress HEENT-sclera anicteric, oropharynx is moist NECK-supple CV-regular rate and rhythm CHEST-clear to auscultation bilaterally ABD-soft, mild distention, nontender, positive bowel sounds -no Hendrix EXT-no edema, cast on the right leg NEURO-focal deficits, no tremulousness, normal thought processes SKIN-warm and dry and without rashes Results - Labs CBC & Chem 7: 03/07/17 12:58 03/07/17 12:58 Microbiology Results: Microbiology 03/07/17 14:44 Peripheral/Iv Start Blood Culture - Preliminary Culture Initiated - Results Pending 03/07/17 14:37 Peripheral/Iv Start Blood Culture - Preliminary Culture Initiated - Results Pending Assessment and Plan (1) Closed right ankle fracture Current visit: No Status: Acute Assessment and Plan: IMPRESSION Superficial surgical wound infection to right ankle Right ankle fracture/dislocation s/p reduction & ORIF - last procedure on Chronic Liver disease (cirrhosis, Hep C) with failure, history of hepatic encephalopathy Possible hepatocellular carcinoma COPD with hx of bronchitis HTN Alcoholism Anemia & thrombocytopenia-stable. Hemoccult was negative during previous hospitalization Depression/anxiety Coagulopathy with INR of 1.53 likely secondary to his chronic liver disease Splenomegaly Esophageal varices History of encephalopathy with previous hospitalization likely multifactorial- currently not confused Plan Antibiotics per orthopedics. Orthopedics plans to remove cast tomorrow and reevaluate wound infection Recheck CBC and basic metabolic profile tomorrow Monitor for confusion, alcohol withdrawal. The patient has not required any anxiolytics. Continue his usual psychiatric medications Consider restarting metoprolol for portal hypertension, esophageal varices. Patient needs follow-up with his data integration architect after discharge Continue thiamine and folic acid Hospital Course Summary Disclaimer: The visit summary below is not to be considered part of the above Progress Note. Hospital Course: 03/07/17 IMPRESSION Superficial surgical wound infection to right ankle Right ankle fracture/dislocation s/p reduction & ORIF - last procedure on Chronic Liver disease (cirrhosis, Hep C) with failure, history of hepatic encephalopathy Possible hepatocellular carcinoma COPD with hx of bronchitis HTN Alcoholism Anemia & thrombocytopenia Depression/anxiety PLAN 1. Superficial wound infection: Right ankle fracture s/p reduction & ORIF; last procedure on 02/24/17 -Vancomycin per attending -WBC normal; CRP elevated at 24.6; ESR pending; check procalcitonin, lactate, and blood cultures -No SIRS criteria; no evidence of sepsis on admission -Splint removed by ortho and a cast was applied on 03/07/17 -plan to take it off on Tuesday to re-eval the wound; if worse at that time will expand antibiotics and consider consulting ID -NWB. 2. Cirrhosis with liver mass; hx hepatic encephalopathy -Follows with Dr. NICOLAS Barton in [place] -Check INR and ammonia level -Didn't care for lactulose during previous hospitalization -Patient reportedly with enlarged spleen, portal hypertension and esophageal varices -Metoprolol 25 mg PO BID started during last hospitalization - pt never received Rx b/c he left AMA 3. Alcoholism -check EtOH level -Reportedly last drink was on 03/01/17, CIWA ordered. -start daily multivitamins, folic acid and thiamine. -Will have Ativan available PRN. 4. COPD -Nicotine patch provided -Resp therapy-DuoNeb PRN 5. DVT/GI prophylaxis -No anticoagulation because of his coagulopathy with liver disease and esophageal varices -PPI: Protonix daily 6. Anemia & thrombocytopenia -Both are stable. Hemoccult negative during previous hospitalization 03/07/2017-I I have seen and examined the patient, and have reviewed this chart , the patient history, and the CYTOGENETICS TECHNOLOGIST's/PA's documented findings as above. We discussed and formulated the assessment and plan as above with the additions below.-Dr. Esparza The patient was seen this afternoon in his room. He was sleeping but awakened easily. He is a good historian and does not appear to be confused or agitated at this time. He denies having any confusion at home. He stated that he was taking his Paxil, gabapentin and Remeron at home. He states that 3 or 4 days ago he started on oxycodone for pain prescribed in the emergency room. He states he was supposed to take 10 mg every 6 hours as needed but it was not helping so he was taking 20 mg every 6 hours and stated that even that dose was not helping very much. He denied any fevers or chills. He states he has some occasional sweats. He states he's eating and drinking well. He denies any shortness of breath. He denies any nausea or vomiting. He denies any black stools. He denies any abdominal pain. He has not seen his data integration architect but states his office has called him to make an appointment. He told my nurse practitioner that he drank one mixed drink a week ago, but to me he denied drinking any alcohol at home. He denied any seizures. He denied any hallucinations. On exam he is alert and oriented and in no acute distress. Chest is clear to auscultation. Cardiovascular reveals a regular rate and rhythm. Abdomen is soft , mildly distended, nontender with positive bowel sounds. Right leg below the knee has a cast. Left leg is without edema. Skin is warm and dry and without rashes. Lab is reviewed as above. In addition ammonia is 34 which is borderline elevated. Plasma lactate is normal at 0.9. Pro-calcitonin is still pending. INR is pending. Alcohol level is less than 10. Orthopedics is managing antibiotics. Planning for vancomycin IV then rechecking wound later this week. Await sedimentation rate and pro-calcitonin. Monitor closely for alcohol withdrawal. Resume the patient's home medications. Monitor closely for confusion. Monitor vitals closely. Consider restarting metoprolol for portal hypertension, esophageal varices.
[2017-03-08] MEDS: NS FLUSH BAG 500ml IV PRN (13:57)
[2017-03-08] MEDS: FOLIC ACID 1 MG TABLET PO SCH (14:50)
[2017-03-08] MEDS ORDERED: HYDROMORPHONE 2 MG/ML INJECTION IVP PRN (15:38)
--- NOTE | 2017-03-08 16:14 | Pharmacy Consult-Antibiotics ---
Pharmacy Consult-Vancomycin - Laboratory Information WBC 6.5 T/MM3 (4.5-11.0) 03/07/17 12:58 BUN 10.0 MG/DL (9-20) 03/07/17 12:58 Creatinine 0.6 MG/DL (0.8-1.5) L 03/07/17 12:58 Procalcitonin < 0.05 NG/ML 03/07/17 14:37 Vancomycin Trough 20.11 UG/ML (15-20) H 03/08/17 13:40 - Consult Information We will continue to give vancomycin 2 gram i.v. every 8 hours. Trough level is at 20 and is at the top of the range so we will monitor renal function closely. Thanks
[2017-03-08] MEDS: MIRTAZAPINE 15 MG TABLET PO SCH (21:44)
[2017-03-08] MEDS: GABAPENTIN 300 MG CAPSULE PO SCH (21:44)
[2017-03-08] MEDS: PAROXETINE 20 MG TABLET PO SCH (21:45)
[2017-03-09] MEDS: Oxycodone *IR* 5 MG TABLET PO PRN ×7 (01:24→23:18)
[2017-03-09] MEDS: PANTOPRAZOLE 20 MG TABLET PO SCH (05:58)
[2017-03-09] MEDS: BUSPIRONE 15 MG TABLET PO SCH ×3 (08:07→20:05)
[2017-03-09] MEDS: ASPIRIN 81 MG CHEWABLE TABLET PO SCH ×2 (08:07→20:05)
[2017-03-09] MEDS: FOLIC ACID 1 MG TABLET PO SCH (08:07)
[2017-03-09] MEDS: MULTI-VITAMIN + MINERAL TABLET PO SCH (08:08)
--- NOTE | 2017-03-09 08:15 | Orthopedic Progress Note ---
Date: Subjective/Severity of Illness: Mr. Dyson appears comfortable this morning. According to nursing staff he's been much more pleasant this hospitalization. Also per report from nursing staff he has been compliant with nonweightbearing on the right lower extremity which she failed to do with his previous hospitalization. He appears to me to be also much more clear mentally again than he was from his previous hospitalization. Orthopedic Objective Vital signs: Temperature 95.7 F L 03/09/17 07:18 Pulse Rate 73 03/09/17 07:18 Respiratory Rate 16 03/09/17 07:18 Blood Pressure 143/88 H 03/09/17 07:18 Pulse Oximetry 95 03/09/17 07:18 Height and Weight: Height 5 ft 11 in Weight 101.5 kg Body Mass Index 28.6 - Constitutional General Appearance: Present: alert, cooperative, no acute distress - Respiratory Exam Present: non-labored - Cardiovascular Exam Capillary Refill: < 2-3 Seconds - Extremities Exam Present: pulses intact, normal capillary refill - Integumentary Exam Comments: Lateral incision minimum erythema with no gross drainage. Sutures are intact. - Lymphatic Lymphatic: Absent: lymphedema - Neurological Exam Present: intact to light touch - Psychiatric Exam Present: alert, oriented, attentive - Labs Result Diagrams: 03/09/17 04:27 03/09/17 04:27 Abnormal lab results 03/08/17 03/09/17 03/09/17 Range/Units 13:40 04:27 04:27 WBC 4.2 L (4.5-11.0) T/MM3 RBC 3.79 L (4.50-5.90) M/MM3 Hgb 10.3 L D (13.5-17.5) GM/DL Hct 33.4 L (41-53) % MCHC 30.8 L (31-37) GM/DL RDW Std Deviation 52.9 H (36.9-50.2) FL Plt Count 99 L (130-400) T/MM3 Eosinophils % (Manual) 8.0 H (0-4) % Chloride 108 H (98-107) MEQ/L Creatinine 0.7 L (0.8-1.5) MG/DL Vancomycin Trough 20.11 H (15-20) UG/ML H & H 03/07/17 03/09/17 Range/Units 12:58 04:27 Hgb 12.0 L 10.3 L D (13.5-17.5) GM/DL Hct 36.5 L 33.4 L (41-53) % Coagulation 03/07/17 Range/Units 14:37 INR 1.54 H (0.99-1.21) Orthopedic Assessment and Plan (1) Closed right ankle fracture Status: Acute Qualifiers: Encounter type: subsequent encounter Assessment and Plan: I removed his cast today to assess his incision. The erythema is much improved and there is no gross drainage. Overall this is much better than I would appear to my office 2 days ago. I would like to repeat his x-ray today and potentially plan on a revision ankle open reduction internal fixation. Because he was walking on the cast he has one screw was backed out and his medial clear space is widened again. I had a long discussion with him that if we were to repeat the surgery and he walked on it again I would not be able to return a third time to fix the ankle. I would only be willing to go back a second time if I did feel that he would be compliant with nonweightbearing after surgery. Pending the x-ray findings today we will plan on return to the OR either tomorrow or Tuesday and again this depends on if I feel he will be compliant after surgery. Hospital Course Summary Disclaimer: The visit summary below is not to be considered part of the above Progress Note. Hospital Course: 03/07/17 IMPRESSION Superficial surgical wound infection to right ankle Right ankle fracture/dislocation s/p reduction & ORIF - last procedure on Chronic Liver disease (cirrhosis, Hep C) with failure, history of hepatic encephalopathy Possible hepatocellular carcinoma COPD with hx of bronchitis HTN Alcoholism Anemia & thrombocytopenia Depression/anxiety PLAN 1. Superficial wound infection: Right ankle fracture s/p reduction & ORIF; last procedure on 02/24/17 -Vancomycin per attending -WBC normal; CRP elevated at 24.6; ESR pending; check procalcitonin, lactate, and blood cultures -No SIRS criteria; no evidence of sepsis on admission -Splint removed by ortho and a cast was applied on 03/07/17 -plan to take it off on Tuesday to re-eval the wound; if worse at that time will expand antibiotics and consider consulting ID -NWB. 2. Cirrhosis with liver mass; hx hepatic encephalopathy -Follows with Dr. NICOLAS Barton in [place] -Check INR and ammonia level -Didn't care for lactulose during previous hospitalization -Patient reportedly with enlarged spleen, portal hypertension and esophageal varices -Metoprolol 25 mg PO BID started during last hospitalization - pt never received Rx b/c he left AMA 3. Alcoholism -check EtOH level -Reportedly last drink was on 03/01/17, CIWA ordered. -start daily multivitamins, folic acid and thiamine. -Will have Ativan available PRN. 4. COPD -Nicotine patch provided -Resp therapy-DuoNeb PRN 5. DVT/GI prophylaxis -No anticoagulation because of his coagulopathy with liver disease and esophageal varices -PPI: Protonix daily 6. Anemia & thrombocytopenia -Both are stable. Hemoccult negative during previous hospitalization 03/07/2017-I I have seen and examined the patient, and have reviewed this chart , the patient history, and the CABLE INSTALLATION TECHNICIAN's/PA's documented findings as above. We discussed and formulated the assessment and plan as above with the additions below.-Dr. Esparza The patient was seen this afternoon in his room. He was sleeping but awakened easily. He is a good historian and does not appear to be confused or agitated at this time. He denies having any confusion at home. He stated that he was taking his Paxil, gabapentin and Remeron at home. He states that 3 or 4 days ago he started on oxycodone for pain prescribed in the emergency room. He states he was supposed to take 10 mg every 6 hours as needed but it was not helping so he was taking 20 mg every 6 hours and stated that even that dose was not helping very much. He denied any fevers or chills. He states he has some occasional sweats. He states he's eating and drinking well. He denies any shortness of breath. He denies any nausea or vomiting. He denies any black stools. He denies any abdominal pain. He has not seen his biochemistry professor but states his office has called him to make an appointment. He told my nurse practitioner that he drank one mixed drink a week ago, but to me he denied drinking any alcohol at home. He denied any seizures. He denied any hallucinations. On exam he is alert and oriented and in no acute distress. Chest is clear to auscultation. Cardiovascular reveals a regular rate and rhythm. Abdomen is soft , mildly distended, nontender with positive bowel sounds. Right leg below the knee has a cast. Left leg is without edema. Skin is warm and dry and without rashes. Lab is reviewed as above. In addition ammonia is 34 which is borderline elevated. Plasma lactate is normal at 0.9. Pro-calcitonin is still pending. INR is pending. Alcohol level is less than 10. Orthopedics is managing antibiotics. Planning for vancomycin IV then rechecking wound later this week. Await sedimentation rate and pro-calcitonin. Monitor closely for alcohol withdrawal. Resume the patient's home medications. Monitor closely for confusion. Monitor vitals closely. Consider restarting metoprolol for portal hypertension, esophageal varices.
--- NOTE | 2017-03-09 08:50 | XRay Report ---
Indication: postoperative PROCEDURE: XR ankle RT min 3V: Encounter: Initial Comparison: March 07, 2017 and March 02, 2017 Findings: Overlying material obscuring fine bony detail. Stable alignment of the internally fixed distal tibial and fibular fractures. The lower syndesmotic screw is proud and has retracted since the March 02 study. No new fracture or dislocation. Widening of the medial clear space. Impression: The lower syndesmotic screw appears loose and has retracted since the March 02 exam. .
--- NOTE | 2017-03-09 10:11 | Progress Note ---
<Nova Ruiz - Last Filed: 03/09/17 10:01> - Date 03/09/17 Subjective: F-U: R ankle fracture/surgical wound infection Patient seen sitting in his bed. He states he is feeling fine other than he doesn't feel his pain is adequately controlled (yet he doesn't appear to be in any distress during my visit.) He had the cast removed and xray performed this am, followed by reapplication of cast. Based on Dr. Garcia's note, pt may return to OR Thurs or Fri. He denies n/v, headache, confusion or hallucinations, although throughout our conversation he would randomly close his eyes and " space off" for several seconds at a time and lose his train of thought. He is receiving roxanol q 3 hours. Objective Vital signs: Temperature 95.7 F L 03/09/17 07:18 Pulse Rate 73 03/09/17 07:18 Respiratory Rate 16 03/09/17 07:18 Blood Pressure 143/88 H 03/09/17 07:18 Pulse Oximetry 95 03/09/17 07:18 Height/Weight/BMI: Height 1.8 m Weight 97.6 kg Body Mass Index 28.6 - Constitutional Present: no acute distress, well nourished, well developed - Routine HEENT Exam Head: Present: normocephalic, atraumatic - Routine Respiratory Exam Present: CTA bilaterally. Absent: wheezes - Routine Cardiovascular Exam Present: RRR, S1, S2. Absent: murmur - Routine Abdominal Exam Present: soft, normoactive bowel sounds, non distended. Absent: tenderness - Routine Extremities Exam Present: no edema, normal capillary refill - Routine Skin Exam Present: dry, warm Comments: some scaling/peeling of the skin of R toes and distal foot. Lower leg/ankle/ foot casted. - Routine Neurological Exam Present: alert (alert for the most part, but randomly closes eyes and is nonresponsive for brief periods during conversation), moving all extremities. Absent: facial asymmetry - Routine Lymphatic Exam Lymphatic: Absent: adenopathy - Routine Psychiatric Exam Present: normal affect, cooperative Results - Labs CBC & Chem 7: 03/09/17 04:27 03/09/17 04:27 Labs: Laboratory Tests 03/07/17 03/09/17 12:58 04:27 C-Reactive Protein 24.6 H 12.3 H Microbiology Results: Microbiology 03/07/17 14:44 Peripheral/Iv Start Blood Culture - Preliminary No Growth After 1 Day 03/07/17 14:37 Peripheral/Iv Start Blood Culture - Preliminary No Growth After 1 Day Assessment and Plan (1) Closed right ankle fracture Current visit: No Status: Acute Assessment and Plan: IMPRESSION Superficial surgical wound infection to right ankle Right ankle fracture/dislocation s/p reduction & ORIF - last procedure on Chronic Liver disease (cirrhosis, Hep C) with failure, history of hepatic encephalopathy Possible hepatocellular carcinoma COPD with hx of bronchitis HTN Alcoholism Anemia & thrombocytopenia-stable. Hemoccult was negative during previous hospitalization Depression/anxiety Coagulopathy with INR of 1.53 likely secondary to his chronic liver disease Splenomegaly Esophageal varices History of encephalopathy with previous hospitalization likely multifactorial- currently not confused Plan Continue antibiotics per orthopedics. Orthopedics plans to potentially take him back to OR tomorrow or Tue. Recheck CBC tomorrow to follow hgb and WBC. Hesitant to increase pain meds in the event the roxanol is contributing to his "dozing off" episodes. Overall doing well. Hospital Course Summary Disclaimer: The visit summary below is not to be considered part of the above Progress Note. Hospital Course: 03/07/17 IMPRESSION Superficial surgical wound infection to right ankle Right ankle fracture/dislocation s/p reduction & ORIF - last procedure on Chronic Liver disease (cirrhosis, Hep C) with failure, history of hepatic encephalopathy Possible hepatocellular carcinoma COPD with hx of bronchitis HTN Alcoholism Anemia & thrombocytopenia Depression/anxiety 03/07/17 - hospitalist consult 1. Superficial wound infection: Right ankle fracture s/p reduction & ORIF; last procedure on 02/24/17 -Vancomycin per attending -WBC normal; CRP elevated at 24.6; ESR pending; check procalcitonin, lactate, and blood cultures -No SIRS criteria; no evidence of sepsis on admission -Splint removed by ortho and a cast was applied on 03/07/17 -plan to take it off on Tuesday to re-eval the wound; if worse at that time will expand antibiotics and consider consulting ID -NWB. 2. Cirrhosis with liver mass; hx hepatic encephalopathy -Follows with Dr. NICOLAS Barton in [place] -Check INR and ammonia level -Didn't care for lactulose during previous hospitalization -Patient reportedly with enlarged spleen, portal hypertension and esophageal varices -Metoprolol 25 mg PO BID started during last hospitalization - pt never received Rx b/c he left AMA 3. Alcoholism -check EtOH level -Reportedly last drink was on 03/01/17, CIWA ordered. -start daily multivitamins, folic acid and thiamine. -Will have Ativan available PRN. 4. COPD -Nicotine patch provided -Resp therapy-DuoNeb PRN 5. DVT/GI prophylaxis -No anticoagulation because of his coagulopathy with liver disease and esophageal varices -PPI: Protonix daily 6. Anemia & thrombocytopenia -Both are stable. Hemoccult negative during previous hospitalization Orthopedics is managing antibiotics. Planning for vancomycin IV then rechecking wound later this week. Await sedimentation rate and pro-calcitonin. Consider restarting metoprolol for portal hypertension, esophageal varices. 03/09/17 Antibiotics per orthopedics. Orthopedics plans to potentially take him back to OR tomorrow or Tue. Recheck CBC tomorrow to follow hgb and WBC. Hesitant to increase pain meds in the event the roxanol is contributing to his "dozing off" episodes. Overall doing well. <IsaiasThelma L - Last Filed: 03/09/17 13:39> - Date 03/09/17 Objective Vital signs: Temperature 95.7 F L 03/09/17 07:18 Pulse Rate 73 03/09/17 07:18 Respiratory Rate 16 03/09/17 07:18 Blood Pressure 143/88 H 03/09/17 07:18 Pulse Oximetry 95 03/09/17 07:18 Height/Weight/BMI: Height 1.8 m Weight 97.6 kg Body Mass Index 28.6 Results - Labs CBC & Chem 7: 03/09/17 04:27 03/09/17 04:27 Microbiology Results: Microbiology 03/07/17 14:44 Peripheral/Iv Start Blood Culture - Preliminary No Growth After 1 Day 03/07/17 14:37 Peripheral/Iv Start Blood Culture - Preliminary No Growth After 1 Day Assessment and Plan (1) Closed right ankle fracture Current visit: No Status: Acute Assessment and Plan: 03/09/2017-I reviewed this chart, the patient history, and the DRUG SAFETY DATA MANAGEMENT SPECIALIST's/PA's documented findings as above. We discussed and formulated the assessment and plan as above with the additions below.-Esparza The patient was seen in his room at lunchtime. He states he is eating and drinking well. His pain is fairly well controlled in his foot. He denied any troubles breathing. He denied any pain elsewhere. He seems to be much more alert and oriented this hospitalization compared to his previous hospitalization. He states that his cast was changed today and he was told that the wound looked good. He states he is uncertain what Dr. Garcia's plans are for him regarding his fracture. On exam he is alert and in no acute distress. Chest is clear to auscultation with decreased breath sounds in the bases. Cardiovascular reveals a regular rate and rhythm. Abdomen is soft, mildly distended, nontender with positive bowel sounds. Extremities are free of edema. He has a cast on the right foot and leg below the knee. Impression and plan Overall, the patient is doing much better than on his previous hospitalization. Encephalopathy is no longer present. The cause of encephalopathy previously was likely a combination of hepatic encephalopathy and secondary to medications. The patient does not have any signs of alcohol withdrawal. Discussed with the patient's nurse and case management. Will discuss plans with Dr. Garcia. Hospital Course Summary Disclaimer: The visit summary below is not to be considered part of the above Progress Note.
[2017-03-09] MEDS: MIRTAZAPINE 15 MG TABLET PO SCH (20:05)
[2017-03-09] MEDS: PAROXETINE 20 MG TABLET PO SCH (20:05)
[2017-03-09] MEDS: GABAPENTIN 300 MG CAPSULE PO SCH (20:30)
[2017-03-09] MEDS: NS FLUSH BAG 500ml IV PRN (22:19)
[2017-03-10] MEDS: Oxycodone *IR* 5 MG TABLET PO PRN ×6 (02:14→23:10)
[2017-03-10] MEDS: PANTOPRAZOLE 20 MG TABLET PO SCH (05:33)
[2017-03-10] MEDS: FOLIC ACID 1 MG TABLET PO SCH (08:43)
[2017-03-10] MEDS: MULTI-VITAMIN + MINERAL TABLET PO SCH (08:43)
[2017-03-10] MEDS: ASPIRIN 81 MG CHEWABLE TABLET PO SCH ×2 (08:43→21:37)
[2017-03-10] MEDS: BUSPIRONE 15 MG TABLET PO SCH ×3 (08:44→21:39)
--- NOTE | 2017-03-10 09:18 | Progress Note ---
<MaikMassiel pa D - Last Filed: 03/10/17 10:25> - Date 03/10/17 Subjective: Tisha was resting in bed but easily awakened. He states that his pain "sucks" and the pain med he's on only takes the edge off. However, he fell asleep on a couple occasions during my visit. He notes numbness/tingling to his right foot. He occ has problems breathing and gets wheezy - when this happens he gets "pissy ". He denies SOA or cough at the moment. He denies abd pain or n/v/d. Objective Vital signs: Temperature 97.2 F 03/10/17 07:00 Pulse Rate 74 03/10/17 07:00 Respiratory Rate 16 03/10/17 07:00 Blood Pressure 114/77 03/10/17 07:00 Pulse Oximetry 94 03/10/17 07:00 Height/Weight/BMI: Height 1.8 m Weight 93.5 kg Body Mass Index 28.6 - Constitutional Present: no acute distress, well nourished, well developed - Routine HEENT Exam Eye: Absent: conjunctival icterus, scleral injection ENT: Present: oropharynx clear. Absent: dentition normal - Routine Respiratory Exam Present: CTA bilaterally - Routine Cardiovascular Exam Present: RRR, S1, S2 - Routine Abdominal Exam Present: soft, normoactive bowel sounds, non tender - Routine Extremities Exam Present: no edema (swelling to right toes has resolved) - Routine Musculoskeletal Exam Musculoskeletal: Present: limited range of motion (cast RLE) - Routine Skin Exam Present: intact, dry, warm - Routine Neurological Exam Present: alert, oriented X3, normal speech - Routine Psychiatric Exam Present: normal affect, normal thought process, cooperative Results - Labs CBC & Chem 7: 03/10/17 04:14 03/10/17 04:14 Microbiology Results: Microbiology 03/07/17 14:44 Peripheral/Iv Start Blood Culture - Preliminary No Growth After 2 Days 03/07/17 14:37 Peripheral/Iv Start Blood Culture - Preliminary No Growth After 2 Days Assessment and Plan (1) Closed right ankle fracture Current visit: No Status: Acute Assessment and Plan: IMPRESSION Superficial surgical wound infection to right ankle Right ankle fracture/dislocation s/p reduction & ORIF - last procedure on Chronic Liver disease (cirrhosis, Hep C) with failure, history of hepatic encephalopathy Possible hepatocellular carcinoma COPD with hx of bronchitis HTN Alcoholism Anemia & thrombocytopenia-stable. Hemoccult was negative during previous hospitalization Depression/anxiety Coagulopathy with INR of 1.53 likely secondary to his chronic liver disease Splenomegaly Esophageal varices History of encephalopathy with previous hospitalization likely multifactorial- currently not confused Plan Continue vanco per Dr. Garcia. Superficial infection improving. Plans to return to OR tomorrow. Labs stable; medically stable for sx. Pain - he is using PRN Roxicodone but has not had IV Dilaudid. He is on ASA BID for VTE PPX. DVT Prophylaxis: other (ASA BID) GI Prophylaxis: Protonix Hospital Course Summary Disclaimer: The visit summary below is not to be considered part of the above Progress Note. Hospital Course: 03/07/17 IMPRESSION Superficial surgical wound infection to right ankle Right ankle fracture/dislocation s/p reduction & ORIF - last procedure on Chronic Liver disease (cirrhosis, Hep C) with failure, history of hepatic encephalopathy Possible hepatocellular carcinoma COPD with hx of bronchitis HTN Alcoholism Anemia & thrombocytopenia Depression/anxiety 03/07/17 - hospitalist consult 1. Superficial wound infection: Right ankle fracture s/p reduction & ORIF; last procedure on 02/24/17 -Vancomycin per attending -WBC normal; CRP elevated at 24.6; ESR pending; check procalcitonin, lactate, and blood cultures -No SIRS criteria; no evidence of sepsis on admission -Splint removed by ortho and a cast was applied on 03/07/17 -plan to take it off on Tuesday to re-eval the wound; if worse at that time will expand antibiotics and consider consulting ID -NWB. 2. Cirrhosis with liver mass; hx hepatic encephalopathy -Follows with Dr. NICOLAS Barton in [place] -Check INR and ammonia level -Didn't care for lactulose during previous hospitalization -Patient reportedly with enlarged spleen, portal hypertension and esophageal varices -Metoprolol 25 mg PO BID started during last hospitalization - pt never received Rx b/c he left AMA 3. Alcoholism -check EtOH level -Reportedly last drink was on 03/01/17, CIWA ordered. -start daily multivitamins, folic acid and thiamine. -Will have Ativan available PRN. 4. COPD -Nicotine patch provided -Resp therapy-DuoNeb PRN 5. DVT/GI prophylaxis -No anticoagulation because of his coagulopathy with liver disease and esophageal varices -PPI: Protonix daily 6. Anemia & thrombocytopenia -Both are stable. Hemoccult negative during previous hospitalization Orthopedics is managing antibiotics. Planning for vancomycin IV then rechecking wound later this week. Await sedimentation rate and pro-calcitonin. Consider restarting metoprolol for portal hypertension, esophageal varices. 03/09/17 Antibiotics per orthopedics. Orthopedics plans to potentially take him back to OR tomorrow or Tue. Recheck CBC tomorrow to follow hgb and WBC. Hesitant to increase pain meds in the event the roxanol is contributing to his "dozing off" episodes. Overall doing well. 03/10/[address] Garcia. Superficial infection improving. Plans to return to OR tomorrow. Labs stable; medically stable for sx. Pain - he is using PRN Roxicodone but has not had IV Dilaudid. He is on ASA BID for VTE PPX. <Thelma Esparza L - Last Filed: 03/10/17 17:51> - Date 03/10/17 Objective Vital signs: Temperature 97.8 F 03/10/17 14:47 Pulse Rate 82 03/10/17 14:47 Respiratory Rate 16 03/10/17 14:47 Blood Pressure 139/76 03/10/17 14:47 Pulse Oximetry 96 03/10/17 14:47 Height/Weight/BMI: Height 1.8 m Weight 93.5 kg Body Mass Index 28.6 Results - Labs CBC & Chem 7: 03/10/17 04:14 03/10/17 04:14 Microbiology Results: Microbiology 03/07/17 14:44 Peripheral/Iv Start Blood Culture - Preliminary No Growth After 3 Days 03/07/17 14:37 Peripheral/Iv Start Blood Culture - Preliminary No Growth After 3 Days Assessment and Plan (1) Closed right ankle fracture Current visit: No Status: Acute Assessment and Plan: 03/10/2017-I reviewed this chart, the patient history, and the HAND ZIPPER TRIMMER's/PA's documented findings as above. We discussed and formulated the assessment and plan as above with the additions below.-Dr. Esparza Patient states that he's feeling okay. He is breathing well. He is eating and drinking well. He denies any complaints other than he wants to smoke a cigarette. He does not want a nicotine patch. Chest reveals some mild wheezing. Cardiovascular reveals a regular rate and rhythm. Abdomen is soft and nontender and mildly distended and appears at baseline. Bowel sounds are normoactive. Extremities are free of edema. Right lower extremity is in a cast. Impression and plan Overall, the patient appears to be doing fairly well. Continue on antibiotics for superficial wound infection. Plan for surgery tomorrow for ORIF of ankle fracture. Patient is using a walker and is nonweightbearing on the right lower extremity. Pain has been controlled with oral medication. Hospital Course Summary Disclaimer: The visit summary below is not to be considered part of the above Progress Note.
[2017-03-10] MEDS: MIRTAZAPINE 15 MG TABLET PO SCH (21:38)
[2017-03-10] MEDS: PAROXETINE 20 MG TABLET PO SCH (21:38)
[2017-03-10] MEDS: GABAPENTIN 300 MG CAPSULE PO SCH (21:38)
[2017-03-11] MEDS: PANTOPRAZOLE 20 MG TABLET PO SCH (06:13)
[2017-03-11] MEDS: LR 1,000 ML IV SCH ×2 (08:10→10:23)
[2017-03-11] MEDS ORDERED: LIDOCAINE 1% (10mg/ml) 30ml SDV INJ ONE (08:23)
[2017-03-11] MEDS ORDERED: BUPIVACAINE 0.25% (2.5mg/ml) PF 30ml INJECTION ONE (08:23)
--- NOTE | 2017-03-11 08:25 | Pharmacy Consult-Antibiotics ---
Pharmacy Consult-Vancomycin - Laboratory Information WBC 5.2 T/MM3 (4.5-11.0) 03/10/17 04:14 BUN 6.0 MG/DL (9-20) L 03/10/17 04:14 Creatinine 0.7 MG/DL (0.8-1.5) L 03/10/17 04:14 Procalcitonin < 0.05 NG/ML 03/07/17 14:37 Vancomycin Trough 26.73 UG/ML (15-20) H* 03/11/17 05:01 - Consult Information VANCOMYCIN CONSULT: 5'" male 94 kg age 51 yrs with right ankle wound infection. Inital dose was 2 grams IV q8hrs. Vancomycin Trough = 26.73 mcg/ml. SCr = 0.7 mg/dl. Will adjust dose downward to Vancomycin 2 grams IV q12hrs for an expected trough around 15. Will continue to monitor and make adjustments accordingly. Thank you. Gema Metcalf, PharmD
--- NOTE | 2017-03-11 08:30 | Anesthesia Preoperative Report ---
Anesthesia Preoperative Record - Date and Time Date: 03/11/17 Preoperative Diagnosis: right ankle infection NPO Since Date: 03/10/17 NPO Since Time: 20:30 Allergies/Adverse Reactions: Allergies Allergy/AdvReac Type Severity Reaction Status Date / Time adhesive tape Allergy Unknown RED RASH Verified 03/02/17 20:47 ketorolac Allergy Unknown Verified 03/02/17 20:47 quetiapine Allergy Unknown Verified 03/02/17 20:47 - Vital Signs Vital Signs: Temperature 98.2 F 03/11/17 08:01 Pulse Rate 75 03/11/17 08:01 Respiratory Rate 18 03/11/17 08:01 Blood Pressure 132/70 03/11/17 08:01 Pulse Oximetry 93 03/11/17 08:01 Height and Weight: Height 1.8 m Weight 94.1 kg Body Mass Index 28.6 - Medications Inpatient Medications: Current Medications Albuterol/Ipratropium (Duoneb) 3 ml AEROSOL RTQID PRN Aspirin (Asa) 81 mg PO BID [facility] Last Admin: 03/10/17 21:37 Dose: 81 mg Buspirone HCl (Buspar) 15 mg PO TID [facility] Last Admin: 03/10/17 21:39 Dose: 15 mg Folic Acid (Folate) 1 mg PO DAILY [facility] Last Admin: 03/10/17 08:43 Dose: 1 mg Gabapentin (Neurontin) 300 mg PO HS [facility] Last Admin: 03/10/17 21:38 Dose: 300 mg Hydromorphone HCl (Dilaudid) 0.5 mg IVP Q6H PRN PRN Reason: Breakthrough pain Lactated Ringer's (Lactated Ringers) 1,000 mls @ 50 mls/hr IV .Q20H [facility] Last Admin: 03/11/17 08:10 Dose: 50 mls/hr Vancomycin HCl 2,000 mg/ (Sodium Chloride) 500 mls @ 250 mls/hr IV Q12H [facility] Lorazepam (Ativan Inj) 0.5 mg IVP Q6H PRN Mirtazapine (Remeron) 7.5 mg PO HS [facility] Last Admin: 03/10/17 21:38 Dose: 7.5 mg Multivitamins/Minerals (Therapeutic - M) 1 tab PO DAILY [facility] Last Admin: 03/10/17 08:43 Dose: 1 tab Nicotine (Nicoderm) 21 mg TD DAILY PRN Nicotine (Nicotine Patch Removal) 1 removal TD DAILY PRN Oxazepam (Serax) 15 mg PO Q8H PRN Oxycodone HCl (Roxicodone *Ir*) 5 - 15 mg PO Q3H PRN PRN Reason: Pain Last Admin: 03/10/17 23:10 Dose: 15 mg Pantoprazole Sodium (Protonix) 20 mg PO ACB [facility] Last Admin: 03/11/17 06:13 Dose: Not Given Paroxetine HCl (Paxil) 30 mg PO HS [facility] Last Admin: 03/10/17 21:38 Dose: 30 mg Sodium Chloride (Normal Saline) 500 ml IV PRN PRN Last Admin: 03/09/17 22:19 Dose: 500 ml Thiamine HCl (Vitamin B-1) 100 mg PO DAILY [facility] Last Admin: 03/10/17 08:43 Dose: 100 mg Home Medications: Home Medications Medication Instructions Recorded Confirmed Type PARoxetine HCl [Paxil] 30 mg PO HS #0 06/02/15 03/07/17 History Buspirone [Buspar] 15 mg PO TID 02/12/17 03/07/17 History Gabapentin 300 mg PO HS 02/12/17 03/07/17 History Mirtazapine 7.5 mg PO HS 02/12/17 03/07/17 History Is Patient on Beta Rolf?: No - Medical History Respiratory: Reports: Bronchitis, Chronic Obstructive Pulmonary Disease (COPD) DENIES: Sleep Apnea Cardiovascular: Reports: Hypertension Gastrointestional: Reports: Hepatitis (HEP C, history of hepatic encephalopathy. ), Cirrhosis Neuro/Musculoskeletal: Reports: Back Problems, Depression, Headaches, Seizures ( last time 5-6 years ago. Alcohol induced.), Other (BACK SURGERY 1993) Other History: Reports: Other (anemia) - Surgical History HEENT Surgeries: Reports: Other (JAW SURGERY) Cardiac Surgeries/Treatments: DENIES: Pacemaker Musculoskeletal Surgery/Tx: Reports: Other (CLAVICLE, JAW, BACK SURGERY, ankle surgery.) Reproductive Surgery/Treatment: DENIES: Mastectomy Anesthesia Reactions: None Hx Family Anesthesia Reaction: No History of Motion Sickness: No - Social History Smoking Status: Current every day smoker Packs per day: 1 Pack-years: 36 Hx Chewing Tobacco Use: No Second Hand Exposure: No Substance Use Type: does not use Alcohol Intake: current (history of alcohol abuse) Alcohol Intake Frequency: other (03/01/17 had 1 mixed drink) - Pertinent Findings Laboratory: CBC and BMP 03/10/17 04:14 03/10/17 04:14 - Physical Exam Respiratory Exam: Present: lungs clear Cardiovascular Exam: Present: regular rate and rhythm - Airway Assessment Mallampati Score: II TMD: 2 Fingerbreadths, Other (has had broken jaw in the past. ) Neck Extension: fair Teeth: chipped teeth/crowns (multiple), poor dentation, loose tooth Overall Assessment: may be difficult intubation - ASA ASA Score: 3 - Plan Anesthesia: General TIVA, General Inhalation Gases Peripheral Nerve Block: Popliteal-Right, Saphenous-Right - Discussion Discussion: Discussed risks/options/alternatives of anesthesia and questions answered. Patient consents. Nursing pain assessment noted. Attestation Statement: Prior to the delivery of any anesthetic medication, I examined the patient, developed the plan, obtained the patient's consent and discussed the risk and benefits of the procedure with the patient/guardian. - Additional Information Seen by Anesthesia: Yes
[2017-03-11] MEDS ORDERED: FentaNYL 250 MCG/5 ML INJECTION ONE (08:44)
[2017-03-11] MEDS ORDERED: KETAMINE 500 MG/10 ML INJECTION ONE (08:45)
[2017-03-11] MEDS ORDERED: PROPOFOL 500 MG/50 ML VIAL IV ONE (08:45)
[2017-03-11] MEDS ORDERED: PHENYLEPHRINE INJ 10 MG/ML VIAL IV ONE (08:55)
[2017-03-11] MEDS ORDERED: SALINE FLUSH 10ml SYRINGE ONE (08:55)
[2017-03-11] MEDS ORDERED: DEXAMETHASONE 4 MG/ML INJECTION ONE (09:02)
[2017-03-11] MEDS ORDERED: ONDANSETRON 4 MG/2 ML INJECTION ONE (09:02)
[2017-03-11] MEDS ORDERED: ONDANSETRON 4 MG/2 ML INJECTION IVP PRN (09:33)
[2017-03-11] MEDS ORDERED: HYDROMORPHONE 2 MG/ML INJECTION IVP PRN (09:33)
[2017-03-11] MEDS ORDERED: BUPIV 0.25% 30ml/LIDO 1% 30ml MIXTURE ID ONE (10:39)
--- NOTE | 2017-03-11 11:12 | Anesthesia Postoperative Note ---
- Date and Time Date: 03/11/17 Time: 11:12 - Status Patient Participated in Evaluation: Patient Participated in Person Vital Signs: Temperature 98.2 F 03/11/17 08:01 Pulse Rate 75 03/11/17 08:01 Respiratory Rate 18 03/11/17 08:01 Blood Pressure 132/70 03/11/17 08:01 Pulse Oximetry 93 03/11/17 08:01 Respiratory Function: Airway Patent, Regular Respirations Cardiovascular Function: Regular Pulse Mental Status: Alert and Oriented Pain Intensity: 7 (tolerable) Hydration: IV Infusing Complications During Recover: None Apparent - Follow-Up Instructions Instructions: Per Surgeon
[2017-03-11] MEDS ORDERED: HYDROMORPHONE 2 MG/ML INJECTION IVP ONE ×2 (11:20→16:05)
[2017-03-11] MEDS: ASPIRIN 81 MG CHEWABLE TABLET PO SCH ×2 (11:56→21:34)
[2017-03-11] MEDS: MULTI-VITAMIN + MINERAL TABLET PO SCH (11:57)
[2017-03-11] MEDS: FOLIC ACID 1 MG TABLET PO SCH (11:57)
[2017-03-11] MEDS: Oxycodone *IR* 5 MG TABLET PO PRN ×4 (11:57→22:27)
[2017-03-11] MEDS: BUSPIRONE 15 MG TABLET PO SCH ×3 (11:57→21:35)
--- NOTE | 2017-03-11 12:23 | Remote Fluorsocopy Report ---
Indication: ORIF RIGHT ANKLE PROCEDURE: RF ankle RT 3 view: Encounter: Initial Comparison: Radiographs dated March 09, 2017 and fluoroscopy dated February 24, 2017 Findings: Nine fluoroscopic spot images are submitted for interpretation. Images show removal of the two threaded syndesmotic screws which are then replaced. Lateral fibular side plate remains stable in position. Medial malleolar screw again noted. Impression: Fluoroscopy as above. Fluoroscopy time is 50 seconds. Fluoroscopy dose is 227.4 mRad. .
--- NOTE | 2017-03-11 16:40 | Progress Note ---
<MaikMassiel D - Last Filed: 03/11/17 16:37> - Date 03/11/17 Subjective: Tisha was seen a few hours postop, eating pancakes. He was very conversational and in good spirits. He stated that this is his 3rd meal of the day. He complains of severe throbbing pain to his right leg 10/10 and the pain pills aren't very helpful. Otherwise denies any new concerns. He misses his animals at home - he had a bird but his cat "Kimberlee" ate the bird when he was hospitalized the last time - that's why he had to leave. He enjoyed telling me about all the pets and types of birds he has owned and the new one he plans to get. Objective Vital signs: Temperature 97.8 F 03/11/17 16:03 Pulse Rate 100 03/11/17 16:03 Respiratory Rate 16 03/11/17 16:03 Blood Pressure 138/71 03/11/17 16:03 Pulse Oximetry 94 03/11/17 16:03 Height/Weight/BMI: Height 1.8 m Weight 94.1 kg Body Mass Index 28.6 - Constitutional Present: no acute distress, well nourished, well developed - Routine HEENT Exam Eye: Absent: conjunctival icterus ENT: Present: mucous membranes moist - Routine Respiratory Exam Present: CTA bilaterally - Routine Cardiovascular Exam Present: RRR, S1, S2, murmur, tachycardia - Routine Abdominal Exam Present: soft, normoactive bowel sounds - Routine Extremities Exam Present: no edema - Routine Musculoskeletal Exam Musculoskeletal: Present: other (cast and wound vac to right leg) - Routine Skin Exam Present: intact, warm - Routine Neurological Exam Present: alert, oriented X3 - Routine Psychiatric Exam Present: normal affect, normal thought process, cooperative Results - Labs CBC & Chem 7: 03/10/17 04:14 03/10/17 04:14 Microbiology Results: Microbiology 03/07/17 14:44 Peripheral/Iv Start Blood Culture - Preliminary No Growth After 4 Days 03/07/17 14:37 Peripheral/Iv Start Blood Culture - Preliminary No Growth After 4 Days Assessment and Plan (1) Closed right ankle fracture Current visit: No Status: Acute Assessment and Plan: IMPRESSION Superficial surgical wound infection to right ankle Right ankle fracture/dislocation s/p reduction & ORIF - last procedure on Chronic Liver disease (cirrhosis, Hep C) with failure, history of hepatic encephalopathy Possible hepatocellular carcinoma COPD with hx of bronchitis HTN Alcoholism Anemia & thrombocytopenia-stable. Hemoccult was negative during previous hospitalization Depression/anxiety Coagulopathy with INR of 1.53 likely secondary to his chronic liver disease Splenomegaly Esophageal varices History of encephalopathy with previous hospitalization likely multifactorial- currently not confused Plan D/W Dr. Garcia - sx went well; placed a wound vac on the lateral aspect of his ankle. He plans on re-eval this over the weekend. Continue vanco. Pain is an issue - will increase gabapentin to TID. He's been on oxycodone 15 mg every 3-6 hours; received PRN dosed of Dilaudid today as well. Will discuss pain control with attending. Mildly tachycardic - could be r/t pain, stress from sx; will repeat labs in am. Outside the risk of EtOH withdrawal sz/symptoms - DC sz precautions and serax. Resuscitation Status: Full Code Hospital Course Summary Disclaimer: The visit summary below is not to be considered part of the above Progress Note. Hospital Course: 03/07/17 IMPRESSION Superficial surgical wound infection to right ankle Right ankle fracture/dislocation s/p reduction & ORIF - last procedure on Chronic Liver disease (cirrhosis, Hep C) with failure, history of hepatic encephalopathy Possible hepatocellular carcinoma COPD with hx of bronchitis HTN Alcoholism Anemia & thrombocytopenia Depression/anxiety 03/07/17 - hospitalist consult 1. Superficial wound infection: Right ankle fracture s/p reduction & ORIF; last procedure on 02/24/17 -Vancomycin per attending -WBC normal; CRP elevated at 24.6; ESR pending; check procalcitonin, lactate, and blood cultures -No SIRS criteria; no evidence of sepsis on admission -Splint removed by ortho and a cast was applied on 03/07/17 -plan to take it off on Tuesday to re-eval the wound; if worse at that time will expand antibiotics and consider consulting ID -NWB. 2. Cirrhosis with liver mass; hx hepatic encephalopathy -Follows with Dr. NICOLAS Barton in [place] -Check INR and ammonia level -Didn't care for lactulose during previous hospitalization -Patient reportedly with enlarged spleen, portal hypertension and esophageal varices -Metoprolol 25 mg PO BID started during last hospitalization - pt never received Rx b/c he left AMA 3. Alcoholism -check EtOH level -Reportedly last drink was on 03/01/17, CIWA ordered. -start daily multivitamins, folic acid and thiamine. -Will have Ativan available PRN. 4. COPD -Nicotine patch provided -Resp therapy-DuoNeb PRN 5. DVT/GI prophylaxis -No anticoagulation because of his coagulopathy with liver disease and esophageal varices -PPI: Protonix daily 6. Anemia & thrombocytopenia -Both are stable. Hemoccult negative during previous hospitalization Orthopedics is managing antibiotics. Planning for vancomycin IV then rechecking wound later this week. Await sedimentation rate and pro-calcitonin. Consider restarting metoprolol for portal hypertension, esophageal varices. 03/09/17 Antibiotics per orthopedics. Orthopedics plans to potentially take him back to OR tomorrow or Tue. Hesitant to increase pain meds in the event the roxanol is contributing to his "dozing off" episodes. 03/10/[address] Garcia. Superficial infection improving. Plans to return to OR tomorrow. He is on ASA BID for VTE PPX. 03/11/17 D/W Dr. Garcia - sx went well; placed a wound vac on the lateral aspect of his ankle. He plans on re-eval this over the weekend. Continue vanco. Pain is an issue - will increase gabapentin to TID. He's been on oxycodone 15 mg every 3-6 hours; received a PRN dose of Dilaudid today as well. Outside the risk of EtOH withdrawal sz/symptoms - DC sz precautions and serax. <Dannie Chu D - Last Filed: 03/11/17 18:15> - Date 03/11/17 Objective Vital signs: Temperature 97.8 F 03/11/17 16:03 Pulse Rate 100 03/11/17 16:03 Respiratory Rate 16 03/11/17 16:03 Blood Pressure 138/71 03/11/17 16:03 Pulse Oximetry 94 03/11/17 16:03 Height/Weight/BMI: Height 1.8 m Weight 94.1 kg Body Mass Index 28.6 Results - Labs CBC & Chem 7: 03/10/17 04:14 03/10/17 04:14 Microbiology Results: Microbiology 03/07/17 14:44 Peripheral/Iv Start Blood Culture - Preliminary No Growth After 4 Days 03/07/17 14:37 Peripheral/Iv Start Blood Culture - Preliminary No Growth After 4 Days Assessment and Plan (1) Closed right ankle fracture Current visit: No Status: Acute Assessment and Plan: IMPRESSION Superficial surgical wound infection to right ankle Right ankle fracture/dislocation s/p reduction & ORIF - last procedure on Chronic Liver disease (cirrhosis, Hep C) with failure, history of hepatic encephalopathy Possible hepatocellular carcinoma COPD with hx of bronchitis HTN Alcoholism Anemia & thrombocytopenia-stable. Hemoccult was negative during previous hospitalization Depression/anxiety Coagulopathy with INR of 1.53 likely secondary to his chronic liver disease Splenomegaly Esophageal varices History of encephalopathy with previous hospitalization likely multifactorial- currently not confused Have independently interviewed & examined pt. Chart reviewed. Case discussed with CM & my [employer]. Care plan developed with my supervision; agree with above. Pain an issue-medications not helping much. Throbbing pain to foot, very bothersome. Dilaudid is only every 6 hours-definitely would not last that long in his system. Reports he is eating well. Bowels stable. Breathing well. Lungs: decreased bilaterally. No distress on RA. CV: regular AB: soft nt, BS decreased. MSE: awake alert. Plan: Will increase freguency of Dilaudid to 0.5mg to every 3 hours. Continue Oxycodone at current dose/frequency. Patient feels increased Neurontin will not be of benefit, but do feel it is worth trying the increase frequency to help the narcotic medications have more effect. Last visit, patient was started on Metoprolol. Would be reasonable to start low dose propranolol to help decrease portal veinous pressure. Weight decreased from prior admission. May need spironolactone to help if weight increasing. Monitor lab. Time spent with patient care 35 minutes. - Time spent with patient Time with patient PN: 35 minutes Hospital Course Summary Disclaimer: The visit summary below is not to be considered part of the above Progress Note.
--- NOTE | 2017-03-11 17:53 | Operative Note ---
DATE OF SURGERY 03/11/2017 PREOPERATIVE DIAGNOSIS Right ankle superficial surgical site infection with hardware failure of right ankle ORIF. SURGEON Ann-Marie Garcia MD ANESTHESIA General. COMPLICATIONS None. PROCEDURE I&D of right ankle lateral surgical site with revision ORIF right ankle. Application of incisional wound VAC. COMPLICATIONS None. TOURNIQUET TIME Please see anesthetic records. EBL Please see anesthetic records. DESCRIPTION OF PROCEDURE Mr. Dyson and his right ankle were identified and marked in the preoperative holding area. He was brought back to the operating suite and placed supine on the operating table. He was placed under general anesthesia. A tourniquet was placed on the right thigh. A bump was placed under the right buttock. The right lower extremity was then prepped and draped in my normal sterile fashion. Time-out was performed. The patient was receiving antibiotics scheduled. I began by removing his sutures, both at the lateral incision and the medial incision. The medical incision looked well healed. The lateral incision had erythema present around it. There was a 2-cm section which was not healed. After all sutures were removed I reprepped the entire surgical field with ChloraPrep. I then reopened the lateral incision, first bluntly with scissors and then I finished it with scissors. The wound was then thoroughly irrigated with normal saline. There were no deep signs of infection. Fluoroscopic images confirmed that there was widening of the medial clear space. One of the syndesmotic screws was back out approximately 1 cm. I went ahead and removed this screw I removed the second syndesmotic screw. The second screw did have a decent bite. I manually was able to reduce the tib-fib clear space and I redrilled using a different trajectory, aiming more anteromedially, again through the plate. The first screw was placed approximately 1 cm above the plafond. I initially placed a 50-mm screw - it achieved a good bite but I felt it went through the original screw hole. I then drilled through the more proximal screw hole again in a more anteriorly directed trajectory than the previous syndesmotic screw. This one measured 60 and it achieved an excellent bite. I then went back to replace the previously 50 and this time with a 60 it achieved an excellent bite. With this, it did help bring down the tib-fib clear space and also helped the medial clear space with range of motion although he still was wider than he had been before he began weightbearing on it so I did open up the medial incision. With this, the previous bone anchor appeared to be intact. The knot from the previous repair which was done with FiberWire still appeared to be intact but there was some slack in the deltoid tendon. Again, with a #2 FiberWire I once again repaired the deltoid ligament back to periosteum and also through a bone of the medial malleolus. This repair seemed to hold tight and now his medial clear space was nice and maintained with external rotation stress. Both wounds again were thoroughly irrigated with both normal saline and IrriSept solution. I then proceeded to close both incisions with 3-0 and 2-0 nylon using a horizontal mattress suture. The lateral incision was fairly tight and complete closure was difficult in the superior aspect of the incision, leaving approximately 0.5 mm to 1 mm gap. For this reason and because of the previous superficial surgical site infection, I placed an incisional wound VAC. Black foam was placed over the incision and this was covered with clear plastic. It was hooked to suction and achieved a very good seal. The leg was then cleaned with hydrogen peroxide and a posterior slab and sugar-tong type splint was placed. It was well padded. Once it had cured the drapes were removed. The tourniquet was used for short period during the medial incision dissection but not used throughout the rest of the case. He was allowed to awaken from general anesthesia and taken to the recovery room under the care of Anesthesia. The patient tolerated the procedure well. There were no complications. LUIS DANIEL
[2017-03-11] MEDS: HYDROMORPHONE 2 MG/ML INJECTION IVP PRN ×2 (18:13→21:36)
[2017-03-11] MEDS: MIRTAZAPINE 15 MG TABLET PO SCH (21:33)
[2017-03-11] MEDS: PROPRANOLOL 10 MG TABLET PO SCH (21:33)
[2017-03-11] MEDS: PAROXETINE 20 MG TABLET PO SCH (21:34)
[2017-03-11] MEDS: GABAPENTIN 300 MG CAPSULE PO SCH (21:34)
[2017-03-12] MEDS: HYDROMORPHONE 2 MG/ML INJECTION IVP PRN ×2 (00:43→03:41)
[2017-03-12] MEDS: NS FLUSH BAG 500ml IV PRN (02:54)
[2017-03-12] MEDS: Oxycodone *IR* 5 MG TABLET PO PRN ×7 (04:37→23:40)
[2017-03-12] MEDS: PANTOPRAZOLE 20 MG TABLET PO SCH (05:54)
[2017-03-12] MEDS: ASPIRIN 81 MG CHEWABLE TABLET PO SCH ×2 (09:12→20:38)
[2017-03-12] MEDS: FOLIC ACID 1 MG TABLET PO SCH (09:13)
[2017-03-12] MEDS: PROPRANOLOL 10 MG TABLET PO SCH ×3 (09:13→20:38)
[2017-03-12] MEDS: MULTI-VITAMIN + MINERAL TABLET PO SCH (09:13)
[2017-03-12] MEDS: GABAPENTIN 300 MG CAPSULE PO SCH ×3 (09:13→20:38)
[2017-03-12] MEDS: BUSPIRONE 15 MG TABLET PO SCH ×3 (09:13→20:38)
--- NOTE | 2017-03-12 09:47 | Orthopedic Progress Note ---
Date: Subjective/Severity of Illness: Mr. Dyson appears controlled this morning. According to nursing he has been compliant with nonweightbearing. He does want to go home today but I reminded him that we spoke yesterday that he would need to be here until at least Tuesday , like and have the wound VAC on for at least 2 days before reevaluating his lateral incision. After explaining this to him he understood but hopes to be discharged tomorrow. Orthopedic Objective Vital signs: Temperature 96.4 F L 03/12/17 07:09 Pulse Rate 86 03/12/17 07:09 Respiratory Rate 16 03/12/17 07:09 Blood Pressure 149/74 H 03/12/17 07:09 Pulse Oximetry 96 03/12/17 07:09 Height and Weight: Height 5 ft 11 in Weight 94.4 kg Body Mass Index 28.6 - Constitutional General Appearance: Present: alert, cooperative, no acute distress - Respiratory Exam Present: non-labored - Cardiovascular Exam Capillary Refill: < 2-3 Seconds - Extremities Exam Comments: Right lower extremity splint in good condition without signs of breakdown. Exposed toes are warm and pink with good cap refill. - Lymphatic Lymphatic: Absent: adenopathy - Neurological Exam Present: intact to light touch - Labs Result Diagrams: 03/12/17 04:10 03/12/17 04:10 Abnormal lab results 03/12/17 03/12/17 Range/Units 04:10 04:10 RBC 3.72 L (4.50-5.90) M/MM3 Hgb 10.3 L (13.5-17.5) GM/DL Hct 33.0 L (41-53) % RDW Std Deviation 54.5 H (36.9-50.2) FL Plt Count 87 L (130-400) T/MM3 Neut % (Auto) 79.8 H (33-66) % Lymph % (Auto) 11.2 L (23-45) % Lymph # (Auto) 0.9 L (1-4.8) T/MM3 Creatinine 0.7 L (0.8-1.5) MG/DL Glucose 168 H (75-110) MG/DL AST 60 H (17-59) U/L Alkaline Phosphatase 131 H (38-126) U/L Globulin 4.3 H (2.4-3.6) G/DL Albumin/Globulin Ratio 0.8 L (1.1-2.2) RATIO H & H 03/07/17 03/09/17 03/10/17 Range/Units 12:58 04:27 04:14 Hgb 12.0 L 10.3 L D 10.7 L (13.5-17.5) GM/DL Hct 36.5 L 33.4 L 33.6 L (41-53) % 03/12/17 Range/Units 04:10 Hgb 10.3 L (13.5-17.5) GM/DL Hct 33.0 L (41-53) % Coagulation 03/07/17 Range/Units 14:37 INR 1.54 H (0.99-1.21) Orthopedic Assessment and Plan (1) Closed right ankle fracture Status: Acute Qualifiers: Encounter type: subsequent encounter Assessment and Plan: Overall he is doing well. I like to reassess his lateral incision tomorrow. If there is no remaining erythema and no drainage he can be discharged home without the wound VAC on oral antibiotics. If there is concern with the incision I would reapply the wound VAC and plan for home wound VAC. We will recheck CRP tomorrow morning. I asked him to try not to take IV pain medication today in anticipation of discharge tomorrow. Hospital Course Summary Disclaimer: The visit summary below is not to be considered part of the above Progress Note. Hospital Course: 03/07/17 IMPRESSION Superficial surgical wound infection to right ankle Right ankle fracture/dislocation s/p reduction & ORIF - last procedure on Chronic Liver disease (cirrhosis, Hep C) with failure, history of hepatic encephalopathy Possible hepatocellular carcinoma COPD with hx of bronchitis HTN Alcoholism Anemia & thrombocytopenia Depression/anxiety 03/07/17 - hospitalist consult 1. Superficial wound infection: Right ankle fracture s/p reduction & ORIF; last procedure on 02/24/17 -Vancomycin per attending -WBC normal; CRP elevated at 24.6; ESR pending; check procalcitonin, lactate, and blood cultures -No SIRS criteria; no evidence of sepsis on admission -Splint removed by ortho and a cast was applied on 03/07/17 -plan to take it off on Tuesday to re-eval the wound; if worse at that time will expand antibiotics and consider consulting ID -NWB. 2. Cirrhosis with liver mass; hx hepatic encephalopathy -Follows with Dr. NICOLAS Barton in [place] -Check INR and ammonia level -Didn't care for lactulose during previous hospitalization -Patient reportedly with enlarged spleen, portal hypertension and esophageal varices -Metoprolol 25 mg PO BID started during last hospitalization - pt never received Rx b/c he left AMA 3. Alcoholism -check EtOH level -Reportedly last drink was on 03/01/17, CIWA ordered. -start daily multivitamins, folic acid and thiamine. -Will have Ativan available PRN. 4. COPD -Nicotine patch provided -Resp therapy-DuoNeb PRN 5. DVT/GI prophylaxis -No anticoagulation because of his coagulopathy with liver disease and esophageal varices -PPI: Protonix daily 6. Anemia & thrombocytopenia -Both are stable. Hemoccult negative during previous hospitalization Orthopedics is managing antibiotics. Planning for vancomycin IV then rechecking wound later this week. Await sedimentation rate and pro-calcitonin. Consider restarting metoprolol for portal hypertension, esophageal varices. 03/09/17 Antibiotics per orthopedics. Orthopedics plans to potentially take him back to OR tomorrow or Tue. Hesitant to increase pain meds in the event the roxanol is contributing to his "dozing off" episodes. 03/10/[address] Garcia. Superficial infection improving. Plans to return to OR tomorrow. He is on ASA BID for VTE PPX. 03/11/17 D/W Dr. Garcia - sx went well; placed a wound vac on the lateral aspect of his ankle. He plans on re-eval this over the weekend. Continue vanco. Pain is an issue - will increase gabapentin to TID. He's been on oxycodone 15 mg every 3-6 hours; received a PRN dose of Dilaudid today as well. Outside the risk of EtOH withdrawal sz/symptoms - DC sz precautions and serax.
--- NOTE | 2017-03-12 12:37 | Progress Note ---
- Date 03/12/17 Subjective: F/U: Superficial surgical wound infection to right ankle, Right ankle fracture/ dislocation s/p reduction & ORIF, Chronic Liver disease (cirrhosis, Hep C) with failure, history of hepatic encephalopathy Doing okay today-still having pain, but controllable. Mentation clear. Eating well-no nausea or ab pain. Stools slightly slow. Breathing stable. Not having chest pain. Not f/c. Objective Vital signs: Temperature 96.3 F L 03/12/17 11:54 Pulse Rate 74 03/12/17 11:54 Respiratory Rate 16 03/12/17 11:54 Blood Pressure 123/67 03/12/17 11:54 Pulse Oximetry 95 03/12/17 11:54 Height/Weight/BMI: Height 1.8 m Weight 94.4 kg Body Mass Index 28.6 - Constitutional Present: well nourished, well developed, average body habitus, cooperative - Routine HEENT Exam Head: Present: normocephalic, atraumatic Eye: Present: EOMI, PERRL ENT: Present: mucous membranes moist - Routine Respiratory Exam Present: decreased breath sounds, diminished air movement. Absent: respiratory distress, wheezes, crackles - Routine Cardiovascular Exam Present: RRR, no murmur - Routine Abdominal Exam Present: soft, normoactive bowel sounds, non tender. Absent: guarding - Routine Extremities Exam Present: no edema, pulses intact. Absent: cyanosis, clubbing - Routine Skin Exam Present: dry, warm - Routine Neurological Exam Present: alert, CN II-XII intact, moving all extremities, vision grossly intact , hearing grossly intact, normal speech. Absent: motor deficit, altered mental status - Routine Psychiatric Exam Present: normal affect, cooperative. Absent: anxious, agitated Results - Labs CBC & Chem 7: 03/12/17 04:10 03/12/17 04:10 Microbiology Results: Microbiology 03/07/17 14:44 Peripheral/Iv Start Blood Culture - Preliminary No Growth After 4 Days 03/07/17 14:37 Peripheral/Iv Start Blood Culture - Preliminary No Growth After 4 Days Assessment and Plan (1) Closed right ankle fracture Current visit: No Status: Acute Assessment and Plan: IMPRESSION Superficial surgical wound infection to right ankle Right ankle fracture/dislocation s/p reduction & ORIF - last procedure on Chronic Liver disease (cirrhosis, Hep C) with failure, history of hepatic encephalopathy Possible hepatocellular carcinoma COPD with hx of bronchitis HTN Alcoholism Anemia & thrombocytopenia-stable. Hemoccult was negative during previous hospitalization Depression/anxiety Coagulopathy with INR of 1.53 likely secondary to his chronic liver disease Splenomegaly Esophageal varices History of encephalopathy with previous hospitalization likely multifactorial- currently not confused Plan Tolerating propranolol - will help decrease portal veinous pressure. Continue increased Neurontin to help pain. Dr Garcia recommending continuing wound vac and reassessing tomorrow - patient hopeful for discharge tomorrow. Medically stable, will continue with supportive treatments. Case discussed with CM. Time spent with patient care 25 minutes. DVT Prophylaxis: other (ASA 81mg BID) Resuscitation Status: Full Code - Time spent with patient Time with patient PN: 25 minutes Hospital Course Summary Disclaimer: The visit summary below is not to be considered part of the above Progress Note. Hospital Course: 03/07/17 IMPRESSION Superficial surgical wound infection to right ankle Right ankle fracture/dislocation s/p reduction & ORIF - last procedure on Chronic Liver disease (cirrhosis, Hep C) with failure, history of hepatic encephalopathy Possible hepatocellular carcinoma COPD with hx of bronchitis HTN Alcoholism Anemia & thrombocytopenia Depression/anxiety 03/07/17 - Hospitalist consult 1. Superficial wound infection: Right ankle fracture s/p reduction & ORIF; last procedure on 02/24/17 -Vancomycin per attending -WBC normal; CRP elevated at 24.6; ESR pending; check procalcitonin, lactate , and blood cultures -No SIRS criteria; no evidence of sepsis on admission -Splint removed by ortho and a cast was applied on 03/07/17 -plan to take it off on Tuesday to re-eval the wound; if worse at that time will expand antibiotics and consider consulting ID -NWB. 2. Cirrhosis with liver mass; hx hepatic encephalopathy -Follows with Dr. NICOLAS Barton in [place] -Check INR and ammonia level -Didn't care for lactulose during previous hospitalization -Patient reportedly with enlarged spleen, portal hypertension and esophageal varices -Metoprolol 25 mg PO BID started during last hospitalization - pt never received Rx b/c he left AMA 3. Alcoholism -check EtOH level -Reportedly last drink was on 03/01/17, CIWA ordered. -start daily multivitamins, folic acid and thiamine. -Will have Ativan available PRN. 4. COPD -Nicotine patch provided -Resp therapy-DuoNeb PRN 5. DVT/GI prophylaxis -No anticoagulation because of his coagulopathy with liver disease and esophageal varices -PPI: Protonix daily 6. Anemia & thrombocytopenia -Both are stable. Hemoccult negative during previous hospitalization Orthopedics is managing antibiotics. Planning for vancomycin IV then rechecking wound later this week. Await sedimentation rate and pro-calcitonin. Consider restarting metoprolol for portal hypertension, esophageal varices. 03/09/17 Antibiotics per orthopedics. Orthopedics plans to potentially take him back to OR tomorrow or Tue. Hesitant to increase pain meds in the event the roxanol is contributing to his "dozing off" episodes. 03/10/[address] Garcia. Superficial infection improving. Plans to return to OR tomorrow. He is on ASA BID for VTE PPX. 03/11/17 D/W Dr. Garcia - sx went well; placed a wound vac on the lateral aspect of his ankle. He plans on re-eval this over the weekend. Continue vanco. Pain is an issue - will increase gabapentin to TID. He's been on oxycodone 15 mg every 3-6 hours; received a PRN dose of Dilaudid today as well. Outside the risk of EtOH withdrawal sz/symptoms - DC sz precautions and serax. Start Propranolol 10mg TID due to cirrhosis, portal hypertension, and cirrhosis. 03/12/17 Tolerating propranolol - will help decrease portal veinous pressure. Continue increased Neurontin to help pain. Dr Garcia recommending continuing wound vac and reassessing tomorrow - patient hopeful for discharge tomorrow. Medically stable, will continue with supportive treatments.
[2017-03-12] MEDS ORDERED: SALINE FLUSH 10ml SYRINGE IV PRN (14:30)
[2017-03-12] MEDS: MIRTAZAPINE 15 MG TABLET PO SCH (20:38)
[2017-03-12] MEDS: PAROXETINE 20 MG TABLET PO SCH (20:38)
[2017-03-13] MEDS: NS FLUSH BAG 500ml IV PRN (02:08)
[2017-03-13] MEDS: Oxycodone *IR* 5 MG TABLET PO PRN ×3 (02:59→09:18)
[2017-03-13 04:33] VITALS: RESP 16
[2017-03-13] MEDS: PANTOPRAZOLE 20 MG TABLET PO SCH (06:06)
[2017-03-13 08:10] VITALS: BP 126/78; PULSE 68; TEMP 96.2; O2SAT 96
--- NOTE | 2017-03-13 08:38 | Progress Note ---
<Edelmira Manning - Last Filed: 03/13/17 08:34> - Date 03/13/17 Subjective: F/U: Superficial surgical wound infection to right ankle, right ankle fracture/ dislocation s/p reduction & ORIF, Chronic Liver disease (cirrhosis, Hep C) with failure, history of hepatic encephalopathy Mr. Dyson is seen today while resting in bed, watching TV. He is in good spirits and is eager for discharge home to his "[facility]" hopefully today. He states that his pain is controlled and currently rates it at 7/10, which he states is tolerable. His appetite is good and his bowels are moving, though he admits to some constipation. Discussed importance of stool softeners with use of opioid medications. He denies any other complaints or concerns including no chest pain, shortness of breath, abdominal pain, nausea, vomiting or dysuria. Mentation is clear without confusion. Admits to occasional lightheadedness when getting up quickly and verbalizes importance of getting up slowly unprompted. No new labs today. Objective Vital signs: Temperature 96.2 F L 03/13/17 08:00 Pulse Rate 68 03/13/17 08:00 Respiratory Rate 16 03/13/17 08:00 Blood Pressure 126/78 03/13/17 08:00 Pulse Oximetry 96 03/13/17 08:00 Height/Weight/BMI: Height 5 ft 11 in Weight 214 lb 15.211 oz Body Mass Index 28.6 Comments: Resting in bed, watching TV with his right ankle elevated; splint clean, dry and intact with wound vac actively draining. - Constitutional Present: no acute distress, well nourished, well developed, cooperative - Routine HEENT Exam Head: Present: normocephalic, atraumatic Eye: Present: PERRL. Absent: conjunctival icterus ENT: Present: mucous membranes moist - Routine Respiratory Exam Present: CTA bilaterally. Absent: rhonchi, stridor, wheezes, crackles - Routine Cardiovascular Exam Present: RRR, S1, S2 - Routine Abdominal Exam Present: soft, normoactive bowel sounds, non distended, non tender. Absent: rebound, guarding - Routine Extremities Exam Present: no edema, pulses intact Comments: right ankle elevated; splint clean, dry and intact; brisk cap refill to toes bilaterally. - Routine Back/Spine/Pelvis Exam Back/Spine: Present: full ROM. Absent: vertebral tenderness - Routine Musculoskeletal Exam Musculoskeletal: Present: no clubbing or cyanosis, moving extremities well, limited range of motion (right leg/foot/ankle secondary to splint) - Routine Skin Exam Present: intact, dry, warm. Absent: jaundice Comments: afebrile. - Routine Neurological Exam Present: alert, oriented X3, moving all extremities, normal speech. Absent: facial asymmetry - Routine Lymphatic Exam Lymphatic: Absent: lymphedema - Routine Psychiatric Exam Present: normal affect, cooperative, good insight, good judgment Comments: joking on exam. Results - Labs CBC & Chem 7: 03/12/17 04:10 03/12/17 04:10 Microbiology Results: Microbiology 03/07/17 14:44 Peripheral/Iv Start Blood Culture - Final No Growth After 5 Days 03/07/17 14:37 Peripheral/Iv Start Blood Culture - Final No Growth After 5 Days Assessment and Plan (1) Closed right ankle fracture Current visit: No Status: Acute Assessment and Plan: IMPRESSION Superficial surgical wound infection to right ankle Right ankle fracture/dislocation s/p reduction & ORIF - last procedure on Chronic Liver disease (cirrhosis, Hep C) with failure, history of hepatic encephalopathy Possible hepatocellular carcinoma COPD with hx of bronchitis HTN Alcoholism Anemia & thrombocytopenia-stable. Hemoccult was negative during previous hospitalization Depression/anxiety Coagulopathy with INR of 1.53 likely secondary to his chronic liver disease Splenomegaly Esophageal varices History of encephalopathy with previous hospitalization likely multifactorial- currently not confused Plan - 03/13/17 (Mirakian) Overall, Tim appears to be doing well and is eager for anticipated discharge home today. Awaiting Dr. Núñez evaluation. Tolerating propranolol - will help decrease portal veinous pressure. Admits to mild lightheadedness when standing quickly. Reviewed safety precautions. Patient reports pain is controlled at 10. Continue Neurontin 300mg TID in addition to Roxicodone. May consider increasing Neurontin prior to discharge for additional pain control. Continue wound vac per Dr. Garcia. Continue NWBA. Continue with supportive treatments. Time spent with patient care 35 minutes. DVT Prophylaxis: SCD's GI Prophylaxis: Protonix Resuscitation Status: Full Code - Time spent with patient Time with patient PN: 35 minutes Hospital Course Summary Disclaimer: The visit summary below is not to be considered part of the above Progress Note. Hospital Course: 03/07/17 IMPRESSION Superficial surgical wound infection to right ankle Right ankle fracture/dislocation s/p reduction & ORIF - last procedure on Chronic Liver disease (cirrhosis, Hep C) with failure, history of hepatic encephalopathy Possible hepatocellular carcinoma COPD with hx of bronchitis HTN Alcoholism Anemia & thrombocytopenia Depression/anxiety 03/07/17 - Hospitalist consult 1. Superficial wound infection: Right ankle fracture s/p reduction & ORIF; last procedure on 02/24/17 -Vancomycin per attending -WBC normal; CRP elevated at 24.6; ESR pending; check procalcitonin, lactate , and blood cultures -No SIRS criteria; no evidence of sepsis on admission -Splint removed by ortho and a cast was applied on 03/07/17 -plan to take it off on Tuesday to re-eval the wound; if worse at that time will expand antibiotics and consider consulting ID -NWB. 2. Cirrhosis with liver mass; hx hepatic encephalopathy -Follows with Dr. NICOLAS Barton in [place] -Check INR and ammonia level -Didn't care for lactulose during previous hospitalization -Patient reportedly with enlarged spleen, portal hypertension and esophageal varices -Metoprolol 25 mg PO BID started during last hospitalization - pt never received Rx b/c he left AMA 3. Alcoholism -check EtOH level -Reportedly last drink was on 03/01/17, CIWA ordered. -start daily multivitamins, folic acid and thiamine. -Will have Ativan available PRN. 4. COPD -Nicotine patch provided -Resp therapy-DuoNeb PRN 5. DVT/GI prophylaxis -No anticoagulation because of his coagulopathy with liver disease and esophageal varices -PPI: Protonix daily 6. Anemia & thrombocytopenia -Both are stable. Hemoccult negative during previous hospitalization Orthopedics is managing antibiotics. Planning for vancomycin IV then rechecking wound later this week. Await sedimentation rate and pro-calcitonin. Consider restarting metoprolol for portal hypertension, esophageal varices. 03/09/17 Antibiotics per orthopedics. Orthopedics plans to potentially take him back to OR tomorrow or Tue. Hesitant to increase pain meds in the event the roxanol is contributing to his "dozing off" episodes. 03/10/[address] Garcia. Superficial infection improving. Plans to return to OR tomorrow. He is on ASA BID for VTE PPX. 03/11/17 D/W Dr. Garcia - sx went well; placed a wound vac on the lateral aspect of his ankle. He plans on re-eval this over the weekend. Continue vanco. Pain is an issue - will increase gabapentin to TID. He's been on oxycodone 15 mg every 3-6 hours; received a PRN dose of Dilaudid today as well. Outside the risk of EtOH withdrawal sz/symptoms - DC sz precautions and serax. Start Propranolol 10mg TID due to cirrhosis, portal hypertension, and cirrhosis. 03/12/17 Tolerating propranolol - will help decrease portal veinous pressure. Continue increased Neurontin to help pain. Dr Garcia recommending continuing wound vac and reassessing tomorrow - patient hopeful for discharge tomorrow. Medically stable, will continue with supportive treatments. Plan - 03/13/17 (Mirakian) Overall, Tim appears to be doing well and is eager for anticipated discharge home today. Awaiting Dr. Núñez evaluation. Tolerating propranolol - will help decrease portal veinous pressure. Admits to mild lightheadedness when standing quickly. Reviewed safety precautions. Patient reports pain is controlled at 10/18. Continue Neurontin 300mg TID in addition to Roxicodone. May consider increasing Neurontin prior to discharge for additional pain control. Continue wound vac per Dr. Garcia. Continue NWBA. Continue with supportive treatments. Time spent with patient care 35 minutes. <Dannie Chu D - Last Filed: 03/13/17 11:12> - Date 03/13/17 Objective Vital signs: Temperature 96.2 F L 03/13/17 08:00 Pulse Rate 68 03/13/17 08:00 Respiratory Rate 16 03/13/17 08:00 Blood Pressure 126/78 03/13/17 08:00 Pulse Oximetry 96 03/13/17 08:00 Height/Weight/BMI: Height 1.8 m Weight 97.5 kg Body Mass Index 28.6 Results - Labs CBC & Chem 7: 03/12/17 04:10 03/12/17 04:10 Microbiology Results: Microbiology 03/07/17 14:44 Peripheral/Iv Start Blood Culture - Final No Growth After 5 Days 03/07/17 14:37 Peripheral/Iv Start Blood Culture - Final No Growth After 5 Days Assessment and Plan (1) Closed right ankle fracture Current visit: No Status: Acute Assessment and Plan: IMPRESSION Superficial surgical wound infection to right ankle Right ankle fracture/dislocation s/p reduction & ORIF - last procedure on Chronic Liver disease (cirrhosis, Hep C) with failure, history of hepatic encephalopathy Possible hepatocellular carcinoma COPD with hx of bronchitis HTN Alcoholism Anemia & thrombocytopenia-stable. Hemoccult was negative during previous hospitalization Depression/anxiety Coagulopathy with INR of 1.53 likely secondary to his chronic liver disease Splenomegaly Esophageal varices History of encephalopathy with previous hospitalization likely multifactorial- currently not confused Have independently interviewed and examined pt. Chart reviewed. Case discussed with [place] and my PA. Above care plan developed with my supervision; agree with above. Doing well today. Cast replaced by ortho. Pain manageable. Eating well. Breathing well. HR and BP stable with propranolol. Lungs: decreased, no distress CV: regular AB: soft nt/nd MSE: awake alert appropriate Plan: Medically stable for discharge to home. Continue propranolol and increased Neurontin. Encouraged activity limitations as per ortho. Hospital Course Summary Disclaimer: The visit summary below is not to be considered part of the above Progress Note.
[2017-03-13] MEDS: FOLIC ACID 1 MG TABLET PO SCH (09:16)
[2017-03-13] MEDS: MULTI-VITAMIN + MINERAL TABLET PO SCH (09:17)
[2017-03-13] MEDS: GABAPENTIN 300 MG CAPSULE PO SCH (09:17)
[2017-03-13] MEDS: ASPIRIN 81 MG CHEWABLE TABLET PO SCH (09:17)
[2017-03-13] MEDS: BUSPIRONE 15 MG TABLET PO SCH (09:17)
[2017-03-13] MEDS: PROPRANOLOL 10 MG TABLET PO SCH (09:18)
--- NOTE | 2017-03-13 11:10 | Orthopedic Progress Note ---
Date: Subjective/Severity of Illness: Mr Dyson is doing well. He is in good spirits and very pleasant. Continues to C/O of ankle pain but it has been stable. No CP or breathing complaints. He is very aware of needing to keep pressure off his foot. Orthopedic Objective PO Vital signs: Temperature 96.2 F L 03/13/17 08:00 Pulse Rate 68 03/13/17 08:00 Respiratory Rate 16 03/13/17 08:00 Blood Pressure 126/78 03/13/17 08:00 Pulse Oximetry 96 03/13/17 08:00 Height and Weight: Height 5 ft 11 in Weight 214 lb 15.211 oz Body Mass Index 28.6 - Constitutional General Appearance: Present: alert, cooperative, no acute distress - Respiratory Exam Present: non-labored - Extremities Exam Extremities: Present: pulses intact, normal capillary refill. Absent: calf tenderness - Surgical Site Incision: sutures present, other (Wound markedly improved from his admission status. Min swellling in the ankle.) - Integumentary Exam Present: other (Surgical incision intact with sutures in place. ) - Neurological Exam Present: no deficits - Psychiatric Exam Present: alert - Labs Result Diagrams: 03/12/17 04:10 03/12/17 04:10 H & H 03/07/17 03/09/17 03/10/17 Range/Units 12:58 04:27 04:14 Hgb 12.0 L 10.3 L D 10.7 L (13.5-17.5) GM/DL Hct 36.5 L 33.4 L 33.6 L (41-53) % 03/12/17 Range/Units 04:10 Hgb 10.3 L (13.5-17.5) GM/DL Hct 33.0 L (41-53) % Coagulation 03/07/17 Range/Units 14:37 INR 1.54 H (0.99-1.21) Orthopedic Assessment and Plan (1) Closed right ankle fracture Status: Acute Qualifiers: Encounter type: subsequent encounter Assessment and Plan: Overall he is doing well. Incision shows much less erythema. CRP went from 12.3 on admission to 14.9 today, but he had surgery between these lab draws. Wound vac removed today and will leave it off. New short leg, non-wt bearing cast applied with fresh dressings. Discharge home on Keflex QID. Discussed elevation and strict non wt bearing status. Cont Oxycodone for pain management. Gabapentin dose increased for added pain control. Inderal ordered by hospitalist for portal hypertension. He will continue this. Cont multi vitamin as well. ASA for DVT coverage. Plan f/u on Tuesday in ortho clinic. Hospital Course Summary Disclaimer: The visit summary below is not to be considered part of the above Progress Note. Hospital Course: 03/07/17 IMPRESSION Superficial surgical wound infection to right ankle Right ankle fracture/dislocation s/p reduction & ORIF - last procedure on Chronic Liver disease (cirrhosis, Hep C) with failure, history of hepatic encephalopathy Possible hepatocellular carcinoma COPD with hx of bronchitis HTN Alcoholism Anemia & thrombocytopenia Depression/anxiety 03/07/17 - Hospitalist consult 1. Superficial wound infection: Right ankle fracture s/p reduction & ORIF; last procedure on 02/24/17 -Vancomycin per attending -WBC normal; CRP elevated at 24.6; ESR pending; check procalcitonin, lactate , and blood cultures -No SIRS criteria; no evidence of sepsis on admission -Splint removed by ortho and a cast was applied on 03/07/17 -plan to take it off on Tuesday to re-eval the wound; if worse at that time will expand antibiotics and consider consulting ID -NWB. 2. Cirrhosis with liver mass; hx hepatic encephalopathy -Follows with Dr. NICOLAS Barton in [place] -Check INR and ammonia level -Didn't care for lactulose during previous hospitalization -Patient reportedly with enlarged spleen, portal hypertension and esophageal varices -Metoprolol 25 mg PO BID started during last hospitalization - pt never received Rx b/c he left AMA 3. Alcoholism -check EtOH level -Reportedly last drink was on 03/01/17, CIWA ordered. -start daily multivitamins, folic acid and thiamine. -Will have Ativan available PRN. 4. COPD -Nicotine patch provided -Resp therapy-DuoNeb PRN 5. DVT/GI prophylaxis -No anticoagulation because of his coagulopathy with liver disease and esophageal varices -PPI: Protonix daily 6. Anemia & thrombocytopenia -Both are stable. Hemoccult negative during previous hospitalization Orthopedics is managing antibiotics. Planning for vancomycin IV then rechecking wound later this week. Await sedimentation rate and pro-calcitonin. Consider restarting metoprolol for portal hypertension, esophageal varices. 03/09/17 Antibiotics per orthopedics. Orthopedics plans to potentially take him back to OR tomorrow or Tue. Hesitant to increase pain meds in the event the roxanol is contributing to his "dozing off" episodes. 03/10/[address] Garcia. Superficial infection improving. Plans to return to OR tomorrow. He is on ASA BID for VTE PPX. 03/11/17 D/W Dr. Garcia - sx went well; placed a wound vac on the lateral aspect of his ankle. He plans on re-eval this over the weekend. Continue vanco. Pain is an issue - will increase gabapentin to TID. He's been on oxycodone 15 mg every 3-6 hours; received a PRN dose of Dilaudid today as well. Outside the risk of EtOH withdrawal sz/symptoms - DC sz precautions and serax. Start Propranolol 10mg TID due to cirrhosis, portal hypertension, and cirrhosis. 03/12/17 Tolerating propranolol - will help decrease portal veinous pressure. Continue increased Neurontin to help pain. Dr Garcia recommending continuing wound vac and reassessing tomorrow - patient hopeful for discharge tomorrow. Medically stable, will continue with supportive treatments. Plan - 03/13/17 (Mir[place]ian) Overall, Tim appears to be doing well and is eager for anticipated discharge home today. Awaiting Dr. Núñez evaluation. Tolerating propranolol - will help decrease portal veinous pressure. Admits to mild lightheadedness when standing quickly. Reviewed safety precautions. Patient reports pain is controlled at 7/10. Continue Neurontin 300mg TID in addition to Roxicodone. May consider increasing Neurontin prior to discharge for additional pain control. Continue wound vac per Dr. Garcia. Continue NWBA. Continue with supportive treatments. Time spent with patient care 35 minutes.
--- NOTE | 2017-03-13 11:15 | Discharge Summary ---
Orthopedic Discharge Info Date of admission: 03/07/17 12:30 Attending Physician: Cristofer Garcia MD Consults: 03/07/17 12:46 Physician Consult [CONS] Routine Consulting Provider: Mechelle Ramirez Reason For Exam: Infected ankle. Assist with medical mgmt. Ordering Provider has Notified Station Supervisor: No - Discharge Diagnosis (1) Closed right ankle fracture Qualifiers: Encounter type: subsequent encounter Status: Acute - Procedures Procedures: I&D right ankle with revision ORIF and placement of wound vac 01/05/16. - Laboratory Result Diagrams: 03/12/17 04:10 03/12/17 04:10 Laboratory: H & H 03/07/17 03/09/17 03/10/17 Range/Units 12:58 04:27 04:14 Hgb 12.0 L 10.3 L D 10.7 L (13.5-17.5) GM/DL Hct 36.5 L 33.4 L 33.6 L (41-53) % 03/12/17 Range/Units 04:10 Hgb 10.3 L (13.5-17.5) GM/DL Hct 33.0 L (41-53) % Coagulation 03/07/17 Range/Units 14:37 INR 1.54 H (0.99-1.21) - Microbiology Microbiology 03/07/17 14:44 Peripheral/Iv Start Blood Culture - Final No Growth After 5 Days 03/07/17 14:37 Peripheral/Iv Start Blood Culture - Final No Growth After 5 Days Orthopedic Discharge HPI - HPI Comments Mr. Dyson is a 51 y/o male who suffered a right ankle fx/dislocation that required surgical fixation on 02/24/17. His surgery was delayed over a week due to multiple fracture blisters around the ankle. He was hospitalized from - 02/27/17 before leaving [place] on the . He had periods of intermittent confusion due to narcotic side effects and/or hepatic encephalopathy. He required 1:1 observation while hospitalized and was not compliant in following postop instructions. He was seen in the ED on 03/02/17 for increased pain but xrays appeared stable. He presented to Dr. Garcia's clinic today and was bearing full weight on his right leg. Xrays show a slight shift in position of his fracture from the ones taken in ER over the weekend. One of the syndesmotic screws is backing out slightly. His splint was removed and it was found that he has a superficial surgical wound infection laterally. The splint was broken down on the bottom as well as dirty from walking on it. Mr Dyson reported that he was also sticking a ruler down his splint at home to scratch. Dr. Garcia again reviewed the risk of complications with Mr Dyson, including the risk of an amputation. Hospitalization was recommended to resolve the infection and hopefully prevent further surgery or amputation. We will consult PT for ambulation education and keep him strict non-wt bearing. The hospitalist service is also consulted for management of his many medical problems. Orthopedic Hospital Course Hospital course: 03/13/17 11:18 Hospital Course: 03/07/17 IMPRESSION Superficial surgical wound infection to right ankle Right ankle fracture/dislocation s/p reduction & ORIF - last procedure on Chronic Liver disease (cirrhosis, Hep C) with failure, history of hepatic encephalopathy Possible hepatocellular carcinoma COPD with hx of bronchitis HTN Alcoholism Anemia & thrombocytopenia Depression/anxiety 03/07/17 - ADMISSION 1. Superficial wound infection: Right ankle fracture s/p reduction & ORIF; last procedure on 02/24/17. -Vancomycin per attending -WBC normal; CRP elevated at 24.6; ESR pending; check procalcitonin, lactate , and blood cultures -No SIRS criteria; no evidence of sepsis on admission -Splint removed by ortho and a cast was applied on 03/07/17 -plan to take it off on Tuesday to re-eval the wound; if worse at that time will expand antibiotics and consider consulting ID -NWB. 2. Cirrhosis with liver mass; hx hepatic encephalopathy -Follows with Dr. NICOLAS Barton in [place] -Check INR and ammonia level -Didn't care for lactulose during previous hospitalization -Patient reportedly with enlarged spleen, portal hypertension and esophageal varices -Metoprolol 25 mg PO BID started during last hospitalization - pt never received Rx b/c he left AMA 3. Alcoholism -check EtOH level -Reportedly last drink was on 03/01/17, CIWA ordered. -start daily multivitamins, folic acid and thiamine. -Will have Ativan available PRN. 4. COPD -Nicotine patch provided -Resp therapy-DuoNeb PRN 5. DVT/GI prophylaxis -No anticoagulation because of his coagulopathy with liver disease and esophageal varices -PPI: Protonix daily 6. Anemia & thrombocytopenia -Both are stable. Hemoccult negative during previous hospitalization Pharmacy is managing antibiotics. Planning for vancomycin IV then rechecking wound later this week. Await sedimentation rate and pro-calcitonin. Consider restarting metoprolol for portal hypertension, esophageal varices. 03/09/17 Vancomycin IV per pharmacy. Plan to potentially take him back to OR tomorrow or Tue. Hesitant to increase pain meds in the event the roxanol is contributing to his "dozing off" episodes. 03/10/17 Continue vanco per Pharmacy. Superficial infection improving. Plans to return to OR tomorrow. He is on ASA BID for VTE PPX. 03/11/17 To surgery today. Placed a wound vac on the lateral aspect of his ankle. Plan to re-eval this over the weekend. Continue vanco IV. Pain is an issue - will increase gabapentin to TID. He's been on oxycodone 15 mg every 3-6 hours; received a PRN dose of Dilaudid today as well. Outside the risk of EtOH withdrawal sz/symptoms - DC sz precautions and serax. Start Propranolol 10mg TID due to cirrhosis, portal hypertension, and cirrhosis. 03/12/17 Tolerating propranolol - will help decrease portal veinous pressure. Continue increased Neurontin to help pain. Dr Garcia recommending continuing wound vac and reassessing tomorrow - patient hopeful for discharge tomorrow. Medically stable, will continue with supportive treatments. 03/13/17 Wound vac removed. Wound redness and swelling improved. CRP 14.9. Afebrile. Tolerating propranolol - will help decrease portal veinous pressure. Admits to mild lightheadedness when standing quickly. Reviewed safety precautions. Patient reports pain is controlled at 7/10. Continue Neurontin 300mg TID in addition to Roxicodone. May consider increasing Neurontin prior to discharge for additional pain control. New short leg, Non wt bearing cast applied. Continue NWBA. Discharge today and plan f/u in ortho clinic on Tuesday for wound check. Home on PO Keflex 500 mg QID. Discharge instructions reviewed with pt at discharge. Discharge Plan - Med Rec/Dispo Referrals/Follow Up: Cristofer Garcia MD [Physician] - 12/06/17 1:00 pm [place] Instructions: [facility] [place] Instructions, [facility] [place] Postop Instructions Prescriptions: New Oxycodone *IR* [Roxicodone *Ir*] 5 - 15 mg PO Q4H PRN #50 tab PRN Reason: Pain Gabapentin [Neurontin] 300 mg PO TID cap Propranolol [Inderal] 10 mg PO TID #90 tab Aspirin Chewable [ASA] 81 mg PO BID tab.chew Multi-Vitamin + Mineral [Therapeutic - M] 1 tab PO DAILY tab cephALEXin [Keflex] 1 cap PO QID #40 cap Continue PARoxetine HCl [Paxil] 30 mg PO HS #0 Mirtazapine 7.5 mg PO HS Buspirone [Buspar] 15 mg PO TID Discontinued Gabapentin 300 mg PO HS Oxycodone HCl 1 tab PO Q6H PRN #20 tab PRN Reason: Pain - Disposition 01 Discharged Home, Self-Care - Dismissal Complete Discharge Instructions are:: Complete
== END 2017-03-13 11:15 | disposition home or self-care (01) | DRG 857 ==
LOC: SRG 12:30
PROVIDERS: ADMIT Orthopaedic Surgery; ATTEND Orthopaedic Surgery

== ENCOUNTER 2017-03-21 10:23 | Inpatient (IN) ==
--- OUTSIDE RECORDS SUMMARY | 2017-03-21 10:39 | External Medical Summary | Clinical Summary ---
:1965 Author Organization [facility] Address [address] [place] [id number] Phone Support Name Relationship Address Phone [place] [address] Allergies Active Allergy Reactions Severity Noted Date Comments Adhesive Tape Rash Low 02/16/2012 Ketorolac Tromethamine 02/16/2012 Muscle stiffness Quetiapine Fumerate Hives, Itching 09/07/2011 Current Medications Prescription Sig. Disp. Refills Start Date End Date Status amlodipine (NORVASC) 5 Take 1 tablet (5 30 tablet 0 02/18/2012 Active MG tablet mg total) by mouth daily. asenapine maleate Place 1 tablet (5 60 tablet 0 02/18/2012 Active (SAPHRIS) 5 MG SUBL mg total) under the tongue 2 (two) times daily. pantoprazole (PROTONIX) Take 1 tablet (40 30 tablet 0 02/18/2012 Active 40 MG tablet mg total) by mouth every morning before breakfast. trazodone (DESYREL) 100 Take 1 tablet 30 tablet 0 02/18/2012 Active MG tablet (100 mg total) by mouth nightly as needed for Sleep. tramadol (ULTRAM) 50 MG Take 1 tablet (50 30 tablet 1 02/18/2012 Active tablet mg total) by mouth 4 (four) times daily as needed. Active Problems Problem Noted Date Alcohol dependence (HCC) 02/16/2012 Anxiety disorder 02/16/2012 Cough 02/16/2012 Mood disorder (HCC) 09/07/2011 Resolved Problems Problem Noted Date Resolved Date Suicidal ideation 02/16/2012 02/18/2012 Insomnia 09/08/2011 09/11/2011 Suicidal ideation 09/07/2011 09/11/2011 Immunizations Name Dates Previously Given Next Due Influenza IIV3 PFree 04/13/2011 Pneumococcal Polysaccharide (23-valent) 04/13/2011 Family History Medical History Relation Name Comments Mental illness Cousin Cancer Father Heart disease Father Mental illness Father Heart disease Paternal Grandfather Relation Name Status Comments Cousin Father Paternal Grandfather Social History Tobacco Use Types Packs/Day Years Used Date Current Every Day Smoker 1 Alcohol Use Drinks/Week oz/Week Comments Yes 0.0 Amount varies from a few drinks to many. Sex Assigned at Date Recorded Not on file Last Filed Vital Signs Vital Sign Reading Time Taken Blood Pressure 148/100 02/18/2012 5:45 AM [employer] Pulse 78 02/18/2012 5:45 AM [employer] Temperature 36.5 C (97.7 F) 02/18/2012 5:45 AM [employer] Respiratory Rate 16 02/18/2012 5:45 AM [employer] Oxygen Saturation - - Inhaled Oxygen Concentration - - Weight 77.6 kg (171 lb) 02/16/2012 1:46 AM [employer] Height 180.3 cm (5' 11") 02/16/2012 1:46 AM [employer] Body Mass Index 23.85 02/16/2012 1:46 AM [employer] Plan of Treatment Health Maintenance Due Date Last Done Comments DTaP,Tdap,and Td Vaccines (1 - Tdap) 1985 Colon Cancer Screening 2016 Influenza Vaccine (#1) 2016 04/13/2011 Results Not on filefrom Last 3 Months
--- OUTSIDE RECORDS SUMMARY | 2017-03-21 10:39 | External Medical Summary | Continuity Of Care Document ---
:1965 Author Organization [facility] Address [address] [place] [address] Phone Care Team Providers Name Role Phone HUSSEIN PRICE MD Unavailable Unavailable RAEGAN BELL DO Consulting Provider Results Lab Results Visit/Account #[id number] (November 23, 2012 3:11am - November 23, [...] Result Comments: If the patient is of -C[place] descent/extraction multiply the eGFR value by 1.212 [...] Allergies and Adverse Reactions Patient Unit Number: [id number] Agent Type Reaction Severity Status Date KETOROLAC TROMETHAMINE Drug Allergy itching/swelling/soreness Unknown Active October 07, 2010 QUETIAPINE FUMARATE Drug Allergy RASH Unknown Active October 07, 2010 ADHESIVE TAPE *RETIRED-02/24/12 Drug Adverse Reaction LEAVES TINA ON LOCATION Unknown Active October 07, 2010 Problem List Problem List Patient Unit Number: [id number] Chronic Problems: Code/Condition Comments Documented Start Date Documented Resolved Date Moderate recurrent major depression February 07, 2012 Alcohol dependence February 07, 2012 Vital Signs Vital Signs Visit/Account #[id number] (November 23, 2012 3:11am - November 23, [...] 2012 3:10am Ordered Medications Ordered Medications Visit/Account #[id number] (November 23, 2012 3:11am - November 23, 2012 7:14am) Medication Dose Route Sig/Schedule Precondition/Indication Comments/ Instructions NDC IV Medication 1000 ML IV: INTRAVEN .Q1H (Rate: 1000 MLS/HR Duration: 1 HR) Rx Order Comments: Carriers: Order placed as verified: Carriers: Dose Warnings differ from food and beverage order clerk NORMAL SALINE ( SODIUM CHLORIDE): [id number] NORMAL SALINE(SODIUM CHLORIDE) 1000 ML INJECTION IV Medication 1000 ML IV: INTRAVEN .Q1H (Rate: 1000 MLS/HR Duration: 1 HR) Rx Order Comments: Carriers: Order placed as verified: Carriers: Dose Warnings differ from food and beverage order clerk NORMAL SALINE ( SODIUM CHLORIDE): [id number] NORMAL SALINE(SODIUM CHLORIDE) 1000 ML INJECTION History Of Encounters Encounters Visit/Account #[id number] (November 23, 2012 3:11am - November 23, 2012 7:14am) No reports exist, or have been identified for inclusion with this encounter.
[2017-03-21] MEDS ORDERED: ACETAMINOPHEN 500 MG TABLET PO ONE (10:47)
[2017-03-21] MEDS ORDERED: VANCOMYCIN - PHARMACY CONSULT MC ONE (10:50)
[2017-03-21] MEDS: NS 1,000 ML IV SCH (11:03)
[2017-03-21] MEDS: Oxycodone *IR* 5 MG TABLET PO PRN ×4 (11:07→22:13)
[2017-03-21] MEDS ORDERED: HALOPERIDOL 5 MG/ML INJECTION IVP ONE (11:21)
[2017-03-21 13:34] VITALS: BMI 28.4
--- NOTE | 2017-03-21 13:42 | Pharmacy Consult-Antibiotics ---
Pharmacy Consult-Vancomycin - Laboratory Information WBC 10.7 T/MM3 (4.5-11.0) 03/21/17 11:17 BUN 11.0 MG/DL (9-20) 03/21/17 11:17 Creatinine 0.6 MG/DL (0.8-1.5) L 03/21/17 11:17 - Consult Information VANCOMYCIN CONSULT: Dx: Fractured ankle Current Renal Fx: SCr = 0.6mg/dl. Will give Vancomycin 2,000mg IV q8hrs. Will continue to monitor and adjust regimen to maintain therapeutic levels. Thank you.
--- NOTE | 2017-03-21 14:46 | Consult Note ---
Consult Information - Data of Consult Consult date: 03/21/17 Requesting Physician: Cristofer Garcia MD Primary Care Provider: Kelin Pinedo APRN Family Provider: Kelin Pinedo APRN - Consult Narrative Reason for consult: Medical mangement History of present illness: Young is well known to the hospitalist services for multiple recent admissions following open reduction and internal fixation of the right ankle. He has previously been under the care of Dr. Garcia. Today he presented to the clinic and was seen by DAVID Mondragon. Unfortunately, patient left AMA after his 1st surgical fixation of the right ankle and continue to walk on ankle despite instructions for nonweightbearing. He then underwent a 2nd ankle fixation that failed to stabilize his ankle. He was again admitted 03/07 through for postop skin infection at which time patient was on IV antibiotics along with a wound VAC. He was discharged home on Keflex, instructed to follow in outpatient setting with Dr. Garcia at the orthopedic clinic. Today he was found to have a infection on his surgical site. He was admitted directly under the orthopedic team. He was started on vancomycin for antimicrobial coverage. The hospitalist services were consulted for medical management of his existing comorbidities. [facility] Patient Stated Medical History Seizures Yes: last time 5-6 years ago. Alcohol induced. Hypertension Yes Bronchitis Yes Chronic Obstructive Pulmonary Yes Disease (COPD) Sleep Apnea Yes: unsure Cirrhosis Yes Hepatitis Yes: HEP C, history of hepatic encephalopathy. Hx Renal Disease No Other Musculoskeletal Yes: BACK SURGERY 1993 MRSA Yes: hx Other Yes: anemia Depression Yes Clinic Medical History (Last Reviewed 03/21/17 @ 11:50 by DAVID Quinn) Closed right ankle fracture (Acute Medical) Cirrhosis (Chronic Medical) With hepatic encephalopathy Alcoholism (Chronic Medical) Major depressive disorder with current active episode (Acute Medical) Alcohol use disorder (Acute Medical) Ankle fracture (Inactive Medical) Status post ORIF of fracture of ankle (Inactive Medical) Surgical History: 02/14/17: Manipulation of right ankle under anesthesia with application of splint. 02/18/17: Exam under anesthesia of right ankle with dressing changes and closed reduction and splinting of right ankle fracture. : Open reduction internal fixation of right trimalleolar equivalent ankle fracture/dislocation with repair of deltoid rupture. Orthopedic surgeries: Clavicle, Back (1993), Jaw. Liver biopsy? Family History: Both parents are . Cancer and diabetes are common in his family. - Social History Smoking status: Current every day smoker Substance use type: does not use Alcohol intake: current Housing: house Review of Systems All systems PM: 10-point ROS was reviewed, no additional remarkable complaints except - Musculoskeletal Musculoskeletal Comments: Right ankle pain Medications Home Medications Medication Instructions Recorded Confirmed Type PARoxetine HCl [Paxil] 30 mg PO HS #0 06/02/15 03/07/17 History Buspirone [Buspar] 15 mg PO TID 02/12/17 03/07/17 History Mirtazapine 7.5 mg PO HS 02/12/17 03/07/17 History Allergies Allergy/AdvReac Type Severity Reaction Status Date / Time adhesive tape Allergy Unknown RED RASH Verified 03/21/17 11:08 ketorolac Allergy Unknown Verified 03/21/17 11:08 quetiapine Allergy Unknown Verified 03/21/17 11:08 Exam Vital Signs: Temperature 98.1 F 03/21/17 10:57 Pulse Rate 72 03/21/17 10:57 Respiratory Rate 18 03/21/17 10:57 Blood Pressure 130/81 03/21/17 10:57 Pulse Oximetry 100 03/21/17 10:57 Height/Weight/BMI: Height 1.83 m Weight 95.1 kg Body Mass Index 28.4 - Constitutional Present: no acute distress, well nourished, well developed - Routine HEENT Exam Eye: Present: EOMI ENT: Present: mucous membranes moist, dentition normal - Routine Respiratory Exam Present: CTA bilaterally. Absent: wheezes - Routine Cardiovascular Exam Present: RRR, S1, S2. Absent: murmur - Routine Abdominal Exam Present: soft, normoactive bowel sounds, non distended. Absent: tenderness - Routine Extremities Exam Comments: Right ankle- Orthoglass splint intact - Routine Back/Spine/Pelvis Exam Back/Spine: Present: full ROM - Routine Skin Exam Present: intact, dry, warm - Routine Neurological Exam Present: alert, oriented X3, CN II-XII intact - Routine Psychiatric Exam Present: normal affect, cooperative Results - Labs CBC & Chem 7: 03/21/17 11:17 03/21/17 11:17 Assessment and Plan (1) Skin infection Current visit: Yes Status: Acute Assessment and Plan: Impression Right ankle infection S/P Right ankle fixation Chronic Alcohol use Depression Hepatitis C Cirrhosis COPD Hypertension Chronic tobacco dependence Plan Orthopedic care and management as per Dr. Radha Zayas with non-weight bearing status Continue with vancomycin IV for antimicrobial coverage. Normal saline at 75 ML per hour for gentle hydration Ativan as needed for agitation or withdrawal-like symptoms. Monitor for evidence of acute alcohol withdrawal. Nicotine patch, Given history of tobacco dependence Aspirin twice a day, SCDs to bilateral lower extremity for DVT prophylaxis Will discuss further orders and plan of care with attending, Dr. alegria. At time of discharge medical care will return to primary care provider at [facility] Course Summary Disclaimer: The visit summary below is not to be considered part of the above Progress Note. Hospital Course: 03/21/17 Impression Right ankle infection S/P Right ankle fixation Chronic Alcohol use Depression Hepatitis C Cirrhosis COPD Hypertension Chronic tobacco dependence Plan Orthopedic care and management as per Dr. Radha Zayas with non-weight bearing status Continue with vancomycin IV for antimicrobial coverage. Normal saline at 75 ML per hour for gentle hydration Ativan as needed for agitation or withdrawal-like symptoms. Monitor for evidence of acute alcohol withdrawal. Nicotine patch, Given history of tobacco dependence Aspirin twice a day, SCDs to bilateral lower extremity for DVT prophylaxis Will discuss further orders and plan of care with attending, Dr. laegria. At time of discharge medical care will return to primary care provider at [facility]
[2017-03-21] MEDS: BUSPIRONE 15 MG TABLET PO SCH ×2 (16:17→21:29)
[2017-03-21] MEDS: GABAPENTIN 300 MG CAPSULE PO SCH ×2 (16:17→21:28)
[2017-03-21] MEDS: NICOTINE 21 MG PATCH TD SCH (19:05)
[2017-03-21] MEDS: HYDROMORPHONE 2 MG/ML INJECTION IVP PRN (20:46)
[2017-03-21] MEDS: ASPIRIN 81 MG CHEWABLE TABLET PO SCH (21:28)
[2017-03-21] MEDS: DOCUSATE SODIUM 100 MG CAPSULE PO SCH (21:28)
[2017-03-21] MEDS: PAROXETINE 20 MG TABLET PO SCH (21:28)
[2017-03-21] MEDS: MIRTAZAPINE 15 MG TABLET PO SCH (21:28)
[2017-03-21] MEDS ORDERED: FALL RISK - PHARMACY CONSULT XX ONE (22:20)
[2017-03-22] MEDS: HYDROMORPHONE 2 MG/ML INJECTION IVP PRN ×4 (00:01→14:38)
[2017-03-22] MEDS: NS 1,000 ML IV SCH ×2 (04:50→13:40)
[2017-03-22] MEDS: NICOTINE 21 MG PATCH TD SCH (08:55)
[2017-03-22] MEDS: NICOTINE PATCH REMOVAL TD SCH (08:56)
[2017-03-22] MEDS: GABAPENTIN 300 MG CAPSULE PO SCH ×3 (08:57→22:25)
[2017-03-22] MEDS: DOCUSATE SODIUM 100 MG CAPSULE PO SCH ×2 (08:57→22:25)
[2017-03-22] MEDS: ASPIRIN 81 MG CHEWABLE TABLET PO SCH ×2 (08:57→22:25)
[2017-03-22] MEDS: BUSPIRONE 15 MG TABLET PO SCH ×3 (08:57→22:26)
[2017-03-22] MEDS: Oxycodone *IR* 5 MG TABLET PO PRN ×5 (08:57→22:51)
--- NOTE | 2017-03-22 15:25 | Progress Note ---
<Rosa M Casiano V - Last Filed: 03/22/17 15:21> - Date 03/22/17 Objective Vital signs: Temperature 98.1 F 03/22/17 07:00 Pulse Rate 82 03/22/17 07:00 Respiratory Rate 16 03/22/17 07:00 Blood Pressure 131/72 03/22/17 07:00 Pulse Oximetry 95 03/22/17 07:00 Height/Weight/BMI: Height 1.83 m Weight 95.1 kg Body Mass Index 28.4 Results - Labs CBC & Chem 7: 03/21/17 11:17 03/21/17 11:17 Assessment and Plan (1) Skin infection Current visit: Yes Status: Acute Assessment and Plan: Impression Right ankle infection S/P Right ankle fixation Chronic Alcohol use Depression Hepatitis C Cirrhosis COPD Hypertension Chronic tobacco dependence Plan Orthopedic care and management as per Dr. Radha Zayas with non-weight bearing status Continue with vancomycin IV for antimicrobial coverage. Normal saline at 75 ML per hour for gentle hydration Ativan as needed for agitation or withdrawal-like symptoms. Monitor for evidence of acute alcohol withdrawal. Nicotine patch, Given history of tobacco dependence Aspirin twice a day, SCDs to bilateral lower extremity for DVT prophylaxis Will discuss further orders and plan of care with attending, Dr. alegria. At time of discharge medical care will return to primary care provider at [facility] Course Summary Disclaimer: The visit summary below is not to be considered part of the above Progress Note. Hospital Course: 03/21/17 Impression Right ankle infection S/P Right ankle fixation Chronic Alcohol use Depression Hepatitis C Cirrhosis COPD Hypertension Chronic tobacco dependence Plan Orthopedic care and management as per Dr. Radha Zayas with non-weight bearing status Continue with vancomycin IV for antimicrobial coverage. Normal saline at 75 ML per hour for gentle hydration Ativan as needed for agitation or withdrawal-like symptoms. Monitor for evidence of acute alcohol withdrawal. Nicotine patch, Given history of tobacco dependence Aspirin twice a day, SCDs to bilateral lower extremity for DVT prophylaxis Will discuss further orders and plan of care with attending, Dr. alegria. At time of discharge medical care will return to primary care provider at [facility] <Jonh Wiley E - Last Filed: 03/22/17 16:38> - Date 03/22/17 Subjective: Patient is resting comfortably in bed. He feels that if he can get a knee scooter then he would not be walking on his foot when he gets out of this time. He is hoping that we can get him one as his insurance will not cover it. Minimal pain from the foot while he rests with that elevated in bed. Objective Vital signs: Temperature 97.3 F 03/22/17 15:00 Pulse Rate 85 03/22/17 15:00 Respiratory Rate 18 03/22/17 15:00 Blood Pressure 143/72 H 03/22/17 15:00 Pulse Oximetry 97 03/22/17 15:00 Height/Weight/BMI: Height 1.83 m Weight 95.1 kg Body Mass Index 28.4 - Constitutional Present: well nourished, well developed - Routine HEENT Exam Eye: Present: EOMI ENT: Present: mucous membranes moist - Routine Respiratory Exam Present: CTA bilaterally. Absent: wheezes - Routine Cardiovascular Exam Present: RRR, S1, S2. Absent: murmur - Routine Abdominal Exam Present: soft, normoactive bowel sounds, non distended. Absent: tenderness - Routine Extremities Exam Present: normal capillary refill Comments: Right ankle splint intact and wrapped. - Routine Skin Exam Present: dry, warm - Routine Neurological Exam Present: alert, oriented X3, CN II-XII intact - Routine Lymphatic Exam Lymphatic: Absent: adenopathy - Routine Psychiatric Exam Present: normal affect Results - Labs CBC & Chem 7: 03/21/17 11:17 03/21/17 11:17 Labs: Reviewed Assessment and Plan (1) Skin infection Current visit: Yes Status: Acute Assessment and Plan: Impression Right ankle infection S/P Right ankle fixation Chronic Alcohol use Depression Hepatitis C Cirrhosis COPD Hypertension Chronic tobacco dependence Plan Patient is medically stable. Reviewed note from orthopedics. Tentative plan is ORIF revision of syndesmosis tomorrow and or with likely wound VAC application. Orthopedics is explained to the patient that they like him to go to a detention. To help protect the foot. Patient is un willing to do this and is aware that orthopedics is not interested in fixing this another time if he does not follow recommendations. Jonh Wiley MD Hospital Course Summary Disclaimer: The visit summary below is not to be considered part of the above Progress Note. Hospital Course: 03/22/17 16:38 Impression Right ankle infection S/P Right ankle fixation Chronic Alcohol use Depression Hepatitis C Cirrhosis COPD Hypertension Chronic tobacco dependence Plan Patient is medically stable. Reviewed note from orthopedics. Tentative plan is ORIF revision of syndesmosis tomorrow and or with likely wound VAC application. Orthopedics is explained to the patient that they like him to go to a detention. To help protect the foot. Patient is un willing to do this and is aware that orthopedics is not interested in fixing this another time if he does not follow recommendations. Jonh Wiley MD
--- NOTE | 2017-03-22 15:57 | Orthopedic Progress Note ---
Date: Mr. Dyson has no new complaints today for me. Orthopedic Objective Vital signs: Temperature 97.3 F 03/22/17 15:00 Pulse Rate 85 03/22/17 15:00 Respiratory Rate 18 03/22/17 15:00 Blood Pressure 143/72 H 03/22/17 15:00 Pulse Oximetry 97 03/22/17 15:00 Height and Weight: Height 6 ft Weight 95.1 kg Body Mass Index 28.4 - Constitutional General Appearance: Present: no acute distress - Respiratory Exam Present: non-labored - Cardiovascular Exam Capillary Refill: < 2-3 Seconds - Extremities Exam Comments: splint intact to RLE in good condition. Exposed toes are warm and pink. - Labs Result Diagrams: 03/21/17 11:17 03/21/17 11:17 H & H 03/21/17 Range/Units 11:17 Hgb 11.0 L (13.5-17.5) GM/DL Hct 33.8 L (41-53) % Coagulation 03/21/17 Range/Units 11:17 INR 1.63 H (0.99-1.21) Orthopedic Assessment and Plan (1) Skin infection Status: Acute (2) Closed right ankle fracture Status: Acute Qualifiers: Encounter type: subsequent encounter Assessment and Plan: I discussed with Mr. Dyson that I would like him to go to a longterm after surgery and that I may not be willing to fix his ankle a third time if he does not have a solid plan after surgery so that he will not be tempted to walk on the ankle again. He was reluctant with this plan and he wants to go home with home health. I will discuss the situation with care coordination. Tentative plan on revision ORIF of his syndesymosis tomorrow with possible application of wound vac to lateral incision. Hospital Course Summary Disclaimer: The visit summary below is not to be considered part of the above Progress Note. Hospital Course: 03/21/17 Impression Right ankle infection S/P Right ankle fixation Chronic Alcohol use Depression Hepatitis C Cirrhosis COPD Hypertension Chronic tobacco dependence Plan Orthopedic care and management as per Dr. Garcia Bedlen with non-weight bearing status Continue with vancomycin IV for antimicrobial coverage. Normal saline at 75 ML per hour for gentle hydration Ativan as needed for agitation or withdrawal-like symptoms. Monitor for evidence of acute alcohol withdrawal. Nicotine patch, Given history of tobacco dependence Aspirin twice a day, SCDs to bilateral lower extremity for DVT prophylaxis Will discuss further orders and plan of care with attending, Dr. alegria. At time of discharge medical care will return to primary care provider at [facility], Kelin Mack APRN
[2017-03-22] MEDS: PAROXETINE 20 MG TABLET PO SCH (22:26)
[2017-03-22] MEDS: MIRTAZAPINE 15 MG TABLET PO SCH (22:27)
[2017-03-23] MEDS: Oxycodone *IR* 5 MG TABLET PO PRN ×5 (02:28→21:19)
[2017-03-23] MEDS: NS 1,000 ML IV SCH ×2 (02:28→17:37)
--- NOTE | 2017-03-23 08:38 | Pharmacy Consult-Antibiotics ---
Pharmacy Consult-Vancomycin - Laboratory Information WBC 10.7 T/MM3 (4.5-11.0) 03/21/17 11:17 BUN 11.0 MG/DL (9-20) 03/21/17 11:17 Creatinine 0.6 MG/DL (0.8-1.5) L 03/23/17 03:30 Vancomycin Trough 24.65 UG/ML (15-20) H* 03/23/17 03:30 - Consult Information VANCOMYCIN CONSULT: Vancomycin Trough = 24.65 mcg/ml. Today's SCr = N/A The dose before the trough was given two hours and thirty minutes late so the trough was drawn essentially 5 hours after a 2,000 mg dose was started. I restarted the Vancomycin 2,000 mg IV q8hrs this morning @ 0800. The Pharmacy will continue to monitor and make adjustments accordingly. Thank you for the Vancomycin Protocol, Chava Vergara, Pharmacist.
[2017-03-23] MEDS: ASPIRIN 81 MG CHEWABLE TABLET PO SCH ×2 (09:15→21:19)
[2017-03-23] MEDS: BUSPIRONE 15 MG TABLET PO SCH ×3 (09:16→21:20)
[2017-03-23] MEDS: DOCUSATE SODIUM 100 MG CAPSULE PO SCH ×2 (09:16→21:19)
[2017-03-23] MEDS: GABAPENTIN 300 MG CAPSULE PO SCH ×3 (09:16→21:20)
[2017-03-23] MEDS: NICOTINE PATCH REMOVAL TD SCH (09:17)
[2017-03-23] MEDS: NICOTINE 21 MG PATCH TD SCH (11:39)
[2017-03-23] MEDS: HYDROMORPHONE 2 MG/ML INJECTION IVP PRN ×5 (13:00→23:20)
[2017-03-23] MEDS ORDERED: LIDOCAINE 1% (10mg/ml) 30ml SDV INJ ONE (15:13)
[2017-03-23] MEDS ORDERED: BUPIVACAINE 0.25% (2.5mg/ml) PF 30ml INJECTION ONE (15:13)
[2017-03-23] MEDS ORDERED: FentaNYL 250 MCG/5 ML INJECTION ONE (15:34)
[2017-03-23] MEDS ORDERED: LIDOCAINE 2% JELLY Tube 30ml ONE (15:35)
[2017-03-23] MEDS ORDERED: LIDOCAINE 2% (100mg/5ml) SYRINGE (PF) IVP ONE (15:35)
--- NOTE | 2017-03-23 15:58 | Progress Note ---
- Date 03/23/17 Subjective: Patient resting comfortably. He is still opposed to going to skilled facility or prison after repair of foot. Objective Vital signs: Temperature 99.9 F 03/22/17 22:23 Pulse Rate 79 03/23/17 14:57 Respiratory Rate 11 03/23/17 14:49 Blood Pressure 147/78 H 03/23/17 14:49 Pulse Oximetry 97 03/23/17 14:49 Height/Weight/BMI: Height 1.83 m Weight 100.6 kg Body Mass Index 28.4 - Constitutional Present: well nourished, well developed - Routine HEENT Exam Eye: Present: EOMI ENT: Present: mucous membranes moist, dentition normal - Routine Respiratory Exam Present: CTA bilaterally. Absent: wheezes - Routine Cardiovascular Exam Present: RRR. Absent: murmur - Routine Abdominal Exam Present: soft, normoactive bowel sounds, non distended. Absent: tenderness - Routine Extremities Exam Present: normal capillary refill (foot in bandage) - Routine Skin Exam Present: dry, warm - Routine Neurological Exam Present: alert, oriented X3, CN II-XII intact - Routine Lymphatic Exam Lymphatic: Absent: adenopathy - Routine Psychiatric Exam Present: normal affect Results - Labs CBC & Chem 7: 03/23/17 03:30 03/23/17 03:30 Assessment and Plan (1) Skin infection Current visit: Yes Status: Acute Assessment and Plan: Impression Right ankle infection S/P Right ankle fixation Chronic Alcohol use Depression Hepatitis C Cirrhosis COPD Hypertension Chronic tobacco dependence Plan Patient is stable and resting. Seen this morning prior to OR. We will reevaluate in a.m. Continue to watch for elevated blood pressure or agitation signifying acute alcohol withdrawal. CBC, CMP ordered for a.m. Jonh Wiley MD Hospital Course Summary Disclaimer: The visit summary below is not to be considered part of the above Progress Note. Hospital Course: 03/22/17 16:38 Impression Right ankle infection S/P Right ankle fixation Chronic Alcohol use Depression Hepatitis C Cirrhosis COPD Hypertension Chronic tobacco dependence Plan Patient is medically stable. Reviewed note from orthopedics. Tentative plan is ORIF revision of syndesmosis tomorrow and or with likely wound VAC application. Orthopedics is explained to the patient that they like him to go to a prison. To help protect the foot. Patient is un willing to do this and is aware that orthopedics is not interested in fixing this another time if he does not follow recommendations. Jonh Wiley MD 03/23/17 15:59 Impression Right ankle infection S/P Right ankle fixation Chronic Alcohol use Depression Hepatitis C Cirrhosis COPD Hypertension Chronic tobacco dependence Plan Patient is stable and resting. Seen this morning prior to OR. We will reevaluate in a.m. Continue to watch for elevated blood pressure or agitation signifying acute alcohol withdrawal. CBC, CMP ordered for a.m. Jonh Wiley M.D.
[2017-03-23] MEDS ORDERED: NALOXONE 0.4 MG/ML INJECTION ONE (16:15)
--- NOTE | 2017-03-23 16:48 | Remote Fluorsocopy Report ---
Indication: RT ANKLE REVISION PROCEDURE: RF ankle RT 2 view: Encounter: Initial Comparison: 03/11/2017 Findings: Intraoperative spot views of the distal tibia and fibula demonstrate removal of the lower screw across the tibiofibular syndesmosis with placement of a retention clip along the medial aspect of the distal medial tibia. Impression: Intraoperative localization for ORIF revision of tibial fibular syndesmosis. .
--- NOTE | 2017-03-23 17:01 | Anesthesia Postoperative Note ---
- Date and Time Date: 03/23/17 Time: 17:00 - Status Patient Participated in Evaluation: Patient Participated in Person Vital Signs: Temperature 99.9 F 03/22/17 22:23 Pulse Rate 79 03/23/17 14:57 Respiratory Rate 11 03/23/17 14:49 Blood Pressure 147/78 H 03/23/17 14:49 Pulse Oximetry 97 03/23/17 14:49 Respiratory Function: Airway Patent (breathing tx given in PACU for wheezes exp. ), Regular Respirations Cardiovascular Function: Regular Pulse EKG: Sinus Tachycardia Mental Status: Alert and Oriented Pain Intensity: 10 (treating with Dilaudid) Hydration: IV Infusing Complications During Recover: None Apparent - Follow-Up Instructions Instructions: Per Surgeon
[2017-03-23] MEDS ORDERED: ALBUTEROL 2.5mg/0.5ml (0.5%) NEB AEROSOL PRN (17:17)
[2017-03-23] MEDS: PAROXETINE 20 MG TABLET PO SCH (21:20)
[2017-03-23] MEDS: MIRTAZAPINE 15 MG TABLET PO SCH (21:20)
[2017-03-24] MEDS: Oxycodone *IR* 5 MG TABLET PO PRN ×8 (00:30→21:03)
[2017-03-24] MEDS ORDERED: ALBUTEROL 2.5mg/0.5ml (0.5%) NEB AEROSOL PRN (02:36)
[2017-03-24] MEDS: HYDROMORPHONE 2 MG/ML INJECTION IVP PRN ×2 (05:36→08:46)
--- NOTE | 2017-03-24 07:27 | Orthopedic Progress Note ---
Date: Subjective/Severity of Illness: The nurses report they witnessed Tim full weight bearing on his operative leg today. He denies chest pain or shortness of breath. He asked when "[facility]" would be operating on him today. I reminded him his operation was yesterday. Orthopedic Objective PO Vital signs: Temperature 98.7 F 03/24/17 04:00 Pulse Rate 105 H 03/24/17 04:00 Respiratory Rate 20 03/24/17 04:00 Blood Pressure 159/96 H 03/24/17 04:00 Pulse Oximetry 95 03/24/17 04:00 Height and Weight: Height 6 ft Weight 221 lb 12.56 oz Body Mass Index 28.4 - Constitutional General Appearance: Present: alert, no acute distress - Respiratory Exam Present: non-labored - Cardiovascular Exam Capillary Refill: < 2-3 Seconds - Extremities Exam Extremities: Present: normal capillary refill - Surgical Site Surgical Site Comments: splint on and MIKI wrap overlying is dry. Wound vac working. - Lymphatic Lymphatic: Absent: adenopathy - Neurological Exam Present: intact to light touch - Labs Result Diagrams: 03/24/17 03:57 03/24/17 03:57 Abnormal lab results 03/23/17 03/23/17 03/23/17 Range/Units 03:30 03:30 03:30 WBC 4.1 L D (4.5-11.0) T/MM3 RBC 3.48 L (4.50-5.90) M/MM3 Hgb 9.7 L D (13.5-17.5) GM/DL Hct 30.5 L (41-53) % RDW Std Deviation 55.5 H (36.9-50.2) FL Plt Count 76 L (130-400) T/MM3 Lymph % (Auto) 19.4 L (23-45) % Gem % (Auto) 11.6 H (0-9.0) % Eos % (Auto) 4.1 H (0-4) % Lymph # (Auto) 0.8 L (1-4.8) T/MM3 Chloride 109 H (98-107) MEQ/L BUN 6.0 L (9-20) MG/DL Creatinine 0.6 L 0.6 L (0.8-1.5) MG/DL Glucose 137 H (75-110) MG/DL AST (17-59) U/L Albumin 3.0 L (3.5-5.0) G/DL Globulin 4.2 H (2.4-3.6) G/DL Albumin/Globulin Ratio 0.7 L (1.1-2.2) RATIO 03/24/17 03/24/17 Range/Units 03:57 03:57 WBC (4.5-11.0) T/MM3 RBC 3.32 L (4.50-5.90) M/MM3 Hgb 9.4 L (13.5-17.5) GM/DL Hct 29.3 L (41-53) % RDW Std Deviation 56.2 H (36.9-50.2) FL Plt Count 83 L (130-400) T/MM3 Lymph % (Auto) 18.4 L (23-45) % Gem % (Auto) 12.0 H (0-9.0) % Eos % (Auto) (0-4) % Lymph # (Auto) (1-4.8) T/MM3 Chloride (98-107) MEQ/L BUN 5.0 L (9-20) MG/DL Creatinine 0.7 L (0.8-1.5) MG/DL Glucose (75-110) MG/DL AST 60 H (17-59) U/L Albumin 3.2 L (3.5-5.0) G/DL Globulin 4.1 H (2.4-3.6) G/DL Albumin/Globulin Ratio 0.8 L (1.1-2.2) RATIO H & H 03/21/17 03/23/17 03/24/17 Range/Units 11:17 03:30 03:57 Hgb 11.0 L 9.7 L D 9.4 L (13.5-17.5) GM/DL Hct 33.8 L 30.5 L 29.3 L (41-53) % Coagulation 03/21/17 Range/Units 11:17 INR 1.63 H (0.99-1.21) Orthopedic Assessment and Plan (1) Closed right ankle fracture Status: Acute Qualifiers: Encounter type: subsequent encounter Assessment and Plan: I discussed with Mr. Dyson that I would like him to go to a longterm after surgery and that I may not be willing to fix his ankle a third time if he does not have a solid plan after surgery so that he will not be tempted to walk on the ankle again. He was reluctant with this plan and he wants to go home with home health. I will discuss the situation with care coordination. Tentative plan on revision ORIF of his syndesymosis tomorrow with possible application of wound vac to lateral incision. (2) Skin infection Status: Acute Hospital Course Summary Disclaimer: The visit summary below is not to be considered part of the above Progress Note. Hospital Course: 03/22/17 16:38 Impression Right ankle infection S/P Right ankle fixation Chronic Alcohol use Depression Hepatitis C Cirrhosis COPD Hypertension Chronic tobacco dependence Plan Patient is medically stable. Reviewed note from orthopedics. Tentative plan is ORIF revision of syndesmosis tomorrow and or with likely wound VAC application. Orthopedics is explained to the patient that they like him to go to a longterm. To help protect the foot. Patient is un willing to do this and is aware that orthopedics is not interested in fixing this another time if he does not follow recommendations. Jonh Wiley MD 03/23/17 15:59 Impression Right ankle infection S/P Right ankle fixation Chronic Alcohol use Depression Hepatitis C Cirrhosis COPD Hypertension Chronic tobacco dependence Plan Patient is stable and resting. Seen this morning prior to OR. We will reevaluate in a.m. Continue to watch for elevated blood pressure or agitation signifying acute alcohol withdrawal. CBC, CMP ordered for a.m. Jonh Wiley M.D.
[2017-03-24] MEDS: GABAPENTIN 300 MG CAPSULE PO SCH ×3 (08:30→20:30)
[2017-03-24] MEDS: NICOTINE 21 MG PATCH TD SCH (08:30)
[2017-03-24] MEDS: BUSPIRONE 15 MG TABLET PO SCH ×3 (08:30→20:31)
[2017-03-24] MEDS: ASPIRIN 81 MG CHEWABLE TABLET PO SCH ×2 (08:43→20:31)
[2017-03-24] MEDS: DOCUSATE SODIUM 100 MG CAPSULE PO SCH (08:43)
[2017-03-24] MEDS: NICOTINE PATCH REMOVAL TD SCH (08:57)
--- NOTE | 2017-03-24 09:38 | Operative Note ---
DATE OF PROCEDURE 03/23/2017 PREOPERATIVE DIAGNOSIS Failure of hardware, right ankle, with wound dehiscence and possible superficial site infection. POSTOPERATIVE DIAGNOSIS Failure of hardware, right ankle, with wound dehiscence and possible superficial site infection. PROCEDURE Revision open reduction internal fixation, right ankle, with placement of wound VAC. SURGEON Cristofer Garcia MD BUS VAN DRIVER Milan Sánchez PA-C COMPLICATIONS None. ANESTHESIA General. EBL AND FLUIDS AND TOURNIQUET TIME Please see Anesthetic Records. HISTORY Mr. Dyson is a 51-year-old gentleman who has undergone open reduction internal fixation with syndesmotic fixation of his right ankle. Unfortunately, he was not compliant with restrictions after surgery initially and weight- beared on his ankle displacing his syndesmosis. I revised this previously replacing his syndesmotic screws. I also had to re-repair his deltoid ligament rupture. Unfortunately, again, he was noncompliant and weight-beared in his splint and again one of his syndesmotic screws backed out. He also had breakdown of his lateral incision. Under the agreement that he would stay in the hospital for at least three weeks after this surgery in a swing bed state for IV antibiotics and to comply with restrictions, also for possible wound VAC management, I agreed to proceed with a third surgery today. I did discuss extensively with Mr. Raines that I do think his foot is at risk of amputation if he continues to walk on his ankle or is noncompliant with other medical treatment including IV antibiotics and wound VAC. . DESCRIPTION OF PROCEDURE Mr. Dyson and his right ankle were identified and marked in the preoperative holding area. He was brought back to the operating suite and placed supine on the operating table. He was placed under general anesthesia. The right lower extremity was prepped and draped in my normal sterile fashion. Time-out was performed. I evaluated his lateral wound. It had dehisced from its midpoint distally. After debridement with a curette of subcutaneous tissue, the hardware was exposed. I thoroughly irrigated this wound with 3 liters of normal saline. I then removed his syndesmotic screw that was backed out. The second screw in the syndesmosis still had a good bite and it was not removed. His tib-fib clear space was still well reduced, even under external rotation stress. I then placed a ZipTight device through the previous syndesmotic hole. It tightened down nicely. I did have to make an incision medially to help flip the button on the medial side. Again, he did have some slight widening medially with eversion of the ankle, but with external rotation stress he was well reduced and the mortise was well maintained. The wound was thoroughly irrigated one more time and then I placed a wound VAC over the lateral incision. I did, over the wound VAC, partially close the incision with #1 PDS in a simple interrupted fashion. The wound VAC was hooked to 125 mmHg continuous suction and had a good seal. I then placed a well-padded, well- molded posterior slab and sugar-tong type splint, making sure not to compress the wound VAC tubing against his skin. The drapes were then removed. He was allowed to awaken from general anesthesia and taken to the recovery room under the care of Anesthesia. He tolerated the procedure well. There were no complications. LUIS DANIEL
--- NOTE | 2017-03-24 11:59 | Progress Note ---
<Rosa M Casiano V - Last Filed: 03/24/17 11:54> - Date 03/24/17 Subjective: Young is seen this morning and is without complaints. Hyperverbal discussion regarding the future, his goals for school and life. He verbalizes frustration with nursing staff. Reminded him regarding importance of compliance. Denies shortness of breath, chest pain, or GI concerns. Wound VAC intact to right ankle with splint. Noted had a fever last evening around midnight up to 100.5. Abdomen is mildly distended, however, soft and nontender. No bowel movements since admission. Objective Vital signs: Temperature 98.5 F 03/24/17 08:00 Pulse Rate 90 03/24/17 08:00 Respiratory Rate 20 03/24/17 10:09 Blood Pressure 145/91 H 03/24/17 08:00 Pulse Oximetry 94 03/24/17 10:09 Height/Weight/BMI: Height 1.83 m Weight 103.6 kg Body Mass Index 28.4 - Constitutional Present: no acute distress, well nourished, well developed - Routine HEENT Exam Eye: Present: EOMI ENT: Present: mucous membranes moist, dentition normal - Routine Respiratory Exam Present: CTA bilaterally. Absent: wheezes - Routine Cardiovascular Exam Present: RRR, S1, S2. Absent: murmur - Routine Abdominal Exam Present: soft, distended. Absent: normoactive bowel sounds, tenderness - Routine Extremities Exam Present: normal capillary refill Comments: Right ankle, Ortho-Glass splint with wound VAC - Routine Skin Exam Present: intact, dry, warm - Routine Neurological Exam Present: alert, oriented X3, CN II-XII intact, moving all extremities - Routine Lymphatic Exam Lymphatic: Absent: adenopathy - Routine Psychiatric Exam Present: normal affect, cooperative (intermittently) Results - Labs CBC & Chem 7: 03/24/17 03:57 03/24/17 03:57 Microbiology Results: Microbiology 03/23/17 15:55 Ankle, Right Gram Stain - Final 03/23/17 15:55 Ankle, Right Surgical Culture - Preliminary Culture Initiated - Results Pending Assessment and Plan (1) Skin infection Current visit: Yes Status: Acute Assessment and Plan: Impression Right ankle infection S/P Right ankle fixation Chronic Alcohol use Depression Hepatitis C Cirrhosis COPD Hypertension Chronic tobacco dependence Plan ORIF completed yesterday 03/23 along with placement of wound VAC by Dr. Garcia. Continue with IV vancomycin for antimicrobial coverage. Wound cultures are pending. Nursing reports at times patient is noncompliant and seems confused intermittently. Change Colace to senna plus and add MiraLAX daily for gentle bowel motivation. Continue with nicotine patch. No acute evidence of alcohol withdrawal, Ativan available as needed Continue to monitor routine labs, white count normal, hemoglobin stable and electrolytes unremarkable. Discussed with attending, Dr. Chu Hospital Course Summary Disclaimer: The visit summary below is not to be considered part of the above Progress Note. Hospital Course: 03/22/17 Impression Right ankle infection S/P Right ankle fixation Chronic Alcohol use Depression Hepatitis C Cirrhosis COPD Hypertension Chronic tobacco dependence Plan Patient is medically stable. Reviewed note from orthopedics. Tentative plan is ORIF revision of syndesmosis tomorrow and or with likely wound VAC application. Orthopedics is explained to the patient that they like him to go to a half-way. To help protect the foot. Patient is un willing to do this and is aware that orthopedics is not interested in fixing this another time if he does not follow recommendations. 03/23/17 Patient is stable and resting. Seen this morning prior to OR. We will reevaluate in a.m. Continue to watch for elevated blood pressure or agitation signifying acute alcohol withdrawal. CBC, CMP ordered for a.m. 03/24/17 Plan ORIF completed yesterday 03/23 along with placement of wound VAC by Dr. Garcia. Continue with IV vancomycin for antimicrobial coverage. Wound cultures are pending. Nursing reports at times patient is noncompliant and seems confused intermittently. Change Colace to senna plus and add MiraLAX daily for gentle bowel motivation. Continue with nicotine patch. No acute evidence of alcohol withdrawal, Ativan available as needed. Continue to monitor routine labs, white count normal, hemoglobin stable and electrolytes unremarkable. Discussed with attending, Dr. Chu <Dannie Chu - Last Filed: 03/24/17 16:31> - Date 03/24/17 Objective Vital signs: Temperature 98.9 F 03/24/17 15:00 Pulse Rate 90 03/24/17 15:00 Respiratory Rate 14 03/24/17 15:00 Blood Pressure 155/98 H 03/24/17 15:00 Pulse Oximetry 98 03/24/17 15:00 Height/Weight/BMI: Height 1.83 m Weight 103.6 kg Body Mass Index 28.4 Results - Labs CBC & Chem 7: 03/24/17 03:57 03/24/17 03:57 Microbiology Results: Microbiology 03/23/17 15:55 Ankle, Right Gram Stain - Final 03/23/17 15:55 Ankle, Right Surgical Culture - Preliminary Staphylococcus aureus Assessment and Plan (1) Skin infection Current visit: Yes Status: Acute Assessment and Plan: Impression Right ankle infection S/P Right ankle fixation Chronic Alcohol use Depression Hepatitis C Cirrhosis COPD Hypertension Chronic tobacco dependence Have independently interviewed and examined pt. Chart reviewed. Case discussed with my CREATIVE TECHNOLOGIST. Care plan developed with my supervision; agree with above. Doing okay this afternoon. Appears tired and groggy. Breathing fair. No nausea. Oral intake has been well. No stool output. Really wanting to smoke. Lungs: decreased, no distress CV: tachy, regular AB: soft, distention, BS decreased MSE: awake but groggy Plan: Will stop IVF as oral drive doing well - worry that continued IVF will only cause increasing abdominal ascites - weight has been trending up. Start propranolol 10mg TID to help decrease portal pressure - monitor HR/BP and watch for orthostasis. Vanco to continue. Non weight bearing on right ankle to continue-did encourage patient about this. Monitor lab. Continue with supportive medical care. Time spent with patient care 25 minutes. DVT Prophylaxis: SCD's Resuscitation Status: Full Code - Time spent with patient Time with patient PN: 25 minutes Hospital Course Summary Disclaimer: The visit summary below is not to be considered part of the above Progress Note.
[2017-03-24] MEDS: POLYETHYL GLYCOL 3350 17gm PACKET PO SCH (13:56)
[2017-03-24] MEDS: NS 1,000 ML IV SCH (13:56)
[2017-03-24] MEDS: PROPRANOLOL 10 MG TABLET PO SCH ×2 (15:25→20:30)
[2017-03-24] MEDS: PAROXETINE 20 MG TABLET PO SCH (20:31)
[2017-03-24] MEDS: MIRTAZAPINE 15 MG TABLET PO SCH (20:31)
[2017-03-24] MEDS: SENNA + DOCUSATE TABLET PO SCH (20:33)
[2017-03-25] MEDS: Oxycodone *IR* 5 MG TABLET PO PRN ×4 (07:40→21:28)
--- NOTE | 2017-03-25 08:12 | Progress Note ---
- Date 03/25/17 Subjective: Young is seen this morning while sleeping and arouses easily with soft voice stimuli. He denies any complaints or pain though nursing reports that he has continually rated his pain to his right ankle at an 8. Nursing reports that he continues to struggle with compliance with regard to weight bearing status on his cast, but nursing believes his non-compliance is more related to not remembering limitations as opposed to unwillingness to comply. He is again reminded about the importance of compliance. Denies shortness of breath, chest pain, or GI concerns. Nursing reports that he verbally reported having a BM last night but it was not visualized by nursing. Abdomen is slightly distended but remains soft and nontender. During the night, his wound vac was displaced when it got tangled in the bed rails when he tried to get out of bed. Ortho was notified and will replace it today. Right ankle splint intact. Objective Vital signs: Temperature 98.4 F 03/25/17 08:00 Pulse Rate 93 03/25/17 08:00 Respiratory Rate 12 03/25/17 08:00 Blood Pressure 144/81 H 03/25/17 08:00 Pulse Oximetry 99 03/25/17 08:00 Height/Weight/BMI: Height 6 ft Weight 225 lb 8.526 oz Body Mass Index 28.4 Comments: Patient sleeping and awakes easily. No complaints. Pleasant on exam. - Constitutional Present: no acute distress, well nourished, well developed, cooperative - Routine HEENT Exam Head: Present: normocephalic, atraumatic Eye: Present: PERRL. Absent: conjunctival icterus ENT: Present: mucous membranes moist Comments: poor dentition. - Routine Respiratory Exam Present: CTA bilaterally. Absent: rhonchi, stridor, wheezes, crackles - Routine Cardiovascular Exam Present: RRR, S1, S2 - Routine Abdominal Exam Present: soft, normoactive bowel sounds, distended. Absent: guarding, firm, rigid - Routine Extremities Exam Present: no edema, pulses intact, normal capillary refill Comments: cast intact to right lower extremity; wound vac currently not in place as it was dislodged during the night. - Routine Back/Spine/Pelvis Exam Back/Spine: Present: full ROM. Absent: vertebral tenderness - Routine Skin Exam Present: dry, warm. Absent: jaundice Comments: afebrile. - Routine Neurological Exam Present: alert, moving all extremities, normal speech. Absent: facial asymmetry - Routine Lymphatic Exam Lymphatic: Absent: lymphedema - Routine Psychiatric Exam Present: normal affect, cooperative Results - Labs CBC & Chem 7: 03/25/17 07:15 03/25/17 07:15 Microbiology Results: Microbiology 03/23/17 15:55 Ankle, Right Gram Stain - Final 03/23/17 15:55 Ankle, Right Surgical Culture - Preliminary Staphylococcus aureus Assessment and Plan (1) Skin infection Current visit: Yes Status: Acute Assessment and Plan: Impression Right ankle infection S/P Right ankle fixation Chronic Alcohol use Depression Hepatitis C Cirrhosis COPD Hypertension Chronic tobacco dependence Plan - 03/25/17 (Mirakian). POD #2 - ORIF with wound VAC placement by Dr. Garcia. Patient continues to have issues with noncompliance regarding weightbearing status. Wound vac got tangled in bed rail last night and was completely removed. Ortho notified and pending evaluation this morning. Initial wound cultures revealed staph aureus. Continue IV vancomycin for antimicrobial coverage. Continue to monitor sensitivities and will adjust therapy as indicated. Reported BM last night by patient, though not visualized by nursing. Continue with bowel motivation. Abdomen remains slightly distended but soft and nontender. Weight up from admission, though appears to be trending down following discontinuation of IVF. Continue to monitor closely. Patient appears to be at baseline today per nursing with regard to mentation. Continue to monitor closely. Propranolol 10mg TID initiated 03/24/17 to help decrease portal pressure. Continue to monitor HR/BP and watch for orthostasis. Continue with nicotine patch. No acute evidence of alcohol withdrawal, Ativan available as needed. Continue to monitor routine labs, white count normal, hemoglobin stable and electrolytes unremarkable. Discussed with attending, Dr. Chu. DVT Prophylaxis: SCD's Resuscitation Status: Full Code - Time spent with patient Time with patient PN: 25 minutes - Physician Narrative Physician: Dannie Chu MD Narrative: I have independently evaluated patient. Chart reviewed. Case discussed with my PA. Above care plan developed with my supervision; agree with above. Resting soundly this evening. Adherence with non weight bearing and issue. Mentation off - ammonia level normal; suspect effect of pain medications. Anticipate will be difficult to control pain and maintain 'normal' mentation due to his ETOH/drug issues. Lungs: decreased, no distress Plan: Continue with Vancomycin for antimicrobial coverage. Dilaudid stopped. Likely need to decrease lorazepam (but patient requesting alprazolam which is definitely more dependent forming that lorazepam. Continue to monitor lab. Potentially need to increase propranolol if HR and BP remain elevated. Hospital Course Summary Disclaimer: The visit summary below is not to be considered part of the above Progress Note. Hospital Course: 03/22/17 Impression Right ankle infection S/P Right ankle fixation Chronic Alcohol use Depression Hepatitis C Cirrhosis COPD Hypertension Chronic tobacco dependence Plan Patient is medically stable. Reviewed note from orthopedics. Tentative plan is ORIF revision of syndesmosis tomorrow and or with likely wound VAC application. Orthopedics is explained to the patient that they like him to go to a care home. To help protect the foot. Patient is un willing to do this and is aware that orthopedics is not interested in fixing this another time if he does not follow recommendations. 03/23/17 Patient is stable and resting. Seen this morning prior to OR. We will reevaluate in a.m. Continue to watch for elevated blood pressure or agitation signifying acute alcohol withdrawal. CBC, CMP ordered for a.m. 03/24/17 Plan ORIF completed yesterday 03/23 along with placement of wound VAC by Dr. Garcia. Continue with IV vancomycin for antimicrobial coverage. Wound cultures are pending. Nursing reports at times patient is noncompliant and seems confused intermittently. Change Colace to senna plus and add MiraLAX daily for gentle bowel motivation. Continue with nicotine patch. No acute evidence of alcohol withdrawal, Ativan available as needed. Continue to monitor routine labs, white count normal, hemoglobin stable and electrolytes unremarkable. Discussed with attending, Dr. Chu Plan - 03/25/17 (Mirakian). POD #2 - ORIF with wound VAC placement by Dr. Garcia. Patient continues to have issues with noncompliance regarding weightbearing status. Wound vac got tangled in bed rail last night and was completely removed. Ortho notified and pending evaluation this morning. Initial wound cultures revealed staph aureus. Continue IV vancomycin for antimicrobial coverage. Continue to monitor sensitivities and will adjust therapy as indicated. Reported BM last night by patient, though not visualized by nursing. Continue with bowel motivation. Abdomen remains slightly distended but soft and nontender. Weight up from admission, though appears to be trending down following discontinuation of IVF. Continue to monitor closely. Patient appears to be at baseline today per nursing with regard to mentation. Continue to monitor closely. Propranolol 10mg TID initiated 03/24/17 to help decrease portal pressure. Continue to monitor HR/BP and watch for orthostasis. Continue with nicotine patch. No acute evidence of alcohol withdrawal, Ativan available as needed. Continue to monitor routine labs, white count normal, hemoglobin stable and electrolytes unremarkable. Discussed with attending, Dr. Chu. Addendum entered and electronically signed by DAVID Chatman 03/25/17 09: 20: 0920: Patient case discussed with Dr. Garcia. Wound VAC replaced. Significant concern about patient's mentation and increased somnolence. Unsure if secondary to recent pain medication or poor liver function. Will obtain ammonia level now for further evaluation. Wound culture revealing MRSA. Dr. Garcia request ID consult for infection to surgical wound with MRSA. Will continue Vancomycin and discuss further with Dr. Burgos.
[2017-03-25] MEDS: NICOTINE 21 MG PATCH TD SCH (08:33)
[2017-03-25] MEDS: ASPIRIN 81 MG CHEWABLE TABLET PO SCH ×2 (08:33→21:28)
[2017-03-25] MEDS: PROPRANOLOL 10 MG TABLET PO SCH ×3 (08:33→21:29)
[2017-03-25] MEDS: BUSPIRONE 15 MG TABLET PO SCH ×3 (08:34→21:29)
[2017-03-25] MEDS: SENNA + DOCUSATE TABLET PO SCH ×2 (08:34→21:28)
[2017-03-25] MEDS: GABAPENTIN 300 MG CAPSULE PO SCH ×3 (08:35→21:29)
[2017-03-25] MEDS: POLYETHYL GLYCOL 3350 17gm PACKET PO SCH (08:35)
[2017-03-25] MEDS: NS FLUSH BAG 500ml IV PRN (08:36)
[2017-03-25] MEDS: NICOTINE PATCH REMOVAL TD SCH (08:37)
--- NOTE | 2017-03-25 09:29 | Orthopedic Progress Note ---
Date: Subjective/Severity of Illness: Per nursing he has been putting weight on his right ankle. He also inadvertently removed his wound vac last night. He says he "only walked on it a little bit" and he denies pulling off his wound vac. He falls asleep several times during my visit today as well as while I was changing his wound vac and applying a splint. Orthopedic Objective Vital signs: Temperature 98.4 F 03/25/17 08:00 Pulse Rate 93 03/25/17 08:00 Respiratory Rate 12 03/25/17 08:00 Blood Pressure 144/81 H 03/25/17 08:00 Pulse Oximetry 99 03/25/17 08:00 Height and Weight: Height 6 ft Weight 102.3 kg Body Mass Index 28.4 - Constitutional General Appearance: Present: no acute distress, somnolent, thin - Respiratory Exam Present: non-labored - Cardiovascular Exam Capillary Refill: < 2-3 Seconds - Extremities Exam Present: pulses intact, normal capillary refill - Lymphatic Lymphatic: Absent: lymphedema - Neurological Exam Present: intact to light touch - Wound Management Right Lateral Ankle Wound Type: Surgical Incision Packing Type: Woundvac Sponge Number of Packing Pieces Removed?: 1 Number of Packing Pieces Placed?: 1 Comments: hardware if visible in lateral incision, no foul odor, no necrotic tissue - Labs Result Diagrams: 03/25/17 07:15 03/25/17 07:15 Abnormal lab results 03/25/17 03/25/17 03/25/17 Range/Units 07:15 07:15 07:15 RBC 3.36 L (4.50-5.90) M/MM3 Hgb 9.6 L (13.5-17.5) GM/DL Hct 29.4 L (41-53) % RDW Std Deviation 56.3 H (36.9-50.2) FL Plt Count 91 L (130-400) T/MM3 Neut % (Auto) 68.6 H (33-66) % Lymph % (Auto) 15.0 L (23-45) % [place] % (Auto) 12.4 H (0-9.0) % Lymph # (Auto) 0.9 L (1-4.8) T/MM3 BUN 6.0 L (9-20) MG/DL Creatinine 0.7 L (0.8-1.5) MG/DL Vancomycin Trough 23.82 H* (15-20) UG/ML H & H 03/21/17 03/23/17 03/24/17 Range/Units 11:17 03:30 03:57 Hgb 11.0 L 9.7 L D 9.4 L (13.5-17.5) GM/DL Hct 33.8 L 30.5 L 29.3 L (41-53) % 03/25/17 Range/Units 07:15 Hgb 9.6 L (13.5-17.5) GM/DL Hct 29.4 L (41-53) % Coagulation 03/21/17 Range/Units 11: INR 1.63 H (0.99-1.21) Orthopedic Assessment and Plan (1) Skin infection Status: Acute (2) Closed right ankle fracture Status: Acute Qualifiers: Encounter type: subsequent encounter Assessment and Plan: Again I was very upfront with Mr. Tejada about the severity of ankle fracture and his wound and the chance he may need an amputation. We will continue vancomycin and consult ID. I spoke with Dr. Burgos who agreed to continue the vanco at this time. I will ask hospitalist to evaluate his mental status. Will continue strict NWB on right ankle and wound vac at 125mmHg continuous suction. Placed back into splint today with abundant padding around the wound vac sponge and tubing. This was also overwrapped with fiberglass. Hospital Course Summary Disclaimer: The visit summary below is not to be considered part of the above Progress Note. Hospital Course: 03/22/17 Impression Right ankle infection S/P Right ankle fixation Chronic Alcohol use Depression Hepatitis C Cirrhosis COPD Hypertension Chronic tobacco dependence Plan Patient is medically stable. Reviewed note from orthopedics. Tentative plan is ORIF revision of syndesmosis tomorrow and or with likely wound VAC application. Orthopedics is explained to the patient that they like him to go to a intermediate. To help protect the foot. Patient is un willing to do this and is aware that orthopedics is not interested in fixing this another time if he does not follow recommendations. 03/23/17 Patient is stable and resting. Seen this morning prior to OR. We will reevaluate in a.m. Continue to watch for elevated blood pressure or agitation signifying acute alcohol withdrawal. CBC, CMP ordered for a.m. 03/24/17 Plan ORIF completed yesterday 03/23 along with placement of wound VAC by Dr. Garcia. Continue with IV vancomycin for antimicrobial coverage. Wound cultures are pending. Nursing reports at times patient is noncompliant and seems confused intermittently. Change Colace to senna plus and add MiraLAX daily for gentle bowel motivation. Continue with nicotine patch. No acute evidence of alcohol withdrawal, Ativan available as needed. Continue to monitor routine labs, white count normal, hemoglobin stable and electrolytes unremarkable. Discussed with attending, Dr. Chu Plan - 03/25/17 (Mirakian). POD #2 - ORIF with wound VAC placement by Dr. Garcia. Patient continues to have issues with noncompliance regarding weightbearing status. Wound vac got tangled in bed rail last night and was completely removed. Ortho notified and pending evaluation this morning. Initial wound cultures revealed staph aureus. Continue IV vancomycin for antimicrobial coverage. Continue to monitor sensitivities and will adjust therapy as indicated. Reported BM last night by patient, though not visualized by nursing. Continue with bowel motivation. Abdomen remains slightly distended but soft and nontender. Weight up from admission, though appears to be trending down following discontinuation of IVF. Continue to monitor closely. Patient appears to be at baseline today per nursing with regard to mentation. Continue to monitor closely. Propranolol 10mg TID initiated 03/24/17 to help decrease portal pressure. Continue to monitor HR/BP and watch for orthostasis. Continue with nicotine patch. No acute evidence of alcohol withdrawal, Ativan available as needed. Continue to monitor routine labs, white count normal, hemoglobin stable and electrolytes unremarkable. Discussed with attending, Dr. Chu.
--- NOTE | 2017-03-25 11:47 | Pharmacy Consult-Antibiotics ---
Pharmacy Consult-Vancomycin - Laboratory Information WBC 6.2 T/MM3 (4.5-11.0) 03/25/17 07:15 BUN 6.0 MG/DL (9-20) L 03/25/17 07:15 Creatinine 0.7 MG/DL (0.8-1.5) L 03/25/17 07:15 Vancomycin Trough 23.82 UG/ML (15-20) H* 03/25/17 07:15 - Consult Information VANCOMYCIN CONSULT: Diagnosis: Skin Infection on Rt Ankle. History: Skin infection on ankle due to leaving AMA and not following non-load bearing restrictions. Patient was admitted and Vancomycin was started. Vancomycin Trough = 23.87 mcg/ml. Today's S Cr = 0.7 mg/dl. I will change the Vancomycin to 1,500 mg IV q8hrs (0400/1200/1999). The pharmacy will continue to monitor and make adjustments accordingly. Thank you for the Vancomycin Protocol, Chava Vergara, Pharmacist.
[2017-03-25] MEDS ORDERED: MAG-AL + SIM ORAL LIQUID 30ml PO PRN (16:00)
[2017-03-25] MEDS: PAROXETINE 20 MG TABLET PO SCH (21:29)
[2017-03-25] MEDS: MIRTAZAPINE 15 MG TABLET PO SCH (21:29)
[2017-03-26] MEDS: Oxycodone *IR* 5 MG TABLET PO PRN ×6 (01:31→22:33)
[2017-03-26] MEDS: PROPRANOLOL 10 MG TABLET PO SCH ×3 (09:10→20:51)
[2017-03-26] MEDS: GABAPENTIN 300 MG CAPSULE PO SCH ×3 (09:10→20:51)
[2017-03-26] MEDS: SENNA + DOCUSATE TABLET PO SCH ×2 (09:10→22:32)
[2017-03-26] MEDS: ASPIRIN 81 MG CHEWABLE TABLET PO SCH ×2 (09:10→20:50)
[2017-03-26] MEDS: BUSPIRONE 15 MG TABLET PO SCH ×3 (09:10→20:51)
[2017-03-26] MEDS: NICOTINE PATCH REMOVAL TD SCH (09:11)
[2017-03-26] MEDS: NICOTINE 21 MG PATCH TD SCH (09:11)
[2017-03-26] MEDS: POLYETHYL GLYCOL 3350 17gm PACKET PO SCH (09:11)
[2017-03-26] MEDS: SPIRONOLACTONE 50 MG TABLET PO SCH (10:34)
--- NOTE | 2017-03-26 12:05 | Pharmacy Consult-Antibiotics ---
Pharmacy Consult-Vancomycin - Laboratory Information WBC 5.9 T/MM3 (4.5-11.0) 03/26/17 05:59 BUN 4.0 MG/DL (9-20) L 03/26/17 05:59 Creatinine 0.8 MG/DL (0.8-1.5) 03/26/17 05:59 Vancomycin Trough 21.46 UG/ML (15-20) H* 03/26/17 11:09 VANCOMYCIN THERAPY DAY 6: Diagnosis: Skin Infection on Rt Ankle. History: Skin infection on ankle due to leaving AMA and not following non-load bearing restrictions. Renal Fx is stable. Vanco trough is high. HOLD dose until 1400 today. Then restarting therapy at Vanco 1250mg IV q8hrs. This gives calculated peak/trough of 42/16 respectively. Thank you
--- NOTE | 2017-03-26 13:00 | Progress Note ---
- Date 03/26/17 Subjective: Young is seen today in follow up. He is quite talkative today. States "I think the cure is going to take this time." He reports that pain is fairly well controlled. States bowels are "a bit painful", but "better than the other option." Is noted to be drinking a large amount of sugar containing drinks during our visit. Still come concern with NWB order compliance. Reports that he is 'irritable" at times- anxiety is an issue. Is on home meds for his mood DO. He normally follows with a provider at [facility], who he has confidence in. Objective Vital signs: Temperature 100.4 F 03/26/17 08:00 Pulse Rate 92 03/26/17 08:00 Respiratory Rate 12 03/26/17 08:00 Blood Pressure 160/93 H 03/26/17 08:00 Pulse Oximetry 96 03/26/17 08:00 Height/Weight/BMI: Height 1.83 m Weight 102.3 kg Body Mass Index 28.4 - Constitutional Present: no acute distress, well nourished, well developed, obese, disheveled ( Hair is tangled and matted. ), cooperative Comments: Skin is moderately icteric, sallow - Routine HEENT Exam Head: Present: normocephalic, atraumatic Eye: Present: EOMI, PERRL ENT: Present: mucous membranes dry - Routine Respiratory Exam Present: decreased breath sounds, CTA bilaterally. Absent: rales, rhonchi, crackles - Routine Cardiovascular Exam Present: RRR, S2, no murmur - Routine Abdominal Exam Present: soft, normoactive bowel sounds, non tender, distended - Routine Extremities Exam Present: no edema - Routine Musculoskeletal Exam Musculoskeletal: Present: moving extremities well. Absent: no tenderness (Cast right leg. Toes warm, good cap refill.) - Routine Skin Exam Present: intact, dry, warm, jaundice - Routine Neurological Exam Present: alert, oriented X3, moving all extremities - Routine Psychiatric Exam Present: cooperative, anxious Results - Labs CBC & Chem 7: 03/26/17 05:59 03/26/17 05:59 Microbiology Results: Microbiology 03/23/17 15:55 Ankle, Right Gram Stain - Final 03/23/17 15:55 Ankle, Right Surgical Culture - Final Staphylococcus aureus, MRSA Assessment and Plan (1) Skin infection Current visit: Yes Status: Acute Assessment and Plan: Impression Right ankle infection-MRSA S/P Right ankle fixation Chronic Alcohol use Depression Hepatitis C Cirrhosis COPD Hypertension Chronic tobacco dependence Plan - 03/26/17 POD #3 - ORIF with wound VAC placement by Dr. Garcia. Continue to encourage compliance with NWB status. Readmissions due to noncompliance are noted. MRSA- IV Vancomycin ongoing. Monitor LFTs throughout visit-chronic significant liver disease. Continue Aldactone. Add Lasix for fluid management status. Propranolol. Not requiring Lactulose due to normal ammonia. Mental health is milton issue- follows with [facility]. Will add low dose hydroxyzine for anxiety management. Repeat labs in AM. SCDs ordered. DVT Prophylaxis: SCD's Resuscitation Status: Full Code - Time spent with patient Time with patient PN: 25 minutes - Physician Narrative Physician: Dannie Chu MD Narrative: Date: 03/26/17 Time: 1700 Have independently interviewed and examined pt. Chart reviewed. Case discussed with nursing and my HOSPICE CARE CONSULTANT. Above care plan developed with my supervision; agree with above. Doing okay the evening. Very frustrated with the decrease in pain medication from 3 tablets to 2. Reports not helping his pain. Nursing reports has had some somnolence during day, but is trying to be more compliant. He is using his IS more frequently. Eating well. Having bowel movements. Urine output increased with starting Lasix. Breathing well. Did walk to bathroom with walker when I first came in (had to urinated really bad) - did well not putting weight on his foot. Walker looked unsteady, but he managed well. Lungs: decreased, no distress CV: regular AB: soft, distended. MSE: awake alert; gets irritable easily but also quick to calm down Plan: Will increase oxycodone to 3 tablets - worry behaviors will escalate if this change not made (IV Dilaudid has been stopped). Do worry no amount of pain medication will completely control symptoms, but reasonable to increase oxycodone as Dilaudid not available for him. Continue with vancomycin for antimicrobial coverage. Encourage no weight bearing. Monitor BP with Lasix, spironolactone, and propranolol use. Hospital Course Summary Disclaimer: The visit summary below is not to be considered part of the above Progress Note. Hospital Course: 03/22/17 Impression Right ankle infection S/P Right ankle fixation Chronic Alcohol use Depression Hepatitis C Cirrhosis COPD Hypertension Chronic tobacco dependence Plan Patient is medically stable. Reviewed note from orthopedics. Tentative plan is ORIF revision of syndesmosis tomorrow and or with likely wound VAC application. Orthopedics is explained to the patient that they like him to go to a fdc. To help protect the foot. Patient is un willing to do this and is aware that orthopedics is not interested in fixing this another time if he does not follow recommendations. 03/23/17 Patient is stable and resting. Seen this morning prior to OR. We will reevaluate in a.m. Continue to watch for elevated blood pressure or agitation signifying acute alcohol withdrawal. CBC, CMP ordered for a.m. 03/24/17 Plan ORIF completed yesterday 03/23 along with placement of wound VAC by Dr. Garcia. Continue with IV vancomycin for antimicrobial coverage. Wound cultures are pending. Nursing reports at times patient is noncompliant and seems confused intermittently. Change Colace to senna plus and add MiraLAX daily for gentle bowel motivation. Continue with nicotine patch. No acute evidence of alcohol withdrawal, Ativan available as needed. Continue to monitor routine labs, white count normal, hemoglobin stable and electrolytes unremarkable. Discussed with attending, Dr. Chu Plan - 03/25/17 (Mirakian). POD #2 - ORIF with wound VAC placement by Dr. Garcia. Patient continues to have issues with noncompliance regarding weightbearing status. Wound vac got tangled in bed rail last night and was completely removed. Ortho notified and pending evaluation this morning. Initial wound cultures revealed staph aureus. Continue IV vancomycin for antimicrobial coverage. Continue to monitor sensitivities and will adjust therapy as indicated. Reported BM last night by patient, though not visualized by nursing. Continue with bowel motivation. Abdomen remains slightly distended but soft and nontender. Weight up from admission, though appears to be trending down following discontinuation of IVF. Continue to monitor closely. Patient appears to be at baseline today per nursing with regard to mentation. Continue to monitor closely. Propranolol 10mg TID initiated 03/24/17 to help decrease portal pressure. Continue to monitor HR/BP and watch for orthostasis. Continue with nicotine patch. No acute evidence of alcohol withdrawal, Ativan available as needed. Continue to monitor routine labs, white count normal, hemoglobin stable and electrolytes unremarkable. Discussed with attending, Dr. Chu. 03/26/17 13:07 POD #3 - ORIF with wound VAC placement by Dr. Garcia. Continue to encourage compliance with NWB status. Readmissions due to noncompliance are noted. MRSA- IV Vancomycin ongoing. Monitor LFTs throughout visit-chronic significant liver disease. Continue Aldactone. Add Lasix for fluid management status. Propranolol. Not requiring Lactulose due to normal ammonia. Mental health is milton issue- follows with [facility]. Will add low dose hydroxyzine for anxiety management. Repeat labs in AM. SCDs ordered.
[2017-03-26] MEDS ORDERED: LACTULOSE 20 GM/30 ML ORAL LIQUID PO PRN (13:07)
[2017-03-26] MEDS: NS FLUSH BAG 500ml IV PRN (14:00)
[2017-03-26] MEDS: FUROSEMIDE 40 MG TABLET PO SCH (14:39)
[2017-03-26] MEDS ORDERED: Oxycodone *IR* 15 MG TABLET PO PRN (19:10)
[2017-03-26] MEDS: PAROXETINE 20 MG TABLET PO SCH (20:50)
[2017-03-26] MEDS: MIRTAZAPINE 15 MG TABLET PO SCH (20:51)
[2017-03-27] MEDS: FUROSEMIDE 40 MG TABLET PO SCH (09:01)
[2017-03-27] MEDS: SPIRONOLACTONE 50 MG TABLET PO SCH (09:01)
[2017-03-27] MEDS: SENNA + DOCUSATE TABLET PO SCH (09:01)
[2017-03-27] MEDS: BUSPIRONE 15 MG TABLET PO SCH ×3 (09:01→20:47)
[2017-03-27] MEDS: PROPRANOLOL 10 MG TABLET PO SCH ×3 (09:01→20:47)
[2017-03-27] MEDS: ASPIRIN 81 MG CHEWABLE TABLET PO SCH ×2 (09:01→20:46)
[2017-03-27] MEDS: POLYETHYL GLYCOL 3350 17gm PACKET PO SCH (09:01)
[2017-03-27] MEDS: NICOTINE 21 MG PATCH TD SCH (09:02)
[2017-03-27] MEDS: NICOTINE PATCH REMOVAL TD SCH (09:02)
[2017-03-27] MEDS: GABAPENTIN 300 MG CAPSULE PO SCH ×3 (09:03→20:47)
--- NOTE | 2017-03-27 09:30 | Progress Note ---
- Date 03/27/17 Subjective: Young is seen in follow up. He is sleeping soundly with the phone up to his ear. I did not attempt to wake him up. He is in no distress. Chart reviewed for collateral information. He has been having large, copious liquid stools. Low grade temp. Weight is down 3 kg with starting Lasix yesterday. Objective Vital signs: Temperature 100.3 F 03/26/17 23:34 Pulse Rate 93 03/26/17 23:34 Respiratory Rate 18 03/26/17 23:34 Blood Pressure 115/73 03/26/17 23:34 Pulse Oximetry 94 03/26/17 23:34 Height/Weight/BMI: Height 1.83 m Weight 99.7 kg Body Mass Index 28.4 - Constitutional Present: no acute distress, average body habitus, obese, disheveled - Routine HEENT Exam Head: Present: normocephalic, atraumatic Eye: Present: EOMI, PERRL ENT: Present: mucous membranes dry - Routine Respiratory Exam Present: decreased breath sounds, CTA bilaterally. Absent: rhonchi, wheezes, crackles - Routine Cardiovascular Exam Present: RRR, S1, S2, no murmur - Routine Abdominal Exam Present: soft, normoactive bowel sounds, non tender, distended (improved. ) - Routine Extremities Exam Present: pulses intact, normal capillary refill - Routine Musculoskeletal Exam Musculoskeletal: Present: moving extremities well, limited range of motion ( right splint in place. ) - Routine Skin Exam Present: intact, dry, warm - Routine Neurological Exam Present: moving all extremities - Routine Psychiatric Exam Comments: sleeping soundly Results - Labs CBC & Chem 7: 03/27/17 06:38 03/27/17 06:37 Microbiology Results: Microbiology 03/23/17 15:55 Ankle, Right Gram Stain - Final 03/23/17 15:55 Ankle, Right Surgical Culture - Final Staphylococcus aureus, MRSA Assessment and Plan (1) Skin infection Current visit: Yes Status: Acute Assessment and Plan: Impression Right ankle infection-MRSA Osteomyelitis S/P Right ankle fixation Chronic Alcohol use Depression Hepatitis C Cirrhosis COPD Hypertension Chronic tobacco dependence Loose stool Plan - 03/27/17 POD #4 - ORIF with wound VAC placement by Dr. Garcia. Continue to encourage compliance with NWB status. Readmissions due to noncompliance are noted. MRSA- IV Vancomycin ongoing. Monitor LFTs throughout visit-chronic significant liver disease. Continue Aldactone. Added Lasix for fluid management status- down 5 lbs overnoc. Add KCL, will need to monitor with aldactone on board. Propranolol. Not requiring Lactulose due to normal ammonia. Mental health is milton issue- follows with PV. Will add low dose hydroxyzine for anxiety management. Loose stool, copious. Change Laxatives to PRN. Check for c.diff- high risk due to prolonged abx. Repeat labs in AM. SCDs ordered. Resuscitation Status: Full Code - Physician Narrative Physician: Dannie Chu MD Narrative: Date: 03/27/17 Time: 1800 Have independently interviewed and examined pt. Chart reviewed. Case discussed with nursing and my PATTERN GRADER. Care plan developed with my supervision; agree with above. Awake and alert this evening. Patient seen just as he was returning to bed- walking (hopping) with walker assistance back to bed. Was keeping right foot off ground. Eating well. Breathing well. Urinating frequently. Nursing reports more somnolence and confusion today. Did get ativan during the night. Has used less Oxycodone - reports with somnolence he has not been watching the clock for timing of his pain medications. Also reports he has been forgetting about the nonweightbearing status. Lungs: decreased, no distress CV: regular Ab: soft distended/ascites MSE: awake alert Plan: Continue Vanco for coverage. Continue spironolactone/furosemide/ propranolol. Encourage non-weight bearing. Hospital Course Summary Disclaimer: The visit summary below is not to be considered part of the above Progress Note. Hospital Course: 03/22/17 Impression Right ankle infection S/P Right ankle fixation Chronic Alcohol use Depression Hepatitis C Cirrhosis COPD Hypertension Chronic tobacco dependence Plan Patient is medically stable. Reviewed note from orthopedics. Tentative plan is ORIF revision of syndesmosis tomorrow and or with likely wound VAC application. Orthopedics is explained to the patient that they like him to go to a group home. To help protect the foot. Patient is un willing to do this and is aware that orthopedics is not interested in fixing this another time if he does not follow recommendations. 03/23/17 Patient is stable and resting. Seen this morning prior to OR. We will reevaluate in a.m. Continue to watch for elevated blood pressure or agitation signifying acute alcohol withdrawal. CBC, CMP ordered for a.m. 03/24/17 Plan ORIF completed yesterday 03/23 along with placement of wound VAC by Dr. Garcia. Continue with IV vancomycin for antimicrobial coverage. Wound cultures are pending. Nursing reports at times patient is noncompliant and seems confused intermittently. Change Colace to senna plus and add MiraLAX daily for gentle bowel motivation. Continue with nicotine patch. No acute evidence of alcohol withdrawal, Ativan available as needed. Continue to monitor routine labs, white count normal, hemoglobin stable and electrolytes unremarkable. Discussed with attending, Dr. Chu Plan - 03/25/17 (Mirakian). POD #2 - ORIF with wound VAC placement by Dr. Garcia. Patient continues to have issues with noncompliance regarding weightbearing status. Wound vac got tangled in bed rail last night and was completely removed. Ortho notified and pending evaluation this morning. Initial wound cultures revealed staph aureus. Continue IV vancomycin for antimicrobial coverage. Continue to monitor sensitivities and will adjust therapy as indicated. Reported BM last night by patient, though not visualized by nursing. Continue with bowel motivation. Abdomen remains slightly distended but soft and nontender. Weight up from admission, though appears to be trending down following discontinuation of IVF. Continue to monitor closely. Patient appears to be at baseline today per nursing with regard to mentation. Continue to monitor closely. Propranolol 10mg TID initiated 03/24/17 to help decrease portal pressure. Continue to monitor HR/BP and watch for orthostasis. Continue with nicotine patch. No acute evidence of alcohol withdrawal, Ativan available as needed. Continue to monitor routine labs, white count normal, hemoglobin stable and electrolytes unremarkable. Discussed with attending, Dr. Chu. 03/26/17 13:07 POD #3 - ORIF with wound VAC placement by Dr. Garcia. Continue to encourage compliance with NWB status. Readmissions due to noncompliance are noted. MRSA- IV Vancomycin ongoing. Monitor LFTs throughout visit-chronic significant liver disease. Continue Aldactone. Add Lasix for fluid management status. Propranolol. Not requiring Lactulose due to normal ammonia. Mental health is milton issue- follows with PV. Will add low dose hydroxyzine for anxiety management. Repeat labs in AM. SCDs ordered. 03/27/17 09:41 POD #4 - ORIF with wound VAC placement by Dr. Garcia. Continue to encourage compliance with NWB status. Readmissions due to noncompliance are noted. MRSA- IV Vancomycin ongoing. Monitor LFTs throughout visit-chronic significant liver disease. Continue Aldactone. Added Lasix for fluid management status- down 5 lbs overnoc. Add KCL, will need to monitor with aldactone on board. Propranolol. Not requiring Lactulose due to normal ammonia. Mental health is milton issue- follows with PV. Will add low dose hydroxyzine for anxiety management. Loose stool, copious. Change Laxatives to PRN. Check for c.diff- high risk due to prolonged abx. Repeat labs in AM. SCDs ordered.
[2017-03-27] MEDS ORDERED: POLYETHYL GLYCOL 3350 17gm PACKET PO PRN (09:33)
[2017-03-27] MEDS ORDERED: SENNA + DOCUSATE TABLET PO PRN (09:41)
[2017-03-27] MEDS: Oxycodone *IR* 5 MG TABLET PO PRN (09:53)
--- NOTE | 2017-03-27 10:13 | Orthopedic Progress Note ---
Date: Date: 03/27/17 Time: 1010 Subjective/Severity of Illness: Awake and alert. Pain controlled. Medicine notes loose stools and checking for C diff. No new complaints. Paz po. Has had some low grade temps. Orthopedic Objective PO Vital signs: Temperature 96.4 F L 03/27/17 08:00 Pulse Rate 83 03/27/17 08:00 Respiratory Rate 14 03/27/17 08:00 Blood Pressure 148/90 H 03/27/17 08:00 Pulse Oximetry 99 03/27/17 08:00 Height and Weight: Height 6 ft Weight 214 lb 4.629 oz Body Mass Index 28.4 - Constitutional General Appearance: Present: no acute distress, somnolent, thin - Respiratory Exam Present: non-labored - Cardiovascular Exam Present: pedal pulses intact Capillary Refill: < 2-3 Seconds - Abdominal Exam Present: distended. Absent: tenderness - Extremities Exam Extremities: Present: normal capillary refill - Lymphatic Lymphatic: Absent: lymphedema - Neurological Exam Present: intact to light touch - Wound Management Right Lateral Ankle Wound Type: Surgical Incision Packing Type: Woundvac Sponge Number of Packing Pieces Removed?: 1 Number of Packing Pieces Placed?: 1 - Labs Result Diagrams: 03/27/17 06:38 03/27/17 06:37 Abnormal lab results 03/26/17 03/27/17 03/27/17 Range/Units 11:09 06:37 06:38 RBC 3.20 L (4.50-5.90) M/MM3 Hgb 9.0 L (13.5-17.5) GM/DL Hct 27.9 L (41-53) % RDW Std Deviation 55.9 H (36.9-50.2) FL Plt Count 106 L (130-400) T/MM3 Eosinophils % (Manual) 6.0 H (0-4) % Potassium 3.5 L (3.6-5) MEQ/L BUN 4.0 L (9-20) MG/DL BUN/Creatinine Ratio 5 L (6-26) RATIO Glucose 134 H (75-110) MG/DL Calcium 8.3 L (8.4-10.2) MG/DL Albumin 3.0 L (3.5-5.0) G/DL Globulin 3.9 H (2.4-3.6) G/DL Albumin/Globulin Ratio 0.8 L (1.1-2.2) RATIO Vancomycin Trough 21.46 H* (15-20) UG/ML H & H 03/21/17 03/23/17 03/24/17 Range/Units 11:17 03:30 03:57 Hgb 11.0 L 9.7 L D 9.4 L (13.5-17.5) GM/DL Hct 33.8 L 30.5 L 29.3 L (41-53) % 03/25/17 03/26/17 03/27/17 Range/Units 07:15 05:59 06:38 Hgb 9.6 L 9.2 L 9.0 L (13.5-17.5) GM/DL Hct 29.4 L 28.3 L 27.9 L (41-53) % Coagulation 03/21/17 Range/Units 11:17 INR 1.63 H (0.99-1.21) Orthopedic Assessment and Plan (1) Closed right ankle fracture Status: Acute Qualifiers: Encounter type: subsequent encounter Assessment and Plan: Patient seems understanding of the severity of ankle fracture and his wound and the chance he may need an amputation. We will continue vancomycin and ID has been consulted. Dr. Garcia spoke with Dr. Burgos who agreed to continue the vanco at this time. Hospitalist following and checking for C Diff bc of loose stools. Will continue strict NWB on right ankle. Wound vac at 125mmHg continuous suction. Continue splint. (2) Skin infection Status: Acute Hospital Course Summary Disclaimer: The visit summary below is not to be considered part of the above Progress Note. Hospital Course: 03/22/17 Impression Right ankle infection S/P Right ankle fixation Chronic Alcohol use Depression Hepatitis C Cirrhosis COPD Hypertension Chronic tobacco dependence Plan Patient is medically stable. Reviewed note from orthopedics. Tentative plan is ORIF revision of syndesmosis tomorrow and or with likely wound VAC application. Orthopedics is explained to the patient that they like him to go to a shelter. To help protect the foot. Patient is un willing to do this and is aware that orthopedics is not interested in fixing this another time if he does not follow recommendations. 03/23/17 Patient is stable and resting. Seen this morning prior to OR. We will reevaluate in a.m. Continue to watch for elevated blood pressure or agitation signifying acute alcohol withdrawal. CBC, CMP ordered for a.m. 03/24/17 Plan ORIF completed yesterday 03/23 along with placement of wound VAC by Dr. Garcia. Continue with IV vancomycin for antimicrobial coverage. Wound cultures are pending. Nursing reports at times patient is noncompliant and seems confused intermittently. Change Colace to senna plus and add MiraLAX daily for gentle bowel motivation. Continue with nicotine patch. No acute evidence of alcohol withdrawal, Ativan available as needed. Continue to monitor routine labs, white count normal, hemoglobin stable and electrolytes unremarkable. Discussed with attending, Dr. Chu Plan - 03/25/17 (Mir[place]ian). POD #2 - ORIF with wound VAC placement by Dr. Garcia. Patient continues to have issues with noncompliance regarding weightbearing status. Wound vac got tangled in bed rail last night and was completely removed. Ortho notified and pending evaluation this morning. Initial wound cultures revealed staph aureus. Continue IV vancomycin for antimicrobial coverage. Continue to monitor sensitivities and will adjust therapy as indicated. Reported BM last night by patient, though not visualized by nursing. Continue with bowel motivation. Abdomen remains slightly distended but soft and nontender. Weight up from admission, though appears to be trending down following discontinuation of IVF. Continue to monitor closely. Patient appears to be at baseline today per nursing with regard to mentation. Continue to monitor closely. Propranolol 10mg TID initiated 03/24/17 to help decrease portal pressure. Continue to monitor HR/BP and watch for orthostasis. Continue with nicotine patch. No acute evidence of alcohol withdrawal, Ativan available as needed. Continue to monitor routine labs, white count normal, hemoglobin stable and electrolytes unremarkable. Discussed with attending, Dr. Chu. 03/26/17 13:07 POD #3 - ORIF with wound VAC placement by Dr. Garcia. Continue to encourage compliance with NWB status. Readmissions due to noncompliance are noted. MRSA- IV Vancomycin ongoing. Monitor LFTs throughout visit-chronic significant liver disease. Continue Aldactone. Add Lasix for fluid management status. Propranolol. Not requiring Lactulose due to normal ammonia. Mental health is milton issue- follows with PV. Will add low dose hydroxyzine for anxiety management. Repeat labs in AM. SCDs ordered. 03/27/17 09:41 POD #4 - ORIF with wound VAC placement by Dr. Garcia. Continue to encourage compliance with NWB status. Readmissions due to noncompliance are noted. MRSA- IV Vancomycin ongoing. Monitor LFTs throughout visit-chronic significant liver disease. Continue Aldactone. Added Lasix for fluid management status- down 5 lbs overnoc. Add KCL, will need to monitor with aldactone on board. Propranolol. Not requiring Lactulose due to normal ammonia. Mental health is milton issue- follows with PV. Will add low dose hydroxyzine for anxiety management. Loose stool, copious. Change Laxatives to PRN. Check for c.diff- high risk due to prolonged abx. Repeat labs in AM. SCDs ordered.
[2017-03-27] MEDS: PAROXETINE 20 MG TABLET PO SCH (20:47)
[2017-03-27] MEDS: MIRTAZAPINE 15 MG TABLET PO SCH (20:47)
[2017-03-28] MEDS: FUROSEMIDE 40 MG TABLET PO SCH (08:37)
[2017-03-28] MEDS: SPIRONOLACTONE 50 MG TABLET PO SCH (08:37)
[2017-03-28] MEDS: GABAPENTIN 300 MG CAPSULE PO SCH ×3 (08:37→20:49)
[2017-03-28] MEDS: PROPRANOLOL 10 MG TABLET PO SCH ×3 (08:37→20:50)
[2017-03-28] MEDS: BUSPIRONE 15 MG TABLET PO SCH ×3 (08:37→20:49)
[2017-03-28] MEDS: ASPIRIN 81 MG CHEWABLE TABLET PO SCH ×2 (08:37→20:49)
[2017-03-28] MEDS: Oxycodone *IR* 5 MG TABLET PO PRN ×5 (08:38→23:51)
[2017-03-28] MEDS: NICOTINE PATCH REMOVAL TD SCH (08:41)
[2017-03-28] MEDS: NICOTINE 21 MG PATCH TD SCH (08:41)
--- NOTE | 2017-03-28 09:16 | Infectious Disease Consult ---
Infectious Disease Consult Date of Consultation: 03/28/17 Requesting Physician: Cristofer Garcia Reason for Consultation: antibiotic recs History of Present Illness: Mr. Dyson is a 51 y/o man with a h/o HCV and alcoholism. He is currently sleeping, and I can't get him to wake up. He opens his eyes briefly, then falls back asleep. My history is obtained from the chart and from discussion with Dr. Garcia and Rosa M Casiano APRN. He fractured his right ankle on . He underwent exam under anesthesia of right ankle with dressing changes and closed reduction and splinting of right ankle fracture on 02/18/17. On he underwent open reduction internal fixation of right trimalleolar equivalent ankle fracture/dislocation with repair of deltoid rupture. He left AMA on 02/27/17. He continued to walk on his ankle despite instructions for nonweightbearing. He was admitted 03/07-03/13 for postop skin infection at which time patient was on IV Vancomycin and had a wound VAC placed. Blood cultures were negative. No wound cultures were taken. He underwent I&D of right ankle lateral surgical site with revision ORIF right ankle on 03/11/17 with application of incisional wound VAC. He was discharged home on Keflex, instructed to follow in outpatient setting with Dr. Garcia at the orthopedic clinic. He was readmitted on 03/21/17 due to infection on his surgical site. He was started on vancomycin for antimicrobial coverage. On 03/23, he was taken to the OR for revision open reduction internal fixation, right ankle, with placement of wound VAC. Wound cultures were taken near the lateral hardware, and it has grown MRSA, sensitive to clinda, doxy, bactrim, and Vanco. He has not had leukocytosis but he has had some low-grade fevers. He reportedly had several loose stools over the weekend, but then hasn't had one for awhile. C diff testing has been ordered, but he apparently wouldn't let the RN see his stool for the testing. Medications Home Medications Medication Instructions Recorded Confirmed Type PARoxetine HCl [Paxil] 30 mg PO HS #0 06/02/15 03/07/17 History Buspirone [Buspar] 15 mg PO TID 02/12/17 03/07/17 History Mirtazapine 7.5 mg PO HS 02/12/17 03/07/17 History Allergies Allergy/AdvReac Type Severity Reaction Status Date / Time adhesive tape Allergy Unknown RED RASH Verified 03/23/17 14:48 ketorolac Allergy Unknown Verified 03/23/17 14:48 quetiapine Allergy Unknown Verified 03/23/17 14:48 [facility] Patient Stated Medical History Seizures Yes: last time 5-6 years ago. Alcohol induced. Hypertension Yes Bronchitis Yes Chronic Obstructive Pulmonary Yes Disease (COPD) Sleep Apnea No Cirrhosis Yes Hepatitis Yes: HEP C, history of hepatic encephalopathy. Hx Renal Disease No Other Musculoskeletal Yes: BACK SURGERY 1993 MRSA Yes: hx Other Yes: anemia Depression Yes Surgical History: 02/14/17: Manipulation of right ankle under anesthesia with application of splint. 02/18/17: Exam under anesthesia of right ankle with dressing changes and closed reduction and splinting of right ankle fracture. : Open reduction internal fixation of right trimalleolar equivalent ankle fracture/dislocation with repair of deltoid rupture. 03/11/17: I&D of right ankle lateral surgical site with revision ORIF right ankle. 03/23/17: Revision open reduction internal fixation, right ankle, with placement of wound VAC. Orthopedic surgeries: Clavicle, Back (1993), Jaw. Liver biopsy? Family History: unknown - Social History Smoking status: Current every day smoker Alcohol intake: current (long h/o alcohol use per records) Social history: On probation per [employer] consult dated 02/19/17 Review of Systems ROS unobtainable: due to mental status (patient is somnolent) Exam Vital Signs: Temperature 99.3 F 03/28/17 07:00 Pulse Rate 75 03/28/17 07:00 Respiratory Rate 16 03/28/17 07:00 Blood Pressure 136/84 03/28/17 07:00 Pulse Oximetry 94 03/28/17 07:00 Height/Weight/BMI: Height 1.83 m Weight 94.6 kg Body Mass Index 28.4 - Constitutional Present: no acute distress, well nourished, well developed, somnolent - Routine HEENT Exam Head: Present: normocephalic, atraumatic Eye: Present: EOMI ENT: Present: mucous membranes dry - Routine Neck Exam Absent: lymphadenopathy - Routine Respiratory Exam Present: CTA bilaterally - Routine Cardiovascular Exam Present: RRR - Routine Abdominal Exam Present: soft, normoactive bowel sounds, non tender - Routine Extremities Exam Absent: cyanosis, clubbing, edema Comments: R ankle is in a splint, wound VAC on - Routine Skin Exam Absent: rash Comments: some excoriations noted LLE - Routine Neurological Exam Present: altered mental status (sleeping) - Routine Psychiatric Exam Present: unable to assess Results - Labs CBC & Chem 7: 03/28/17 04:35 03/28/17 04:35 Microbiology Results: Microbiology 03/23/17 15:55 Ankle, Right Gram Stain - Final 03/23/17 15:55 Ankle, Right Surgical Culture - Final Staphylococcus aureus, MRSA Impression: Post-operative infection Right ankle-MRSA R ankle fracture s/p ORIF of right trimalleolar equivalent ankle fracture/ dislocation with repair of deltoid rupture 02/24/17, s/p I&D of right ankle lateral surgical site with revision ORIF right ankle on 03/11/17 with application of incisional wound VAC, followed by revision ORIF right ankle, with placement of wound VAC on 03/23/17. Wound cultures near lateral hardware 03/23 grew MRSA. Encephalopathy Chronic Alcohol use Depression Hepatitis C Cirrhosis with splenomegaly and esophageal varices, followed by Dr. Alvarez COPD Hypertension Chronic tobacco dependence Loose stool Recommendation: Recommend Vancomycin for 4-6 weeks due to infection adjacent to hardware. This will most likely be difficult in this patient. I would recommend continuing IV antibiotics as long as possible. We might have to change to oral antibiotics towards the end of therapy based on patient nonadherence.
--- NOTE | 2017-03-28 10:19 | Progress Note ---
- Date 03/28/17 Subjective: Young is seen this morning while sleeping. He does briefly arouse during exam however falls back asleep. He is comfortably breathing on room air without distress. Noted fever last night up to 100.1. He did have loose stools last evening. This morning he had bowel movement however refused to let nursing staff take a sample or see stools. Objective Vital signs: Temperature 99.3 F 03/28/17 07:00 Pulse Rate 75 03/28/17 07:00 Respiratory Rate 16 03/28/17 07:00 Blood Pressure 136/84 03/28/17 07:00 Pulse Oximetry 94 03/28/17 07:00 Height/Weight/BMI: Height 1.83 m Weight 94.6 kg Body Mass Index 28.4 - Constitutional Present: no acute distress, well nourished, well developed - Routine HEENT Exam Eye: Present: EOMI ENT: Present: mucous membranes moist, dentition normal - Routine Respiratory Exam Present: CTA bilaterally. Absent: wheezes - Routine Cardiovascular Exam Present: RRR, S1, S2. Absent: murmur - Routine Abdominal Exam Present: soft, normoactive bowel sounds, non distended. Absent: tenderness - Routine Extremities Exam Comments: Right ankle splint inplace - Routine Skin Exam Present: intact, dry, warm - Routine Neurological Exam Present: moving all extremities - Routine Lymphatic Exam Lymphatic: Absent: adenopathy - Routine Psychiatric Exam Present: cooperative Results - Labs CBC & Chem 7: 03/28/17 04:35 03/28/17 04:35 Microbiology Results: Microbiology 03/23/17 15:55 Ankle, Right Gram Stain - Final 03/23/17 15:55 Ankle, Right Surgical Culture - Final Staphylococcus aureus, MRSA Assessment and Plan (1) Skin infection Current visit: Yes Status: Acute Assessment and Plan: Impression Right ankle infection-MRSA Osteomyelitis S/P Right ankle fixation Chronic Alcohol use Depression Hepatitis C Cirrhosis COPD Hypertension Chronic tobacco dependence Loose stool Plan - 03/28 POD #5 - ORIF with wound VAC placement by Dr. Garcia. Continue to encourage compliance with NWB status. Readmissions due to noncompliance- Possible Swing Continue on Vancomycin IV for treatment of MRSA Dr Burgos recommends 4-6 weeks Continue Aldactone and Lasix for fluid motivation Obtain stool sample as able if loose stools continue Discussed with Dr Burgos and CM - Time spent with patient Time with patient PN: 25 minutes - Physician Narrative Physician: Dannie Chu MD Narrative: Date: 03/28/17 Time: 1929 Have independently interviewed and examined pt. Chart reviewed. Case discussed with my CLOTH DYER. Care plan developed with my supervision; agree with above. Doing okay this evening. Reports a good day. Dr Garcia replaced his cast with a new one-reports Dr Garcia said wound was looking well (but also reports Dr Garcia again stressed about keeping weight off his foot). Nursing reports he was ' dragging' his right foot when up, but doing better about not putting weight on leg. Nurses also report that he gets around fairly well with 'hopping.' Pt states he does better with walker than crutches. Eating well. Reports bowels moving. No nausea. Breathing stable. Lungs: decreased, no distress CV: regular MSE: awake alert appropriate. Converses well Plan: Continue with current treatments. With Dr Burgos recommendations of 4-6 weeks for Vanco, patient will need PICC line. Hospital Course Summary Disclaimer: The visit summary below is not to be considered part of the above Progress Note. Hospital Course: 03/22/17 Impression Right ankle infection S/P Right ankle fixation Chronic Alcohol use Depression Hepatitis C Cirrhosis COPD Hypertension Chronic tobacco dependence Plan Patient is medically stable. Reviewed note from orthopedics. Tentative plan is ORIF revision of syndesmosis tomorrow and or with likely wound VAC application. Orthopedics is explained to the patient that they like him to go to a long term. To help protect the foot. Patient is un willing to do this and is aware that orthopedics is not interested in fixing this another time if he does not follow recommendations. 03/23/17 Patient is stable and resting. Seen this morning prior to OR. We will reevaluate in a.m. Continue to watch for elevated blood pressure or agitation signifying acute alcohol withdrawal. CBC, CMP ordered for a.m. 03/24/17 Plan ORIF completed yesterday 03/23 along with placement of wound VAC by Dr. Garcia. Continue with IV vancomycin for antimicrobial coverage. Wound cultures are pending. Nursing reports at times patient is noncompliant and seems confused intermittently. Change Colace to senna plus and add MiraLAX daily for gentle bowel motivation. Continue with nicotine patch. No acute evidence of alcohol withdrawal, Ativan available as needed. Continue to monitor routine labs, white count normal, hemoglobin stable and electrolytes unremarkable. Discussed with attending, Dr. Chu Plan - 03/25/17 ([place]). POD #2 - ORIF with wound VAC placement by Dr. Garcia. Patient continues to have issues with noncompliance regarding weightbearing status. Wound vac got tangled in bed rail last night and was completely removed. Ortho notified and pending evaluation this morning. Initial wound cultures revealed staph aureus. Continue IV vancomycin for antimicrobial coverage. Continue to monitor sensitivities and will adjust therapy as indicated. Reported BM last night by patient, though not visualized by nursing. Continue with bowel motivation. Abdomen remains slightly distended but soft and nontender. Weight up from admission, though appears to be trending down following discontinuation of IVF. Continue to monitor closely. Patient appears to be at baseline today per nursing with regard to mentation. Continue to monitor closely. Propranolol 10mg TID initiated 03/24/17 to help decrease portal pressure. Continue to monitor HR/BP and watch for orthostasis. Continue with nicotine patch. No acute evidence of alcohol withdrawal, Ativan available as needed. Continue to monitor routine labs, white count normal, hemoglobin stable and electrolytes unremarkable. Discussed with attending, Dr. Chu. 03/26/17 13:07 POD #3 - ORIF with wound VAC placement by Dr. Garcia. Continue to encourage compliance with NWB status. Readmissions due to noncompliance are noted. MRSA- IV Vancomycin ongoing. Monitor LFTs throughout visit-chronic significant liver disease. Continue Aldactone. Add Lasix for fluid management status. Propranolol. Not requiring Lactulose due to normal ammonia. Mental health is milton issue- follows with PV. Will add low dose hydroxyzine for anxiety management. Repeat labs in AM. SCDs ordered. 03/27/17 09:41 POD #4 - ORIF with wound VAC placement by Dr. Garcia. Continue to encourage compliance with NWB status. Readmissions due to noncompliance are noted. MRSA- IV Vancomycin ongoing. Monitor LFTs throughout visit-chronic significant liver disease. Continue Aldactone. Added Lasix for fluid management status- down 5 lbs overnoc. Add KCL, will need to monitor with aldactone on board. Propranolol. Not requiring Lactulose due to normal ammonia. Mental health is milton issue- follows with PV. Will add low dose hydroxyzine for anxiety management. Loose stool, copious. Change Laxatives to PRN. Check for c.diff- high risk due to prolonged abx. Repeat labs in AM. SCDs ordered. 03/28/17 Plan - 03/28 POD #5 - ORIF with wound VAC placement by Dr. Garcia. Continue to encourage compliance with NWB status. Readmissions due to noncompliance- Possible Swing Continue on Vancomycin IV for treatment of MRSA Dr Burgos recommends 4-6 weeks Continue Aldactone and Lasix for fluid motivation Obtain stool sample as able if loose stools continue Discussed with Dr Burgos and CM
--- NOTE | 2017-03-28 16:01 | XRay Report ---
EXAM: XR ankle RT min 3V LOCATION OF DICTATION: [facility] HISTORY: Check position of fx. COMPARISON: No prior studies available for comparison. FINDINGS: Open reduction internal fixation of the right ankle with sideplate and screws extending down the lateral distal fibula. There is subtle progressive healing suggest about the comminuted distal fibular fracture which demonstrate stable alignment. Interval removal of a single screw traversing the tibial fibular syndesmosis. A single screw traverses the syndesmosis and is stable. Single anchor screw is in place within the medial malleolus. There is normal alignment of the ankle mortise. Limited evaluation with overlying casting material obscuring fine bony detail. No obvious new acute fracture. Impression: 1. Internal fixation of ankle fractures with subtle progressive incomplete healing of the distal fibular fracture. There are no new acute fractures identified. The alignment of the ankle joint is stable. .
[2017-03-28] MEDS: MIRTAZAPINE 15 MG TABLET PO SCH (20:49)
[2017-03-28] MEDS: PAROXETINE 20 MG TABLET PO SCH (20:49)
[2017-03-28] MEDS: NS FLUSH BAG 500ml IV PRN (22:37)
[2017-03-29 08:09] VITALS: BP 119/78; PULSE 82; RESP 18; TEMP 97.5; O2SAT 93
[2017-03-29] MEDS: PROPRANOLOL 10 MG TABLET PO SCH (08:34)
[2017-03-29] MEDS: GABAPENTIN 300 MG CAPSULE PO SCH (08:34)
[2017-03-29] MEDS: NICOTINE 21 MG PATCH TD SCH (08:34)
[2017-03-29] MEDS: BUSPIRONE 15 MG TABLET PO SCH (08:34)
[2017-03-29] MEDS: FUROSEMIDE 40 MG TABLET PO SCH (08:34)
[2017-03-29] MEDS: SPIRONOLACTONE 50 MG TABLET PO SCH (08:34)
[2017-03-29] MEDS: ASPIRIN 81 MG CHEWABLE TABLET PO SCH (08:34)
[2017-03-29] MEDS: NICOTINE PATCH REMOVAL TD SCH (08:35)
[2017-03-29] MEDS: Oxycodone *IR* 5 MG TABLET PO PRN ×2 (09:24→13:10)
--- NOTE | 2017-03-29 13:07 | Discharge Summary ---
Orthopedic Discharge Info Date of admission: 03/21/17 10:26 Anticipated date of discharge: 03/29/17 Primary care physician: Kelin Pinedo APRN Attending Physician: Cristofer Garcia MD Consults: 03/21/17 10:51 Physician [Physician Consult] [CONS] Routine Consulting Provider: Mechelle Ramirez Reason For Exam: Medical mgmt. Ordering Provider has Notified Retread Operator: No 03/23/17 09:20 Chief Pharmacist Consult [CONS] Routine 03/25/17 09:19 Physician Consult [CONS] Routine Consulting Provider: Floresita Burgos Reason For Exam: surgical site infection - MRSA Ordering Provider has Notified Retread Operator: Yes - Discharge Diagnosis (1) Closed right ankle fracture Qualifiers: Encounter type: subsequent encounter Status: Acute (2) Skin infection Status: Acute - Procedures Procedures: Procedures Repair Right Ankle Bursa and Ligament, Open Approach (02/14/17) Reposition Right Ankle Joint, External Approach (02/14/17) Reposition Right Fibula with Internal Fixation Device, Open Approach (02/14/17) Reposition Right Fibula, External Approach (02/14/17) Reposition Right Tibia with Internal Fixation Device, Open Approach (02/14/17) Reposition Right Tibia, External Approach (02/14/17) - Laboratory Result Diagrams: 03/28/17 04:35 03/28/17 04:35 Laboratory: H & H 03/21/17 03/23/17 03/24/17 Range/Units 11:17 03:30 03:57 Hgb 11.0 L 9.7 L D 9.4 L (13.5-17.5) GM/DL Hct 33.8 L 30.5 L 29.3 L (41-53) % 03/25/17 03/26/17 03/27/17 Range/Units 07:15 05:59 06:38 Hgb 9.6 L 9.2 L 9.0 L (13.5-17.5) GM/DL Hct 29.4 L 28.3 L 27.9 L (41-53) % 03/28/17 Range/Units 04:35 Hgb 9.1 L (13.5-17.5) GM/DL Hct 28.5 L (41-53) % Coagulation 03/21/17 Range/Units 11:17 INR 1.63 H (0.99-1.21) - Microbiology Microbiology 03/23/17 15:55 Ankle, Right Gram Stain - Final 03/23/17 15:55 Ankle, Right Surgical Culture - Final Staphylococcus aureus, MRSA Orthopedic Discharge HPI - HPI Comments Mr Dyson suffered a right ankle fracture 02/12/17. He developed severe swelling and fracture blister formation which resulted in a delay in surgical fixation. He eventually underwent ORIF of the right ankle on 02/24/17. After surgery the pt was non-compliant with wt bearing restrictions and left AMA on 03/29/17. Xrays taken in the office showed loss of fixation due to his non-compliance as well as development of wound healing problems. He was again admitted on and placed on IV Vanco. He was then taken to the OR for revision ORIF with application of a wound vac on 03/11/17. He seemed to be doing better and was discharged on 03/13/17 to his own home. He refused NH placement and insisted on going back to his own home. Pt was again non-compliant and walked a considerable amount on his right ankle. Xrays again showed loss of surgical fixation and his wound continued to break down resulting in a SSI. Dr Garcia spent considerable time educating and explaining the need to be compliant and Mr Dyson was informed on several occasions that he is at risk of needing an amputation if this does not heal. On 03/21/17, pt was admitted for IV vanco, placement of wound vac and monitoring of his surgical wound. Additional surgical intervention is expected during this admission. Orthopedic Hospital Course Hospital course: 03/29/17 13:22 Hospital Course: 03/22/17 Impression Right ankle infection S/P Right ankle fixation Chronic Alcohol use Depression Hepatitis C Cirrhosis COPD Hypertension Chronic tobacco dependence Plan Patient is medically stable. Reviewed note from orthopedics. Tentative plan is ORIF revision of syndesmosis tomorrow and or with likely wound VAC application. Orthopedics is explained to the patient that they like him to go to a residential. To help protect the foot. Patient is un willing to do this and is aware that orthopedics is not interested in fixing this another time if he does not follow recommendations. 03/23/17 Patient is stable and resting. Seen this morning prior to OR. We will reevaluate in a.m. Continue to watch for elevated blood pressure or agitation signifying acute alcohol withdrawal. CBC, CMP ordered for a.m. Pt underwent revision ORIF of the right ankle with removal of one syndesmotic screw and placement of a syndesmotic rope device. I&D and cultures obtained. Wound vac reapplied. 03/24/17 Plan ORIF completed yesterday 03/23 along with placement of wound VAC by Dr. Garcia. Continue with IV vancomycin for antimicrobial coverage. Wound cultures are pending. Nursing reports at times patient is noncompliant and seems confused intermittently. Change Colace to senna plus and add MiraLAX daily for gentle bowel motivation. Continue with nicotine patch. No acute evidence of alcohol withdrawal, Ativan available as needed. Continue to monitor routine labs, white count normal, hemoglobin stable and electrolytes unremarkable. Discussed with attending, Dr. Chu 03/25/17 Patient continues to have issues with noncompliance regarding weightbearing status. Wound vac got tangled in bed rail last night and was completely removed. Ortho notified and pending evaluation this morning. Initial wound cultures revealed staph aureus. Continue IV vancomycin for antimicrobial coverage. Continue to monitor sensitivities and will adjust therapy as indicated. Reported BM last night by patient, though not visualized by nursing. Continue with bowel motivation. Abdomen remains slightly distended but soft and nontender. Weight up from admission, though appears to be trending down following discontinuation of IVF. Continue to monitor closely. Patient appears to be at baseline today per nursing with regard to mentation. Continue to monitor closely. Propranolol 10mg TID initiated 03/24/17 to help decrease portal pressure. Continue to monitor HR/BP and watch for orthostasis. Continue with nicotine patch. No acute evidence of alcohol withdrawal, Ativan available as needed. Continue to monitor routine labs, white count normal, hemoglobin stable and electrolytes unremarkable. Discussed with attending, Dr. Chu. 03/26/17 POD #3 - ORIF with wound VAC placement by Dr. Garcia. Continue to encourage compliance with NWB status. Readmissions due to noncompliance are noted. MRSA- IV Vancomycin ongoing. Monitor LFTs throughout visit-chronic significant liver disease. Continue Aldactone. Add Lasix for fluid management status. Propranolol. Not requiring Lactulose due to normal ammonia. Mental health is milton issue- follows with PV. Will add low dose hydroxyzine for anxiety management. Repeat labs in AM. SCDs ordered. 03/27/17 POD #4 - ORIF with wound VAC placement by Dr. Garcia. Continue to encourage compliance with NWB status. Readmissions due to noncompliance are noted. MRSA- IV Vancomycin ongoing. Monitor LFTs throughout visit-chronic significant liver disease. Continue Aldactone. Added Lasix for fluid management status- down 5 lbs overnoc. Add KCL, will need to monitor with aldactone on board. Propranolol. Not requiring Lactulose due to normal ammonia. Mental health is milton issue- follows with PV. Will add low dose hydroxyzine for anxiety management. Loose stool, copious. Change Laxatives to PRN. Check for c.diff- high risk due to prolonged abx. Repeat labs in AM. SCDs ordered. 03/28/17 POD #5 - ORIF with wound VAC placement by Dr. Garcia. Wound vac changed at bedside today. Wound improving some. Continue to encourage compliance with NWB status. Readmissions due to noncompliance- Possible Swing Continue on Vancomycin IV for treatment of MRSA Dr Burgos recommends 4-6 weeks Continue Aldactone and Lasix for fluid motivation Obtain stool sample as able if loose stools continue Discussed with Dr Burgos and CM 03/29/17 Pt status changed to Swing Bed today. Discharge Plan - Med Rec/Dispo [facility] Instructions: Lorazepam (By injection) Prescriptions: New Furosemide [Lasix] 40 mg PO DAILY tab HydrOXYzine [Atarax] 10 mg PO TID PRN tab PRN Reason: Anxiety Lactulose Oral Liq [Lactulose] 20 gm PO BID PRN solution PRN Reason: Constipation LORazepam INJ [Ativan Inj] 1 mg IVP Q4H PRN vial PRN Reason: Agitation Nicotine Patch [Nicoderm] 21 mg TD DAILY patch Nicotine Patch Removal 1 removal TD DAILY patch Oxycodone *IR* [Roxicodone *Ir*] 5 - 15 mg PO Q3H PRN tab PRN Reason: Pain PEG 3350 17gm PACKET [Miralax] 17 gm PO DAILY PRN packet PRN Reason: Constipation Potassium Chloride [K-Dur] 20 meq PO WB tab Propranolol [Inderal] 10 mg PO TID tab Spironolactone [Aldactone] 50 mg PO DAILY tab Vancomycin [Vancocin] 1,250 mg IV 0600,1400,2200 vial Mag-Al + Sim Oral Liq [Maalox Plus] 30 ml PO Q3H PRN udc PRN Reason: Indigestion Senna + Docusate [Senna Plus Tablet] 2 tab PO BID PRN tab PRN Reason: Constipation Continue PARoxetine HCl [Paxil] 30 mg PO HS #0 Mirtazapine 7.5 mg PO HS Buspirone [Buspar] 15 mg PO TID Gabapentin [Neurontin] 300 mg PO TID cap Aspirin Chewable [ASA] 81 mg PO BID tab.chew No Action Oxycodone *IR* [Roxicodone *Ir*] 5 - 15 mg PO Q4H PRN #50 tab PRN Reason: Pain Propranolol [Inderal] 10 mg PO TID #90 tab Multi-Vitamin + Mineral [Therapeutic - M] 1 tab PO DAILY tab cephALEXin [Keflex] 1 cap PO QID #40 cap Colace (Docusate sodium) 100 mg capsule 100 mg PO BID #60 cap oxycodone 5 mg capsule 5 mg PO Q6H PRN #60 cap PRN Reason: pain - Disposition 61 To Any Swing Bed
== END 2017-03-29 14:18 | disposition swing bed (61) | DRG 496 ==
LOC: SRG 10:26
PROVIDERS: ADMIT Orthopaedic Surgery; ATTEND Orthopaedic Surgery

== ENCOUNTER 2017-03-29 14:26 | Inpatient (IN) ==
[2017-03-29] MEDS ORDERED: ALBUTEROL 2.5mg/0.5ml (0.5%) NEB AEROSOL PRN (14:51)
[2017-03-29] MEDS ORDERED: MAG-AL + SIM ORAL LIQUID 30ml PO PRN (14:51)
[2017-03-29] MEDS ORDERED: LACTULOSE 20 GM/30 ML ORAL LIQUID PO PRN (14:51)
[2017-03-29] MEDS ORDERED: FALL RISK - PHARMACY CONSULT XX ONE ×2 (14:51)
[2017-03-29 14:55] VITALS: BMI 28.5
[2017-03-29] MEDS: GABAPENTIN 300 MG CAPSULE PO SCH ×2 (15:45→22:14)
[2017-03-29] MEDS: PROPRANOLOL 10 MG TABLET PO SCH ×2 (15:45→22:14)
[2017-03-29] MEDS: BUSPIRONE 15 MG TABLET PO SCH ×2 (15:45→22:14)
[2017-03-29] MEDS: Oxycodone *IR* 5 MG TABLET PO PRN ×3 (16:56→23:14)
[2017-03-29] MEDS: PAROXETINE 20 MG TABLET PO SCH (22:13)
[2017-03-29] MEDS: ASPIRIN 81 MG CHEWABLE TABLET PO SCH (22:14)
[2017-03-29] MEDS: MIRTAZAPINE 15 MG TABLET PO SCH (22:14)
[2017-03-30] MEDS: Oxycodone *IR* 5 MG TABLET PO PRN ×7 (02:10→22:18)
[2017-03-30] MEDS: FUROSEMIDE 40 MG TABLET PO SCH (08:11)
[2017-03-30] MEDS: PROPRANOLOL 10 MG TABLET PO SCH ×3 (08:11→21:46)
[2017-03-30] MEDS: GABAPENTIN 300 MG CAPSULE PO SCH ×3 (08:11→21:45)
[2017-03-30] MEDS: BUSPIRONE 15 MG TABLET PO SCH ×3 (08:11→21:45)
[2017-03-30] MEDS: NICOTINE 21 MG PATCH TD SCH (08:12)
[2017-03-30] MEDS: SPIRONOLACTONE 50 MG TABLET PO SCH (08:12)
[2017-03-30] MEDS: ASPIRIN 81 MG CHEWABLE TABLET PO SCH ×2 (08:12→21:45)
[2017-03-30] MEDS: NICOTINE PATCH REMOVAL TD SCH (08:12)
--- NOTE | 2017-03-30 08:58 | Infectious Disease Consult ---
Infectious Disease Consult Date of Consultation: 03/30/17 Requesting Physician: Cristofer Garcia Reason for Consultation: antibiotic recs History of Present Illness: Mr. Dyson is a 51 y/o man with a h/o HCV and alcoholism. I saw him initially on 03/28, but he was sleeping, and I couldn't arouse him. He fractured his right ankle on 02/12/17. He underwent exam under anesthesia of right ankle with dressing changes and closed reduction and splinting of right ankle fracture on 02/18/17. On 02/24 he underwent open reduction internal fixation of right trimalleolar equivalent ankle fracture/dislocation with repair of deltoid rupture. He left AMA on 02/27/17. He continued to walk on his ankle despite instructions for nonweightbearing. He was admitted 03/07-03/13 for postop skin infection at which time patient was on IV Vancomycin and had a wound VAC placed. Blood cultures were negative. No wound cultures were taken. He underwent I&D of right ankle lateral surgical site with revision ORIF right ankle on 03/11/17 with application of incisional wound VAC. He was discharged home on Keflex, instructed to follow in outpatient setting with Dr. Garcia at the orthopedic clinic. He was readmitted on 03/21/17 due to infection on his surgical site. He was started on vancomycin for antimicrobial coverage. On 03/23, he was taken to the OR for revision open reduction internal fixation, right ankle, with placement of wound VAC. Wound cultures were taken near the lateral hardware, and it has grown MRSA, sensitive to clinda, doxy, bactrim, and Vanco. He has not had leukocytosis but he has had some low-grade fevers. He reportedly had several loose stools over the weekend, but then hasn't had one for awhile. C diff testing was ordered, but he apparently wouldn't let the RN see his stool for the testing. He was made Swingbed status yesterday. Today he is awake, and answers questions, although he does at times start to fall asleep. He states his diarrhea has resolved. He tells me that he's been trying to stay off his ankle. Occasionally, his answers to my questions don't make any sense. Medications Home Medications Medication Instructions Recorded Confirmed Type PARoxetine HCl [Paxil] 30 mg PO HS #0 06/02/15 03/29/17 History Buspirone [Buspar] 15 mg PO TID 02/12/17 03/29/17 History Mirtazapine 7.5 mg PO HS 02/12/17 03/29/17 History Allergies Allergy/AdvReac Type Severity Reaction Status Date / Time adhesive tape Allergy Unknown RED RASH Verified 03/23/17 14:48 ketorolac Allergy Unknown Verified 03/23/17 14:48 quetiapine Allergy Unknown Verified 03/23/17 14:48 PFSH Patient Stated Medical History Seizures Yes: last time 5-6 years ago. Alcohol induced. Hypertension Yes Bronchitis Yes Chronic Obstructive Pulmonary Yes Disease (COPD) Sleep Apnea No Cirrhosis Yes Hepatitis Yes: HEP C, history of hepatic encephalopathy. Hx Renal Disease No Other Musculoskeletal Yes: BACK SURGERY 1993 MRSA Yes: hx Other Yes: anemia Depression Yes Surgical History: 02/14/17: Manipulation of right ankle under anesthesia with application of splint. 02/18/17: Exam under anesthesia of right ankle with dressing changes and closed reduction and splinting of right ankle fracture. : Open reduction internal fixation of right trimalleolar equivalent ankle fracture/dislocation with repair of deltoid rupture. 03/11/17: I&D of right ankle lateral surgical site with revision ORIF right ankle. 03/23/17: Revision open reduction internal fixation, right ankle, with placement of wound VAC. Orthopedic surgeries: Clavicle, Back (1993), Jaw. Liver biopsy? Family History: unknown - Social History Smoking status: Current every day smoker Alcohol intake: current (h/o heavy use) Social history: On probation per [employer] consult dated 02/19/17 Review of Systems All systems PM: 10-point ROS was reviewed, no additional remarkable complaints except - Constitutional Constitutional: Absent: chills, fever(s) - Cardiovascular Cardiovascular: Absent: chest pain - Respiratory Respiratory: Present: dyspnea (occasionally). Absent: cough - Gastrointestinal Gastrointestinal: Absent: abdominal pain, diarrhea (resolved), vomiting - Genitourinary Genitourinary: Absent: dysuria - Musculoskeletal Musculoskeletal: Present: other (R ankle pain) - Integumentary/Breasts Integumentary: Absent: pruritus, rash - Neurological Neurological: Absent: headache(s) Neurological Comments: insomnia Exam Vital Signs: Temperature 98.4 F 03/30/17 07:53 Pulse Rate 72 03/30/17 07:53 Respiratory Rate 16 03/30/17 07:53 Blood Pressure 137/77 03/30/17 07:53 Pulse Oximetry 96 03/30/17 07:53 Height/Weight/BMI: Height 1.83 m Weight 97.7 kg Body Mass Index 28.5 - Constitutional Present: no acute distress, well nourished, well developed - Routine HEENT Exam Head: Present: normocephalic, atraumatic Eye: Present: EOMI, PERRL ENT: Present: mucous membranes moist Comments: poor dentition - Routine Neck Exam Present: supple - Routine Respiratory Exam Present: CTA bilaterally - Routine Cardiovascular Exam Present: RRR - Routine Abdominal Exam Present: soft, normoactive bowel sounds, non tender, distended - Routine Extremities Exam Absent: cyanosis, clubbing, edema Comments: R ankle in cast - Routine Skin Exam Absent: rash Comments: linear excoriations LLE - Routine Neurological Exam Present: alert, CN II-XII intact, altered mental status (confused at times, falling asleep). Absent: motor deficit - Routine Psychiatric Exam Present: normal affect Results - Labs Labs: 03/23/17: Wound culture with MRSA R to bactrim Impression: Post-operative infection Right ankle-MRSA R ankle fracture s/p ORIF of right trimalleolar equivalent ankle fracture/ dislocation with repair of deltoid rupture 02/24/17, s/p I&D of right ankle lateral surgical site with revision ORIF right ankle on 03/11/17 with application of incisional wound VAC, followed by revision ORIF right ankle, with placement of wound VAC on 03/23/17. Wound cultures near lateral hardware 03/23 grew MRSA. Encephalopathy Chronic Alcohol use Depression Hepatitis C Cirrhosis with splenomegaly and esophageal varices, followed by Dr. Alvarez COPD Hypertension Chronic tobacco dependence Recommendation: Recommend Vancomycin for 4-6 weeks due to infection adjacent to hardware. This will most likely be difficult in this patient. I would recommend continuing IV antibiotics as long as possible. We might have to change to oral antibiotics towards the end of therapy based on patient nonadherence. Consider PICC placement, however, I would not want him to leave AMA with a PICC in.
--- NOTE | 2017-03-30 10:18 | Consult Note ---
Consult Information - Data of Consult Consult date: 03/30/17 Requesting Physician: Cristofer Garcia MD Primary Care Provider: Kelin Pinedo APRN - Consult Narrative Reason for consult: Medical mangement History of present illness: Mr Dyson is a 51 yr old who is well known to the hospitalist services due to multiple recent admissions for Right ankle infection status post right ankle fixation. Most recently he was admitted on 03/21/17 under the care of Dr Garcia when found to have infection in a wound of the right ankle during a routine outpatient follow up apt. He was started on Vancomycin for antimicrobial coverage which is sensitive to MRSA infection that was found in the right ankle surgical culture from 03/23/17. Due to hardware presence of the ankle accompanied with acute infection there is concern for bone involvement. Infectious disease physician Dr Burgos has continued to follow patient and recommends 4-6 weeks of IV antibiotics for treatment of infection. Due to Young' s lack of compliance in the outpatient setting it is felt he would be better served to remains at [facility] under swing bed status for ongoing treatment. He is seen this morning, he falls asleep during conversation, he Is somewhat argumentative regarding wanting to "sneak outside" to smoke. We discussed at length the importance of compliance with medical recommendations as our goal is healing of ankle wound. He is reminded the importance of non-weight bearing status and medication compliance. [facility], [facility] Patient Stated Medical History Seizures Yes: last time 5-6 years ago. Alcohol induced. Hypertension Yes Bronchitis Yes Chronic Obstructive Pulmonary Yes Disease (COPD) Sleep Apnea No Cirrhosis Yes Hepatitis Yes: HEP C, history of hepatic encephalopathy. Hx Renal Disease No Other Musculoskeletal Yes: BACK SURGERY 1993 MRSA Yes: hx Other Yes: anemia Depression Yes Surgical History: 02/14/17: Manipulation of right ankle under anesthesia with application of splint. 02/18/17: Exam under anesthesia of right ankle with dressing changes and closed reduction and splinting of right ankle fracture. : Open reduction internal fixation of right trimalleolar equivalent ankle fracture/dislocation with repair of deltoid rupture. 03/11/17: I&D of right ankle lateral surgical site with revision ORIF right ankle. 03/23/17: Revision open reduction internal fixation, right ankle, with placement of wound VAC. Orthopedic surgeries: Clavicle, Back (1993), Jaw. Liver biopsy? - Social History Smoking status: Current every day smoker Alcohol intake: current Alcohol intake frequency: 0-2 drinks per day Last drink: days (ago) Social history: PCP Kelin Mack APRN at [facility] Review of Systems ROS unobtainable: due to mental status Review of systems: Unable to obtain as patient falls asleep and will not stay on track during examination Medications Home Medications Medication Instructions Recorded Confirmed Type PARoxetine HCl [Paxil] 30 mg PO HS #0 06/02/15 03/29/17 History Buspirone [Buspar] 15 mg PO TID 02/12/17 03/29/17 History Mirtazapine 7.5 mg PO HS 02/12/17 03/29/17 History Allergies Allergy/AdvReac Type Severity Reaction Status Date / Time adhesive tape Allergy Unknown RED RASH Verified 03/23/17 14:48 ketorolac Allergy Unknown Verified 03/23/17 14:48 quetiapine Allergy Unknown Verified 03/23/17 14:48 Exam Vital Signs: Temperature 98.4 F 03/30/17 07:53 Pulse Rate 72 03/30/17 07:53 Respiratory Rate 16 03/30/17 07:53 Blood Pressure 137/77 03/30/17 07:53 Pulse Oximetry 96 03/30/17 07:53 Height/Weight/BMI: Height 1.83 m Weight 97.7 kg Body Mass Index 28.5 - Constitutional Present: no acute distress, well nourished, well developed - Routine HEENT Exam Eye: Present: EOMI ENT: Present: mucous membranes moist, dentition normal - Routine Respiratory Exam Present: CTA bilaterally. Absent: wheezes - Routine Cardiovascular Exam Present: RRR, S1, S2. Absent: murmur - Routine Abdominal Exam Present: soft, normoactive bowel sounds, non distended. Absent: tenderness - Routine Extremities Exam Present: normal capillary refill Comments: Right ankle cast intact - Routine Skin Exam Present: intact, dry, warm - Routine Neurological Exam Present: alert, CN II-XII intact, moving all extremities - Routine Psychiatric Exam Present: agitated Assessment and Plan (1) MRSA (methicillin resistant Staphylococcus aureus) infection Current visit: Yes Status: Acute (2) Skin infection Current visit: No Status: Acute Assessment and Plan: Impression Status post ORIF of fracture of ankle MRSA infection of right ankle wound Cirrhosis with hx of hepatic encephalopathy Hepatitis C Alcoholism Major depressive disorder Tobacco dependence Plan Agree with swing bed admission under the care of Dr Garcia He will require 4-6 weeks of IV Vancomycin for treatment of MRSA wound He is to be strict NWBS on right ankle Lasix and potassium scheduled. Monitor chemistry panel several times a week Nicotine patch to assist with chronic tobacco dependence Percocet and Neurontin for pain. Monitor mental status as he has had difficulty with encephalopathy in the past Hydroxyzine, Paxil, BuSpar, and Remeron for anxiety and depression Continue ASA BID for ongoing anticoagulation and DVT prophylaxis The hospitalist service will continue to follow patient to medically manage medical comorbidities. At time of discharge medical care is to return to PCP, Kelin Pinedo -DISPATCH ASSOCIATE at [facility]. - Physician Narrative Physician: Dannie Chu MD Narrative: Date: 03/30/17 Time: 1009 Have independently interviewed and examined pt. Chart reviewed. Cased discussed with my DISPATCH ASSOCIATE. Care plan developed with my supervision; agree with above. Doing well this evening. Feels pain decreasing. Really trying hard not to put weight on his right leg. Breathing stable. Eating well. No f/c. Lungs: decreased, no distress CV: regular AB: soft ascites +BS MSE: awake alert. Converses well Plan: Agree with admission to Swing bed to continue IV Vancomycin. Will have PICC line placed due to director physical therapy need for Vancomycin. Encourage no weight bearing. Continue propranolol, furosemide, and spironolactone started during his acute stay. Will recheck CMP and CBC in am. Medically stable to skilled care. Hospital Course Summary Disclaimer: The visit summary below is not to be considered part of the above Progress Note. Hospital Course: 03/30/17 Impression Status post ORIF of fracture of ankle MRSA infection of right ankle wound Cirrhosis with hx of hepatic encephalopathy Hepatitis C Alcoholism Major depressive disorder Tobacco dependence Plan Agree with swing bed admission under the care of Dr Garcia He will require 4-6 weeks of IV Vancomycin for treatment of MRSA wound He is to be strict NWBS on right ankle Lasix and potassium scheduled. Monitor chemistry panel several times a week Nicotine patch to assist with chronic tobacco dependence Percocet and Neurontin for pain. Monitor mental status as he has had difficulty with encephalopathy in the past Hydroxyzine, Paxil, BuSpar, and Remeron for anxiety and depression Continue ASA BID for ongoing anticoagulation and DVT prophylaxis The hospitalist service will continue to follow patient to medically manage medical comorbidities. At time of discharge medical care is to return to PCP, Kelin WOOD at [facility].
[2017-03-30] MEDS: MIRTAZAPINE 15 MG TABLET PO SCH (21:45)
[2017-03-30] MEDS: PAROXETINE 20 MG TABLET PO SCH (21:45)
[2017-03-31] MEDS: Oxycodone *IR* 5 MG TABLET PO PRN ×6 (01:27→23:18)
[2017-03-31] MEDS: NS FLUSH BAG 500ml IV PRN (07:21)
[2017-03-31] MEDS: ASPIRIN 81 MG CHEWABLE TABLET PO SCH ×2 (09:20→21:36)
[2017-03-31] MEDS: SENNA + DOCUSATE TABLET PO PRN (09:20)
[2017-03-31] MEDS: BUSPIRONE 15 MG TABLET PO SCH ×3 (09:21→21:36)
[2017-03-31] MEDS: SPIRONOLACTONE 50 MG TABLET PO SCH (09:22)
[2017-03-31] MEDS: GABAPENTIN 300 MG CAPSULE PO SCH ×3 (09:22→21:36)
[2017-03-31] MEDS: PROPRANOLOL 10 MG TABLET PO SCH ×3 (09:22→21:36)
[2017-03-31] MEDS: NICOTINE 21 MG PATCH TD SCH (09:22)
[2017-03-31] MEDS: NICOTINE PATCH REMOVAL TD SCH (09:23)
[2017-03-31] MEDS: POLYETHYL GLYCOL 3350 17gm PACKET PO PRN (09:28)
[2017-03-31] MEDS: FUROSEMIDE 40 MG TABLET PO SCH (09:30)
--- NOTE | 2017-03-31 15:34 | Progress Note ---
- Date 03/31/17 Subjective: Mr Dyson is seen this afternoon in swing follow up. He is quite sedate as he received IV Ativan as he was feeling anxious about having a PICC line placed. Now on exam he will arouse and mumble slurred words however will not answer any questions. He is sleeping and no in any acute distress. BP this morning 117/62. Objective Vital signs: Temperature 98.0 F 03/31/17 07:33 Pulse Rate 67 03/31/17 07:33 Respiratory Rate 10 03/31/17 07:33 Blood Pressure 117/62 03/31/17 07:33 Pulse Oximetry 90 03/31/17 07:33 Height/Weight/BMI: Height 1.83 m Weight 96.1 kg Body Mass Index 28.5 - Constitutional Present: no acute distress, well nourished, well developed - Routine Respiratory Exam Present: CTA bilaterally. Absent: wheezes - Routine Cardiovascular Exam Present: RRR, S1, S2. Absent: murmur - Routine Abdominal Exam Present: soft, non distended. Absent: tenderness - Routine Extremities Exam Comments: RLE cast intact - Routine Skin Exam Present: intact, dry, warm - Routine Neurological Exam Present: oriented X3, altered mental status, moving all extremities - Routine Lymphatic Exam Lymphatic: Absent: adenopathy Results - Labs CBC & Chem 7: 03/31/17 04:20 03/31/17 04:20 Assessment and Plan (1) Skin infection Current visit: No Status: Acute (2) MRSA (methicillin resistant Staphylococcus aureus) infection Current visit: Yes Status: Acute Assessment and Plan: Impression Status post ORIF of fracture of ankle MRSA infection of right ankle wound Cirrhosis with hx of hepatic encephalopathy Hepatitis C Alcoholism Major depressive disorder Tobacco dependence Plan Discontinued IV Ativan as this causes increased somnolence and sedation. Recommended avoiding further controlled substances if possible as this does cause encephalopathy Continues on strict non-weight bearing status of the right ankle as per Dr. Garcia. Continue to follow routine labs occasionally. This [facility] CBC and CMP reviewed Hydroxyzine, Paxil, BuSpar, and Remeron for anxiety and depression Continue ASA BID for ongoing anticoagulation and DVT prophylaxis Otherwise appears medically stable 03/31/2017-I reviewed this chart, the patient history, and the HABITAT BIOLOGIST's/PA's documented findings as above. We discussed and formulated the assessment and plan as above with the additions below.-Dr. Esparza The patient was seen this afternoon in his room. He stated that he continues to have intermittent anxiety and depression. He is agreeable to seeing our psychiatrist to see if there is something that can help him with his anxiety especially. He received Ativan 1 today for PICC line placement and was quite somnolent and difficult to arouse afterwards. Ativan was discontinued. He has some confusion, more so in the mornings associated with his pain medication. He has had problems with compliance with nonweightbearing in the past. He states he understands that he needs to keep weight off of his foot in order to save his leg. He states that his breathing is okay today. He is eating and drinking okay. On exam he is alert and oriented 3. Chest is clear to auscultation. Cardiovascular reveals a regular rate and rhythm. Abdomen is soft, mildly distended, positive bowel sounds. Right lower extremity has a cast. Left leg is without edema. Skin is warm and dry and without rashes. Impression and plan Status post ORIF of right ankle fracture with postop MRSA infection of the right ankle wound. Continue vancomycin History of noncompliance Anxiety and depression-consult psychiatry to see if his medications can be adjusted. Hopefully we can find a medication regimen that helps the patient with his symptoms but does not cause severe somnolence. Continue to monitor for encephalopathy. Minimize narcotics as much as possible. Avoid other sedating medications as much as possible. The patient is on spironolactone, furosemide, and potassium for fluid retention with ascites. We will need to monitor potassium closely. We'll check a basic metabolic profile tomorrow and place oral potassium on hold for now. Continue propranolol for portal hypertension/esophageal varices - Physician Narrative Narrative: Date: 03/31/17 Time: 1529 Hospital Course Summary Disclaimer: The visit summary below is not to be considered part of the above Progress Note. Hospital Course: 03/30/17 Impression Status post ORIF of fracture of ankle MRSA infection of right ankle wound Cirrhosis with hx of hepatic encephalopathy Hepatitis C Alcoholism Major depressive disorder Tobacco dependence Plan Agree with swing bed admission under the care of Dr Garcia He will require 4-6 weeks of IV Vancomycin for treatment of MRSA wound He is to be strict NWBS on right ankle Lasix and potassium scheduled. Monitor chemistry panel several times a week Nicotine patch to assist with chronic tobacco dependence Percocet and Neurontin for pain. Monitor mental status as he has had difficulty with encephalopathy in the past Hydroxyzine, Paxil, BuSpar, and Remeron for anxiety and depression Continue ASA BID for ongoing anticoagulation and DVT prophylaxis The hospitalist service will continue to follow patient to medically manage medical comorbidities. At time of discharge medical care is to return to PCP, Kelin WOOD at [facility]. 03/31/17-discontinued IV Ativan as it increased controlled substances has been known to cause patient increased encephalopathy. Recommend minimizing.
--- NOTE | 2017-03-31 17:28 | Pharmacy Consult-Antibiotics ---
Pharmacy Consult-Vancomycin - Laboratory Information WBC 10.3 T/MM3 (4.5-11.0) D 03/31/17 04:20 BUN 11.0 MG/DL (9-20) D 03/31/17 04:20 Creatinine 1.1 MG/DL (0.8-1.5) D 03/31/17 04:20 Vancomycin Trough 26.76 UG/ML (15-20) H* 03/31/17 15:05 - Consult Information Vancomycin protocol: day 11 goal vancomycin trough range= 15 -20 mcg/ml SCr increased from yesterday and Vanco trough high at 26.76 mcg/ml Will adjust dose to Vancomycin 1.25 G IV Q12h. Pharmacy will monitor and adjust as needed Thank you for the dosing protocol, Norma Bryant RPh
[2017-03-31] MEDS: PAROXETINE 20 MG TABLET PO SCH (21:37)
[2017-03-31] MEDS: MIRTAZAPINE 15 MG TABLET PO SCH (21:37)
[2017-04-01] MEDS: Oxycodone *IR* 5 MG TABLET PO PRN ×7 (02:20→21:47)
--- NOTE | 2017-04-01 08:29 | Orthopedic Progress Note ---
Date: Date: 04/01/17 Time: 825 Subjective/Severity of Illness: Mr Dyson is doing okay this AM. He reports that his pain meds were reduced. We discussed that pain demands should reduce as he is compliant and gets further out. No new concerns. Orthopedic Objective PO Vital signs: Temperature 97.4 F 04/01/17 08:00 Pulse Rate 74 04/01/17 08:00 Respiratory Rate 16 04/01/17 08:00 Blood Pressure 127/78 04/01/17 08:00 Pulse Oximetry 96 04/01/17 08:00 Height and Weight: Height 6 ft Weight 212 lb 11.937 oz Body Mass Index 28.5 - Constitutional General Appearance: Present: alert, cooperative, no acute distress - Respiratory Exam Present: non-labored - Cardiovascular Exam Capillary Refill: < 2-3 Seconds - Extremities Exam Extremities: Absent: cyanosis, no edema - Surgical Site Drains Present: negative pressure therapy - Integumentary Exam Present: warm, dry - Neurological Exam Present: no deficits - Psychiatric Exam Present: alert - Labs Result Diagrams: 03/31/17 04:20 04/01/17 04:45 Abnormal lab results 03/31/17 04/01/17 Range/Units 15:05 04:45 Glucose 112 H (75-110) MG/DL Vancomycin Trough 26.76 H* (15-20) UG/ML H & H 03/31/17 Range/Units 04:20 Hgb 10.0 L (13.5-17.5) GM/DL Hct 31.3 L (41-53) % Orthopedic Assessment and Plan (1) Closed right ankle fracture Status: Acute Qualifiers: Encounter type: subsequent encounter Assessment and Plan: Continue wound vac and IV Vanco. Non- wt bearing on operative leg. Minimize narcotics as much as possible. Hospitalist to manage medical needs. Discuss wound vac change with Dr Garcia. (2) MRSA (methicillin resistant Staphylococcus aureus) infection Status: Acute Hospital Course Summary Disclaimer: The visit summary below is not to be considered part of the above Progress Note. Hospital Course: 03/30/17 Impression Status post ORIF of fracture of ankle MRSA infection of right ankle wound Cirrhosis with hx of hepatic encephalopathy Hepatitis C Alcoholism Major depressive disorder Tobacco dependence Plan Agree with swing bed admission under the care of Dr Garcia He will require 4-6 weeks of IV Vancomycin for treatment of MRSA wound He is to be strict NWBS on right ankle Lasix and potassium scheduled. Monitor chemistry panel several times a week Nicotine patch to assist with chronic tobacco dependence Percocet and Neurontin for pain. Monitor mental status as he has had difficulty with encephalopathy in the past Hydroxyzine, Paxil, BuSpar, and Remeron for anxiety and depression Continue ASA BID for ongoing anticoagulation and DVT prophylaxis The hospitalist service will continue to follow patient to medically manage medical comorbidities. At time of discharge medical care is to return to PCP, Kelin WOOD at [facility]. 03/31/17-discontinued IV Ativan as it increased controlled substances has been known to cause patient increased encephalopathy. Recommend minimizing.
[2017-04-01] MEDS: FUROSEMIDE 40 MG TABLET PO SCH (08:47)
[2017-04-01] MEDS: PROPRANOLOL 10 MG TABLET PO SCH ×3 (08:47→20:30)
[2017-04-01] MEDS: NICOTINE 21 MG PATCH TD SCH (08:48)
[2017-04-01] MEDS: NICOTINE PATCH REMOVAL TD SCH (08:48)
[2017-04-01] MEDS: ASPIRIN 81 MG CHEWABLE TABLET PO SCH ×2 (08:48→20:30)
[2017-04-01] MEDS: SPIRONOLACTONE 50 MG TABLET PO SCH (08:48)
[2017-04-01] MEDS: BUSPIRONE 15 MG TABLET PO SCH ×3 (08:48→20:30)
[2017-04-01] MEDS: GABAPENTIN 300 MG CAPSULE PO SCH ×3 (08:48→20:30)
--- NOTE | 2017-04-01 08:51 | Progress Note ---
- Date 04/01/17 Subjective: Tisha was awake, alert, and animated this morning (ie when I asked if he had any concerns, he replied, "Only that I get better looking every day"). He states that his ankle pain is improving. Nursing staff report that he required 1 :1 care again last night - he frequently tried to get up and walk on his right ankle. Tisha denies any fevers/chills/sweating, dyspnea, or chest pain. No abdominal pain or GI complaints and he's had a good appetite. 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 Objective Vital signs: Temperature 97.4 F 04/01/17 08:00 Pulse Rate 74 04/01/17 08:00 Respiratory Rate 16 04/01/17 08:00 Blood Pressure 127/78 04/01/17 08:00 Pulse Oximetry 96 04/01/17 08:00 Height/Weight/BMI: Height 1.83 m Weight 96.5 kg Body Mass Index 28.5 - Constitutional Present: no acute distress, well nourished, well developed - Routine HEENT Exam Eye: Absent: conjunctival icterus, scleral injection ENT: Absent: dentition normal (poor decay) - Routine Respiratory Exam Present: CTA bilaterally - Routine Cardiovascular Exam Present: RRR, S1, S2, murmur (2/6) - Routine Abdominal Exam Present: soft, normoactive bowel sounds, non tender - Routine Extremities Exam Present: no edema (to left lower ext) - Routine Musculoskeletal Exam Musculoskeletal: Present: other (cast/vac to right lower ext) - Routine Skin Exam Present: dry, warm Comments: superficial abrasions to right lower ext. - Routine Neurological Exam Present: alert, oriented X3, CN II-XII intact, normal speech - Routine Psychiatric Exam Present: normal affect, normal thought process, cooperative Results - Labs CBC & Chem 7: 03/31/17 04:20 04/01/17 04:45 Assessment and Plan (1) Skin infection Current visit: No Status: Acute (2) MRSA (methicillin resistant Staphylococcus aureus) infection Current visit: Yes Status: Acute Assessment and Plan: Impression Status post ORIF of fracture of ankle MRSA infection of right ankle wound Cirrhosis with hx of hepatic encephalopathy Hepatitis C Alcoholism Major depressive disorder Tobacco dependence Plan Limit narcotics/benzos - he's had 3 doses of oxycodone so far today, about 3 hours apart. He reports pain control is improving. Not somnolent this am. Psychiatry consult pending. Continue non-weight bearing status - needs frequent reminders/observation. K is stable at 4.2. KDur is on hold. Recheck BMP (along with CBC) on 04/03/17. D/W Milan HERNANDEZ - cont wound vac and vanco, NWB status. Will discuss wound vac change with Dr. Garcia. 04/01/2017-I reviewed this chart, the patient history, and the INTERNET ARCHITECT's/PA's documented findings as above. We discussed and formulated the assessment and plan as above with the additions below.-Dr. Esparza The patient was seen this afternoon in his room. He is alert and oriented. He does not recall seeing Dr. Sun this morning. He apparently was confused this morning. This afternoon he denies any complaints. He is eating and drinking well. He is breathing well. He is coloring in adult coloring books. Chest is clear to auscultation. Cardiovascular reveals a regular rate and rhythm. Abdomen is soft, moderately distended, and nontender. Right leg is in a cast. Left leg is without edema. Impression and plan Dr. Burgos's note was reviewed. She recommends 4-6 weeks of IV vancomycin Discussed the patient's intermittent confusion and complaints of continued anxiety and depression with Dr. Sun. She has recommended tapering off of Paxil and increasing Remeron. There is an interference between Paxil and narcotics which may make his narcotics less effective. Hopefully this will improve his pain control. The patient does not recall talking with Dr. Sun this morning. I did discuss with him her recommendations and he is agreeable and states he does not think the Paxil was helping with his anxiety or depression anyway. The patient states his wound VAC was changed today and he was told that his wound is looking better. Continue with nonweightbearing status. Do not increase pain medication due to the patient's confusion. We'll need to monitor confusion closely and adjust medications further if needed. Ammonia level was checked today was 33 which is borderline high. I do not think he requires any lactulose at this time. If confusion worsens would recommend rechecking ammonia level. - Physician Narrative Narrative: Date: 04/01/17 Time: 0848 Hospital Course Summary Disclaimer: The visit summary below is not to be considered part of the above Progress Note. Hospital Course: 03/30/17 Impression Status post ORIF of fracture of ankle MRSA infection of right ankle wound Cirrhosis with hx of hepatic encephalopathy Hepatitis C Alcoholism Major depressive disorder Tobacco dependence Plan Agree with swing bed admission under the care of Dr Garcia He will require 4-6 weeks of IV Vancomycin for treatment of MRSA wound He is to be strict NWBS on right ankle Lasix and potassium scheduled. Monitor chemistry panel several times a week Nicotine patch to assist with chronic tobacco dependence Percocet and Neurontin for pain. Monitor mental status as he has had difficulty with encephalopathy in the past Hydroxyzine, Paxil, BuSpar, and Remeron for anxiety and depression Continue ASA BID for ongoing anticoagulation and DVT prophylaxis The hospitalist service will continue to follow patient to medically manage medical comorbidities. At time of discharge medical care is to return to PCP, Kelin WOOD at [facility]. 03/31/17-discontinued IV Ativan as it increased controlled substances has been known to cause patient increased encephalopathy. Recommend minimizing. 04/01/17-Limit narcotics/benzos - he's had 3 doses of oxycodone so far today, about 3 hours apart. He reports pain control is improving. Not somnolent this am. K is stable at 4.2. KDur is on hold. Recheck BMP (along with CBC) on .
--- NOTE | 2017-04-01 09:27 | ID Progress Note ---
Subjective Date: 04/01/17 Subjective: Mr. Dyson states he's doing ok today. He had a PICC line placed yesterday. He states his wound VAC was changed yesterday. He reports constipation, alternating with diarrhea. Denies fever, nausea or vomiting. States his ankle is getting better. Exam Vital Signs: Temperature 97.4 F 04/01/17 08:00 Pulse Rate 74 04/01/17 08:00 Respiratory Rate 16 04/01/17 08:00 Blood Pressure 127/78 04/01/17 08:00 Pulse Oximetry 96 04/01/17 08:00 Height/Weight/BMI: Height 1.83 m Weight 96.5 kg Body Mass Index 28.5 - Constitutional Present: no acute distress, well nourished, well developed - Routine HEENT Exam Head: Present: normocephalic, atraumatic Eye: Present: EOMI, PERRL ENT: Present: mucous membranes moist, oropharynx clear Comments: poor dentition - Routine Neck Exam Present: supple - Routine Respiratory Exam Present: CTA bilaterally - Routine Cardiovascular Exam Present: RRR - Routine Abdominal Exam Present: soft, normoactive bowel sounds, non distended, non tender - Routine Extremities Exam Absent: cyanosis, clubbing, edema Comments: RLE covered with cast. He has a wound VAC on also - Routine Skin Exam Present: intact. Absent: rash Comments: PICC RUE - Routine Neurological Exam Present: alert, CN II-XII intact. Absent: motor deficit - Routine Psychiatric Exam Present: normal affect Results - Labs CBC & Chem 7: 03/31/17 04:20 04/01/17 04:45 Impression: Post-operative infection Right ankle-MRSA R ankle fracture s/p ORIF of right trimalleolar equivalent ankle fracture/ dislocation with repair of deltoid rupture 02/24/17, s/p I&D of right ankle lateral surgical site with revision ORIF right ankle on 03/11/17 with application of incisional wound VAC, followed by revision ORIF right ankle, with placement of wound VAC on 03/23/17. Wound cultures near lateral hardware 03/23 grew MRSA. Encephalopathy Chronic Alcohol use Depression Hepatitis C Cirrhosis with splenomegaly and esophageal varices, followed by Dr. Alvarez COPD Hypertension Chronic tobacco dependence Recommendation: Recommend Vancomycin for 4-6 weeks due to infection adjacent to hardware. This would go through 04/20 or 05/04/17. Will check a CRP for monitoring purposes. Pharmacy is managing Vancomycin.
[2017-04-01] MEDS: NS FLUSH BAG 500ml IV PRN (10:11)
--- NOTE | 2017-04-01 14:20 | Neuropsychiatric Consult ---
[facility] Date: 04/01/17 Requesting Physician: Thelma Esparza Reason for Consultation: Altered mental status Start Time: 11:00 Stop Time: 11:30 Care: >50% of this visit spent in counseling/coordination care. History of Present Illness: Patient is a 51-year-old male admitted to [facility] on 03/30/17 after an ORIF of his right ankle in February. Per primary team: "Mr. Dyson is a 51 y/o man with a h/o HCV and alcoholism. He fractured his right ankle on 02/12/17. He underwent exam under anesthesia of right ankle with dressing changes and closed reduction and splinting of right ankle fracture on 02/18/17. On 02/24 he underwent open reduction internal fixation of right trimalleolar equivalent ankle fracture/dislocation with repair of deltoid rupture. He left AMA on 02/27/17. He continued to walk on his ankle despite instructions for nonweightbearing. He was admitted 03/07-03/13 for postop skin infection at which time patient was on IV Vancomycin and had a wound VAC placed. Blood cultures were negative. No wound cultures were taken. He underwent I&D of right ankle lateral surgical site with revision ORIF right ankle on 03/11/17 with application of incisional wound VAC. He was discharged home on Keflex, instructed to follow in outpatient setting with Dr. Garcia at the orthopedic clinic. He was readmitted on 03/21/17 due to infection on his surgical site. He was started on vancomycin for antimicrobial coverage. On 03/23, he was taken to the OR for revision open reduction internal fixation, right ankle, with placement of wound VAC. Wound cultures were taken near the lateral hardware, and it has grown MRSA, sensitive to clinda, doxy, bactrim, and Vanco. He has not had leukocytosis but he has had some low-grade fevers. He reportedly had several loose stools over the weekend, but then hasn't had one for awhile. C diff testing was ordered, but he apparently wouldn't let the RN see his stool for the testing. He was made Swingbed status yesterday. Today he is awake, and answers questions, although he does at times start to fall asleep. He states his diarrhea has resolved. He tells me that he's been trying to stay off his ankle. Occasionally, his answers to my questions don't make any sense." Psychiatry was consulted due to patient's odd behavior. Patient has also recently been hospitalized at [facility] and was seen by Dr. Leary at that time. He wrote the following at that time: "HPI: 51 Y/O CM admitted after fall and leg fracture which intoxicated. Staff reports pt has been dealing with some WD symptoms and needing Serax at times. On face to face the pt is pleasant and cooperative. He reports some mild depression and anxiety but denies S/I. Denies WD at this time. STRESSORS: Pt is on probation. PSYCH ROS: Pt reports feeling depressed with low energy, decreased interest and motivation. He denies S/I and is forward thinking and hopeful for the future. He reports dealing with anxiety but states it is chronic. Denies liliana or psychosis. PAST PSYCH: Pt states he is seen at and takes Buspar, Remeron and Paxil. He denies ever being in a psych hospital. SUBSTANCE ABUSE: Pt reports a long hx of alcohol dependence and states he has been clean for two years although later admitted he has been drinking recently." He diagnosed him with MDD and alcohol use disorder and recommended outpatient follow up with providers at . CT of head was essentially normal in May 2016. On interview, patient appears quite sedated and is difficult to understand. He repeatedly falls asleep when I attempting to talk to him. He says he is here "because he is with one of the nurses." I didn't get any meaningful information out of him though staff report he is more alert and interactive at other times. The nurses report that patient frequently asks for pain medications and has been very confused at times, possibly hallucinating (thought there was a soccer game in the hallway). ROS unobtainable from patient. [facility] Patient Stated Medical History Seizures Yes: last time 5-6 years ago. Alcohol induced. Hypertension Yes Bronchitis Yes Chronic Obstructive Pulmonary Yes Disease (COPD) Sleep Apnea No Cirrhosis Yes Hepatitis Yes: HEP C, history of hepatic encephalopathy. Hx Renal Disease No Other Musculoskeletal Yes: BACK SURGERY 1993 MRSA Yes: hx Other Yes: anemia Depression Yes Surgical History: 02/14/17: Manipulation of right ankle under anesthesia with application of splint. 02/18/17: Exam under anesthesia of right ankle with dressing changes and closed reduction and splinting of right ankle fracture. : Open reduction internal fixation of right trimalleolar equivalent ankle fracture/dislocation with repair of deltoid rupture. 03/11/17: I&D of right ankle lateral surgical site with revision ORIF right ankle. 03/23/17: Revision open reduction internal fixation, right ankle, with placement of wound VAC. Orthopedic surgeries: Clavicle, Back (1993), Jaw. Liver biopsy? - Social History Smoking status: Current every day smoker Review of Systems ROS unobtainable: due to mental status - Genitourinary Genitourinary: Absent: dysuria Mental Status Exam Vitals: Last Vital Signs Temp 97.4 F 04/01/17 08:00 Pulse 74 04/01/17 08:00 Resp 16 04/01/17 08:00 BP 127/78 04/01/17 08:00 Pulse Ox 96 04/01/17 08:00 Height: 1.83 m Weight: 96.5 kg - Mental Status Exam Muscle Strength/Tone: Normal Dressing: Other (Hospital gown) Grooming: Disheveled Attitude: Uncooperative Motor Activity: Retardation (appears sedated) Eye Contact: Poor Speech: Slowed Volume: Loud Rhythm: Mumbled Sensory: Stupor Orientation: Oriented to person Mood: Irritable Rate of Thoughts: Delayed Thought Organization: Confused Associations: Illogical Abstract Reasoning: Poor abstract reasoning Thought Content: Other (Could not fully asssess due to poor participation in interview) Perception/Psychotic: Other (Questionable whether patient has had recent AVH) Fund of Knowledge: Other (Cannot fully assess) Memory: Poor-recent Suicidal Ideation: Denies Homicidal Ideation: Denies Insight: Impaired Judgement: Impaired Impulse Control: Poor - Laboratory Result Diagrams: 03/31/17 04:20 04/01/17 04:45 Laboratory Results - last 24 hr 03/31/17 03/31/17 03/31/17 15:05 19:00 20:34 Turbidity Sodium Potassium Chloride Carbon Dioxide Anion Gap BUN Creatinine GFR Calculation BUN/Creatinine Ratio Glucose Calculated Osmolality Calcium Icterus Index Ammonia Specimen Hemolysis Stl Cyclospora species Cancelled Stool Rotavirus A PCR Cancelled Stool Adenovirus (PCR) Cancelled Stool Astrovirus (PCR) Cancelled Stool Campylobacter PCR Cancelled Stl C.difficile Tox PCR Cancelled Stool Cryptosporidium PCR Cancelled Stl E.coli Shiga Toxins Cancelled Stool E coli O157 PCR Cancelled Stl Enterotoxigenic E PCR Cancelled Stool EPEC (PCR) Cancelled Stool EAEC (PCR) Cancelled Stool Entamoeba (PCR) Cancelled Stool Giardia Lamblia PCR Cancelled Stool Salmonella PCR Cancelled Stool Sapovirus (PCR) Cancelled Stl P. shigelloides PCR Cancelled Stl Shigella/EIEC PCR Cancelled St Y.enterocolitica PCR Cancelled Stool Vibrio (PCR) Cancelled Stl Vibrio cholera PCR Cancelled Stl Norovirus GI/GII PCR Cancelled Vancomycin Trough 26.76 H* Specimen Comment Sumbit new specimen Tests Not Done Gip Reason Tests Not Done Stool, not diarrheic 04/01/17 04/01/17 04:45 11:43 Turbidity < 20 Sodium 137 Potassium 4.2 Chloride 100 Carbon Dioxide 28 Anion Gap 9 BUN 12.0 Creatinine 1.0 GFR Calculation 79 BUN/Creatinine Ratio 12 Glucose 112 H Calculated Osmolality 265 Calcium 9.1 Icterus Index < 2 Ammonia 33 Specimen Hemolysis < 15 Stl Cyclospora species Stool Rotavirus A PCR Stool Adenovirus (PCR) Stool Astrovirus (PCR) Stool Campylobacter PCR Stl C.difficile Tox PCR Stool Cryptosporidium PCR Stl E.coli Shiga Toxins Stool E coli O157 PCR Stl Enterotoxigenic E PCR Stool EPEC (PCR) Stool EAEC (PCR) Stool Entamoeba (PCR) Stool Giardia Lamblia PCR Stool Salmonella PCR Stool Sapovirus (PCR) Stl P. shigelloides PCR Stl Shigella/EIEC PCR St Y.enterocolitica PCR Stool Vibrio (PCR) Stl Vibrio cholera PCR Stl Norovirus GI/GII PCR Vancomycin Trough Specimen Comment Tests Not Done Reason Tests Not Done Assessment and Plan (1) Alcohol use disorder Current visit: No Status: Acute (2) Cirrhosis Problem details: With hepatic encephalopathy Current visit: No Status: Chronic Additional diagnoses: - History of major depressive disorder - R/O Opiate use disorder - R/O Delirium, unknown etiology at this point Recommendations: - Will increase mirtazapine as antidepressant and taper/discontinue Paxil for the following reason: "The conversion of codeine to morphine occurs in the liver and is catalyzed by the cytochrome P450 enzyme CYP2D6. Some medications are CYP2D6 inhibitors and reduce or even completely block the conversion of codeine to morphine. The most well-known of these are two of the selective serotonin reuptake inhibitors, paroxetine (Paxil) and fluoxetine (Prozac) as well as the antihistamine diphenhydramine (Benadryl) and the antidepressant, bupropion (Wellbutrin, also known as Zyban)." - I would expect Paxil to be clear from patient's system in ~24 hours or so. This may allow you to more effectively target pain but you may be able to use lower doses of opiates than currently using, which will also minimize confusion/ sedation. - Psychiatry will continue to follow. May also consider whether patient is in need of court-appointed guardian as he does not have family support or a DPOA.
--- NOTE | 2017-04-01 16:35 | Orthopedic Progress Note ---
Date: Date: 04/01/17 Time: 1631 Subjective/Severity of Illness: Mr Dyson is doing about the same. No new concerns. Thought the cast was burning laterally this am but is not as bad now. No breathing concerns , CP or other reported problems. Orthopedic Objective PO Vital signs: Temperature 97.4 F 04/01/17 08:00 Pulse Rate 74 04/01/17 08:00 Respiratory Rate 16 04/01/17 08:00 Blood Pressure 127/78 04/01/17 08:00 Pulse Oximetry 96 04/01/17 08:00 Height and Weight: Height 6 ft Weight 212 lb 11.937 oz Body Mass Index 28.5 - Constitutional General Appearance: Present: alert, cooperative, no acute distress - Respiratory Exam Present: non-labored - Extremities Exam Extremities: Absent: cyanosis, no edema - Surgical Site Incision: other (Wound continues to improve slowly. Medially the wound is healed.) Drains Present: negative pressure therapy - Integumentary Exam Present: warm, dry - Neurological Exam Present: no deficits - Psychiatric Exam Present: alert - Labs Result Diagrams: 03/31/17 04:20 04/01/17 04:45 Abnormal lab results 04/01/17 Range/Units 04:45 Glucose 112 H (75-110) MG/DL H & H 03/31/17 Range/Units 04:20 Hgb 10.0 L (13.5-17.5) GM/DL Hct 31.3 L (41-53) % Orthopedic Assessment and Plan (1) Closed right ankle fracture Status: Acute Assessment and Plan: Continue wound vac and IV Vanco. Wound vac changed 04/01/17. Non- wt bearing on operative leg. Minimize narcotics as much as possible. Hospitalist to manage medical needs. (2) MRSA (methicillin resistant Staphylococcus aureus) infection Status: Acute Hospital Course Summary Disclaimer: The visit summary below is not to be considered part of the above Progress Note. Hospital Course: 03/30/17 Impression Status post ORIF of fracture of ankle MRSA infection of right ankle wound Cirrhosis with hx of hepatic encephalopathy Hepatitis C Alcoholism Major depressive disorder Tobacco dependence Plan Agree with swing bed admission under the care of Dr Garcia He will require 4-6 weeks of IV Vancomycin for treatment of MRSA wound He is to be strict NWBS on right ankle Lasix and potassium scheduled. Monitor chemistry panel several times a week Nicotine patch to assist with chronic tobacco dependence Percocet and Neurontin for pain. Monitor mental status as he has had difficulty with encephalopathy in the past Hydroxyzine, Paxil, BuSpar, and Remeron for anxiety and depression Continue ASA BID for ongoing anticoagulation and DVT prophylaxis The hospitalist service will continue to follow patient to medically manage medical comorbidities. At time of discharge medical care is to return to PCP, Kelin WOOD at [facility]. 03/31/17-discontinued IV Ativan as it increased controlled substances has been known to cause patient increased encephalopathy. Recommend minimizing. 04/01/17-Limit narcotics/benzos - he's had 3 doses of oxycodone so far today, about 3 hours apart. He reports pain control is improving. Not somnolent this am. K is stable at 4.2. KDur is on hold. Recheck BMP (along with CBC) on .
[2017-04-01] MEDS: MIRTAZAPINE 15 MG TABLET PO SCH (20:30)
[2017-04-02] MEDS: Oxycodone *IR* 5 MG TABLET PO PRN ×7 (00:58→21:47)
--- NOTE | 2017-04-02 09:28 | Progress Note ---
- Date 04/02/17 Subjective: Mr Dyson is seen today in follow up. He is alert and pleasant, while coloring. He is without complaints this morning or shortness of breath. Wound vac changed yesterday. Vital signs stable. Objective Vital signs: Temperature 97.1 F 04/01/17 23:56 Pulse Rate 77 04/01/17 23:56 Respiratory Rate 16 04/01/17 23:56 Blood Pressure 118/67 04/01/17 23:56 Pulse Oximetry 97 04/01/17 23:56 Height/Weight/BMI: Height 1.83 m Weight 96.5 kg Body Mass Index 28.5 - Constitutional Present: no acute distress, well nourished, well developed - Routine HEENT Exam Eye: Present: EOMI ENT: Present: mucous membranes moist, dentition normal - Routine Respiratory Exam Present: CTA bilaterally. Absent: wheezes - Routine Cardiovascular Exam Present: RRR, S1, S2. Absent: murmur - Routine Abdominal Exam Present: soft, normoactive bowel sounds, non distended. Absent: tenderness - Routine Extremities Exam Comments: Wound vac and cast intact - Routine Skin Exam Present: dry, warm - Routine Neurological Exam Present: alert, oriented X3, CN II-XII intact, moving all extremities - Routine Lymphatic Exam Lymphatic: Absent: adenopathy - Routine Psychiatric Exam Present: normal affect, cooperative Results - Labs CBC & Chem 7: 03/31/17 04:20 04/02/17 09:14 Assessment and Plan (1) Skin infection Current visit: No Status: Acute (2) MRSA (methicillin resistant Staphylococcus aureus) infection Current visit: Yes Status: Acute Assessment and Plan: Impression Status post ORIF of fracture of ankle MRSA infection of right ankle wound Cirrhosis with hx of hepatic encephalopathy Hepatitis C Alcoholism Major depressive disorder Tobacco dependence Plan Continue with current treatment as per Dr Garcia, Non weight bearing Wound Vac intact Continue with limiting Narcotics and Benzos as this has caused confusion Dr Sun recommends tapering down Paxil and increasing Remeron. Paxil decreased to 20 milligrams yesterday, on 04/04 will decreased to 10 milligrams daily, on 04/07 discontinue Paxil completely. These orders written. Remeron increased to 15 milligrams at at bedtime. Recheck CBC. [facility] tomorrow 04/02/2017-I reviewed this chart, the patient history, and the [employer]'s/PA's documented findings as above. We discussed and formulated the assessment and plan as above with the additions below.-Dr. Esparza The patient was seen this evening in his room. He states he is having vivid dreams the past couple of nights. This could be secondary to Remeron. Will reassess tomorrow. Pain control is about the same. Continue to limit narcotics and benzodiazepines as much as possible. He denies any complaints this evening. On exam chest is clear to auscultation. Cardiovascular reveals a regular rate and rhythm. Abdomen is soft and nontender with moderate distention which is unchanged. Right leg is in a cast. Left leg is without edema. Skin is warm and dry without rashes. We'll continue with current treatment plan. CBC and basic metabolic profile tomorrow. - Physician Narrative Narrative: Date: 04/02/17 Time: 913 Hospital Course Summary Disclaimer: The visit summary below is not to be considered part of the above Progress Note. Hospital Course: 03/30/17 Impression Status post ORIF of fracture of ankle MRSA infection of right ankle wound Cirrhosis with hx of hepatic encephalopathy Hepatitis C Alcoholism Major depressive disorder Tobacco dependence Plan Agree with swing bed admission under the care of Dr Gracia He will require 4-6 weeks of IV Vancomycin for treatment of MRSA wound He is to be strict NWBS on right ankle Lasix and potassium scheduled. Monitor chemistry panel several times a week Nicotine patch to assist with chronic tobacco dependence Percocet and Neurontin for pain. Monitor mental status as he has had difficulty with encephalopathy in the past Hydroxyzine, Paxil, BuSpar, and Remeron for anxiety and depression Continue ASA BID for ongoing anticoagulation and DVT prophylaxis The hospitalist service will continue to follow patient to medically manage medical comorbidities. At time of discharge medical care is to return to PCP, Kelin Pinedo -[employer] at [facility]. 03/31/17-discontinued IV Ativan as it increased controlled substances has been known to cause patient increased encephalopathy. Recommend minimizing. 04/01/17-Limit narcotics/benzos - he's had 3 doses of oxycodone so far today, about 3 hours apart. He reports pain control is improving. Not somnolent this am. K is stable at 4.2. KDur is on hold. Recheck BMP (along with CBC) on . 04/02/17 Plan Continue with current treatment as per Dr Garcia, Non weight bearing Wound Vac intact Continue with limiting Narcotics and Benzos as this has caused confusion Dr Sun recommends tapering down Paxil and increasing Remeron. Paxil decreased to 20 milligrams yesterday, on 04/04 will decreased to 10 milligrams daily, on 04/07 discontinue Paxil completely. These orders written. Remeron increased to 15 milligrams at at bedtime. Recheck CBC. BMP tomorrow
[2017-04-02] MEDS: ASPIRIN 81 MG CHEWABLE TABLET PO SCH ×2 (09:41→21:46)
[2017-04-02] MEDS: GABAPENTIN 300 MG CAPSULE PO SCH ×3 (09:42→21:47)
[2017-04-02] MEDS: PROPRANOLOL 10 MG TABLET PO SCH ×3 (09:42→21:46)
[2017-04-02] MEDS: SPIRONOLACTONE 50 MG TABLET PO SCH (09:42)
[2017-04-02] MEDS: PAROXETINE 20 MG TABLET PO SCH (09:42)
[2017-04-02] MEDS: FUROSEMIDE 40 MG TABLET PO SCH (09:42)
[2017-04-02] MEDS: BUSPIRONE 15 MG TABLET PO SCH ×3 (09:42→21:46)
[2017-04-02] MEDS: NICOTINE PATCH REMOVAL TD SCH (09:43)
[2017-04-02] MEDS: NICOTINE 21 MG PATCH TD SCH (09:45)
--- NOTE | 2017-04-02 10:07 | Pharmacy Consult-Antibiotics ---
Pharmacy Consult-Vancomycin - Laboratory Information WBC 10.3 T/MM3 (4.5-11.0) D 03/31/17 04:20 BUN 12.0 MG/DL (9-20) 04/01/17 04:45 Creatinine 0.9 MG/DL (0.8-1.5) 04/02/17 09:14 Vancomycin Trough 16.01 UG/ML (15-20) 04/02/17 09:14 - Consult Information Will continue vancomycin 1250mg IV q12h. Thank you.
[2017-04-02] MEDS: NS FLUSH BAG 500ml IV PRN (21:46)
[2017-04-02] MEDS: MIRTAZAPINE 15 MG TABLET PO SCH (21:47)
[2017-04-03] MEDS: Oxycodone *IR* 5 MG TABLET PO PRN ×5 (04:35→21:09)
[2017-04-03] MEDS: GABAPENTIN 300 MG CAPSULE PO SCH ×3 (09:33→21:09)
[2017-04-03] MEDS: FUROSEMIDE 40 MG TABLET PO SCH (09:33)
[2017-04-03] MEDS: BUSPIRONE 15 MG TABLET PO SCH ×3 (09:33→21:08)
[2017-04-03] MEDS: NICOTINE 21 MG PATCH TD SCH (09:33)
[2017-04-03] MEDS: ASPIRIN 81 MG CHEWABLE TABLET PO SCH ×2 (09:33→21:08)
[2017-04-03] MEDS: PROPRANOLOL 10 MG TABLET PO SCH ×3 (09:34→21:09)
[2017-04-03] MEDS: PAROXETINE 20 MG TABLET PO SCH (09:34)
[2017-04-03] MEDS: NICOTINE PATCH REMOVAL TD SCH (09:34)
[2017-04-03] MEDS: SPIRONOLACTONE 50 MG TABLET PO SCH (09:34)
--- NOTE | 2017-04-03 09:51 | Orthopedic Progress Note ---
Date: Date: 04/03/17 Time: 949 Subjective/Severity of Illness: No new complaints. Orthopedic Objective Vital signs: Temperature 98.4 F 04/03/17 07:42 Pulse Rate 109 H 04/03/17 07:42 Respiratory Rate 18 04/03/17 07:42 Blood Pressure 108/64 04/03/17 07:42 Pulse Oximetry 91 04/03/17 07:42 Height and Weight: Height 6 ft Weight 95.9 kg Body Mass Index 28.5 - Constitutional General Appearance: Present: alert, cooperative, no acute distress - Respiratory Exam Present: non-labored - Cardiovascular Exam Capillary Refill: < 2-3 Seconds - Extremities Exam Present: no edema (to left lower ext) - Integumentary Exam Present: warm, dry - Lymphatic Lymphatic: Absent: adenopathy - Neurological Exam Present: no deficits - Additional findings Additional findings: With cast and wound vac removed he has good granulation tissue. The lateral ankle surgical wound is 80% closed. No drainage. Skin edges are clear. - Labs Result Diagrams: 04/03/17 04:29 04/03/17 04:29 Abnormal lab results 04/03/17 04/03/17 Range/Units 04:29 04:29 RBC 3.51 L (4.50-5.90) M/MM3 Hgb 9.8 L (13.5-17.5) GM/DL Hct 30.8 L (41-53) % RDW Std Deviation 54.4 H (36.9-50.2) [place] Lymph % (Auto) 22.1 L (23-45) % [place] % (Auto) 13.6 H (0-9.0) % Eos % (Auto) 4.1 H (0-4) % [place] # (Auto) 0.9 H (0-0.8) T/MM3 BUN 6.0 L D (9-20) MG/DL Glucose 135 H (75-110) MG/DL H & H 03/31/17 04/03/17 Range/Units 04:20 04:29 Hgb 10.0 L 9.8 L (13.5-17.5) GM/DL Hct 31.3 L 30.8 L (41-53) % Orthopedic Assessment and Plan (1) Closed right ankle fracture Status: Acute Qualifiers: Encounter type: subsequent encounter Assessment and Plan: Continue wound vac and IV Vanco. Wound vac changed 04/03/17. Non- wt bearing on operative leg. Minimize narcotics as much as possible. Hospitalist to manage medical needs. (2) MRSA (methicillin resistant Staphylococcus aureus) infection Status: Acute Hospital Course Summary Disclaimer: The visit summary below is not to be considered part of the above Progress Note. Hospital Course: 03/30/17 Impression Status post ORIF of fracture of ankle MRSA infection of right ankle wound Cirrhosis with hx of hepatic encephalopathy Hepatitis C Alcoholism Major depressive disorder Tobacco dependence Plan Agree with swing bed admission under the care of Dr Garcia He will require 4-6 weeks of IV Vancomycin for treatment of MRSA wound He is to be strict NWBS on right ankle Lasix and potassium scheduled. Monitor chemistry panel several times a week Nicotine patch to assist with chronic tobacco dependence Percocet and Neurontin for pain. Monitor mental status as he has had difficulty with encephalopathy in the past Hydroxyzine, Paxil, BuSpar, and Remeron for anxiety and depression Continue ASA BID for ongoing anticoagulation and DVT prophylaxis The hospitalist service will continue to follow patient to medically manage medical comorbidities. At time of discharge medical care is to return to PCP, Kelin WOOD at [facility]. 03/31/17-discontinued IV Ativan as it increased controlled substances has been known to cause patient increased encephalopathy. Recommend minimizing. 04/01/17-Limit narcotics/benzos - he's had 3 doses of oxycodone so far today, about 3 hours apart. He reports pain control is improving. Not somnolent this am. K is stable at 4.2. KDur is on hold. Recheck BMP (along with CBC) on . 04/02/17 Plan Continue with current treatment as per Dr Garcia, Non weight bearing Wound Vac intact Continue with limiting Narcotics and Benzos as this has caused confusion Dr Sun recommends tapering down Paxil and increasing Remeron. Paxil decreased to 20 milligrams yesterday, on 04/04 will decreased to 10 milligrams daily, on 04/07 discontinue Paxil completely. These orders written. Remeron increased to 15 milligrams at at bedtime. Recheck CBC. BMP tomorrow
--- NOTE | 2017-04-03 15:33 | Progress Note ---
- Date 04/03/17 Subjective: Tisha is c/o quite a bit of pain and doesn't feel like the pain medication helps at all. He stated Dr. Garcia changed his cast today and his incision looks "really good". He is having some abdominal pain, but describes it as muscular b/ c he notices pain to his epigastric and left lateral abdominal pain with movement. No constipation, no bloating, no nausea. He's been eating well. Objective Vital signs: Temperature 97.7 F 04/03/17 15:26 Pulse Rate 76 04/03/17 15:26 Respiratory Rate 18 04/03/17 15:26 Blood Pressure 108/64 04/03/17 15: Pulse Oximetry 93 04/03/17 15:26 Height/Weight/BMI: Height 1.83 m Weight 95.9 kg Body Mass Index 28.5 - Constitutional Present: no acute distress, well nourished, well developed - Routine HEENT Exam Head: Present: normocephalic Eye: Absent: conjunctival icterus, scleral injection - Routine Cardiovascular Exam Present: RRR, S1, S2 - Routine Abdominal Exam Present: soft, normoactive bowel sounds, distended - Routine Extremities Exam Present: no edema, pulses intact - Routine Skin Exam Present: intact, dry, warm - Routine Neurological Exam Present: alert, oriented X3, normal speech - Routine Psychiatric Exam Present: normal affect, normal thought process, cooperative Results - Labs CBC & Chem 7: 04/03/17 04:29 04/03/17 04:29 Assessment and Plan (1) Skin infection Current visit: No Status: Acute (2) MRSA (methicillin resistant Staphylococcus aureus) infection Current visit: Yes Status: Acute Assessment and Plan: Impression Status post ORIF of fracture of ankle MRSA infection of right ankle wound Cirrhosis with hx of hepatic encephalopathy Hepatitis C Alcoholism Major depressive disorder Tobacco dependence Plan Continue IV vanco + wound vac Pain control per ortho; need to limit opioids d/t confusion. Appreciate psych recommendations - decrease Paxil to 10 mg on 04/04 then dc entirely on 04/07. Labs stable. 04/03/2017-I reviewed this chart, the patient history, and the [employer]'s/PA's documented findings as above. We discussed and formulated the assessment and plan as above with the additions below.-Dr. Esparza The patient was sleeping soundly when I came by to see him this evening. Review of vital signs show they have been stable. CBC and basic metabolic profile both look very good. We'll continue with current treatment swing bed status for now. I did not awaken the patient. Resuscitation Status: Full Code - Physician Narrative Narrative: Date: 04/03/17 Time: 1530 Hospital Course Summary Disclaimer: The visit summary below is not to be considered part of the above Progress Note. Hospital Course: 03/30/17 Impression Status post ORIF of fracture of ankle MRSA infection of right ankle wound Cirrhosis with hx of hepatic encephalopathy Hepatitis C Alcoholism Major depressive disorder Tobacco dependence Plan Agree with swing bed admission under the care of Dr Garcia He will require 4-6 weeks of IV Vancomycin for treatment of MRSA wound He is to be strict NWBS on right ankle Lasix and potassium scheduled. Monitor chemistry panel several times a week Nicotine patch to assist with chronic tobacco dependence Percocet and Neurontin for pain. Monitor mental status as he has had difficulty with encephalopathy in the past Hydroxyzine, Paxil, BuSpar, and Remeron for anxiety and depression Continue ASA BID for ongoing anticoagulation and DVT prophylaxis The hospitalist service will continue to follow patient to medically manage medical comorbidities. At time of discharge medical care is to return to PCP, Kelin WOOD at [facility]. 03/31/17-discontinued IV Ativan as it increased controlled substances has been known to cause patient increased encephalopathy. Recommend minimizing. 04/01/17-Limit narcotics/benzos - he's had 3 doses of oxycodone so far today, about 3 hours apart. He reports pain control is improving. Not somnolent this am. K is stable at 4.2. KDur is on hold. Recheck BMP (along with CBC) on . 04/02/17 Plan Continue with current treatment as per Dr Garcia, Non weight bearing Wound Vac intact Continue with limiting Narcotics and Benzos as this has caused confusion Dr Sun recommends tapering down Paxil and increasing Remeron. Paxil decreased to 20 milligrams yesterday, on 04/04 will decreased to 10 milligrams daily, on 04/07 discontinue Paxil completely. These orders written. Remeron increased to 15 milligrams at at bedtime. Recheck CBC. BMP tomorrow 04/03/17 Continue IV vanco + wound vac. Labs stable.
[2017-04-03] MEDS: MIRTAZAPINE 15 MG TABLET PO SCH (21:08)
[2017-04-04] MEDS: Oxycodone *IR* 5 MG TABLET PO PRN ×8 (00:02→23:07)
[2017-04-04] MEDS: NICOTINE 21 MG PATCH TD SCH (08:34)
[2017-04-04] MEDS: BUSPIRONE 15 MG TABLET PO SCH ×3 (08:35→20:08)
[2017-04-04] MEDS: PROPRANOLOL 10 MG TABLET PO SCH ×3 (08:35→20:08)
[2017-04-04] MEDS: ASPIRIN 81 MG CHEWABLE TABLET PO SCH ×2 (08:35→20:08)
[2017-04-04] MEDS: FUROSEMIDE 40 MG TABLET PO SCH (08:35)
[2017-04-04] MEDS: PAROXETINE 10 MG TABLET PO SCH (08:35)
[2017-04-04] MEDS: SPIRONOLACTONE 50 MG TABLET PO SCH (08:35)
[2017-04-04] MEDS: GABAPENTIN 300 MG CAPSULE PO SCH ×3 (08:39→20:08)
[2017-04-04] MEDS: NS FLUSH BAG 500ml IV PRN (10:00)
[2017-04-04] MEDS: NICOTINE PATCH REMOVAL TD SCH (10:00)
[2017-04-04] MEDS: PAROXETINE 20 MG TABLET PO SCH (10:01)
--- NOTE | 2017-04-04 15:40 | Progress Note ---
- Date 04/04/17 Subjective: Patient is seen lying in his bed. States he still has some pain in that ankle. No chest pain or shortness of breath. No nausea or vomiting. Has been having some nightmares last for 4-5 nights. Has no trouble falling asleep. Nurses report he is much more pleasant this hospitalization than previous hospitalizations. Objective Vital signs: Temperature 96.8 F 04/04/17 07:28 Pulse Rate 66 04/04/17 07:28 Respiratory Rate 18 04/04/17 07:28 Blood Pressure 112/66 04/04/17 07:28 Pulse Oximetry 96 04/04/17 07:28 Height/Weight/BMI: Height 1.83 m Weight 95.6 kg Body Mass Index 28.5 - Constitutional Present: no acute distress - Routine HEENT Exam Head: Present: normocephalic - Routine Respiratory Exam Present: CTA bilaterally. Absent: wheezes - Routine Cardiovascular Exam Present: RRR, no murmur - Routine Abdominal Exam Present: soft, normoactive bowel sounds. Absent: tenderness - Routine Extremities Exam Present: no edema Comments: cast in place with no signs of skin breakdown. - Routine Skin Exam Present: dry, warm - Routine Neurological Exam Present: alert, moving all extremities - Routine Psychiatric Exam Present: normal affect, good insight Results - Labs CBC & Chem 7: 04/03/17 04:29 04/03/17 04:29 Assessment and Plan (1) Skin infection Current visit: No Status: Acute (2) MRSA (methicillin resistant Staphylococcus aureus) infection Current visit: Yes Status: Acute Assessment and Plan: Impression Status post ORIF of fracture of ankle MRSA infection of right ankle wound Cirrhosis with hx of hepatic encephalopathy Hepatitis C Alcoholism Major depressive disorder Tobacco dependence Plan Continue IV vanco. Pain control per ortho Psych is weaning Paxil to hopefully improve efficacy of pain meds. 10 mg qd then dc entirely on 04/07. Continues on mirtazpine and Buspar. Decrease nicotine patch to 14mg qd. - Physician Narrative Narrative: Date: 04/04/17 Time: 1533 Hospital Course Summary Disclaimer: The visit summary below is not to be considered part of the above Progress Note. Hospital Course: 03/30/17 Impression Status post ORIF of fracture of ankle MRSA infection of right ankle wound Cirrhosis with hx of hepatic encephalopathy Hepatitis C Alcoholism Major depressive disorder Tobacco dependence Plan Agree with swing bed admission under the care of Dr Garcia He will require 4-6 weeks of IV Vancomycin for treatment of MRSA wound He is to be strict NWBS on right ankle Lasix and potassium scheduled. Monitor chemistry panel several times a week Nicotine patch to assist with chronic tobacco dependence Percocet and Neurontin for pain. Monitor mental status as he has had difficulty with encephalopathy in the past Hydroxyzine, Paxil, BuSpar, and Remeron for anxiety and depression Continue ASA BID for ongoing anticoagulation and DVT prophylaxis The hospitalist service will continue to follow patient to medically manage medical comorbidities. At time of discharge medical care is to return to PCP, Kelin WOOD at [facility]. 03/31/17-discontinued IV Ativan as it increased controlled substances has been known to cause patient increased encephalopathy. Recommend minimizing. 04/01/17-Limit narcotics/benzos - he's had 3 doses of oxycodone so far today, about 3 hours apart. He reports pain control is improving. Not somnolent this am. K is stable at 4.2. KDur is on hold. Recheck BMP (along with CBC) on . 04/02/17 Plan Continue with current treatment as per Dr Garcia, Non weight bearing Wound Vac intact Continue with limiting Narcotics and Benzos as this has caused confusion Dr Sun recommends tapering down Paxil and increasing Remeron. Paxil decreased to 20 milligrams yesterday, on 04/04 will decreased to 10 milligrams daily, on 04/07 discontinue Paxil completely. These orders written. Remeron increased to 15 milligrams at at bedtime. Recheck CBC. BMP tomorrow 04/03/17 Continue IV vanco + wound vac. Labs stable. 04/04/17 Decrease nicotine patch to 14mg qd.
[2017-04-04] MEDS: MIRTAZAPINE 15 MG TABLET PO SCH (20:08)
[2017-04-05] MEDS: Oxycodone *IR* 5 MG TABLET PO PRN ×7 (02:05→22:02)
--- NOTE | 2017-04-05 08:55 | ID Progress Note ---
Subjective Date: 04/05/17 Subjective: Mr. Dyson is sleepy this morning, but arouses, and answers questions appropriately. He reports some pain in the ankle, and lower leg, but denies fever, chills, N/V or diarrhea. States he's staying off of it. Denies problems with his PICC. Exam Vital Signs: Temperature 96.7 F L 04/05/17 07:00 Pulse Rate 79 04/05/17 07:00 Respiratory Rate 16 04/05/17 07:00 Blood Pressure 111/72 04/05/17 07:00 Pulse Oximetry 93 04/05/17 07:00 Height/Weight/BMI: Height 1.83 m Weight 95.2 kg Body Mass Index 28.5 - Constitutional Present: no acute distress, well nourished, well developed - Routine HEENT Exam Head: Present: normocephalic, atraumatic Eye: Present: EOMI ENT: Present: mucous membranes moist - Routine Neck Exam Present: supple - Routine Respiratory Exam Present: CTA bilaterally - Routine Cardiovascular Exam Present: RRR - Routine Abdominal Exam Present: soft, normoactive bowel sounds, non distended, non tender - Routine Extremities Exam Absent: cyanosis, clubbing, edema Comments: R ankle is in a cast, wound VAC on - Routine Skin Exam Absent: rash Comments: PICC site ok - Routine Neurological Exam Present: alert - Routine Psychiatric Exam Present: normal affect Results - Labs CBC & Chem 7: 04/03/17 04:29 04/03/17 04:29 Impression: Post-operative infection Right ankle-MRSA R ankle fracture s/p ORIF of right trimalleolar equivalent ankle fracture/ dislocation with repair of deltoid rupture 02/24/17, s/p I&D of right ankle lateral surgical site with revision ORIF right ankle on 03/11/17 with application of incisional wound VAC, followed by revision ORIF right ankle, with placement of wound VAC on 03/23/17. Wound cultures near lateral hardware 03/23 grew MRSA. Encephalopathy Chronic Alcohol use Depression Hepatitis C Cirrhosis with splenomegaly and esophageal varices, followed by Dr. Alvarez COPD Hypertension Chronic tobacco dependence Recommendation: Recommend Vancomycin for 4-6 weeks due to infection adjacent to hardware. This would go through 04/20 or 05/04/17. Pharmacy is managing Vancomycin. I'll be out later this week, will return next week.
[2017-04-05] MEDS: ASPIRIN 81 MG CHEWABLE TABLET PO SCH ×2 (09:23→20:45)
[2017-04-05] MEDS: FUROSEMIDE 40 MG TABLET PO SCH (09:24)
[2017-04-05] MEDS: PROPRANOLOL 10 MG TABLET PO SCH ×3 (09:25→20:45)
[2017-04-05] MEDS: PAROXETINE 10 MG TABLET PO SCH (09:25)
[2017-04-05] MEDS: GABAPENTIN 300 MG CAPSULE PO SCH ×3 (09:25→20:44)
[2017-04-05] MEDS: SPIRONOLACTONE 50 MG TABLET PO SCH (09:25)
[2017-04-05] MEDS: BUSPIRONE 15 MG TABLET PO SCH ×3 (09:25→20:46)
[2017-04-05] MEDS: NS FLUSH BAG 500ml IV PRN (09:27)
[2017-04-05] MEDS: NICOTINE 14 MG PATCH TD SCH (10:04)
[2017-04-05] MEDS: NICOTINE PATCH REMOVAL TD SCH (10:04)
--- NOTE | 2017-04-05 10:08 | Progress Note ---
- Date 04/05/17 Subjective: Tisha was very talkative this morning (and quickly went from one topic to the next). We first discussed his family, and he told me about his 22 y/o daughter who was in a terrible MVC and was comatose for 4 months (now she lives in [place] ); about his father (both good and bad qualities); then he reported that his anxiety is uncontrolled and benzos are the only thing that really helps. This led into a discussion about EtoH treatment, which then progressed into trouble with the law. Finally we talked about his hobbies - he loves his pets, loves to read and play his guitar, and again voiced plans to start classes through [facility] in April. He reports that he's breathing well - the best he's been able to breathe in a long time, and believes that's b/c he's not smoking. He is not sleeping well d/t pain and worsening nightmares (someone is chasing him and he needs to beat them up). He had nightmares at home sometimes but they just recently became worse. He has mild left sided abdominal pain, but this has improved from 2 days ago. He denies n/v/d. He continues to have uncontrolled pain to his RLE. Objective Vital signs: Temperature 96.7 F L 04/05/17 07:00 Pulse Rate 79 04/05/17 07:00 Respiratory Rate 16 04/05/17 07:00 Blood Pressure 111/72 04/05/17 07:00 Pulse Oximetry 93 04/05/17 07:00 Height/Weight/BMI: Height 1.83 m Weight 95.2 kg Body Mass Index 28.5 - Constitutional Present: no acute distress, well nourished, well developed - Routine HEENT Exam Eye: Present: PERRL. Absent: conjunctival icterus, scleral injection ENT: Absent: dentition normal (decay) - Routine Respiratory Exam Present: CTA bilaterally - Routine Cardiovascular Exam Present: RRR, S1, S2 - Routine Abdominal Exam Present: soft, normoactive bowel sounds, non distended, non tender - Routine Extremities Exam Present: no edema - Routine Musculoskeletal Exam Musculoskeletal: Present: other (RLE cast/wound vac) - Routine Skin Exam Present: dry, warm - Routine Neurological Exam Present: alert, oriented X3, normal speech - Routine Psychiatric Exam Present: normal affect, normal thought process, cooperative Results - Labs CBC & Chem 7: 04/03/17 04:29 04/05/17 10:19 Assessment and Plan (1) Skin infection Current visit: No Status: Acute (2) MRSA (methicillin resistant Staphylococcus aureus) infection Current visit: Yes Status: Acute Assessment and Plan: Impression Status post ORIF of fracture of ankle MRSA infection of right ankle wound Cirrhosis with hx of hepatic encephalopathy Hepatitis C Alcoholism Major depressive disorder Tobacco dependence Plan Continue IV vanco; wound vac (last changed on 04/03). Dr. Burgos' updated recommendations are pending. I left a message for Dr. Sun regarding his nightmares. Medically stable. Labs last checked on 04/03. 04/05/2017-I reviewed this chart, the patient history, and the [employer]'s/PA's documented findings as above. We discussed and formulated the assessment and plan as above with the additions below.-Dr. Esparza Patient complains of inadequate pain control, anxiety, depression and having nightmares that are worse than normal. The increased nightmares is likely secondary to increased dosage of Remeron. Appreciate Dr. Sun's note. She recommends decreasing Remeron back to 7.5 mg daily. Continue to taper off Paxil and possibly initiate a different antidepressant. The patient also complains of hard stools but refuses to try a laxative. On exam the patient is alert, oriented and in no acute distress. Chest is clear to auscultation. Cardiovascular reveals a regular rate and rhythm. Abdomen is soft and nontender. Extremities are free of edema. Right leg is in a cast. Impression and plan Continue with current treatment for MRSA ankle wound infection Continue with wound VAC per primary. Dr. Sun will be adjusting the patient's psychiatric medications. Resuscitation Status: Full Code - Physician Narrative Narrative: Date: 04/05/17 Time: 1003 Hospital Course Summary Disclaimer: The visit summary below is not to be considered part of the above Progress Note. Hospital Course: 03/30/17 Impression Status post ORIF of fracture of ankle MRSA infection of right ankle wound Cirrhosis with hx of hepatic encephalopathy Hepatitis C Alcoholism Major depressive disorder Tobacco dependence Plan Agree with swing bed admission under the care of Dr Garcia He will require 4-6 weeks of IV Vancomycin for treatment of MRSA wound He is to be strict NWBS on right ankle Lasix and potassium scheduled. Monitor chemistry panel several times a week Nicotine patch to assist with chronic tobacco dependence Percocet and Neurontin for pain. Monitor mental status as he has had difficulty with encephalopathy in the past Hydroxyzine, Paxil, BuSpar, and Remeron for anxiety and depression Continue ASA BID for ongoing anticoagulation and DVT prophylaxis The hospitalist service will continue to follow patient to medically manage medical comorbidities. At time of discharge medical care is to return to PCP, Kelin WOOD at [facility]. 03/31/17-discontinued IV Ativan as it increased controlled substances has been known to cause patient increased encephalopathy. Recommend minimizing. 04/01/17-Limit narcotics/benzos - he's had 3 doses of oxycodone so far today, about 3 hours apart. He reports pain control is improving. Not somnolent this am. K is stable at 4.2. KDur is on hold. Recheck BMP (along with CBC) on . 04/02/17 Plan Continue with current treatment as per Dr Garcia, Non weight bearing Wound Vac intact Continue with limiting Narcotics and Benzos as this has caused confusion Dr Sun recommends tapering down Paxil and increasing Remeron. Paxil decreased to 20 milligrams yesterday, on 04/04 will decreased to 10 milligrams daily, on 04/07 discontinue Paxil completely. These orders written. Remeron increased to 15 milligrams at at bedtime. Recheck CBC. BMP tomorrow 04/03/17 Continue IV vanco + wound vac. Labs stable. 04/04/17 Decrease nicotine patch to 14mg qd.
--- NOTE | 2017-04-05 13:01 | Progress Note ---
Progress Note: Psych: Patient reported increase in nightmares since medication switches to FR[employer]. This could be due to taper of Paxil (if related to some sort of PTSD) vs. increase of mirtazapine. For now, decreased mirtazapine back to 7.5mg PO q HS and monitor. As we continue taper of Paxil, will consider whether Lexapro may be helpful without accompanying CYP2D6 inhibition interfering with narcotics.
--- NOTE | 2017-04-05 15:44 | XRay Report ---
Indication: Check fx position. PROCEDURE: XR ankle RT min 3V: Encounter: Subsequent Comparison: March 28, 2017 Findings: Internally fixed distal tibial and fibular fractures are stable in alignment. Lateral fibular side plate and screws with a threaded syndesmotic screw. Accu trak type screw in the medial malleolus. No bridging callus formation seen currently. There is early periosteal reaction present. The ankle mortise is symmetric and unchanged. Impression: Stable alignment of the internally fixed tibial and fibular fractures. .
[2017-04-05] MEDS: MIRTAZAPINE 15 MG TABLET PO SCH (20:45)
[2017-04-06] MEDS: Oxycodone *IR* 5 MG TABLET PO PRN ×8 (01:05→23:28)
[2017-04-06] MEDS: SPIRONOLACTONE 50 MG TABLET PO SCH (09:35)
[2017-04-06] MEDS: ASPIRIN 81 MG CHEWABLE TABLET PO SCH ×2 (09:35→20:40)
[2017-04-06] MEDS: BUSPIRONE 15 MG TABLET PO SCH ×3 (09:35→20:41)
[2017-04-06] MEDS: FUROSEMIDE 40 MG TABLET PO SCH (09:36)
[2017-04-06] MEDS: PAROXETINE 10 MG TABLET PO SCH (09:36)
[2017-04-06] MEDS: NICOTINE 14 MG PATCH TD SCH (09:36)
[2017-04-06] MEDS: GABAPENTIN 300 MG CAPSULE PO SCH ×3 (09:36→20:41)
[2017-04-06] MEDS: PROPRANOLOL 10 MG TABLET PO SCH ×3 (09:36→20:41)
[2017-04-06] MEDS: NICOTINE PATCH REMOVAL TD SCH (09:37)
[2017-04-06] MEDS: NS FLUSH BAG 500ml IV PRN (11:36)
--- NOTE | 2017-04-06 13:28 | Pharmacy Consult-Antibiotics ---
Pharmacy Consult-Vancomycin - Laboratory Information WBC 6.4 T/MM3 (4.5-11.0) 04/03/17 04:29 BUN 6.0 MG/DL (9-20) L D 04/03/17 04:29 Creatinine 0.9 MG/DL (0.8-1.5) 04/05/17 10:19 Vancomycin Trough 15.01 UG/ML (15-20) 04/06/17 09:18 - Consult Information VANCOMYCIN CONSULT: DM is 51 yo male with a post-operative infection Right ankle-MRSA. Wound cultures done near lateral hardware 03/23 grew MRSA. Vancomycin Trough = 15.01 mcg/ml. Today's SCr = 0.9 mg/dl. Estimated Cr Cl > 100. With the patient's improved renal function, the trough and renal function indicated that continuing the Vancomycin 1,250 mg iv every 12 hours would ultimately give a trough of 12-13 mcg/mL. So I have changed the Vancomycin to 1 ,000 mg iv every 8 hours which should give a trough between 17-18 mcg/mL. The pharmacy will continue to monitor and make adjustments accordingly. Thank you for the Vancomycin Dosing Protocol, Chava Vergara, Pharmacist.
--- NOTE | 2017-04-06 17:39 | Progress Note ---
- Date 04/06/17 Subjective: Tisha is seen today in follow up for his infected right ankle fracture with hardware placement. He is seen while resting in bed, watching TV. He reports that he is doing well and appears to be in good spirits. He admits to continued pain, but is in no apparent distress. He denies any fevers, chills, chest pain, shortness of breath, abdominal pain, nausea, vomiting or dysuria. He states that his appetite is good and his bowels are moving. He continues on antimicrobial treatment with vancomycin per Dr. Burgos' recommendations and wound vac remains in place. Cast was changed today. Objective Vital signs: Temperature 96.4 F L 04/06/17 07:00 Pulse Rate 78 04/06/17 07:00 Respiratory Rate 18 04/06/17 07:00 Blood Pressure 122/72 04/06/17 07:00 Pulse Oximetry 95 04/06/17 07:00 Height/Weight/BMI: Height 6 ft Weight 210 lb 5.136 oz Body Mass Index 28.5 Comments: Resting in bed, watching TV and appears to be in good spirits, smiling on exam. - Constitutional Present: no acute distress, well nourished, well developed, cooperative - Routine HEENT Exam Head: Present: normocephalic, atraumatic Eye: Present: PERRL. Absent: conjunctival icterus ENT: Present: mucous membranes moist. Absent: dentition normal - Routine Respiratory Exam Present: decreased breath sounds (R>L), crackles (bibasilar). Absent: respiratory distress, wheezes Comments: no cough or conversational dyspnea. - Routine Cardiovascular Exam Present: RRR, S1, S2 - Routine Abdominal Exam Present: soft, normoactive bowel sounds, non distended, non tender. Absent: rebound, guarding - Routine Extremities Exam Present: no edema, pulses intact, normal capillary refill Comments: new cast noted to right lower extremity. - Routine Back/Spine/Pelvis Exam Back/Spine: Present: full ROM. Absent: vertebral tenderness - Routine Musculoskeletal Exam Musculoskeletal: Present: moving extremities well, limited range of motion ( right lower extremity due to cast in place) - Routine Skin Exam Present: intact, dry, warm. Absent: jaundice Comments: afebrile; wound vac in place and actively draining. - Routine Neurological Exam Present: alert, moving all extremities, hearing grossly intact, normal speech - Routine Lymphatic Exam Lymphatic: Absent: lymphedema - Routine Psychiatric Exam Present: cooperative Results - Labs CBC & Chem 7: 04/03/17 04:29 04/05/17 10:19 - Impressions Date of Exam: 04/05/17 Type of Exam(s): XR ankle RT min 3V Reason for Exam(s): Check fx position. Findings: Internally fixed distal tibial and fibular fractures are stable in alignment. Lateral fibular side plate and screws with a threaded syndesmotic screw. Accu trak type screw in the medial malleolus. No bridging callus formation seen currently. There is early periosteal reaction present. The ankle mortise is symmetric and unchanged. Impression: Stable alignment of the internally fixed tibial and fibular fractures. Assessment and Plan (1) Skin infection Current visit: No Status: Acute (2) MRSA (methicillin resistant Staphylococcus aureus) infection Current visit: Yes Status: Acute Assessment and Plan: Impression Status post ORIF of fracture of ankle MRSA infection of right ankle wound Cirrhosis with hx of hepatic encephalopathy Hepatitis C Alcoholism Major depressive disorder Tobacco dependence Plan - 04/06/17 (Mirakian) Overall, Tisha appears to be doing well. Continue care per ortho. Patient seen and evaluated by Dr. Burgos regarding MRSA to right ankle. Continue IV vancomycin with pharmacy to manage for a total duration of 4-6 weeks (through 04/20/17 or 05/04/17). Wound vac remains in place and being managed by wound care. Patient was seen and evaluated by Dr. Sun regarding nightmares. He reports improvement of nightmares on exam. The increased nightmares is likely secondary to increased dosage of Remeron. Appreciate Dr. Sun's note. She recommends decreasing Remeron back to 7.5 mg daily. Continue to taper off Paxil and possibly initiate a different antidepressant. Continue to provide safe and supportive environment. Will recheck labs in AM to monitor electrolytes, renal function and blood counts. Continue to encourage nonweight bearing status to right ankle. DVT Prophylaxis: SCD's Resuscitation Status: Full Code - Time spent with patient Time with patient PN: 35 minutes - Physician Narrative Physician: Thelma Pearl MD Narrative: Date: 04/06/17 Time: 4901 Hospital Course Summary Disclaimer: The visit summary below is not to be considered part of the above Progress Note. Hospital Course: 03/30/17 Impression Status post ORIF of fracture of ankle MRSA infection of right ankle wound Cirrhosis with hx of hepatic encephalopathy Hepatitis C Alcoholism Major depressive disorder Tobacco dependence Plan Agree with swing bed admission under the care of Dr Garcia He will require 4-6 weeks of IV Vancomycin for treatment of MRSA wound He is to be strict NWBS on right ankle Lasix and potassium scheduled. Monitor chemistry panel several times a week Nicotine patch to assist with chronic tobacco dependence Percocet and Neurontin for pain. Monitor mental status as he has had difficulty with encephalopathy in the past Hydroxyzine, Paxil, BuSpar, and Remeron for anxiety and depression Continue ASA BID for ongoing anticoagulation and DVT prophylaxis The hospitalist service will continue to follow patient to medically manage medical comorbidities. At time of discharge medical care is to return to PCP, Kelin WOOD at [facility]. 03/31/17-discontinued IV Ativan as it increased controlled substances has been known to cause patient increased encephalopathy. Recommend minimizing. 04/01/17-Limit narcotics/benzos - he's had 3 doses of oxycodone so far today, about 3 hours apart. He reports pain control is improving. Not somnolent this am. K is stable at 4.2. KDur is on hold. Recheck BMP (along with CBC) on . 04/02/17 Plan Continue with current treatment as per Dr Garcia, Non weight bearing Wound Vac intact Continue with limiting Narcotics and Benzos as this has caused confusion Dr Sun recommends tapering down Paxil and increasing Remeron. Paxil decreased to 20 milligrams yesterday, on 04/04 will decreased to 10 milligrams daily, on 04/07 discontinue Paxil completely. These orders written. Remeron increased to 15 milligrams at at bedtime. Recheck CBC. BMP tomorrow 04/03/17 Continue IV vanco + wound vac. Labs stable. 04/04/17 Decrease nicotine patch to 14mg qd. Plan - 04/06/17 (Mirakian) Overall, Tisha appears to be doing well. Continue care per ortho. Patient seen and evaluated by Dr. Burgos regarding MRSA to right ankle. Continue IV vancomycin with pharmacy to manage for a total duration of 4-6 weeks (through 04/20/17 or 05/04/17). Wound vac remains in place and being managed by wound care. Patient was seen and evaluated by Dr. Sun regarding nightmares. He reports improvement of nightmares on exam. The increased nightmares is likely secondary to increased dosage of Remeron. Appreciate Dr. Sun's note. She recommends decreasing Remeron back to 7.5 mg daily. Continue to taper off Paxil and possibly initiate a different antidepressant. Continue to provide safe and supportive environment. Will recheck labs in AM to monitor electrolytes, renal function and blood counts. Continue to encourage nonweight bearing status to right ankle.
[2017-04-06] MEDS: MIRTAZAPINE 15 MG TABLET PO SCH (20:40)
[2017-04-07] MEDS: Oxycodone *IR* 5 MG TABLET PO PRN ×6 (02:30→21:30)
[2017-04-07] MEDS: FUROSEMIDE 40 MG TABLET PO SCH (08:32)
[2017-04-07] MEDS: GABAPENTIN 300 MG CAPSULE PO SCH ×3 (08:33→21:27)
[2017-04-07] MEDS: NICOTINE 14 MG PATCH TD SCH (08:33)
[2017-04-07] MEDS: SPIRONOLACTONE 50 MG TABLET PO SCH (08:33)
[2017-04-07] MEDS: PAROXETINE 10 MG TABLET PO SCH (08:33)
[2017-04-07] MEDS: BUSPIRONE 15 MG TABLET PO SCH ×3 (08:33→21:27)
[2017-04-07] MEDS: PROPRANOLOL 10 MG TABLET PO SCH ×3 (08:33→21:26)
[2017-04-07] MEDS: ASPIRIN 81 MG CHEWABLE TABLET PO SCH ×2 (08:34→21:27)
[2017-04-07] MEDS: NICOTINE PATCH REMOVAL TD SCH (08:36)
--- NOTE | 2017-04-07 10:37 | Progress Note ---
- Date 04/07/17 Subjective: Mr Dyson is seen today in follow up. He is feeling good and in good spirits without any complaints. Right ankle pain is minimal. Denies shortness of breath or GI concerns. Vitals remain stable. Objective Vital signs: Temperature 95.3 F L 04/07/17 08:42 Pulse Rate 77 04/07/17 08:42 Respiratory Rate 16 04/07/17 08:42 Blood Pressure 118/73 04/07/17 08:42 Pulse Oximetry 92 04/07/17 08:42 Height/Weight/BMI: Height 1.83 m Weight 95.6 kg Body Mass Index 28.5 - Constitutional Present: no acute distress, well nourished, well developed - Routine HEENT Exam Eye: Present: EOMI ENT: Present: mucous membranes moist, dentition normal - Routine Respiratory Exam Present: CTA bilaterally. Absent: wheezes - Routine Cardiovascular Exam Present: RRR, S1, S2. Absent: murmur - Routine Abdominal Exam Present: soft, normoactive bowel sounds, non distended. Absent: tenderness - Routine Extremities Exam Present: normal capillary refill Comments: Right ankle splint - Routine Back/Spine/Pelvis Exam Back/Spine: Present: full ROM - Routine Skin Exam Present: dry, warm - Routine Neurological Exam Present: alert, oriented X3, CN II-XII intact - Routine Lymphatic Exam Lymphatic: Absent: adenopathy - Routine Psychiatric Exam Present: normal affect Results - Labs CBC & Chem 7: 04/07/17 04:15 04/07/17 04:15 Assessment and Plan (1) Skin infection Current visit: No Status: Acute (2) MRSA (methicillin resistant Staphylococcus aureus) infection Current visit: Yes Status: Acute Assessment and Plan: Impression Status post ORIF of fracture of ankle MRSA infection of right ankle wound Cirrhosis with hx of hepatic encephalopathy Hepatitis C Alcoholism Major depressive disorder Tobacco dependence Plan - 04/07 Overall doing well medically. Continue nonweightbearing, right ankle splint followed by Dr Garcia Continues on IV Vancomycin for treatment of MRSA to right ankle wound. Dr Burgos recommends 4-6 weeks (through 04/20/17 or 05/04/17). Wound vac remains in place and being managed by wound care. Remeron dose decreased to 7.5mg given recent nightmares. Paxil discontinued. Appreciate Dr Sun Morning labs reviewed and remain stable DVT Prophylaxis: other (ASA ) Resuscitation Status: Full Code - Physician Narrative Physician: Dannie Chu MD Narrative: Date: 04/07/17 Time: 1999 Patient sleeping soundly this evening. Will not disturb. Hospital Course Summary Disclaimer: The visit summary below is not to be considered part of the above Progress Note. Hospital Course: 03/30/17 Impression Status post ORIF of fracture of ankle MRSA infection of right ankle wound Cirrhosis with hx of hepatic encephalopathy Hepatitis C Alcoholism Major depressive disorder Tobacco dependence Plan Agree with swing bed admission under the care of Dr Garcia He will require 4-6 weeks of IV Vancomycin for treatment of MRSA wound He is to be strict NWBS on right ankle Lasix and potassium scheduled. Monitor chemistry panel several times a week Nicotine patch to assist with chronic tobacco dependence Percocet and Neurontin for pain. Monitor mental status as he has had difficulty with encephalopathy in the past Hydroxyzine, Paxil, BuSpar, and Remeron for anxiety and depression Continue ASA BID for ongoing anticoagulation and DVT prophylaxis The hospitalist service will continue to follow patient to medically manage medical comorbidities. At time of discharge medical care is to return to PCP, Kelin WOOD at [facility]. 03/31/17-discontinued IV Ativan as it increased controlled substances has been known to cause patient increased encephalopathy. Recommend minimizing. 04/01/17-Limit narcotics/benzos - he's had 3 doses of oxycodone so far today, about 3 hours apart. He reports pain control is improving. Not somnolent this am. K is stable at 4.2. KDur is on hold. Recheck BMP (along with CBC) on . 04/02/17 Plan Continue with current treatment as per Dr Garcia, Non weight bearing Wound Vac intact Continue with limiting Narcotics and Benzos as this has caused confusion Dr Sun recommends tapering down Paxil and increasing Remeron. Paxil decreased to 20 milligrams yesterday, on 04/04 will decreased to 10 milligrams daily, on 04/07 discontinue Paxil completely. These orders written. Remeron increased to 15 milligrams at at bedtime. Recheck CBC. BMP tomorrow 04/03/17 Continue IV vanco + wound vac. Labs stable. 04/04/17 Decrease nicotine patch to 14mg qd. Plan - 04/06/17 (Mirakian) Overall, Tisha appears to be doing well. Continue care per ortho. Patient seen and evaluated by Dr. Burgos regarding MRSA to right ankle. Continue IV vancomycin with pharmacy to manage for a total duration of 4-6 weeks (through 04/20/17 or 05/04/17). Wound vac remains in place and being managed by wound care. Patient was seen and evaluated by Dr. Sun regarding nightmares. He reports improvement of nightmares on exam. The increased nightmares is likely secondary to increased dosage of Remeron. Appreciate Dr. Sun's note. She recommends decreasing Remeron back to 7.5 mg daily. Continue to taper off Paxil and possibly initiate a different antidepressant. Continue to provide safe and supportive environment. Will recheck labs in AM to monitor electrolytes, renal function and blood counts. Continue to encourage nonweight bearing status to right ankle. 04/07/17 - Stable medically. Continues NWBS followed by Dr Garcia. Vanco IV through 04/20-05/04 under the care of Dr Burgos.
[2017-04-07] MEDS: MIRTAZAPINE 15 MG TABLET PO SCH (21:27)
[2017-04-08] MEDS: Oxycodone *IR* 5 MG TABLET PO PRN ×5 (05:31→22:30)
--- NOTE | 2017-04-08 09:04 | Orthopedic Progress Note ---
Date: Date: 04/08/17 Time: 900 Subjective/Severity of Illness: Mr Dyson is doing okay. He was standing at the sink with pressure being applied to the right LE for balance. He tells me he is keeping wt off it 80% of the time. The bottom of the cast was broke down when I changed it this AM. Remains afebrile. No other concerns. Orthopedic Objective PO Vital signs: Temperature 97.2 F 04/08/17 00:36 Pulse Rate 81 04/08/17 00:36 Respiratory Rate 18 04/08/17 00:36 Blood Pressure 129/77 04/08/17 00:36 Pulse Oximetry 95 04/08/17 00:36 Height and Weight: Height 6 ft Weight 210 lb 12.191 oz Body Mass Index 28.5 - Constitutional General Appearance: Present: alert, cooperative, no acute distress - Respiratory Exam Present: non-labored - Cardiovascular Exam Present: pedal pulses intact Capillary Refill: < 2-3 Seconds - Extremities Exam Extremities: Present: pulses intact. Absent: cyanosis, no edema, calf tenderness - Surgical Site Incision: other (Wound continues to improve slowly. Medially the wound is healed.) Drains Present: negative pressure therapy (New wound vac applied this AM. Wound continues to granulate in and is getting smaller.) - Integumentary Exam Present: warm, dry - Neurological Exam Present: no deficits - Psychiatric Exam Present: alert - Labs Result Diagrams: 04/07/17 04:15 04/07/17 04:15 H & H 03/31/17 04/03/17 04/07/17 Range/Units 04:20 04:29 04:15 Hgb 10.0 L 9.8 L 9.8 L (13.5-17.5) GM/DL Hct 31.3 L 30.8 L 31.5 L (41-53) % Orthopedic Assessment and Plan (1) Closed right ankle fracture Status: Acute Qualifiers: Encounter type: subsequent encounter Assessment and Plan: Continue wound vac and IV Vanco. Had MRSA on culture from 03/23/17. Dr Burgos recommends IV vanco until 04/20/17 - 05/04/17 (4-6 weeks) because of underlying hardware. Wound vac changed 04/03/17 and 04/08/17. New cast applied on both of these dates as well. Next wound vac change scheduled for 04/12/17. Non- wt bearing on operative leg. The importance of this was stressed again today. Minimize narcotics as much as possible. Hospitalist to manage medical needs. (2) MRSA (methicillin resistant Staphylococcus aureus) infection Status: Acute Hospital Course Summary Disclaimer: The visit summary below is not to be considered part of the above Progress Note. Hospital Course: 03/30/17 Impression Status post ORIF of fracture of ankle MRSA infection of right ankle wound Cirrhosis with hx of hepatic encephalopathy Hepatitis C Alcoholism Major depressive disorder Tobacco dependence Plan Agree with swing bed admission under the care of Dr Garcia He will require 4-6 weeks of IV Vancomycin for treatment of MRSA wound He is to be strict NWBS on right ankle Lasix and potassium scheduled. Monitor chemistry panel several times a week Nicotine patch to assist with chronic tobacco dependence Percocet and Neurontin for pain. Monitor mental status as he has had difficulty with encephalopathy in the past Hydroxyzine, Paxil, BuSpar, and Remeron for anxiety and depression Continue ASA BID for ongoing anticoagulation and DVT prophylaxis The hospitalist service will continue to follow patient to medically manage medical comorbidities. At time of discharge medical care is to return to PCP, Kelin WOOD at [facility]. 03/31/17-discontinued IV Ativan as it increased controlled substances has been known to cause patient increased encephalopathy. Recommend minimizing. 04/01/17-Limit narcotics/benzos - he's had 3 doses of oxycodone so far today, about 3 hours apart. He reports pain control is improving. Not somnolent this am. K is stable at 4.2. KDur is on hold. Recheck BMP (along with CBC) on . 04/02/17 Plan Continue with current treatment as per Dr Garcia, Non weight bearing Wound Vac intact Continue with limiting Narcotics and Benzos as this has caused confusion Dr Sun recommends tapering down Paxil and increasing Remeron. Paxil decreased to 20 milligrams yesterday, on 04/04 will decreased to 10 milligrams daily, on 04/07 discontinue Paxil completely. These orders written. Remeron increased to 15 milligrams at at bedtime. Recheck CBC. BMP tomorrow 04/03/17 Continue IV vanco + wound vac. Labs stable. 04/04/17 Decrease nicotine patch to 14mg qd. Plan - 04/06/17 (Mirakian) Overall, Tisha appears to be doing well. Continue care per ortho. Patient seen and evaluated by Dr. Brugos regarding MRSA to right ankle. Continue IV vancomycin with pharmacy to manage for a total duration of 4-6 weeks (through 04/20/17 or 05/04/17). Wound vac remains in place and being managed by wound care. Patient was seen and evaluated by Dr. Sun regarding nightmares. He reports improvement of nightmares on exam. The increased nightmares is likely secondary to increased dosage of Remeron. Appreciate Dr. Sun's note. She recommends decreasing Remeron back to 7.5 mg daily. Continue to taper off Paxil and possibly initiate a different antidepressant. Continue to provide safe and supportive environment. Will recheck labs in AM to monitor electrolytes, renal function and blood counts. Continue to encourage nonweight bearing status to right ankle. 04/07/17 - Stable medically. Continues NWBS followed by Dr Garcia. Denice IV through 04/20-05/04 under the care of Dr Burgos.
[2017-04-08] MEDS: PROPRANOLOL 10 MG TABLET PO SCH ×3 (09:54→20:06)
[2017-04-08] MEDS: ASPIRIN 81 MG CHEWABLE TABLET PO SCH ×2 (09:54→20:06)
[2017-04-08] MEDS: SPIRONOLACTONE 50 MG TABLET PO SCH (09:54)
[2017-04-08] MEDS: GABAPENTIN 300 MG CAPSULE PO SCH ×3 (09:54→20:06)
[2017-04-08] MEDS: BUSPIRONE 15 MG TABLET PO SCH ×3 (09:54→20:06)
[2017-04-08] MEDS: FUROSEMIDE 40 MG TABLET PO SCH (09:54)
[2017-04-08] MEDS: NICOTINE 14 MG PATCH TD SCH (09:55)
[2017-04-08] MEDS: NICOTINE PATCH REMOVAL TD SCH (09:59)
--- NOTE | 2017-04-08 11:20 | Pharmacy Consult-Antibiotics ---
Pharmacy Consult-Vancomycin - Laboratory Information WBC 6.0 T/MM3 (4.5-11.0) 04/07/17 04:15 BUN 7.0 MG/DL (9-20) L 04/07/17 04:15 Creatinine 0.9 MG/DL (0.8-1.5) 04/07/17 04:15 Vancomycin Trough 18.60 UG/ML (15-20) 04/08/17 08:59 - Consult Information VANCOMYCIN CONSULT: Vancomycin Trough = 18.6 mcg/ml. Today's SCr = 0.9 mg/dl. Will continue to give Vancomycin 1,000 mg IV q8hrs. Will continue to monitor and make adjustments accordingly. Thank you.
[2017-04-08] MEDS: MIRTAZAPINE 15 MG TABLET PO SCH (20:06)
[2017-04-09] MEDS: Oxycodone *IR* 5 MG TABLET PO PRN ×3 (04:04→20:28)
[2017-04-09] MEDS: ASPIRIN 81 MG CHEWABLE TABLET PO SCH ×2 (08:34→20:29)
[2017-04-09] MEDS: PROPRANOLOL 10 MG TABLET PO SCH ×3 (08:34→20:29)
[2017-04-09] MEDS: BUSPIRONE 15 MG TABLET PO SCH ×3 (08:34→20:29)
[2017-04-09] MEDS: FUROSEMIDE 40 MG TABLET PO SCH (08:34)
[2017-04-09] MEDS: SPIRONOLACTONE 50 MG TABLET PO SCH (08:34)
[2017-04-09] MEDS: POLYETHYL GLYCOL 3350 17gm PACKET PO PRN (08:34)
[2017-04-09] MEDS: GABAPENTIN 300 MG CAPSULE PO SCH ×3 (08:34→20:28)
[2017-04-09] MEDS: SENNA + DOCUSATE TABLET PO PRN (08:35)
--- NOTE | 2017-04-09 11:41 | Progress Note ---
- Date 04/09/17 Subjective: Tisha is very drowsy this morning. He woke up briefly to tell me that he had a bad night, continues to have bad dreams. Nurse was concerned he had a nightmare , because the foot rest on his bed was dislodged. He frequently asks for narcotic pain pills when he is awake, every 3 hours on the dot. This morning he was only given 1 Roxicodone because he was so drowsy. Objective Vital signs: Temperature 98.9 F 04/09/17 07:53 Pulse Rate 75 04/09/17 07:53 Respiratory Rate 18 04/09/17 07:53 Blood Pressure 129/67 04/09/17 07:53 Pulse Oximetry 97 04/09/17 07:53 Height/Weight/BMI: Height 1.83 m Weight 94.8 kg Body Mass Index 28.5 - Constitutional Present: no acute distress, well nourished, well developed - Routine HEENT Exam ENT: Present: oropharynx clear - Routine Respiratory Exam Present: CTA bilaterally - Routine Cardiovascular Exam Present: RRR, S1, S2 - Routine Abdominal Exam Present: soft, normoactive bowel sounds - Routine Extremities Exam Present: no edema (left lower extremity) Comments: Wound VAC and cast on right lower extremity - Routine Skin Exam Present: dry, warm - Routine Neurological Exam Absent: alert (drowsy) - Routine Psychiatric Exam Present: unable to assess Results - Labs CBC & Chem 7: 04/07/17 04:15 04/07/17 04:15 Assessment and Plan (1) Skin infection Current visit: No Status: Acute (2) MRSA (methicillin resistant Staphylococcus aureus) infection Current visit: Yes Status: Acute Assessment and Plan: Impression Status post ORIF of fracture of ankle MRSA infection of right ankle wound Cirrhosis with hx of hepatic encephalopathy Hepatitis C Alcoholism Major depressive disorder Tobacco dependence Plan Continues to have nightmares, intermittent drowsiness. Will try to reduce frequency of oxycodone, changing it from every 3 to every 4 hours as needed. Psych services on board. Continue Vanco per Dr. Burgos (through 04/20/17 or 05/04/17) NWB Right leg; continue wound vac per ortho. DVT Prophylaxis: other (ASA ) Resuscitation Status: Full Code - Physician Narrative Physician: Dannie Chu MD Narrative: Date: 04/09/17 Time: 1550 Have independently interviewed and examined pt. Chart reviewed. Case discussed with my NEWSPAPER WRITER. Care plan developed with my supervision; agree with above. Frustrated this afternoon that can't get anyone to answer the phone to take his food order. Stated 'would be eating well if they would answer the phone.' Denies nausea or ab pain. Bowels moving per his report. Breathing well. Leg pain about the same. Still trying the best he can to keep weight off his foot. Lungs: decreased, no distress CV: regular AB: soft nt/nd MSE: awake alert Plan: Continue IV antibiotics and wound care. Psych did see patient today and adjusted Remeron. Encourage non weight bearing. Encourage healthy food intake. Medically stable. Hospital Course Summary Disclaimer: The visit summary below is not to be considered part of the above Progress Note. Hospital Course: 03/30/17 Impression Status post ORIF of fracture of ankle MRSA infection of right ankle wound Cirrhosis with hx of hepatic encephalopathy Hepatitis C Alcoholism Major depressive disorder Tobacco dependence Plan Agree with swing bed admission under the care of Dr Garcia He will require 4-6 weeks of IV Vancomycin for treatment of MRSA wound He is to be strict NWBS on right ankle Lasix and potassium scheduled. Monitor chemistry panel several times a week Nicotine patch to assist with chronic tobacco dependence Percocet and Neurontin for pain. Monitor mental status as he has had difficulty with encephalopathy in the past Hydroxyzine, Paxil, BuSpar, and Remeron for anxiety and depression Continue ASA BID for ongoing anticoagulation and DVT prophylaxis The hospitalist service will continue to follow patient to medically manage medical comorbidities. At time of discharge medical care is to return to PCP, Kelin Pinedo -NEWSPAPER WRITER at [facility]. 03/31/17-discontinued IV Ativan as it increased controlled substances has been known to cause patient increased encephalopathy. Recommend minimizing. 04/01/17-Limit narcotics/benzos - he's had 3 doses of oxycodone so far today, about 3 hours apart. He reports pain control is improving. Not somnolent this am. K is stable at 4.2. KDur is on hold. Recheck BMP (along with CBC) on . 04/02/17 Plan Continue with current treatment as per Dr Garcia, Non weight bearing Wound Vac intact Continue with limiting Narcotics and Benzos as this has caused confusion Dr Sun recommends tapering down Paxil and increasing Remeron. Paxil decreased to 20 milligrams yesterday, on 04/04 will decreased to 10 milligrams daily, on 04/07 discontinue Paxil completely. These orders written. Remeron increased to 15 milligrams at at bedtime. Recheck CBC. BMP tomorrow 04/03/17 Continue IV vanco + wound vac. Labs stable. 04/04/17 Decrease nicotine patch to 14mg qd. Plan - 04/06/17 (Mirakian) Overall, Tisha appears to be doing well. Continue care per ortho. Patient seen and evaluated by Dr. Burgos regarding MRSA to right ankle. Continue IV vancomycin with pharmacy to manage for a total duration of 4-6 weeks (through 04/20/17 or 05/04/17). Wound vac remains in place and being managed by wound care. Patient was seen and evaluated by Dr. Sun regarding nightmares. He reports improvement of nightmares on exam. The increased nightmares is likely secondary to increased dosage of Remeron. Appreciate Dr. Sun's note. She recommends decreasing Remeron back to 7.5 mg daily. Continue to taper off Paxil and possibly initiate a different antidepressant. Continue to provide safe and supportive environment. Will recheck labs in AM to monitor electrolytes, renal function and blood counts. Continue to encourage nonweight bearing status to right ankle. 04/07/17 - Stable medically. Continues NWBS followed by Dr Garcia. Vanco IV through 04/20-05/04 under the care of Dr Burgos.
--- NOTE | 2017-04-09 11:51 | Orthopedic Progress Note ---
Date: Date: 04/09/17 Time: 1148 Subjective/Severity of Illness: Young had some nightmares last night and woke up "ready to fight". Nurse notes he hit his right ankle against the bed and continues to bear some weight through the extremity. In the past, Psychiatry has adjusted his Remeron doses in an effort to address night terrors. I've asked nursing to call Psychiatry for further direction in this regard. He does complain of pain. We have been making efforts to limit pain meds due to Young falling asleep often. He even dozed off during my visit. Orthopedic Objective PO Vital signs: Temperature 98.9 F 04/09/17 07:53 Pulse Rate 75 04/09/17 07:53 Respiratory Rate 18 04/09/17 07:53 Blood Pressure 129/67 04/09/17 07:53 Pulse Oximetry 97 04/09/17 07:53 Height and Weight: Height 6 ft Weight 208 lb 15.971 oz Body Mass Index 28.5 - Constitutional General Appearance: Present: alert, cooperative, no acute distress - Respiratory Exam Present: non-labored - Cardiovascular Exam Present: pedal pulses intact - Extremities Exam Extremities: Present: normal capillary refill. Absent: cyanosis, no edema - Surgical Site Drains Present: negative pressure therapy (New wound vac applied this AM. Wound vac functioning well.) - Integumentary Exam Present: warm, dry - Lymphatic Lymphatic: Absent: adenopathy - Neurological Exam Present: no deficits - Psychiatric Exam Present: alert - Labs Result Diagrams: 04/07/17 04:15 04/07/17 04:15 H & H 03/31/17 04/03/17 04/07/17 Range/Units 04:20 04:29 04:15 Hgb 10.0 L 9.8 L 9.8 L (13.5-17.5) GM/DL Hct 31.3 L 30.8 L 31.5 L (41-53) % Orthopedic Assessment and Plan (1) Closed right ankle fracture Status: Acute Qualifiers: Encounter type: subsequent encounter Assessment and Plan: Continue wound vac and IV Vanco. Had MRSA on culture from 03/23/17. Dr Burgos recommends IV vanco until 04/20/17 - 05/04/17 (4-6 weeks) because of underlying hardware. Wound vac changed 04/03/17 and 04/08/17. New cast applied on both of these dates as well. Next wound vac change scheduled for 04/12/17. Non- wt bearing on operative leg. The importance of this was stressed again today. Minimize narcotics as much as possible. Hospitalist to manage medical needs. (2) MRSA (methicillin resistant Staphylococcus aureus) infection Status: Acute Hospital Course Summary Disclaimer: The visit summary below is not to be considered part of the above Progress Note. Hospital Course: 03/30/17 Impression Status post ORIF of fracture of ankle MRSA infection of right ankle wound Cirrhosis with hx of hepatic encephalopathy Hepatitis C Alcoholism Major depressive disorder Tobacco dependence Plan Agree with swing bed admission under the care of Dr Garcia He will require 4-6 weeks of IV Vancomycin for treatment of MRSA wound He is to be strict NWBS on right ankle Lasix and potassium scheduled. Monitor chemistry panel several times a week Nicotine patch to assist with chronic tobacco dependence Percocet and Neurontin for pain. Monitor mental status as he has had difficulty with encephalopathy in the past Hydroxyzine, Paxil, BuSpar, and Remeron for anxiety and depression Continue ASA BID for ongoing anticoagulation and DVT prophylaxis The hospitalist service will continue to follow patient to medically manage medical comorbidities. At time of discharge medical care is to return to PCP, Kelin WOOD at [facility]. 03/31/17-discontinued IV Ativan as it increased controlled substances has been known to cause patient increased encephalopathy. Recommend minimizing. 04/01/17-Limit narcotics/benzos - he's had 3 doses of oxycodone so far today, about 3 hours apart. He reports pain control is improving. Not somnolent this am. K is stable at 4.2. KDur is on hold. Recheck BMP (along with CBC) on . 04/02/17 Plan Continue with current treatment as per Dr Garcia, Non weight bearing Wound Vac intact Continue with limiting Narcotics and Benzos as this has caused confusion Dr Sun recommends tapering down Paxil and increasing Remeron. Paxil decreased to 20 milligrams yesterday, on 04/04 will decreased to 10 milligrams daily, on 04/07 discontinue Paxil completely. These orders written. Remeron increased to 15 milligrams at at bedtime. Recheck CBC. BMP tomorrow 04/03/17 Continue IV vanco + wound vac. Labs stable. 04/04/17 Decrease nicotine patch to 14mg qd. Plan - 04/06/17 (Mirakian) Overall, Tisha appears to be doing well. Continue care per ortho. Patient seen and evaluated by Dr. Burgos regarding MRSA to right ankle. Continue IV vancomycin with pharmacy to manage for a total duration of 4-6 weeks (through 04/20/17 or 05/04/17). Wound vac remains in place and being managed by wound care. Patient was seen and evaluated by Dr. Sun regarding nightmares. He reports improvement of nightmares on exam. The increased nightmares is likely secondary to increased dosage of Remeron. Appreciate Dr. Sun's note. She recommends decreasing Remeron back to 7.5 mg daily. Continue to taper off Paxil and possibly initiate a different antidepressant. Continue to provide safe and supportive environment. Will recheck labs in AM to monitor electrolytes, renal function and blood counts. Continue to encourage nonweight bearing status to right ankle. 04/07/17 - Stable medically. Continues NWBS followed by Dr Garcia. Vanco IV through 04/20-05/04 under the care of Dr Burgos.
--- NOTE | 2017-04-09 12:00 | Neuropsych Progress Note ---
[facility] Subjective Date: 04/09/17 - Sujective/Severity of Illness Medications: Al Hydroxide/Mg Hydroxide (Maalox Plus) 30 ml PO Q3H PRN PRN Reason: Indigestion Last Admin: 04/06/17 20:44 Dose: 30 ml Albuterol Sulfate (Proventil Neb (0.5%)) 2.5 mg AEROSOL Q2H PRN Aspirin (Asa) 81 mg PO BID [facility] Last Admin: 04/09/17 08:34 Dose: 81 mg Buspirone HCl (Buspar) 15 mg PO TID [facility] Last Admin: 04/09/17 08:34 Dose: 15 mg Furosemide (Lasix) 40 mg PO DAILY [facility] Last Admin: 04/09/17 08:34 Dose: 40 mg Gabapentin (Neurontin) 300 mg PO TID [facility] Last Admin: 04/09/17 08:34 Dose: 300 mg Vancomycin HCl 1,000 mg/ (Sodium Chloride) 250 mls @ 250 mls/hr IV Q8H [facility] Last Infusion: 04/09/17 03:18 Dose: Infused Lactulose (Lactulose) 20 gm PO BID PRN PRN Reason: Constipation Mirtazapine (Remeron) 7.5 mg PO HS [facility] Last Admin: 04/08/17 20:06 Dose: 7.5 mg Nicotine (Nicotine Patch Removal) 1 removal TD DAILY [facility] Last Admin: 04/08/17 09:59 Dose: 1 removal Nicotine (Nicoderm) 14 mg TD DAILY [facility] Last Admin: 04/08/17 09:55 Dose: 14 mg Oxycodone HCl (Roxicodone *Ir*) 5 - 10 mg PO Q4H PRN PRN Reason: Pain Polyethylene Glycol (Miralax) 17 gm PO DAILY PRN PRN Reason: Constipation Last Admin: 04/09/17 08:34 Dose: 17 gm Potassium Chloride (K-Dur) 20 meq PO WB [facility] Last Admin: 03/31/17 09:21 Dose: 20 meq Propranolol HCl (Inderal) 10 mg PO TID [facility] Last Admin: 04/09/17 08:34 Dose: 10 mg Senna/Docusate Sodium (Senna Plus Tablet) 2 tab PO BID PRN PRN Reason: Constipation Last Admin: 04/09/17 08:35 Dose: 2 tab Sodium Chloride (Normal Saline) 500 ml IV PRN PRN Last Admin: 04/06/17 11:36 Dose: 500 ml Spironolactone (Aldactone) 50 mg PO DAILY [facility] Last Admin: 04/09/17 08:34 Dose: 50 mg Subjective: Pt seen and chart examined. Nursing requested pt be seen as he was reportedly having "night terrors" last night and was some what agitated. Nursing was not sure if pt was confused during this time. On face to face the pt is slightly irritable. He states he has been having bad dreams at night for the last few nights. He states he does not believe he is confused at night anymore but the dreams are a new thing. He reports some depression and anxiety and requests a benzo. He denies any S/I. Start Time: 11:00 Stop Time: 11:15 Mental Status Exam Vitals: Last Vital Signs Temp 98.9 F 04/09/17 07:53 Pulse 75 04/09/17 07:53 Resp 18 04/09/17 07:53 BP 129/67 04/09/17 07:53 Pulse Ox 97 04/09/17 07:53 Height: 1.83 m Weight: 94.8 kg - Mental Status Exam Muscle Strength/Tone: Normal Dressing: Other (Hospital gown) Grooming: Fair Attitude: Cooperative Motor Activity: Retardation (appears sedated) Eye Contact: Fair Speech: Normal Volume: Normal Rhythm: Appropriate Rhythm Orientation: Oriented X4 Mood: Irritable Affect: Sad Rate of Thoughts: Delayed Thought Organization: Organized Associations: Intact Abstract Reasoning: Poor abstract reasoning Thought Content: Normal Perception/Psychotic: Perception Normal Language: Naming Intact Fund of Knowledge: Appropriate Memory: Grossly Intact Suicidal Ideation: Denies Homicidal Ideation: Denies Insight: Impaired Judgement: Impaired Impulse Control: Fair - Laboratory Result Diagrams: 04/07/17 04:15 04/07/17 04:15 Assessment and Plan (1) Cirrhosis Problem details: With hepatic encephalopathy Current visit: No Status: Chronic (2) Alcohol use disorder Current visit: No Status: Acute Hospital Course Summary Disclaimer: The visit summary below is not to be considered part of the above Progress Note. Hospital Course: 03/30/17 Impression Status post ORIF of fracture of ankle MRSA infection of right ankle wound Cirrhosis with hx of hepatic encephalopathy Hepatitis C Alcoholism Major depressive disorder Tobacco dependence Plan Agree with swing bed admission under the care of Dr Garcia He will require 4-6 weeks of IV Vancomycin for treatment of MRSA wound He is to be strict NWBS on right ankle Lasix and potassium scheduled. Monitor chemistry panel several times a week Nicotine patch to assist with chronic tobacco dependence Percocet and Neurontin for pain. Monitor mental status as he has had difficulty with encephalopathy in the past Hydroxyzine, Paxil, BuSpar, and Remeron for anxiety and depression Continue ASA BID for ongoing anticoagulation and DVT prophylaxis The hospitalist service will continue to follow patient to medically manage medical comorbidities. At time of discharge medical care is to return to PCP, Kelin WOOD at [facility]. 03/31/17-discontinued IV Ativan as it increased controlled substances has been known to cause patient increased encephalopathy. Recommend minimizing. 04/01/17-Limit narcotics/benzos - he's had 3 doses of oxycodone so far today, about 3 hours apart. He reports pain control is improving. Not somnolent this am. K is stable at 4.2. KDur is on hold. Recheck BMP (along with CBC) on . 04/02/17 Plan Continue with current treatment as per Dr Garcia, Non weight bearing Wound Vac intact Continue with limiting Narcotics and Benzos as this has caused confusion Dr Sun recommends tapering down Paxil and increasing Remeron. Paxil decreased to 20 milligrams yesterday, on 04/04 will decreased to 10 milligrams daily, on 04/07 discontinue Paxil completely. These orders written. Remeron increased to 15 milligrams at at bedtime. Recheck CBC. BMP tomorrow 04/03/17 Continue IV vanco + wound vac. Labs stable. 04/04/17 Decrease nicotine patch to 14mg qd. Plan - 04/06/17 (Mirakian) Overall, Tisha appears to be doing well. Continue care per ortho. Patient seen and evaluated by Dr. Burgos regarding MRSA to right ankle. Continue IV vancomycin with pharmacy to manage for a total duration of 4-6 weeks (through 04/20/17 or 05/04/17). Wound vac remains in place and being managed by wound care. Patient was seen and evaluated by Dr. Sun regarding nightmares. He reports improvement of nightmares on exam. The increased nightmares is likely secondary to increased dosage of Remeron. Appreciate Dr. Sun's note. She recommends decreasing Remeron back to 7.5 mg daily. Continue to taper off Paxil and possibly initiate a different antidepressant. Continue to provide safe and supportive environment. Will recheck labs in AM to monitor electrolytes, renal function and blood counts. Continue to encourage nonweight bearing status to right ankle. 04/07/17 - Stable medically. Continues NWBS followed by Dr Pigg. Denice NORRIS through 04/20-05/04 under the care of Dr Burgos. 04/09/17 12:00 Pt reports nightmares. Also some anxiety and depression. We will increase Remeron to 15mg at HS to target anxiety and depression. Remeron has been shown to cause an increase in dreams but typically not nightmares so we will continue to monitor
[2017-04-09] MEDS: NICOTINE 14 MG PATCH TD SCH (12:14)
[2017-04-09] MEDS: NICOTINE PATCH REMOVAL TD SCH (12:16)
[2017-04-09] MEDS: SALINE FLUSH 10ml SYRINGE IV PRN ×2 (12:20→18:22)
[2017-04-09] MEDS: MIRTAZAPINE 15 MG TABLET PO SCH (20:29)
[2017-04-10] MEDS: Oxycodone *IR* 5 MG TABLET PO PRN ×4 (01:31→23:50)
--- NOTE | 2017-04-10 08:15 | Progress Note ---
- Date 04/10/17 Subjective: Tisha is seen while resting in bed and awakens easily with soft touch. He denies any complaints or concerns on exam including no chest pain, shortness of breath, abdominal pain, nausea, vomiting or pain in general. He appears to be sleeping well and denies any nightmares last night. He was seen and evaluated by Dr. Leary who increased his Remeron to 15mg QHS. His appetite remains stable and bowels are moving. Objective Vital signs: Temperature 96.9 F 04/10/17 00:00 Pulse Rate 73 04/10/17 00:00 Respiratory Rate 16 04/10/17 00:00 Blood Pressure 123/74 04/10/17 00:00 Pulse Oximetry 96 04/10/17 00:00 Height/Weight/BMI: Height 6 ft Weight 208 lb 15.971 oz Body Mass Index 28.5 Comments: sleeping; awakens easily with soft touch. - Constitutional Present: no acute distress, well nourished, well developed, cooperative - Routine HEENT Exam Head: Present: normocephalic, atraumatic Eye: Present: PERRL. Absent: conjunctival icterus ENT: Present: mucous membranes moist - Routine Respiratory Exam Present: CTA bilaterally. Absent: rhonchi, stridor, wheezes, crackles - Routine Cardiovascular Exam Present: RRR, S1, S2 - Routine Abdominal Exam Present: soft, normoactive bowel sounds, non distended, non tender - Routine Extremities Exam Present: no edema, pulses intact Comments: cast intact, clean and dry to right lower extremity. - Routine Back/Spine/Pelvis Exam Back/Spine: Present: full ROM. Absent: vertebral tenderness - Routine Musculoskeletal Exam Musculoskeletal: Present: moving extremities well, limited range of motion ( right lower extremity due to cast placement) - Routine Skin Exam Present: intact, dry, warm. Absent: jaundice - Routine Neurological Exam Present: alert, oriented X3, moving all extremities, normal speech - Routine Lymphatic Exam Lymphatic: Absent: lymphedema - Routine Psychiatric Exam Present: cooperative Results - Labs CBC & Chem 7: 04/07/17 04:15 04/07/17 04:15 Assessment and Plan (1) Skin infection Current visit: No Status: Acute (2) MRSA (methicillin resistant Staphylococcus aureus) infection Current visit: Yes Status: Acute Assessment and Plan: Impression Status post ORIF of fracture of ankle MRSA infection of right ankle wound Cirrhosis with hx of hepatic encephalopathy Hepatitis C Alcoholism Major depressive disorder Tobacco dependence Plan - 04/10/17 (Mirakian) Overall, Tisha appears medically stable. Was seen by Dr. Leary with regard to anxiety, depression and nightmares. Remeron was increased to 15mg QHS - he denies nightmares last night. Continue to provide safe and supportive environment. Continue to try and reduce frequency of oxycodone, changing it from every 3 to every 4 hours as needed. Continue with bowel motivation. Continue Vancomycin for MRSA in right ankle per Dr. Burgos (through 04/20/17 or ). Maintain NWB to right leg; continue wound vac per ortho. DVT Prophylaxis: SCD's Resuscitation Status: Full Code - Time spent with patient Time with patient PN: 35 minutes - Physician Narrative Physician: Dannie Chu MD Narrative: Date: 04/10/17 Time: 0812 Have independently interviewed and examined pt. Chart reviewed. Case discussed with my PA. Care plan developed with my supervision; agree with above. Tired this evening. Sleeping a lot today. Bowel moving. Denies ab pain or bloating. No nausea. Appetite varies. Breathing stable. Lungs: decreased, no distress CV: regular MSE: sleepy, but interacts appropriately. Plan: Continue Vancomycin and wound vac. Will check lab tomorrow am. Continue with supportive care. Hospital Course Summary Disclaimer: The visit summary below is not to be considered part of the above Progress Note. Hospital Course: 03/30/17 Impression Status post ORIF of fracture of ankle MRSA infection of right ankle wound Cirrhosis with hx of hepatic encephalopathy Hepatitis C Alcoholism Major depressive disorder Tobacco dependence Plan Agree with swing bed admission under the care of Dr Garcia He will require 4-6 weeks of IV Vancomycin for treatment of MRSA wound He is to be strict NWBS on right ankle Lasix and potassium scheduled. Monitor chemistry panel several times a week Nicotine patch to assist with chronic tobacco dependence Percocet and Neurontin for pain. Monitor mental status as he has had difficulty with encephalopathy in the past Hydroxyzine, Paxil, BuSpar, and Remeron for anxiety and depression Continue ASA BID for ongoing anticoagulation and DVT prophylaxis The hospitalist service will continue to follow patient to medically manage medical comorbidities. At time of discharge medical care is to return to PCP, Kelin WOOD at [facility]. 03/31/17-discontinued IV Ativan as it increased controlled substances has been known to cause patient increased encephalopathy. Recommend minimizing. 04/01/17-Limit narcotics/benzos - he's had 3 doses of oxycodone so far today, about 3 hours apart. He reports pain control is improving. Not somnolent this am. K is stable at 4.2. KDur is on hold. Recheck BMP (along with CBC) on . 04/02/17 Plan Continue with current treatment as per Dr Garcia, Non weight bearing Wound Vac intact Continue with limiting Narcotics and Benzos as this has caused confusion Dr Sun recommends tapering down Paxil and increasing Remeron. Paxil decreased to 20 milligrams yesterday, on 04/04 will decreased to 10 milligrams daily, on 04/07 discontinue Paxil completely. These orders written. Remeron increased to 15 milligrams at at bedtime. Recheck CBC. BMP tomorrow 04/03/17 Continue IV vanco + wound vac. Labs stable. 04/04/17 Decrease nicotine patch to 14mg qd. Plan - 04/06/17 (Mirakian) Overall, Tisha appears to be doing well. Continue care per ortho. Patient seen and evaluated by Dr. Burgos regarding MRSA to right ankle. Continue IV vancomycin with pharmacy to manage for a total duration of 4-6 weeks (through 04/20/17 or 05/04/17). Wound vac remains in place and being managed by wound care. Patient was seen and evaluated by Dr. Sun regarding nightmares. He reports improvement of nightmares on exam. The increased nightmares is likely secondary to increased dosage of Remeron. Appreciate Dr. Sun's note. She recommends decreasing Remeron back to 7.5 mg daily. Continue to taper off Paxil and possibly initiate a different antidepressant. Continue to provide safe and supportive environment. Will recheck labs in AM to monitor electrolytes, renal function and blood counts. Continue to encourage nonweight bearing status to right ankle. 04/07/17 - Stable medically. Continues NWBS followed by Dr Garcia. Vanco IV through 04/20-05/04 under the care of Dr Burgos. Plan - 04/10/17 (Mirakian) Overall, Tisha appears medically stable. Was seen by Dr. Leary with regard to anxiety, depression and nightmares. Remeron was increased to 15mg QHS - he denies nightmares last night. Continue to provide safe and supportive environment. Continue to try and reduce frequency of oxycodone, changing it from every 3 to every 4 hours as needed. Continue with bowel motivation. Continue Vancomycin for MRSA in right ankle per Dr. Burgos (through 04/20/17 or ). Maintain NWB to right leg; continue wound vac per ortho.
[2017-04-10] MEDS: NICOTINE 14 MG PATCH TD SCH (09:57)
[2017-04-10] MEDS: SENNA + DOCUSATE TABLET PO PRN (09:58)
[2017-04-10] MEDS: FUROSEMIDE 40 MG TABLET PO SCH (09:58)
[2017-04-10] MEDS: BUSPIRONE 15 MG TABLET PO SCH ×3 (09:59→20:24)
[2017-04-10] MEDS: GABAPENTIN 300 MG CAPSULE PO SCH ×3 (09:59→20:24)
[2017-04-10] MEDS: ASPIRIN 81 MG CHEWABLE TABLET PO SCH ×2 (10:00→20:24)
[2017-04-10] MEDS: PROPRANOLOL 10 MG TABLET PO SCH ×3 (10:02→20:24)
[2017-04-10] MEDS: NICOTINE PATCH REMOVAL TD SCH (10:02)
[2017-04-10] MEDS: SPIRONOLACTONE 50 MG TABLET PO SCH (10:14)
[2017-04-10] MEDS: SALINE FLUSH 10ml SYRINGE IV PRN ×2 (18:19→20:24)
[2017-04-10] MEDS: MIRTAZAPINE 15 MG TABLET PO SCH (20:24)
[2017-04-10] MEDS ORDERED: FALL RISK - PHARMACY CONSULT MC ONE (20:40)
[2017-04-11] MEDS: Oxycodone *IR* 5 MG TABLET PO PRN ×5 (03:51→20:59)
[2017-04-11] MEDS: PROPRANOLOL 10 MG TABLET PO SCH ×3 (07:59→20:16)
[2017-04-11] MEDS: BUSPIRONE 15 MG TABLET PO SCH ×3 (07:59→20:16)
[2017-04-11] MEDS: GABAPENTIN 300 MG CAPSULE PO SCH ×3 (07:59→20:15)
[2017-04-11] MEDS: ASPIRIN 81 MG CHEWABLE TABLET PO SCH ×2 (07:59→20:16)
[2017-04-11] MEDS: FUROSEMIDE 40 MG TABLET PO SCH (07:59)
[2017-04-11] MEDS: SPIRONOLACTONE 50 MG TABLET PO SCH (07:59)
[2017-04-11] MEDS: NICOTINE 14 MG PATCH TD SCH (07:59)
[2017-04-11] MEDS: NICOTINE PATCH REMOVAL TD SCH (08:00)
--- NOTE | 2017-04-11 09:00 | Progress Note ---
- Date 04/11/17 Subjective: Tisha is resting in bed and reports that he did not sleep all night because of pain. Currently rates pain to right ankle 910. He expressed frustration that "no one told" him that his pain medication was changed to every 4 hours. He denies any other complaints or concerns including no chest pain, shortness of breath, abdominal pain, nausea, vomiting or dysuria. Appetite is stable and bowels are moving. He does admit to feeling more depressed and anxious today but denies any SI/HI stating that he has "been through this for too long" and eludes to knowing how to manage his depression. He denies any nightmares last night but does admit to strange dreams for the brief amount of time he slept. Tisha appears to be sleeping more during the day and then is unable to sleep at night. He states he is sleeping during the day because being awake is too depressing. Objective Vital signs: Temperature 96.3 F L 04/11/17 07:59 Pulse Rate 73 04/11/17 07:59 Respiratory Rate 18 04/11/17 07:59 Blood Pressure 144/74 H 04/11/17 07:59 Pulse Oximetry 96 04/11/17 07:59 Height/Weight/BMI: Height 6 ft Weight 211 lb 3.245 oz Body Mass Index 28.5 Comments: resting in bed; A&O x 3. - Constitutional Present: no acute distress, well nourished, well developed, cooperative - Routine HEENT Exam Head: Present: normocephalic, atraumatic Eye: Present: PERRL. Absent: conjunctival icterus ENT: Present: mucous membranes moist - Routine Respiratory Exam Present: CTA bilaterally. Absent: rales, respiratory distress, rhonchi, stridor , wheezes, crackles - Routine Cardiovascular Exam Present: RRR, S1, S2 - Routine Abdominal Exam Present: soft, normoactive bowel sounds, non distended, non tender - Routine Extremities Exam Present: no edema, full ROM, pulses intact Comments: cast intact, clean and dry to right lower extremity; wound vac in place. - Routine Back/Spine/Pelvis Exam Back/Spine: Present: full ROM. Absent: vertebral tenderness - Routine Musculoskeletal Exam Musculoskeletal: Present: moving extremities well - Routine Skin Exam Present: dry, warm. Absent: jaundice Comments: afebrile. - Routine Neurological Exam Present: alert, oriented X3, moving all extremities, hearing grossly intact, normal speech - Routine Lymphatic Exam Lymphatic: Absent: lymphedema - Routine Psychiatric Exam Present: cooperative Comments: depressed affect Results - Labs CBC & Chem 7: 04/11/17 06:24 04/11/17 06:24 Assessment and Plan (1) Skin infection Current visit: No Status: Acute (2) MRSA (methicillin resistant Staphylococcus aureus) infection Current visit: Yes Status: Acute Assessment and Plan: Impression Status post ORIF of fracture of ankle MRSA infection of right ankle wound Cirrhosis with hx of hepatic encephalopathy Hepatitis C Alcoholism Major depressive disorder Tobacco dependence Plan - 04/11/17 (Mirakian) Overall, Tisha appears medically stable. Post-op anemia improving - hemoglobin 10.3. New hypomagnesium noted with Mg 1. Will supplement and continue to monitor. Phosphorus pending. Ammonia pending. More depressed mood today - denies SI/HI. Encourage nursing to offer different environments (ie. wheelchair to reyes window, etc) to try and improve mood. Continue psychiatric care per Dr. Leary. Remeron was increased to 15mg QHS on 04/09 - he denies nightmares last night but continues with strange dreams. Try to encourage activity during the day for better sleep habits at night. Continue to provide safe and supportive environment. Patient complained of increased pain due to decreased frequency of pain medication. Continue oxycodone Q4H with PRN. Will discuss additional non- narcotic pain options with ortho for PRN. Continue with bowel motivation. Continue Vancomycin for MRSA in right ankle per Dr. Burgos (through 04/20/17 or ) with wound vac - per ortho. CRP trending down (11.9). Maintain NWB to right leg; continue wound vac per ortho. DVT Prophylaxis: SCD's Resuscitation Status: Full Code - Time spent with patient Time with patient PN: 35 minutes - Physician Narrative Physician: Dannie Chu MD Narrative: Date: 04/11/17 Time: 1615 Have independently interviewed and examined pt. Chart reviewed. Case discussed with nursing and my PA. Care plan developed with my supervision; agree with above. Doing fair-frustration about decreased frequency of pain medications. Notes more sleepiness, bad dreams--likely secondary to psychiatric medication changes. Breathing stable. Appetite stable. Lungs: decreased, no distress on RA. CV: regular AB: soft nt/nd MSE: awake alert appropriate Plan: Continue with vancomycin and wound vac - Dr Garcia plans to replace cast tomorrow. Continue with supportive care. Medically stable. Hospital Course Summary Disclaimer: The visit summary below is not to be considered part of the above Progress Note. Hospital Course: 03/30/17 Impression Status post ORIF of fracture of ankle MRSA infection of right ankle wound Cirrhosis with hx of hepatic encephalopathy Hepatitis C Alcoholism Major depressive disorder Tobacco dependence Plan Agree with swing bed admission under the care of Dr Garcia He will require 4-6 weeks of IV Vancomycin for treatment of MRSA wound He is to be strict NWBS on right ankle Lasix and potassium scheduled. Monitor chemistry panel several times a week Nicotine patch to assist with chronic tobacco dependence Percocet and Neurontin for pain. Monitor mental status as he has had difficulty with encephalopathy in the past Hydroxyzine, Paxil, BuSpar, and Remeron for anxiety and depression Continue ASA BID for ongoing anticoagulation and DVT prophylaxis The hospitalist service will continue to follow patient to medically manage medical comorbidities. At time of discharge medical care is to return to PCP, Kelin WOOD at [facility]. 03/31/17-discontinued IV Ativan as it increased controlled substances has been known to cause patient increased encephalopathy. Recommend minimizing. 04/01/17-Limit narcotics/benzos - he's had 3 doses of oxycodone so far today, about 3 hours apart. He reports pain control is improving. Not somnolent this am. K is stable at 4.2. KDur is on hold. Recheck BMP (along with CBC) on . 04/02/17 Plan Continue with current treatment as per Dr Garcia, Non weight bearing Wound Vac intact Continue with limiting Narcotics and Benzos as this has caused confusion Dr Sun recommends tapering down Paxil and increasing Remeron. Paxil decreased to 20 milligrams yesterday, on 04/04 will decreased to 10 milligrams daily, on 04/07 discontinue Paxil completely. These orders written. Remeron increased to 15 milligrams at at bedtime. Recheck CBC. BMP tomorrow 04/03/17 Continue IV vanco + wound vac. Labs stable. 04/04/17 Decrease nicotine patch to 14mg qd. Plan - 04/06/17 (Mirakian) Overall, Tisha appears to be doing well. Continue care per ortho. Patient seen and evaluated by Dr. Burgos regarding MRSA to right ankle. Continue IV vancomycin with pharmacy to manage for a total duration of 4-6 weeks (through 04/20/17 or 05/04/17). Wound vac remains in place and being managed by wound care. Patient was seen and evaluated by Dr. Sun regarding nightmares. He reports improvement of nightmares on exam. The increased nightmares is likely secondary to increased dosage of Remeron. Appreciate Dr. Sun's note. She recommends decreasing Remeron back to 7.5 mg daily. Continue to taper off Paxil and possibly initiate a different antidepressant. Continue to provide safe and supportive environment. Will recheck labs in AM to monitor electrolytes, renal function and blood counts. Continue to encourage nonweight bearing status to right ankle. 04/07/17 - Stable medically. Continues NWBS followed by Dr Garcia. Vanco IV through 04/20-05/04 under the care of Dr Burgos. Plan - 04/10/17 (Mirakian) Overall, Tisha appears medically stable. Was seen by Dr. Leary with regard to anxiety, depression and nightmares. Remeron was increased to 15mg QHS - he denies nightmares last night. Continue to provide safe and supportive environment. Continue to try and reduce frequency of oxycodone, changing it from every 3 to every 4 hours as needed. Continue with bowel motivation. Continue Vancomycin for MRSA in right ankle per Dr. Burgos (through 04/20/17 or ). Maintain NWB to right leg; continue wound vac per ortho. Plan - 04/11/17 (Mirakian) Overall, Tisha appears medically stable. Post-op anemia improving - hemoglobin 10.3. New hypomagnesium noted with Mg 1. Will supplement and continue to monitor. Phosphorus pending. Ammonia pending. More depressed mood today - denies SI/HI. Encourage nursing to offer different environments (ie. wheelchair to reyes window, etc) to try and improve mood. Continue psychiatric care per Dr. Leary. Remeron was increased to 15mg QHS on 04/09 - he denies nightmares last night but continues with strange dreams. Try to encourage activity during the day for better sleep habits at night. Continue to provide safe and supportive environment. Patient complained of increased pain due to decreased frequency of pain medication. Continue oxycodone Q4H with PRN. Will discuss additional non- narcotic pain options with ortho for PRN. Continue with bowel motivation. Continue Vancomycin for MRSA in right ankle per Dr. Burgos (through 04/20/17 or ) with wound vac - per ortho. CRP trending down (11.9). Maintain NWB to right leg; continue wound vac per ortho.
[2017-04-11] MEDS ORDERED: MAGNESIUM OXIDE 400 MG TABLET PO ONE (09:08)
--- NOTE | 2017-04-11 13:40 | Orthopedic Progress Note ---
Date: Date: 04/11/17 Time: 1335 Subjective/Severity of Illness: Young had his pain medication frequency changed by the hospitalist service yesterday. Today his main complaint is pain. Ortho will defer adjusting pain meds to the hospital service. He states he had some "bad dreams" last night. Nursing states he was able to go 7 hours between pain medication doses yesterday. His wound vac is working. Dr. Garcia/Milan have noted they plan to change the vac 04/12/17. Orthopedic Objective PO Vital signs: Temperature 96.3 F L 04/11/17 07:59 Pulse Rate 73 04/11/17 07:59 Respiratory Rate 18 04/11/17 07:59 Blood Pressure 144/74 H 04/11/17 07:59 Pulse Oximetry 96 04/11/17 07:59 Height and Weight: Height 6 ft Weight 211 lb 3.245 oz Body Mass Index 28.5 - Constitutional General Appearance: Present: alert, cooperative, no acute distress - Respiratory Exam Present: non-labored - Cardiovascular Exam Present: pedal pulses intact - Extremities Exam Extremities: Present: normal capillary refill. Absent: cyanosis, no edema - Surgical Site Drains Present: negative pressure therapy (New wound vac applied this AM. Wound vac functioning well.) - Integumentary Exam Present: warm, dry - Lymphatic Lymphatic: Absent: lymphedema - Neurological Exam Present: no deficits - Psychiatric Exam Present: alert - Labs Result Diagrams: 04/11/17 06:24 04/11/17 06:24 Abnormal lab results 04/11/17 04/11/17 Range/Units 06:24 06:24 RBC 3.70 L (4.50-5.90) M/MM3 Hgb 10.3 L (13.5-17.5) GM/DL Hct 31.6 L (41-53) % RDW Std Deviation 52.5 H (36.9-50.2) [place] % (Auto) 15.2 H (0-9.0) % [place] # (Auto) 1.0 H (0-0.8) T/MM3 Magnesium 1.5 L (1.6-2.3) MG/DL C-Reactive Protein 11.9 H (0-9) MG/L H & H 03/31/17 04/03/17 04/07/17 Range/Units 04:20 04:29 04:15 Hgb 10.0 L 9.8 L 9.8 L (13.5-17.5) GM/DL Hct 31.3 L 30.8 L 31.5 L (41-53) % 04/11/17 Range/Units 06:24 Hgb 10.3 L (13.5-17.5) GM/DL Hct 31.6 L (41-53) % Orthopedic Assessment and Plan (1) Closed right ankle fracture Status: Acute Qualifiers: Encounter type: subsequent encounter Assessment and Plan: Continue wound vac and IV Vanco. Had MRSA on culture from 03/23/17. Dr Burgos recommends IV vanco until 04/20/17 - 05/04/17 (4-6 weeks) because of underlying hardware. Wound vac changed 04/03/17 and 04/08/17. New cast applied on both of these dates as well. Next wound vac change scheduled for 04/12/17. Non- wt bearing on operative leg. The importance of this was stressed again today. Minimize narcotics as much as possible. Hospitalist to manage medical needs. (2) MRSA (methicillin resistant Staphylococcus aureus) infection Status: Acute Hospital Course Summary Disclaimer: The visit summary below is not to be considered part of the above Progress Note. Hospital Course: 03/30/17 Impression Status post ORIF of fracture of ankle MRSA infection of right ankle wound Cirrhosis with hx of hepatic encephalopathy Hepatitis C Alcoholism Major depressive disorder Tobacco dependence Plan Agree with swing bed admission under the care of Dr Garcia He will require 4-6 weeks of IV Vancomycin for treatment of MRSA wound He is to be strict NWBS on right ankle Lasix and potassium scheduled. Monitor chemistry panel several times a week Nicotine patch to assist with chronic tobacco dependence Percocet and Neurontin for pain. Monitor mental status as he has had difficulty with encephalopathy in the past Hydroxyzine, Paxil, BuSpar, and Remeron for anxiety and depression Continue ASA BID for ongoing anticoagulation and DVT prophylaxis The hospitalist service will continue to follow patient to medically manage medical comorbidities. At time of discharge medical care is to return to PCP, Kelin WOOD at [facility]. 03/31/17-discontinued IV Ativan as it increased controlled substances has been known to cause patient increased encephalopathy. Recommend minimizing. 04/01/17-Limit narcotics/benzos - he's had 3 doses of oxycodone so far today, about 3 hours apart. He reports pain control is improving. Not somnolent this am. K is stable at 4.2. KDur is on hold. Recheck BMP (along with CBC) on . 04/02/17 Plan Continue with current treatment as per Dr Garcia, Non weight bearing Wound Vac intact Continue with limiting Narcotics and Benzos as this has caused confusion Dr Sun recommends tapering down Paxil and increasing Remeron. Paxil decreased to 20 milligrams yesterday, on 04/04 will decreased to 10 milligrams daily, on 04/07 discontinue Paxil completely. These orders written. Remeron increased to 15 milligrams at at bedtime. Recheck CBC. BMP tomorrow 04/03/17 Continue IV vanco + wound vac. Labs stable. 04/04/17 Decrease nicotine patch to 14mg qd. Plan - 04/06/17 (Mirakian) Overall, Tisha appears to be doing well. Continue care per ortho. Patient seen and evaluated by Dr. Burgos regarding MRSA to right ankle. Continue IV vancomycin with pharmacy to manage for a total duration of 4-6 weeks (through 04/20/17 or 05/04/17). Wound vac remains in place and being managed by wound care. Patient was seen and evaluated by Dr. Sun regarding nightmares. He reports improvement of nightmares on exam. The increased nightmares is likely secondary to increased dosage of Remeron. Appreciate Dr. Sun's note. She recommends decreasing Remeron back to 7.5 mg daily. Continue to taper off Paxil and possibly initiate a different antidepressant. Continue to provide safe and supportive environment. Will recheck labs in AM to monitor electrolytes, renal function and blood counts. Continue to encourage nonweight bearing status to right ankle. 04/07/17 - Stable medically. Continues NWBS followed by Dr Garcia. Vanco IV through 04/20-05/04 under the care of Dr Burgos. Plan - 04/10/17 (Mirakian) Overall, Tisha appears medically stable. Was seen by Dr. Leary with regard to anxiety, depression and nightmares. Remeron was increased to 15mg QHS - he denies nightmares last night. Continue to provide safe and supportive environment. Continue to try and reduce frequency of oxycodone, changing it from every 3 to every 4 hours as needed. Continue with bowel motivation. Continue Vancomycin for MRSA in right ankle per Dr. Burgos (through 04/20/17 or ). Maintain NWB to right leg; continue wound vac per ortho. Plan - 04/11/17 (Mirakian) Overall, Tisha appears medically stable. Post-op anemia improving - hemoglobin 10.3. New hypomagnesium noted with Mg 1. Will supplement and continue to monitor. Phosphorus pending. Ammonia pending. More depressed mood today - denies SI/HI. Encourage nursing to offer different environments (ie. wheelchair to reyes window, etc) to try and improve mood. Continue psychiatric care per Dr. Leary. Remeron was increased to 15mg QHS on 04/09 - he denies nightmares last night but continues with strange dreams. Try to encourage activity during the day for better sleep habits at night. Continue to provide safe and supportive environment. Patient complained of increased pain due to decreased frequency of pain medication. Continue oxycodone Q4H with PRN. Will discuss additional non- narcotic pain options with ortho for PRN. Continue with bowel motivation. Continue Vancomycin for MRSA in right ankle per Dr. Burgos (through 04/20/17 or ) with wound vac - per ortho. CRP trending down (11.9). Maintain NWB to right leg; continue wound vac per ortho.
[2017-04-11] MEDS: SALINE FLUSH 10ml SYRINGE IV PRN (18:22)
[2017-04-11] MEDS: MIRTAZAPINE 15 MG TABLET PO SCH (20:16)
[2017-04-12] MEDS: Oxycodone *IR* 5 MG TABLET PO PRN ×5 (01:29→20:23)
[2017-04-12] MEDS: SALINE FLUSH 10ml SYRINGE IV PRN (01:29)
[2017-04-12] MEDS: NS FLUSH BAG 500ml IV PRN ×2 (01:29→11:28)
[2017-04-12] MEDS: NICOTINE PATCH REMOVAL TD SCH (09:22)
[2017-04-12] MEDS: NICOTINE 14 MG PATCH TD SCH (09:22)
[2017-04-12] MEDS: FUROSEMIDE 40 MG TABLET PO SCH (09:22)
[2017-04-12] MEDS: PROPRANOLOL 10 MG TABLET PO SCH ×3 (09:22→20:23)
[2017-04-12] MEDS: BUSPIRONE 15 MG TABLET PO SCH ×3 (09:22→20:23)
[2017-04-12] MEDS: GABAPENTIN 300 MG CAPSULE PO SCH ×3 (09:22→20:23)
[2017-04-12] MEDS: ASPIRIN 81 MG CHEWABLE TABLET PO SCH ×2 (09:22→20:23)
[2017-04-12] MEDS: SPIRONOLACTONE 50 MG TABLET PO SCH (09:22)
--- NOTE | 2017-04-12 10:32 | Orthopedic Progress Note ---
Date: Date: 04/12/17 Time: 1027 Subjective/Severity of Illness: Doing well. He is getting tired of being here and wants to go home. No concerns of pressure or sore area under the cast. Wound vac is functioning. Pt continues to complain of pain. No other complaints. Orthopedic Objective PO Vital signs: Temperature 96.8 F 04/12/17 07:25 Pulse Rate 83 04/12/17 07:25 Respiratory Rate 16 04/12/17 07:25 Blood Pressure 111/67 04/12/17 07:25 Pulse Oximetry 95 04/12/17 07:25 Height and Weight: Height 6 ft Weight 215 lb 13.321 oz Body Mass Index 28.5 - Constitutional General Appearance: Present: alert, cooperative, no acute distress - Respiratory Exam Present: non-labored - Cardiovascular Exam Present: pedal pulses intact - Extremities Exam Extremities: Present: normal capillary refill - Surgical Site Incision: other (Wound continues to improve. Granulation tissue at surface of the lateral wound. Medially the wound is healed.) - Integumentary Exam Present: warm, dry - Neurological Exam Present: no deficits - Psychiatric Exam Present: alert - Labs Result Diagrams: 04/11/17 06:24 04/12/17 04:03 Abnormal lab results 04/11/17 04/12/17 Range/Units 06:24 04:03 Glucose 122 H (75-110) MG/DL Phosphorus 5.1 H (2.5-4.5) MG/DL H & H 03/31/17 04/03/17 04/07/17 Range/Units 04:20 04:29 04:15 Hgb 10.0 L 9.8 L 9.8 L (13.5-17.5) GM/DL Hct 31.3 L 30.8 L 31.5 L (41-53) % 04/11/17 Range/Units 06:24 Hgb 10.3 L (13.5-17.5) GM/DL Hct 31.6 L (41-53) % Orthopedic Assessment and Plan (1) Closed right ankle fracture Status: Acute Qualifiers: Encounter type: subsequent encounter Assessment and Plan: D/C wound vac and continue IV Vanco. Had MRSA on culture from 03/23/17. Dr Burgos recommends IV vanco until 04/20/17 - 05/04/17 (4-6 weeks) because of underlying hardware. Wound vac changed 04/03/17, 04/08/17 and d/c'd on 04/12/17. New cast applied on all three dates. Non- wt bearing on operative leg. The importance of this was stressed again today. Get xrays today. Cont PO Aspirin BID on discharge. Minimize narcotics as much as possible. Hospitalist to manage medical needs. Arrange discharge plans & needs for discharge 04/13 or 04/14. Will need IV vanco for another 2-3 weeks. (2) MRSA (methicillin resistant Staphylococcus aureus) infection Status: Acute - Anticoagulation Therapy Anticoagulation: other (Aspirin 81mg BID on discharge.) Hospital Course Summary Disclaimer: The visit summary below is not to be considered part of the above Progress Note. Hospital Course: 03/30/17 Impression Status post ORIF of fracture of ankle MRSA infection of right ankle wound Cirrhosis with hx of hepatic encephalopathy Hepatitis C Alcoholism Major depressive disorder Tobacco dependence Plan Agree with swing bed admission under the care of Dr Garcia He will require 4-6 weeks of IV Vancomycin for treatment of MRSA wound He is to be strict NWBS on right ankle Lasix and potassium scheduled. Monitor chemistry panel several times a week Nicotine patch to assist with chronic tobacco dependence Percocet and Neurontin for pain. Monitor mental status as he has had difficulty with encephalopathy in the past Hydroxyzine, Paxil, BuSpar, and Remeron for anxiety and depression Continue ASA BID for ongoing anticoagulation and DVT prophylaxis The hospitalist service will continue to follow patient to medically manage medical comorbidities. At time of discharge medical care is to return to PCP, Kelin WOOD at [facility]. 03/31/17-discontinued IV Ativan as it increased controlled substances has been known to cause patient increased encephalopathy. Recommend minimizing. 04/01/17-Limit narcotics/benzos - he's had 3 doses of oxycodone so far today, about 3 hours apart. He reports pain control is improving. Not somnolent this am. K is stable at 4.2. KDur is on hold. Recheck BMP (along with CBC) on . 04/02/17 Plan Continue with current treatment as per Dr Garcia, Non weight bearing Wound Vac intact Continue with limiting Narcotics and Benzos as this has caused confusion Dr Sun recommends tapering down Paxil and increasing Remeron. Paxil decreased to 20 milligrams yesterday, on 04/04 will decreased to 10 milligrams daily, on 04/07 discontinue Paxil completely. These orders written. Remeron increased to 15 milligrams at at bedtime. Recheck CBC. BMP tomorrow 04/03/17 Continue IV vanco + wound vac. Labs stable. 04/04/17 Decrease nicotine patch to 14mg qd. Plan - 04/06/17 (Mirakian) Overall, Tisha appears to be doing well. Continue care per ortho. Patient seen and evaluated by Dr. Burgos regarding MRSA to right ankle. Continue IV vancomycin with pharmacy to manage for a total duration of 4-6 weeks (through 04/20/17 or 05/04/17). Wound vac remains in place and being managed by wound care. Patient was seen and evaluated by Dr. Sun regarding nightmares. He reports improvement of nightmares on exam. The increased nightmares is likely secondary to increased dosage of Remeron. Appreciate Dr. Sun's note. She recommends decreasing Remeron back to 7.5 mg daily. Continue to taper off Paxil and possibly initiate a different antidepressant. Continue to provide safe and supportive environment. Will recheck labs in AM to monitor electrolytes, renal function and blood counts. Continue to encourage nonweight bearing status to right ankle. 04/07/17 - Stable medically. Continues NWBS followed by Dr Garcia. Vanco IV through 04/20-05/04 under the care of Dr Burgos. Plan - 04/10/17 (Mirakian) Overall, Tisha appears medically stable. Was seen by Dr. Leary with regard to anxiety, depression and nightmares. Remeron was increased to 15mg QHS - he denies nightmares last night. Continue to provide safe and supportive environment. Continue to try and reduce frequency of oxycodone, changing it from every 3 to every 4 hours as needed. Continue with bowel motivation. Continue Vancomycin for MRSA in right ankle per Dr. Burgos (through 04/20/17 or ). Maintain NWB to right leg; continue wound vac per ortho. Plan - 04/11/17 (Mirakian) Overall, Tisha appears medically stable. Post-op anemia improving - hemoglobin 10.3. New hypomagnesium noted with Mg 1. Will supplement and continue to monitor. Phosphorus pending. Ammonia pending. More depressed mood today - denies SI/HI. Encourage nursing to offer different environments (ie. wheelchair to reyes window, etc) to try and improve mood. Continue psychiatric care per Dr. Leary. Remeron was increased to 15mg QHS on 04/09 - he denies nightmares last night but continues with strange dreams. Try to encourage activity during the day for better sleep habits at night. Continue to provide safe and supportive environment. Patient complained of increased pain due to decreased frequency of pain medication. Continue oxycodone Q4H with PRN. Will discuss additional non- narcotic pain options with ortho for PRN. Continue with bowel motivation. Continue Vancomycin for MRSA in right ankle per Dr. Burgos (through 04/20/17 or ) with wound vac - per ortho. CRP trending down (11.9). Maintain NWB to right leg; continue wound vac per ortho.
--- NOTE | 2017-04-12 10:55 | Discharge Summary ---
Orthopedic Discharge Info Date of admission: 03/29/17 14:26 Anticipated date of discharge: 04/13/17 Primary care physician: Kelin Pinedo APRN Attending Physician: Cristofer Garcia MD Consults: 03/29/17 14:51 Pr Internship Consult [CONS] Routine Physician Consult [CONS] Routine Consulting Provider: Floresita Burgos Reason For Exam: surgical site infection - MRSA Ordering Provider has Notified Clockmaker: Yes Physician [Physician Consult] [CONS] Routine Consulting Provider: Mechelle Ramirez Reason For Exam: Medical mgmt. Ordering Provider has Notified Clockmaker: No 03/31/17 17:39 Physician Consult [CONS] Routine Consulting Provider: Zayda Sun Reason For Exam: anxiety, insomnia, mdd-severe somnolence w/ ativan Ordering Provider has Notified Clockmaker: Yes Comment: generations staff notified - Discharge Diagnosis (1) Closed right ankle fracture Qualifiers: Encounter type: subsequent encounter Status: Acute (2) MRSA (methicillin resistant Staphylococcus aureus) infection Status: Acute - Procedures Procedures: Procedures Removal of Internal Fixation Device from Right Fibula, Open Approach (03/07/17) Removal of Internal Fixation Device from Right Tibia, Open Approach (03/07/17) Repair Right Ankle Bursa and Ligament, Open Approach (02/14/17) Reposition Right Ankle Joint, External Approach (02/14/17) Reposition Right Fibula with Internal Fixation Device, Open Approach (03/07/17) Reposition Right Fibula, External Approach (02/14/17) Reposition Right Tibia with Internal Fixation Device, Open Approach (03/07/17) Reposition Right Tibia, External Approach (02/14/17) - Laboratory Result Diagrams: 04/11/17 06:24 04/12/17 04:03 Laboratory: Abnormal lab results 04/11/17 04/12/17 Range/Units 06:24 04:03 Glucose 122 H (75-110) MG/DL Phosphorus 5.1 H (2.5-4.5) MG/DL H & H 03/31/17 04/03/17 04/07/17 Range/Units 04:20 04:29 04:15 Hgb 10.0 L 9.8 L 9.8 L (13.5-17.5) GM/DL Hct 31.3 L 30.8 L 31.5 L (41-53) % 04/11/17 Range/Units 06:24 Hgb 10.3 L (13.5-17.5) GM/DL Hct 31.6 L (41-53) % Orthopedic Discharge HPI - HPI Comments Pt admitted to swing bed status for on going care requiring pain management, IV vanco and wound vac care to the right ankle. He underwent several surgeries on his right ankle but due to poor compliance the fixation did not hold. His last surgery was on 03/22/17 in which he underwent revision ORIF of the right ankle and placement of a wound vac for dehiscence of the lateral incision. Culture at the time of surgery grew out MRSA and ID consult suggests covering him with Vanco for 4-6 weeks. He was felt to be medically stable but ongoing care was required to assure his safety and prevent further damage to the ankle. Orthopedic Hospital Course Hospital course: Hospital Course: 03/29/17 Agree with swing bed admission under the care of Dr Garcia. Admission date . He will require 4-6 weeks of IV Vancomycin for treatment of MRSA wound He is to be strict NWBS on right ankle Lasix and potassium scheduled. Monitor chemistry panel several times a week Nicotine patch to assist with chronic tobacco dependence Percocet and Neurontin for pain. Monitor mental status as he has had difficulty with encephalopathy in the past Hydroxyzine, Paxil, BuSpar, and Remeron for anxiety and depression Continue ASA BID for ongoing anticoagulation and DVT prophylaxis 03/30/17 Status post ORIF of fracture of rt ankle on 03/22/17. MRSA infection of right ankle wound from surgical cultures 03/22/17. Cirrhosis with hx of hepatic encephalopathy Hepatitis C Alcoholism Major depressive disorder Tobacco dependence 03/31/17-discontinued IV Ativan as it increased controlled substances has been known to cause patient increased encephalopathy. Recommend minimizing. 04/01/17-Limit narcotics/benzos - he's had 3 doses of oxycodone so far today, about 3 hours apart. He reports pain control is improving. Not somnolent this am. K is stable at 4.2. KDur is on hold. Recheck BMP (along with CBC) on . 04/02/17 Continue with current treatment as per Dr Garcia, Non weight bearing Wound Vac intact Continue with limiting Narcotics and Benzos as this has caused confusion Dr Sun recommends tapering down Paxil and increasing Remeron. Paxil decreased to 20 milligrams yesterday, on 04/04 will decreased to 10 milligrams daily, on 04/07 discontinue Paxil completely. These orders written. Remeron increased to 15 milligrams at at bedtime. Recheck CBC. BMP tomorrow 04/03/17 Continue IV vanco + wound vac. Labs stable. Wound vac changed and new cast applied. 04/04/17 Decrease nicotine patch to 14mg qd. 04/06/17 (Mirakian) Overall, Tisha appears to be doing well. Continue care per ortho. Patient seen and evaluated by Dr. Burgos regarding MRSA to right ankle. Continue IV vancomycin with pharmacy to manage for a total duration of 4-6 weeks (through 04/20/17 or 05/04/17). Wound vac remains in place and being managed by wound care. Patient was seen and evaluated by Dr. Sun regarding nightmares. He reports improvement of nightmares on exam. The increased nightmares is likely secondary to increased dosage of Remeron. Appreciate Dr. Sun's note. She recommends decreasing Remeron back to 7.5 mg daily. Continue to taper off Paxil and possibly initiate a different antidepressant. Continue to provide safe and supportive environment. Will recheck labs in AM to monitor electrolytes, renal function and blood counts. Continue to encourage nonweight bearing status to right ankle. 04/07/17 - Stable medically. Continues NWBS followed by Dr Garcia. Vanco IV through 04/20-05/04 under the care of Dr Burgos. 04/08/17 - Wound vac and cast change. Gradual improvement. 04/10/17 Overall, Tisha appears medically stable. Was seen by Dr. Leary with regard to anxiety, depression and nightmares. Remeron was increased to 15mg QHS - he denies nightmares last night. Continue to provide safe and supportive environment. Continue to try and reduce frequency of oxycodone, changing it from every 3 to every 4 hours as needed. Continue with bowel motivation. Continue Vancomycin for MRSA in right ankle per Dr. Burgos (through 04/20/17 or ). Maintain NWB to right leg; continue wound vac per ortho. 04/11/17 Overall, Tisha appears medically stable. Post-op anemia improving - hemoglobin 10.3. New hypomagnesium noted with Mg 1. Will supplement and continue to monitor. Phosphorus pending. Ammonia pending. More depressed mood today - denies SI/HI. Encourage nursing to offer different environments (ie. wheelchair to reyes window, etc) to try and improve mood. Continue psychiatric care per Dr. Leary. Remeron was increased to 15mg QHS on 04/09 - he denies nightmares last night but continues with strange dreams. Try to encourage activity during the day for better sleep habits at night. Continue to provide safe and supportive environment. Patient complained of increased pain due to decreased frequency of pain medication. Continue oxycodone Q4H with PRN. Will discuss additional non- narcotic pain options with ortho for PRN. Continue with bowel motivation. Continue Vancomycin for MRSA in right ankle per Dr. Burgos (through 04/20/17 or ) with wound vac - per ortho. CRP trending down (11.9). 04/12/17 D/C wound vac and continue IV Vanco. Had MRSA on culture from 03/23/17. Dr Burgos recommends IV vanco until 04/20/17 - 05/04/17 (4-6 weeks) because of underlying hardware. Wound vac changed 04/03/17, 04/08/17 and d/c'd on 04/12/17. New cast applied on all three dates. Non- wt bearing on operative leg. The importance of this was stressed again today. Remains afebrile. CRP trending downward (29.9-22.4-11.9). Ammonia levels are stable at 33, the upper level of normal. Get xrays today. Cont PO Aspirin BID on discharge. Minimize narcotics as much as possible. Hospitalist to manage medical needs. Arrange discharge plans & needs for discharge 04/13 or 04/14. Will need IV vanco for another 2-3 weeks. 04/13/17 12:[address] Burgos recommended Daptomycin 600mg IV daily in place of Vanco to reduce the BID dosing needs. F/U on Tuesday for cast change and wound check. cont Aspirin BID for DVT coverage. Other meds will be addressed by hospitalist service at discharge. Discharge instruction reviewed with pt. Care extended to > 2 midnight stays?: Yes Discharge Plan - Med Rec/Dispo Referrals/Follow Up: Milan Sánchez PA [Physician Recruitment Assistant] - 04/18/17 1:00 pm Additional Instructions: You MUST remain non wt bearing on the right leg at all times. Keep the leg elevated. Do not get the cast wet. Report any pain or other concerns. Prescriptions: New Oxycodone *IR* [Roxicodone *Ir*] 5 - 10 mg PO Q4H PRN #60 tab PRN Reason: Pain PEG 3350 17gm PACKET [Miralax] 17 gm PO DAILY PRN packet PRN Reason: Constipation DAPTOmycin [Cubicin] 600 mg IVP DAILY vial Mirtazapine [Remeron] 15 mg PO HS #30 tab Continue Buspirone [Buspar] 15 mg PO TID Gabapentin [Neurontin] 300 mg PO TID cap Oxycodone *IR* [Roxicodone *Ir*] 5 - 15 mg PO Q3H PRN tab PRN Reason: Pain PEG 3350 17gm PACKET [Miralax] 17 gm PO DAILY PRN packet PRN Reason: Constipation Furosemide [Lasix] 40 mg PO DAILY #30 tab Spironolactone [Aldactone] 50 mg PO DAILY #30 tab Aspirin Chewable [ASA] 81 mg PO BID tab.chew Mag-Al + Sim Oral Liq [Maalox Plus] 30 ml PO Q3H PRN udc PRN Reason: Indigestion Senna + Docusate [Senna Plus Tablet] 2 tab PO BID PRN tab PRN Reason: Constipation Propranolol [Inderal] 10 mg PO TID #60 tab Changed Nicotine Patch [Nicoderm] 14 mg TD DAILY #1 patch Discontinued PARoxetine HCl [Paxil] 30 mg PO HS #0 Mirtazapine 7.5 mg PO HS HydrOXYzine [Atarax] 10 mg PO TID PRN tab PRN Reason: Anxiety Lactulose Oral Liq [Lactulose] 20 gm PO BID PRN solution PRN Reason: Constipation LORazepam INJ [Ativan Inj] 1 mg IVP Q4H PRN vial PRN Reason: Agitation Nicotine Patch Removal 1 removal TD DAILY patch Potassium Chloride [K-Dur] 20 meq PO WB tab Vancomycin [Vancocin] 1,250 mg IV 0600,1400,2200 vial - Disposition 01 Discharged Home, Self-Care - Dismissal Complete Discharge Instructions are:: Complete, Incomplete
--- NOTE | 2017-04-12 11:40 | XRay Report ---
Indication: Check ankle position prior to discharge. PROCEDURE: XR ankle RT min 3V: Encounter: Initial Comparison: April 05, 2017 Findings: Internally fixed distal tibial and fibular fractures are stable in alignment. No change in appearance of the hardware. Overlying casting material obscuring fine bony detail. No new fracture or dislocation. Impression: Stable appearance of the postoperative ankle. .
--- NOTE | 2017-04-12 12:05 | Progress Note ---
- Date 04/12/17 Subjective: Milan was at bedside applying a new cast. Milan states that Tisha should be able to go home either tomorrow or , and Tisha is very pleased with this. He states that he slept better last night. He's started to have some diarrhea and actually reports that he's had alternating diarrhea/constipation ever since starting on antibiotics. He states that he's going to call the "scooter store" b /c he knows he can't put weight on his right leg. He is looking forward to starting college courses soon, and to get home and play his guitar. Objective Vital signs: Temperature 96.8 F 04/12/17 07:25 Pulse Rate 83 04/12/17 07:25 Respiratory Rate 16 04/12/17 07:25 Blood Pressure 111/67 04/12/17 07:25 Pulse Oximetry 95 04/12/17 07:25 Height/Weight/BMI: Height 1.83 m Weight 97.9 kg Body Mass Index 28.5 - Constitutional Present: no acute distress, well nourished, well developed - Routine HEENT Exam Eye: Present: PERRL. Absent: conjunctival icterus, scleral injection - Routine Respiratory Exam Present: CTA bilaterally - Routine Cardiovascular Exam Present: RRR, S1, S2 - Routine Abdominal Exam Present: soft, normoactive bowel sounds, non distended, non tender - Routine Extremities Exam Present: no edema (LLE) Comments: cast reapplied to RLE - Routine Musculoskeletal Exam Musculoskeletal: Present: moving extremities well - Routine Skin Exam Present: dry, warm - Routine Neurological Exam Present: alert, oriented X3, normal speech - Routine Psychiatric Exam Present: normal affect, normal thought process, cooperative Results - Labs CBC & Chem 7: 04/11/17 06:24 04/12/17 04:03 Assessment and Plan (1) Skin infection Current visit: No Status: Acute (2) MRSA (methicillin resistant Staphylococcus aureus) infection Current visit: Yes Status: Acute Assessment and Plan: Impression Status post ORIF of fracture of ankle MRSA infection of right ankle wound Cirrhosis with hx of hepatic encephalopathy Hepatitis C Alcoholism Major depressive disorder Tobacco dependence Plan Discharge planned for either 04/13/17 or 04/15/17. [place] [facility] [place] and states that his insurance will provide transportation. Per Dr. Burgos, he will need vanco through 04/20/17 or 05/04/17. Discussed with DAVID Mondragon. Mg improved to 1.7. Phos elevated at 5.1; monitor. - Time spent with patient Time with patient PN: 25 minutes - Physician Narrative Physician: Dannie Chu MD Narrative: Date: 04/12/17 Time: 1515 Have independently interviewed and examined pt. Chart reviewed. Case discussed with my CIRCUIT BOARD INSPECTOR. Care plan developed with my supervision; agree with above. Doing well today. Had cast change. Dr Garcia was able to remove the wound vac. Very encouraged about this. Hopeful to go home in near future. Breathing well. Eating well. Bowel stable. Lungs: decreased, no distress CV: regular MSE: awake alert appropriate Plan: Continue with supportive care. Hope for discharge in near future. Discussed with patient about cautious use of pain medications - discussed potential for dependency/abuse. He doesn't feel he will have problems with this as 'alcohol is my drug of choice.' Did advise that there is still high potential for problems to developed with narcotic pain medications, especially now as his pain in becoming more chronic. Hospital Course Summary Disclaimer: The visit summary below is not to be considered part of the above Progress Note. Hospital Course: 03/30/17 Impression Status post ORIF of fracture of ankle MRSA infection of right ankle wound Cirrhosis with hx of hepatic encephalopathy Hepatitis C Alcoholism Major depressive disorder Tobacco dependence Plan Agree with swing bed admission under the care of Dr Garcia He will require 4-6 weeks of IV Vancomycin for treatment of MRSA wound He is to be strict NWBS on right ankle Lasix and potassium scheduled. Monitor chemistry panel several times a week Nicotine patch to assist with chronic tobacco dependence Percocet and Neurontin for pain. Monitor mental status as he has had difficulty with encephalopathy in the past Hydroxyzine, Paxil, BuSpar, and Remeron for anxiety and depression Continue ASA BID for ongoing anticoagulation and DVT prophylaxis The hospitalist service will continue to follow patient to medically manage medical comorbidities. At time of discharge medical care is to return to PCP, Kelin Pinedo -CIRCUIT BOARD INSPECTOR at [facility]. 03/31/17-discontinued IV Ativan as it increased controlled substances has been known to cause patient increased encephalopathy. Recommend minimizing. 04/01/17-Limit narcotics/benzos - he's had 3 doses of oxycodone so far today, about 3 hours apart. He reports pain control is improving. Not somnolent this am. K is stable at 4.2. KDur is on hold. Recheck BMP (along with CBC) on . 04/02/17 Plan Continue with current treatment as per Dr Garcia, Non weight bearing Wound Vac intact Continue with limiting Narcotics and Benzos as this has caused confusion Dr Sun recommends tapering down Paxil and increasing Remeron. Paxil decreased to 20 milligrams yesterday, on 04/04 will decreased to 10 milligrams daily, on 04/07 discontinue Paxil completely. These orders written. Remeron increased to 15 milligrams at at bedtime. Recheck CBC. BMP tomorrow 04/03/17 Continue IV vanco + wound vac. Labs stable. 04/04/17 Decrease nicotine patch to 14mg qd. Plan - 04/06/17 (Mirakian) Overall, Tisha appears to be doing well. Continue care per ortho. Patient seen and evaluated by Dr. Burgos regarding MRSA to right ankle. Continue IV vancomycin with pharmacy to manage for a total duration of 4-6 weeks (through 04/20/17 or 05/04/17). Wound vac remains in place and being managed by wound care. Patient was seen and evaluated by Dr. Sun regarding nightmares. He reports improvement of nightmares on exam. The increased nightmares is likely secondary to increased dosage of Remeron. Appreciate Dr. Sun's note. She recommends decreasing Remeron back to 7.5 mg daily. Continue to taper off Paxil and possibly initiate a different antidepressant. Continue to provide safe and supportive environment. Will recheck labs in AM to monitor electrolytes, renal function and blood counts. Continue to encourage nonweight bearing status to right ankle. 04/07/17 - Stable medically. Continues NWBS followed by Dr Garcia. Vanco IV through 04/20-05/04 under the care of Dr Burgos. Plan - 04/10/17 (Mirakian) Overall, Tisha appears medically stable. Was seen by Dr. Leary with regard to anxiety, depression and nightmares. Remeron was increased to 15mg QHS - he denies nightmares last night. Continue to provide safe and supportive environment. Continue to try and reduce frequency of oxycodone, changing it from every 3 to every 4 hours as needed. Continue with bowel motivation. Continue Vancomycin for MRSA in right ankle per Dr. Burgos (through 04/20/17 or ). Maintain NWB to right leg; continue wound vac per ortho. Plan - 04/11/17 (Mirakian) Overall, Tisha appears medically stable. Post-op anemia improving - hemoglobin 10.3. New hypomagnesium noted with Mg 1. Will supplement and continue to monitor. Phosphorus pending. Ammonia pending. More depressed mood today - denies SI/HI. Encourage nursing to offer different environments (ie. wheelchair to reyes window, etc) to try and improve mood. Continue psychiatric care per Dr. Leary. Remeron was increased to 15mg QHS on 04/09 - he denies nightmares last night but continues with strange dreams. Try to encourage activity during the day for better sleep habits at night. Continue to provide safe and supportive environment. Patient complained of increased pain due to decreased frequency of pain medication. Continue oxycodone Q4H with PRN. Will discuss additional non- narcotic pain options with ortho for PRN. Continue with bowel motivation. Continue Vancomycin for MRSA in right ankle per Dr. Burgos (through 04/20/17 or ) with wound vac - per ortho. CRP trending down (11.9). Maintain NWB to right leg; continue wound vac per ortho. 04/12/17 Discharge planned for either 04/13/17 or 04/15/17. He plans on coming [place] [facility] [place] and states that his insurance will provide transportation. Mg improved to 1.7. Phos elevated at 5.1; monitor.
--- NOTE | 2017-04-12 15:58 | Pharmacy Consult-Antibiotics ---
Pharmacy Consult-Vancomycin - Laboratory Information WBC 6.3 T/MM3 (4.5-11.0) 04/11/17 06:24 BUN 9.0 MG/DL (9-20) 04/12/17 04:03 Creatinine 0.9 MG/DL (0.8-1.5) 04/12/17 04:03 Vancomycin Trough 21.53 UG/ML (15-20) H* 04/12/17 10:09 - Consult Information VANCOMYCIN CONSULT: 51 yr old Male 6' 0" 98 kg - right ankle fracture with MRSA on extended vancomyin therapy. Dose 1 gram IV q8hrs. Vancomycin Trough = 21.53 mcg/ml. Adjust dose so that patient is still receiving 3 grams/day by increasing the dose to 1500 mg and increasing the interval to q12hrs. This dose and schedule will keep the trough under 20. Today's SCr = 0.9 mg/dl. Will give Vancomycin 1500 mg IV q12hrs. Will continue to monitor and make adjustments accordingly. Thank you. Gema Metcalf, PharmD
[2017-04-12] MEDS: MIRTAZAPINE 15 MG TABLET PO SCH (20:23)
[2017-04-12] MEDS ORDERED: VANCOMYCIN 1,500 MG in NS 500 ML IV SCH (21:00)
[2017-04-13] MEDS: Oxycodone *IR* 5 MG TABLET PO PRN ×3 (01:09→11:43)
[2017-04-13 07:24] VITALS: BP 119/76; PULSE 69; RESP 18; TEMP 97.2; O2SAT 97
[2017-04-13] MEDS: FUROSEMIDE 40 MG TABLET PO SCH (08:22)
[2017-04-13] MEDS: NICOTINE 14 MG PATCH TD SCH (08:22)
[2017-04-13] MEDS: SPIRONOLACTONE 50 MG TABLET PO SCH (08:22)
[2017-04-13] MEDS: BUSPIRONE 15 MG TABLET PO SCH (08:23)
[2017-04-13] MEDS: PROPRANOLOL 10 MG TABLET PO SCH (08:23)
[2017-04-13] MEDS: ASPIRIN 81 MG CHEWABLE TABLET PO SCH (08:23)
[2017-04-13] MEDS: GABAPENTIN 300 MG CAPSULE PO SCH (08:23)
[2017-04-13] MEDS: NICOTINE PATCH REMOVAL TD SCH (08:23)
--- NOTE | 2017-04-13 08:31 | ID Progress Note ---
Subjective Date: 04/13/17 Subjective: He denies any specific symptoms today. His ankle pain is better. States the wound VAC was removed yesterday. Plans are being made to discharge him home and have him return to the infusion center for IV antibiotics. He asks me what kind of pain meds he's going to be sent home on. Exam Vital Signs: Temperature 97.2 F 04/13/17 07:24 Pulse Rate 69 04/13/17 07:24 Respiratory Rate 18 04/13/17 07:24 Blood Pressure 119/76 04/13/17 07:24 Pulse Oximetry 97 04/13/17 07:24 Height/Weight/BMI: Height 1.83 m Weight 98.1 kg Body Mass Index 28.5 - Constitutional Present: no acute distress, well nourished, well developed - Routine HEENT Exam Head: Present: normocephalic, atraumatic Eye: Present: EOMI, PERRL ENT: Present: mucous membranes moist - Routine Neck Exam Present: supple - Routine Respiratory Exam Present: CTA bilaterally - Routine Cardiovascular Exam Present: RRR - Routine Abdominal Exam Present: soft, normoactive bowel sounds, non distended, non tender - Routine Extremities Exam Absent: cyanosis, clubbing, edema Comments: RLE is in a cast - Routine Skin Exam Absent: rash Comments: RUE PICC site ok - Routine Neurological Exam Present: alert, oriented X3, CN II-XII intact. Absent: motor deficit - Routine Psychiatric Exam Present: normal affect, normal thought process Results - Labs CBC & Chem 7: 04/11/17 06:24 04/12/17 04:03 Impression: Post-operative infection Right ankle-MRSA R ankle fracture s/p ORIF of right trimalleolar equivalent ankle fracture/ dislocation with repair of deltoid rupture 02/24/17, s/p I&D of right ankle lateral surgical site with revision ORIF right ankle on 03/11/17 with application of incisional wound VAC, followed by revision ORIF right ankle, with placement of wound VAC on 03/23/17. Wound cultures near lateral hardware 03/23 grew MRSA. Encephalopathy Chronic Alcohol use Depression Hepatitis C Cirrhosis with splenomegaly and esophageal varices, followed by Dr. Alvarez COPD Hypertension Chronic tobacco dependence Recommendation: Recommend Vancomycin for 6 weeks due to infection adjacent to hardware. This would go through 05/04/17. I'll change him to Daptomycin 600mg IV daily since he 's going to be discharged. He will come to the Infusion center daily for infusions. He reports that transportation will be provided by his insurance. I 'll order routine PICC cares, weekly CBC with diff, BMP, CRP and CPK. I'll see him in follow up in the wound clinic.
[2017-04-13] MEDS ORDERED: DAPTOMYCIN IVP SCH ×2 (09:00)
[2017-04-13] MEDS ORDERED: NS IVP SCH ×2 (09:00)
[2017-04-13] MEDS: SALINE FLUSH 10ml SYRINGE IV PRN (09:25)
--- NOTE | 2017-04-13 13:10 | Neuropsych Progress Note ---
[facility] Subjective Date: 04/13/17 - Sujective/Severity of Illness Medications: Al Hydroxide/Mg Hydroxide (Maalox Plus) 30 ml PO Q3H PRN PRN Reason: Indigestion Last Admin: 04/06/17 20:44 Dose: 30 ml Albuterol Sulfate (Proventil Neb (0.5%)) 2.5 mg AEROSOL Q2H PRN Aspirin (Asa) 81 mg PO BID [facility] Last Admin: 04/13/17 08:23 Dose: 81 mg Buspirone HCl (Buspar) 15 mg PO TID [facility] Last Admin: 04/13/17 08:23 Dose: 15 mg Furosemide (Lasix) 40 mg PO DAILY [facility] Last Admin: 04/13/17 08:22 Dose: 40 mg Gabapentin (Neurontin) 300 mg PO TID [facility] Last Admin: 04/13/17 08:23 Dose: 300 mg Daptomycin 600 mg/ Sodium (Chloride) 12 mls @ 300 mls/hr IVP DAILY [facility] Last Admin: 04/13/17 09:25 Dose: 300 mls/hr Lactulose (Lactulose) 20 gm PO BID PRN PRN Reason: Constipation Mirtazapine (Remeron) 15 mg PO HS [facility] Last Admin: 04/12/17 20:23 Dose: 15 mg Nicotine (Nicotine Patch Removal) 1 removal TD DAILY [facility] Last Admin: 04/13/17 08:23 Dose: 1 removal Nicotine (Nicoderm) 14 mg TD DAILY [facility] Last Admin: 04/13/17 08:22 Dose: 14 mg Oxycodone HCl (Roxicodone *Ir*) 5 - 10 mg PO Q4H PRN PRN Reason: Pain Last Admin: 04/13/17 11:43 Dose: 10 mg Polyethylene Glycol (Miralax) 17 gm PO DAILY PRN PRN Reason: Constipation Last Admin: 04/09/17 08:34 Dose: 17 gm Potassium Chloride (K-Dur) 20 meq PO WB [facility] Last Admin: 03/31/17 09:21 Dose: 20 meq Propranolol HCl (Inderal) 10 mg PO TID [facility] Last Admin: 04/13/17 08:23 Dose: 10 mg Senna/Docusate Sodium (Senna Plus Tablet) 2 tab PO BID PRN PRN Reason: Constipation Last Admin: 04/10/17 09:58 Dose: 2 tab Sodium Chloride (Normal Saline) 500 ml IV PRN PRN Last Admin: 04/12/17 11:28 Dose: 500 ml Sodium Chloride (Iv Flush) 10 - 80 ml IV PRN PRN PRN Reason: Flushing Last Admin: 04/13/17 09:25 Dose: 20 ml Spironolactone (Aldactone) 50 mg PO DAILY [facility] Last Admin: 04/13/17 08:22 Dose: 50 mg Subjective: Patient seen and chart reviewed. Case discussed with treatment team. Patient is seen to discuss options for antidepressants since taper off of Paxil. He felt Paxil worked well but understands difficulty with interactions with other medications. In regards to other options for SSRIs/SNRIs, patient states he has tried all of them (20+) and none of them have worked -- the only thing he feels has worked is benzodiazepines. He then perseverates on why prescribers will not prescribe benzos for the remainder of the conversation. He does not want to re-try any other antidepressants at this point. Patient denies any SI, HI or AVH. Patient denies any adverse side effects related to psychotropic medications and appears to be tolerating mirtazapine well without nightmares previously reported. Recommended continued outpatient f/u with outpatient psychiatric providers. Start Time: 11:00 Stop Time: 11:20 Mental Status Exam Vitals: Last Vital Signs Temp 97.2 F 04/13/17 07:24 Pulse 69 04/13/17 07:24 Resp 18 04/13/17 07:24 BP 119/76 04/13/17 07:24 Pulse Ox 97 04/13/17 07:24 Height: 1.83 m Weight: 98.1 kg - Mental Status Exam Muscle Strength/Tone: Normal Dressing: Casual Grooming: Fair Attitude: Cooperative Motor Activity: Normal Eye Contact: Fair Speech: Normal Volume: Loud Rhythm: Appropriate Rhythm Orientation: Oriented X4 Mood: Neutral (mildly irritable affect) Rate of Thoughts: Delayed Thought Organization: Organized Associations: Intact Abstract Reasoning: Poor abstract reasoning Thought Content: Normal Perception/Psychotic: Perception Normal Language: Naming Intact Fund of Knowledge: Appropriate Memory: Grossly Intact Suicidal Ideation: Denies Homicidal Ideation: Denies Insight: Fair Judgement: Fair Impulse Control: Fair - Laboratory Result Diagrams: 04/11/17 06:24 04/12/17 04:03 Laboratory Results - last 24 hr 01/02/18 10:09 Vancomycin Trough 21.53 H* Assessment and Plan (1) Alcohol use disorder Current visit: No Status: Acute (2) Cirrhosis Problem details: With hepatic encephalopathy Current visit: No Status: Chronic Patient reports history of depression and anxiety (in addition to alcohol use disorder) which he feels is best treated by benzodiazepines. He is not interested in further options for med management such as alternate SSRIs/SNRIs at this point. Recommend outpatient f/u with [facility] for med management and individual therapy as desired. Hospital Course Summary Disclaimer: The visit summary below is not to be considered part of the above Progress Note. Hospital Course: 03/30/17 Impression Status post ORIF of fracture of ankle MRSA infection of right ankle wound Cirrhosis with hx of hepatic encephalopathy Hepatitis C Alcoholism Major depressive disorder Tobacco dependence Plan Agree with swing bed admission under the care of Dr Garcia He will require 4-6 weeks of IV Vancomycin for treatment of MRSA wound He is to be strict NWBS on right ankle Lasix and potassium scheduled. Monitor chemistry panel several times a week Nicotine patch to assist with chronic tobacco dependence Percocet and Neurontin for pain. Monitor mental status as he has had difficulty with encephalopathy in the past Hydroxyzine, Paxil, BuSpar, and Remeron for anxiety and depression Continue ASA BID for ongoing anticoagulation and DVT prophylaxis The hospitalist service will continue to follow patient to medically manage medical comorbidities. At time of discharge medical care is to return to PCP, Kelin WOOD at [facility]. 03/31/17-discontinued IV Ativan as it increased controlled substances has been known to cause patient increased encephalopathy. Recommend minimizing. 04/01/17-Limit narcotics/benzos - he's had 3 doses of oxycodone so far today, about 3 hours apart. He reports pain control is improving. Not somnolent this am. K is stable at 4.2. KDur is on hold. Recheck BMP (along with CBC) on . 04/02/17 Plan Continue with current treatment as per Dr Garcia, Non weight bearing Wound Vac intact Continue with limiting Narcotics and Benzos as this has caused confusion Dr Sun recommends tapering down Paxil and increasing Remeron. Paxil decreased to 20 milligrams yesterday, on 04/04 will decreased to 10 milligrams daily, on 12/28 discontinue Paxil completely. These orders written. Remeron increased to 15 milligrams at at bedtime. Recheck CBC. BMP tomorrow 04/03/17 Continue IV vanco + wound vac. Labs stable. 04/04/17 Decrease nicotine patch to 14mg qd. Plan - 04/06/17 ([facility]) Overall, Tisha appears to be doing well. Continue care per ortho. Patient seen and evaluated by Dr. Burgos regarding MRSA to right ankle. Continue IV vancomycin with pharmacy to manage for a total duration of 4-6 weeks (through 04/20/17 or 05/04/17). Wound vac remains in place and being managed by wound care. Patient was seen and evaluated by Dr. Sun regarding nightmares. He reports improvement of nightmares on exam. The increased nightmares is likely secondary to increased dosage of Remeron. Appreciate Dr. Sun's note. She recommends decreasing Remeron back to 7.5 mg daily. Continue to taper off Paxil and possibly initiate a different antidepressant. Continue to provide safe and supportive environment. Will recheck labs in AM to monitor electrolytes, renal function and blood counts. Continue to encourage nonweight bearing status to right ankle. 04/07/17 - Stable medically. Continues NWBS followed by Dr Garcia. Vanco IV through 04/20-05/04 under the care of Dr Burgos. Plan - 04/10/17 ([facility]) Overall, Tisha appears medically stable. Was seen by Dr. Leary with regard to anxiety, depression and nightmares. Remeron was increased to 15mg QHS - he denies nightmares last night. Continue to provide safe and supportive environment. Continue to try and reduce frequency of oxycodone, changing it from every 3 to every 4 hours as needed. Continue with bowel motivation. Continue Vancomycin for MRSA in right ankle per Dr. Burgos (through 04/20/17 or ). Maintain NWB to right leg; continue wound vac per ortho. Plan - 04/11/17 ([facility]ian) Overall, Tisha appears medically stable. Post-op anemia improving - hemoglobin 10.3. New hypomagnesium noted with Mg 1. Will supplement and continue to monitor. Phosphorus pending. Ammonia pending. More depressed mood today - denies SI/HI. Encourage nursing to offer different environments (ie. wheelchair to reyes window, etc) to try and improve mood. Continue psychiatric care per Dr. Leary. Remeron was increased to 15mg QHS on 04/09 - he denies nightmares last night but continues with strange dreams. Try to encourage activity during the day for better sleep habits at night. Continue to provide safe and supportive environment. Patient complained of increased pain due to decreased frequency of pain medication. Continue oxycodone Q4H with PRN. Will discuss additional non- narcotic pain options with ortho for PRN. Continue with bowel motivation. Continue Vancomycin for MRSA in right ankle per Dr. Burgos (through 04/20/17 or ) with wound vac - per ortho. CRP trending down (11.9). Maintain NWB to right leg; continue wound vac per ortho. 04/12/17 Discharge planned for either 04/13/17 or 04/15/17. He plans on coming to [facility] for vancomycin infusions and states that his insurance will provide transportation. Mg improved to 1.7. Phos elevated at 5.1; monitor. 04/13/16 Psych: Patient reports history of depression and anxiety (in addition to alcohol use disorder) which he feels is best treated by benzodiazepines. He is not interested in further options for med management such as alternate SSRIs/ SNRIs at this point. Recommend outpatient f/u with [facility] for med management and individual therapy as desired.
--- NOTE | 2017-04-13 13:58 | Progress Note ---
- Date 04/13/17 Subjective: Tisha is doing well although is a bit flabbergasted as to why no one will prescribe him benzos to help his anxiety, which is the only med that will work for him. However, he states that his anxiety and depression are actually quite manageable right now, and doesn't feel like further adjustments are necessary. He reports that he used to take Xanax 2 mg TID and Klonopin at night while he was drinking heavily - he knows he has a tendency towards addiction and he promises he wouldn't abuse benzos like he had in the past. He also honestly reported that he doesn't think that he will be able to stay sober - he will probably start drinking "some" when he's out of the hospital. He knows that he' s not supposed to be putting any weight on his leg, and has a scooter at his bedside. Dr. Garcia was also in the room and he emphasized the importance of NWB, keeping the cast clean and dry, and avoiding inserting anything inside his cast even if it itches. Tisha voiced an understanding. Objective Vital signs: Temperature 97.2 F 04/13/17 07:24 Pulse Rate 69 04/13/17 07:24 Respiratory Rate 18 04/13/17 07:24 Blood Pressure 119/76 04/13/17 07:24 Pulse Oximetry 97 04/13/17 07:24 Height/Weight/BMI: Height 1.83 m Weight 98.1 kg Body Mass Index 28.5 - Constitutional Present: no acute distress, well nourished, well developed - Routine HEENT Exam Head: Present: normocephalic Eye: Absent: conjunctival icterus, scleral injection ENT: Present: mucous membranes moist, oropharynx clear. Absent: dentition normal (decay) - Routine Respiratory Exam Present: CTA bilaterally - Routine Cardiovascular Exam Present: RRR, S1, S2 - Routine Abdominal Exam Present: soft, normoactive bowel sounds, non tender - Routine Extremities Exam Present: no edema (left leg) Comments: RLE casted - Routine Musculoskeletal Exam Musculoskeletal: Present: moving extremities well - Routine Skin Exam Present: intact, dry, warm - Routine Neurological Exam Present: alert, oriented X3 - Routine Psychiatric Exam Present: normal affect, normal thought process, cooperative Results - Labs CBC & Chem 7: 04/11/17 06:24 04/12/17 04:03 Assessment and Plan (1) Skin infection Status: Acute (2) MRSA (methicillin resistant Staphylococcus aureus) infection Status: Acute Assessment and Plan: Impression Status post ORIF of fracture of ankle MRSA infection of right ankle wound Cirrhosis with hx of hepatic encephalopathy Hepatitis C Alcoholism Major depressive disorder Tobacco dependence Plan Discharge today; medically stable. Dr. Burgos wrote for daptomycin infusions. Precautions reviewed with Tisha. DC Paxil; increase Remeron to 15 mg. Cont Lasix and spironolactone. Will continue off KDur - K has remained stable for the last week while off of it. Psych recommends outpatient f/u. - Physician Narrative Physician: James Lombardi MD Narrative: Date: 04/13/17 Time: 1614 I have independently interviewed and examined pt. Chart reviewed. Case discussed with my OUTREACH EDUCATOR. Care plan developed with my supervision; agree with above. Doing well today. Ready for dismissal to home. He says everything is arranged. Lungs: decreased, no distress CV: regular MSE: awake alert appropriate Plan: Ortho dismissing to home. He will get IV abx as outpatient. Hospital Course Summary Disclaimer: The visit summary below is not to be considered part of the above Progress Note. Hospital Course: 03/30/17 Impression Status post ORIF of fracture of ankle MRSA infection of right ankle wound Cirrhosis with hx of hepatic encephalopathy Hepatitis C Alcoholism Major depressive disorder Tobacco dependence Plan Agree with swing bed admission under the care of Dr Garcia He will require 4-6 weeks of IV Vancomycin for treatment of MRSA wound He is to be strict NWBS on right ankle Lasix and potassium scheduled. Monitor chemistry panel several times a week Nicotine patch to assist with chronic tobacco dependence Percocet and Neurontin for pain. Monitor mental status as he has had difficulty with encephalopathy in the past Hydroxyzine, Paxil, BuSpar, and Remeron for anxiety and depression Continue ASA BID for ongoing anticoagulation and DVT prophylaxis The hospitalist service will continue to follow patient to medically manage medical comorbidities. At time of discharge medical care is to return to PCP, Kelin Pinedo -OUTREACH EDUCATOR at [facility]. 03/31/17-discontinued IV Ativan as it increased controlled substances has been known to cause patient increased encephalopathy. Recommend minimizing. 04/01/17-Limit narcotics/benzos - he's had 3 doses of oxycodone so far today, about 3 hours apart. He reports pain control is improving. Not somnolent this am. K is stable at 4.2. KDur is on hold. Recheck BMP (along with CBC) on . 04/02/17 Plan Continue with current treatment as per Dr Garcia, Non weight bearing Wound Vac intact Continue with limiting Narcotics and Benzos as this has caused confusion Dr Sun recommends tapering down Paxil and increasing Remeron. Paxil decreased to 20 milligrams yesterday, on 04/04 will decreased to 10 milligrams daily, on 04/07 discontinue Paxil completely. These orders written. Remeron increased to 15 milligrams at at bedtime. Recheck CBC. BMP tomorrow 04/03/17 Continue IV vanco + wound vac. Labs stable. 04/04/17 Decrease nicotine patch to 14mg qd. Plan - 04/06/17 ([facility]) Overall, Tisha appears to be doing well. Continue care per ortho. Patient seen and evaluated by Dr. Burgos regarding MRSA to right ankle. Continue IV vancomycin with pharmacy to manage for a total duration of 4-6 weeks (through 04/20/17 or 05/04/17). Wound vac remains in place and being managed by wound care. Patient was seen and evaluated by Dr. Sun regarding nightmares. He reports improvement of nightmares on exam. The increased nightmares is likely secondary to increased dosage of Remeron. Appreciate Dr. Sun's note. She recommends decreasing Remeron back to 7.5 mg daily. Continue to taper off Paxil and possibly initiate a different antidepressant. Continue to provide safe and supportive environment. Will recheck labs in AM to monitor electrolytes, renal function and blood counts. Continue to encourage nonweight bearing status to right ankle. 04/07/17 - Stable medically. Continues NWBS followed by Dr Garcia. Vanco IV through 04/20-05/04 under the care of Dr Burgos. Plan - 04/10/17 ([facility]) Overall, Tisha appears medically stable. Was seen by Dr. Leary with regard to anxiety, depression and nightmares. Remeron was increased to 15mg QHS - he denies nightmares last night. Continue to provide safe and supportive environment. Continue to try and reduce frequency of oxycodone, changing it from every 3 to every 4 hours as needed. Continue with bowel motivation. Continue Vancomycin for MRSA in right ankle per Dr. Burgos (through 04/20/17 or ). Maintain NWB to right leg; continue wound vac per ortho. Plan - 04/11/17 ([facility]) Overall, Tisha appears medically stable. Post-op anemia improving - hemoglobin 10.3. New hypomagnesium noted with Mg 1. Will supplement and continue to monitor. Phosphorus pending. Ammonia pending. More depressed mood today - denies SI/HI. Encourage nursing to offer different environments (ie. wheelchair to reyes window, etc) to try and improve mood. Continue psychiatric care per Dr. Leary. Remeron was increased to 15mg QHS on 04/09 - he denies nightmares last night but continues with strange dreams. Try to encourage activity during the day for better sleep habits at night. Continue to provide safe and supportive environment. Patient complained of increased pain due to decreased frequency of pain medication. Continue oxycodone Q4H with PRN. Will discuss additional non- narcotic pain options with ortho for PRN. Continue with bowel motivation. Continue Vancomycin for MRSA in right ankle per Dr. Burgos (through 04/20/17 or ) with wound vac - per ortho. CRP trending down (11.9). Maintain NWB to right leg; continue wound vac per ortho. 04/12/17 Discharge planned for either 04/13/17 or 04/15/17. He plans on coming to [facility] for vancomycin infusions and states that his insurance will provide transportation. Mg improved to 1.7. Phos elevated at 5.1; monitor. 04/13/16 Psych: Patient reports history of depression and anxiety (in addition to alcohol use disorder) which he feels is best treated by benzodiazepines. He is not interested in further options for med management such as alternate SSRIs/ SNRIs at this point. Recommend outpatient f/u with [facility] for med management and individual therapy as desired. 04/13/17 14:00 Stable for discharge; will come to hospital for daptomycin infusions. Increase remeron to 15 mg; Paxil has been dc'd. Continue Lasix and spironolactone.
== END 2017-04-13 15:08 | disposition home or self-care (01) | DRG 949 ==
LOC: SRG 14:26
PROVIDERS: ADMIT Orthopaedic Surgery; ATTEND Orthopaedic Surgery